=== PATIENT | female | born 1965 | race Caucasian/White ===

== ENCOUNTER → 2016-10-15 | Outpatient (CLI) | payer OTHER ==
[~2016-10-15] MED LIST: /AUGM875TA OR; /WARF25TA PO; /WARF5TA OR; ACET65TA PO; AMOX500C PO; ASPI81TA83 PO; BUPR10TASR PO; CELE10TA OR; CELE20TA PO; CLAR10CA3 PO; CYMB1CAP4 PO; DOXE150C7 PO; DULO30CA PO; ESTRTAB6 PO; FERR325T3 PO; GABA-279 PO; GABA-283 PO; GABA300C3 PO; HYDR50TA8; LEXA1TAB PO; LUNE1TAB9 PO; LUNE2TAB OR; MORP-38 PO; MORPHINE SULFATE IR PO; MS C30TA PO; MULT1TAB10 PO; NORCO PO; OMEP10CASR PO; PERC7.5T8 PO; PRED5TA PO; PRIL20CA PO; PRIL40CA OR; REQU2TAB3 PO; ROPI1TAB PO; TOPA50TA7 PO; TRAM50TA2 PO; TRAZ100T; TRAZ100T4 PO; TRAZ50TA; VICO5TAB OR; WARF5VL PO; XANA1TAB2 OR; XANA1TAB2 PO; XARE10TA PO; ZOLO100T OR; ZOLO50TA; [UNRECOGNIZED DRUG - OTHER] PO; naproxen
--- NOTE | 2016-10-29 01:46 | ECWPNPC ---
PATIENT NAME: PRINCE DUFFY : 1965 GENDER: FEMALE VISIT DATE: 10/15/2016 DISCHARGE DATE: 10/15/16 1540 VISIT LOCKED DATE TIME: PHYSICIAN: HOMERO ELIZONDO RESOURCE: HOMERO ELIZONDO REASON FOR APPOINTMENT 1. ARTHRITIS HISTORY OF PRESENT ILLNESS HISTORY OF PRESENT ILLNESS: HERE FOR F/U AND MEDICINE MANAGEMENT FOR CHRONIC GENERALIZED JOINT PAIN W HX OF LUPUS.CURRENTLY NOT TAKING TRAMADOL DUE TO INSURANCE WONT COVER.DISCUSSED MEDICATION OPTIONS.CHIEF AREA OF PAIN IS RIGHT THUMB AND SHOULDER.WE INCREASED CYMBALTA A FEW MOS AGO AND PATIENT DOESNT REALLY KNOW IF ITS MAKING PAIN ANY BETTER.RATING PAIN VAS 9/10.STARTED ON MS CONTIN 30MG BID AT LAST VISIT THAT PATIENT FEELS IS NOT HELPFUL.WAS TAKEN OFF TRAMADOL DUE TO POTENTIAL INTERACTIONS WITH ANTIDEPRESSANTS.HAS BEEN HAVING INCREASED ANXIETY AND INABILITY TO SLEEP. PAIN THE PATIENT DESCRIBES THE PAIN... THE PATIENT DESCRIBES THE PAIN... THE PATIENT DESCRIBES THE PAIN... FALL RISK SCREENING: SCREENING :NO FALLS IN THE PAST YEAR CURRENT MEDICATIONS TAKING XANAX 0.5 MG TABLET 1 TABLET ORALLY THREE TIMES A DAY TAKING WELLBUTRIN 150 MG TABLET 1 TABLET ORALLY DAILY TAKING PRILOSEC 40 MG CAPSULE DELAYED RELEASE 1 CAPSULE ORALLY BID TAKING FOLIC ACID 1 MG TABLET 1 TABLET ORALLY ONCE A DAY TAKING REQUIP 2 MG TABLET 1 TABLET 1 TO 3 HOURS BEFORE BEDTIME ORALLY ONCE A DAY TAKING NAPROXEN 500 MG TABLET 1 TABLET NEEDED ORALLY EVERY 12 HRS PRN TAKING ZYRTEC ALLERGY 10 MG TABLET 1 TABLET ORALLY ONCE A DAY TAKING PLAQUENIL 200 MG TABLET 1 TABLET WITH FOOD OR MILK ORALLY TWICE A DAY TAKING TRAMADOL HCL 50 MG TABLET 1 TABLET NEEDED ORALLY EVERY 6 HRS PRN MDD4 TAKING MS CONTIN 30 MG TABLET EXTENDED RELEASE 1 TABLET ORALLY EVERY 12 HRS MDD2 TAKING CYMBALTA 60 MG CAPSULE DELAYED RELEASE PARTICLES 1 CAPSULE ORALLY TWICE A DAY TAKING COLACE 100 MG CAPSULE 1 CAPSULE NEEDED ORALLY BID NOT-TAKING PREDNISONE 1 TAB ORAL 5MG X 5 DAYS NOT-TAKING BUTRANS 10 MCG/HR PATCH WEEKLY 1 PATCH TO SKIN TRANSDERMAL 1 PATCH Q 7 DAYS =MDD NOT-TAKING BUTRANS 5 MCG/HR PATCH WEEKLY 1 PATCH TO SKIN TRANSDERMAL 1 PATCH Z5M=TJF MEDICATION LIST REVIEWED AND RECONCILED WITH THE PATIENT PAST MEDICAL HISTORY SYSTEMIC LUPUS ERYTHEMATOSUS WITH ARTHRITIS CHRONIC HEPATITIS C PE ANXIETY SOCIAL HISTORY GENERAL: TOBACCO USE ARE YOU A:NONSMOKER LEARNING BARRIERS / SPECIAL NEEDS ORIENTED TO PLAN OF CARE: PATIENT, PAIN MANAGEMENT PATIENT, ORIENTED TO PLAN OF CARE: PATIENT, PAIN MANAGEMENT PATIENT. NEW PATIENT PAIN DIARY TODAY'S VISITNOTES FROM 0-10, WHAT LEVEL IS YOUR PAIN TODAY?0 PAIN CLINIC PFS, CLERGY, PUBLIC HEALTH REFERRALS PFS REFERRAL NEEDED?NO CLERGY REFERRAL NEEDED?NO PUBLIC HEALTH REFERRAL NEEDED?NO WAS THE PROVIDER NOTIFIED OF ANY PERTINENT INFO?NO PFS REFERRAL NEEDED?NO CLERGY REFERRAL NEEDED?NO PUBLIC HEALTH REFERRAL NEEDED?NO WAS THE PROVIDER NOTIFIED OF ANY PERTINENT INFO?NO REVIEW OF SYSTEMS CONSTITUTIONAL: ANY CHANGE IN YOUR MEDICAL CONDITION? NO . CHILLS NO . FEVER NO . INFECTION: DO YOU HAVE NEW INFECTIONS? NO . DO YOU HAVE HISTORY OF MRSA? NO . MUSCULOSKELETAL: ANY NEW PATTERNS OF PAIN OR NUMBNESS? NO . GASTROENTEROLOGY: ANY NEW CHANGE IN BOWEL CONTROL? NO . GENITOURINARY: ANY NEW CHANGE IN BLADDER CONTROL? NO . IS THERE A CHANCE YOU COULD BE ? NO . HEMATOLOGY/LYMPH: DO YOU TAKE ANY BLOOD THINNERS? (FOR EXAMPLE- COUMADIN, PLAVIX, AGGRENOX, PLATEL, PRADAXA, OR XARELTO) NO . WHEN WAS YOUR LAST DOSE? DATE: TIME: . NEUROLOGY: HAVE YOU FALLEN IN THE PAST 6 MONTHS? NO . ANY NEW EXTREMITY NUMBNESS OR WEAKNESS? NO . CARDIOLOGY: DO YOU HAVE A PACEMAKER OR DEFIBRILLATOR? NO . RESPIRATORY: HAVE YOU BEEN SICK IN THE PAST WEEK? NO . FEVER NO . FLU LIKE SYMPTOMS? NO . COUGH NO . INTEGUMENTARY: DO YOU HAVE ANY RASHES OR OPEN SORES? NO . ALLERGIC/IMMUNO: ARE YOU ALLERGIC TO SHELLFISH OR IV DYE? NO . ANY NEW ALLERGIES? NO . PSYCHIATRIC: DO YOU HAVE THOUGHTS OF HURTING YOURSELF OR SOMEONE ELSE? NO . ARE YOU ABUSED, NEGLECTED, OR IN AN UNSAFE ENVIRONMENT? NO . ENDOCRINOLOGY: ARE YOU DIABETIC? NO . OTHER: DO YOU NEED ANY PRESCRIPTIONS? NO . IF YES, PLEASE LIST: ____ . ANY NEW PROBLEMS WITH YOUR MEDICATIONS? NO . WHEN DID YOU LAST EAT? ____ . WHEN DID YOU LAST DRINK? ____ . WHAT DID YOU LAST DRINK? ____ . NAME OF PERSON DRIVING YOU HOME? ____ . DO YOU HAVE ANY OTHER QUESTIONS OR CONCERNS NO . REVIEWED BY: PROVIDER: HOMERO VICTOR . VITAL SIGNS WT 132 LBS, HT 62 IN, BMI 24.14 INDEX, BP 120/62 MM HG, HR 89 /MIN, RR 16 /MIN, TEMP 99.0 F, OXYGEN SAT % 98%, NA INITIALS SC 15:05. EXAMINATION GENERAL EXAMINATION: LUNGS:LUNG SOUNDS ARE CLEAR. HEART:HEART RATE REGULAR. MUSCULOSKELETAL:*, MUSCLE STRENGTH TESTING 5/5 BILATERAL, PALPATION: POSITIVE FOR PAIN OVER L/S SPINE. POSITIVE FOR PAIN OVER L/S PARSPINALS. MUSCULOSKELETAL:*. ASSESSMENTS SYSTEMIC LUPUS ERYTHEMATOSUS, UNSPECIFIED SLE TYPE, UNSPECIFIED ORGAN INVOLVEMENT STATUS - M32.9 (PRIMARY) CHRONIC PRESCRIPTION OPIATE USE - Z79.891 TREATMENT SYSTEMIC LUPUS ERYTHEMATOSUS, UNSPECIFIED SLE TYPE, UNSPECIFIED ORGAN INVOLVEMENT STATUS REFILL TRAMADOL HCL TABLET, 50 MG, 1 TABLET NEEDED, ORALLY, EVERY 6 HRS PRN MDD4, 30 DAY(S), 120, REFILLS 1 REFILL MS CONTIN TABLET EXTENDED RELEASE, 30 MG, 1 TABLET, ORALLY, EVERY 12 HRS MDD2, 30 DAY(S), 60, REFILLS 0 CONTINUE CYMBALTA CAPSULE DELAYED RELEASE PARTICLES, 60 MG, 1 CAPSULE, ORALLY, TWICE A DAY REFILL COLACE CAPSULE, 100 MG, 1 CAPSULE NEEDED, ORALLY, BID, 30 DAY(S), 60 CAPSULE, REFILLS 1 NOTES: ISTOP REGISTRY REVIEWED AND DEMNOSTRATES COMPLLIANCE. BRINGS IN MEDICATIONS WHICH IS APPROPRIATE FOR WHAT WAS DISPENSED. RECENT URINE TOXICOLOGY REVIEWED. NO UNAUTHORIZED MEDICATIONS. NO ILLICIT SUBSTANCES AND PRESCRIBED MEDICATIONS WERE PRESENT. , RISKS AND BENEFITS OF NARCOTIC/OPIOD MEDICATIONS WERE REVIEWED WITH PATIENT - THIS INCLUDES BUT IS NOT LIMITED TO RISK OF DEPENDANCE/DEVELOPMENT OF ADDICTION, MOOD DISTURBANCE AND DEPRESSION, OSTEOPOROSIS, HORMONAL AND LABIDAL CHANGES, RESPIRATORY DEPRESSION AND . PATIENT IS ADVISED NOT TO DRIVE WHILE ON THESE MEDICATIONS.URINE TOX TODAY. PROCEDURE CODES FA211 ESTABILISHED PATIENT [facility] CHARGE FOLLOW UP 2 MONTHS ELECTRONICALLY SIGNED BY VALENTE BLOCK ON 10/28/2016 AT 06:58 PM EST DISCLAIMER : THIS IS A VISIT SUMMARY EXTRACTED FROM THE [employer] CHART. IT IS NOT A COPY OF THE [employer] PROGRESS NOTE. TEO
== END ==
LOC: M PAIN 15:00
PROVIDERS: ATTEND Nurse Practitioner Family
DX: Z09 Encounter for follow-up examination after completed treatment for conditions other than malignant neoplasm (principal); G89.29 Other chronic pain; M32.9 Systemic lupus erythematosus, unspecified; M19.90 Unspecified osteoarthritis, unspecified site; F41.9 Anxiety disorder, unspecified; Z79.891 Long term (current) use of opiate analgesic; Z79.899 Other long term (current) drug therapy; Z86.19 Personal history of other infectious and parasitic diseases; Z86.711 Personal history of pulmonary embolism

== ENCOUNTER 2016-12-10 11:24 | Emergency (ER) | payer OTHER ==
[~2016-12-10] VITALS: Ht 157.5 cm; Wt 59.4 kg
[2016-12-10] MEDS ORDERED: FOLI5INJ2 SC (12:24)
[2016-12-10] MEDS ORDERED: ZYRT10CA PO (12:24)
[2016-12-10] MEDS ORDERED: HYDR200T3 PO (12:24)
[2016-12-10] MEDS ORDERED: FAMO40TA3 PO (12:24)
[2016-12-10] MEDS ORDERED: NS 500 ML IV ONE (13:00)
[2016-12-10 13:24] LABS: BASO % 0.5 % (0.0-1.0); EOS # 0.1 K/mm3 (0.0-0.50); EOS % 3.4 % (0.0-3.0); LARGE UNSTAINED CELL # 0.1 K/mm3 (0.0-0.4); LARGE UNSTAINED CELL % 2.5 % (0.0-4.0); LYMPH # 1.6 K/mm3 (1.5-4.5); LYMPH % 37.3 % (24.0-44.0); MEAN CORPUSCULAR HEMOGLOBIN 30.5 pg (27.0-33.0); MEAN CORPUSCULAR HGB CONC 32.5 g/dl (32.0-36.5); MEAN CORPUSCULAR VOLUME 93.7 fl (80.0-96.0); MONO # 0.2 K/mm3 (0.0-0.8); MONO % 5.7 % (0.0-5.0); NEUTROPHILS # 2.1 K/mm3 (1.8-7.7); NEUTROPHILS % 50.6 % (36.0-66.0); PLATELET COUNT, AUTOMATED 152 k/mm3 (150-450); RED CELL DISTRIBUTION WIDTH 12.7 % (11.5-14.5); WHITE BLOOD COUNT 4.2 K/mm3 (4.0-10.0)
[2016-12-10 13:30] LABS: ALBUMIN 3.2 GM/DL (3.2-5.2); ALBUMIN/GLOBULIN RATIO 1.03 (1.00-1.93); ALKALINE PHOSPHATASE 72 U/L (45-117); ALT/SGPT 36 U/L (12-78); ANION GAP 7 MEQ/L (8-16); AST/SGOT 40 U/L (15-37); BILIRUBIN,DIRECT < 0.1 MG/DL (0.0-0.2); BILIRUBIN,TOTAL 0.2 MG/DL (0.2-1.0); BLOOD UREA NITROGEN 10 MG/DL (7-18); CALCIUM LEVEL 8.9 MG/DL (8.5-10.1); CARBON DIOXIDE LEVEL 28 MEQ/L (21-32); CHLORIDE LEVEL 106 MEQ/L (98-107); CREATININE FOR GFR 0.76 MG/DL (0.55-1.02); GLOMERULAR FILTRATION RATE > 60.0 (>51); GLUCOSE, FASTING 82 MG/DL (70-105); POTASSIUM SERUM 4.2 MEQ/L (3.5-5.1); SODIUM LEVEL 141 MEQ/L (136-145); TOTAL PROTEIN 6.3 GM/DL (6.4-8.2)
[2016-12-10 13:48] LABS: METHADONE URINE NEGATIVE (NEGATIVE)
--- NOTE | 2016-12-10 13:59 | REP ---
AP PORTABLE CHEST: 12/10/2016. Comparison: 09/13/2015, 06/07/2014. Clinical history: Altered mental status. Lung sahni are well inflated. There is no pleural effusion, acute infiltrate, atelectasis or mass. No lateral pleural thickening. Old post-traumatic change in the right sixth lateral rib is stable. The heart, mediastinal and hilar contours are normal. Aorta and airway intact. Bony thorax unremarkable. A linear metal density overlies the left neck. Impression: 1. No acute cardiopulmonary change. Signed by Conner Morales MD 12/10/2016 05:08 P
[2016-12-10 14:02] LABS: ABG BASE EXCESS -0.7 (-2.0-2.0); ABG HCO3 25.3 MEQ/L (22.0-26.0); ABG PARTIAL PRESSURE CO2 47.1 mmHg (35.0-45.0); ABG STANDARD HCO3 23.9 MEQ/L (22.0-26.0); ABG TOTAL CO2 26.7 MEQ/L (22.0-29.0); ABG pH (ARTERIAL) 7.348 UNITS (7.350-7.450)
[2016-12-10 15:46] VITALS: BP 125/75
--- NOTE | 2016-12-10 18:12 | ECGEPIP ---
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
== END 2016-12-10 16:33 | disposition home or self-care (01) ==
LOC: M ED 14:11
DX: R53.83 Other fatigue (principal); F41.9 Anxiety disorder, unspecified; Z86.711 Personal history of pulmonary embolism; S22.31XS Fracture of one rib, right side, sequela; Z86.19 Personal history of other infectious and parasitic diseases; F17.200 Nicotine dependence, unspecified, uncomplicated; Z79.899 Other long term (current) drug therapy; J30.2 Other seasonal allergic rhinitis; X58.XXXS Exposure to other specified factors, sequela; Y92.9 Unspecified place or not applicable; Y93.9 Activity, unspecified; Y99.9 Unspecified external cause status
CPT/HCPCS: 36600; 71010; 80048; 80076; 80306; 81001; 82140; 82803; 84443; 85025; 87088; 87186; 93005; 93041; 99285; G0480

== ENCOUNTER → 2016-12-13 | Outpatient (CLI) | payer OTHER ==
[~2016-12-13] MED LIST changes: +FAMO40TA3 PO; +FOLI5INJ2 SC; +GABA-282 PO; -GABA300C3 PO; +HYDR200T3 PO; +ZYRT10CA PO
--- NOTE | 2016-12-21 01:33 | ECWPNPC ---
PATIENT NAME: PRINCE DUFFY : 1965 GENDER: FEMALE VISIT DATE: 12/13/2016 DISCHARGE DATE: 12/13/16 1512 VISIT LOCKED DATE TIME: PHYSICIAN: HOMERO ELIZONDO RESOURCE: HOMERO ELIZONDO REASON FOR APPOINTMENT 1. ARTHRITIS HISTORY OF PRESENT ILLNESS HISTORY OF PRESENT ILLNESS: HERE FOR F/U AND MANAGEMENT OF CHRONIC PAIN.SAW 2 DAYS AGO AND I REVIEWED HER NOTE.DR. DEE HAD QUESTIONED WHY SHE WAS ON HIGH DOSE OF MORPHINE DUE TO FACT THAT SHE HAS ELEVATED LIVER ENZYMES.PATIENT BEGAN TO CRY AND STATES SHE HAS BEEN UNDER TREMENDOUS AMOUNT OF STRESS AT HOME.STATES SHE CANT DO ANYTHING PRODUCTIVE WITHOUT PAIN CONTROL.SHE FINDS MS CONTIN 30MG BID SOMEWHAT HELPFUL ALTHOUGH DESPITE HIGH DOSES OF NARCOTIC SHE CONTINUES WITH COMPLAINTS OF SEVERE PAIN.RATING PAIN VAS 8/10.AGAIN DISCUSSED RISKS OF CHRONIC OPIOD THERAPY.SHE IS LIMITED TO CHOICES OF MEDICATION DUE TO INSURANCE CONSTRAINTS.WE HAVE TRIALED MULTIPLE DIFFERENT MEDICATIONS WITHOUT IMPROVEMENT IN PAIN OR WITH SIDE EFFECTS.PMH :SLE,HEP C,ANXIETY. PAIN THE PATIENT DESCRIBES THE PAIN... FALL RISK SCREENING: SCREENING :NO FALLS IN THE PAST YEAR CURRENT MEDICATIONS TAKING XANAX 0.5 MG TABLET 1 TABLET ORALLY THREE TIMES A DAY TAKING WELLBUTRIN 150 MG TABLET 1 TABLET ORALLY DAILY TAKING FOLIC ACID 1 MG TABLET 1 TABLET ORALLY ONCE A DAY TAKING REQUIP 2 MG TABLET 1 TABLET 1 TO 3 HOURS BEFORE BEDTIME ORALLY ONCE A DAY TAKING ZYRTEC ALLERGY 10 MG TABLET 1 TABLET ORALLY ONCE A DAY TAKING CYMBALTA 60 MG CAPSULE DELAYED RELEASE PARTICLES 1 CAPSULE ORALLY TWICE A DAY TAKING MS CONTIN 30 MG TABLET EXTENDED RELEASE 1 TABLET ORALLY EVERY 12 HRS MDD2 TAKING VITAMIN D (ERGOCALCIFEROL) 99154 UNIT CAPSULE 1 CAPSULE ORALLY WEEKLY TAKING GABAPENTIN 600 MG TABLET 1 TABLET ORALLY THREE TIMES A DAY TAKING FAMOTIDINE 40 MG TABLET 1 TABLET ORALLY ONCE A DAY NOT-TAKING PLAQUENIL 200 MG TABLET 1 TABLET WITH FOOD OR MILK ORALLY TWICE A DAY MEDICATION LIST REVIEWED AND RECONCILED WITH THE PATIENT PAST MEDICAL HISTORY SYSTEMIC LUPUS ERYTHEMATOSUS WITH ARTHRITIS CHRONIC HEPATITIS C PE ANXIETY HX DRUG ABUSE ALLERGIES N.K.D.A. SOCIAL HISTORY GENERAL: TOBACCO USE ARE YOU A:CURRENT SMOKER HOW MANY CIGARETTES A DAY DO YOU SMOKE?5 OR LESS HOW SOON AFTER YOU WAKE UP DO YOU SMOKE YOUR FIRST CIGARETTE?6-30 MIN HOW OFTEN DO YOU SMOKE CIGARETTES?SOME DAYS, BUT NOT EVERY DAY PATIENT COUNSELED ON THE DANGERS OF TOBACCO USE AND URGED TO QUIT:12/13/2016 ARE YOU INTERESTED IN QUITTING?THINKING ABOUT QUITTING PREVIOUS QUIT ATTEMPTS?YES, MORE THAN 6 MONTHS AGO. COUNSELED THE PATIENT ON SMOKING CESSATION, EDUCATION [id number]/31/2017 PAIN CLINIC PFS, CLERGY, PUBLIC HEALTH REFERRALS CLERGY REFERRAL NEEDED?NO WAS THE PROVIDER NOTIFIED OF ANY PERTINENT INFO?NO PFS REFERRAL NEEDED?NO PUBLIC HEALTH REFERRAL NEEDED?NO PATIENT: ____. REVIEW OF SYSTEMS CONSTITUTIONAL: ANY CHANGE IN YOUR MEDICAL CONDITION? YES, HAVING PROBLEMS WITH HER EYES(3 "SPOTS" OS AND HAVING TROUBLE SEEING OUT OF OD . SHE HAS BEEN SEEING AN EYE DOC. Q 2 WEEKS SINCE OCT. ALSO HAVING TROUBLE WITH LEFT SHOULDER, RIGHT KNEE, BILATERAL ELBOWS AND RIGHT THUMBLIVER ENZYMES ARE ELEVATED . CHILLS NO . FEVER NO . INFECTION: DO YOU HAVE NEW INFECTIONS? NO . DO YOU HAVE HISTORY OF MRSA? NO . MUSCULOSKELETAL: ANY NEW PATTERNS OF PAIN OR NUMBNESS? YES,SHARP PAIN AND ACHING HIPS, LEFT KNEE AND ELBOWS, BOTH SHOULDERS . GASTROENTEROLOGY: ANY NEW CHANGE IN BOWEL CONTROL? NO . GENITOURINARY: ANY NEW CHANGE IN BLADDER CONTROL? NO . IS THERE A CHANCE YOU COULD BE ? NO . HEMATOLOGY/LYMPH: DO YOU TAKE ANY BLOOD THINNERS? (FOR EXAMPLE- COUMADIN, PLAVIX, AGGRENOX, PLATEL, PRADAXA, OR XARELTO) NO . WHEN WAS YOUR LAST DOSE? DATE: TIME: . NEUROLOGY: HAVE YOU FALLEN IN THE PAST 6 MONTHS? YES, 2 TIMES, NO INJURIES SHE GETS DIZZY WHEN SHE GETS UP QUICKLY FROM LYING DOWN . ANY NEW EXTREMITY NUMBNESS OR WEAKNESS? YES, BILAT SHOULDERS AND LEFT THUMB WEAKNESS . CARDIOLOGY: DO YOU HAVE A PACEMAKER OR DEFIBRILLATOR? NO . RESPIRATORY: HAVE YOU BEEN SICK IN THE PAST WEEK? NO . FEVER NO . FLU LIKE SYMPTOMS? NO . COUGH NO . INTEGUMENTARY: DO YOU HAVE ANY RASHES OR OPEN SORES? NO . ALLERGIC/IMMUNO: ARE YOU ALLERGIC TO SHELLFISH OR IV DYE? NO . ANY NEW ALLERGIES? NO . PSYCHIATRIC: DO YOU HAVE THOUGHTS OF HURTING YOURSELF OR SOMEONE ELSE? NO . ARE YOU ABUSED, NEGLECTED, OR IN AN UNSAFE ENVIRONMENT? NO . ENDOCRINOLOGY: ARE YOU DIABETIC? NO . OTHER: DO YOU NEED ANY PRESCRIPTIONS? YES . IF YES, PLEASE LIST: ____MS CONTIN ____ . ANY NEW PROBLEMS WITH YOUR MEDICATIONS? NO . WHEN DID YOU LAST EAT? ____ . WHEN DID YOU LAST DRINK? ____ . WHAT DID YOU LAST DRINK? ____ . NAME OF PERSON DRIVING YOU HOME? ____ . DO YOU HAVE ANY OTHER QUESTIONS OR CONCERNS YES, MEMORY LOSS, CHANGE IN VISION AND ELEVATED LIVER ENZYMES . REVIEWED BY: PROVIDER: HOMERO VICTOR . VITAL SIGNS WT 126.2 LBS, HT 62 IN, BMI 23.08 INDEX, BP 90/60 MM HG, REPEAT BP 140/70 AD, HR 78 /MIN, RR 16 /MIN, TEMP 98.2 F, OXYGEN SAT % 98, NA INITIALS AW 214, REVIEWED BY: ELKIN. EXAMINATION GENERAL EXAMINATION: LUNGS:LUNG SOUNDS ARE CLEAR. HEART:HEART RATE REGULAR. MUSCULOSKELETAL:*, MUSCLE STRENGTH TESTING 5/5 BLE. PALPATION: POSITIVE FOR PAIN OVER L/S SPINE. POSITIVE FOR PAIN OVER L/S PARASPINALS.. ASSESSMENTS SYSTEMIC LUPUS ERYTHEMATOSUS, UNSPECIFIED SLE TYPE, UNSPECIFIED ORGAN INVOLVEMENT STATUS - M32.9 (PRIMARY) CHRONIC PRESCRIPTION OPIATE USE - Z79.891 TREATMENT SYSTEMIC LUPUS ERYTHEMATOSUS, UNSPECIFIED SLE TYPE, UNSPECIFIED ORGAN INVOLVEMENT STATUS REFILL MS CONTIN TABLET EXTENDED RELEASE, 30 MG, 1 TABLET, ORALLY, EVERY 12 HRS MDD2, 30 DAY(S), 60, REFILLS 0 CONTINUE REQUIP TABLET, 2 MG, 1 TABLET 1 TO 3 HOURS BEFORE BEDTIME, ORALLY, ONCE A DAY CONTINUE CYMBALTA CAPSULE DELAYED RELEASE PARTICLES, 60 MG, 1 CAPSULE, ORALLY, TWICE A DAY NOTES: ISTOP REGISTRY REVIEWED AND DEMNOSTRATES COMPLLIANCE. BRINGS IN MEDICATIONS WHICH IS APPROPRIATE FOR WHAT WAS DISPENSED. RECENT URINE TOXICOLOGY REVIEWED. NO UNAUTHORIZED MEDICATIONS. NO ILLICIT SUBSTANCES AND PRESCRIBED MEDICATIONS WERE PRESENT. , RISKS AND BENEFITS OF NARCOTIC/OPIOD MEDICATIONS WERE REVIEWED WITH PATIENT - THIS INCLUDES BUT IS NOT LIMITED TO RISK OF DEPENDANCE/DEVELOPMENT OF ADDICTION, MOOD DISTURBANCE AND DEPRESSION, OSTEOPOROSIS, HORMONAL AND LABIDAL CHANGES, RESPIRATORY DEPRESSION AND . PATIENT IS ADVISED NOT TO DRIVE WHILE ON THESE MEDICATIONS, REVIEWED WITH PATIENT THE POTENTIAL RISK OF INCREASED SEDATION, RESPIRATORY SUPPRESSION AND WITH THE COMBINATION OF BENZODIAZAPINE AND OPIOD MEDICATIONS. PATIENT STATES HE UNDERSTANDS THIS RISK AND WISHES TO CONTINUE WITH THERAPY. PROCEDURE CODES FA211 ESTABILISHED PATIENT [facility] CHARGE DISPOSITION & COMMUNICATION FOLLOW UP 6 WEEKS ELECTRONICALLY SIGNED BY VALENTE BLOCK ON 12/20/2016 AT 08:53 AM EDT DISCLAIMER : THIS IS A VISIT SUMMARY EXTRACTED FROM THE [employer] CHART. IT IS NOT A COPY OF THE [employer] PROGRESS NOTE. TEO
== END ==
LOC: M PAIN 14:00
PROVIDERS: ATTEND Nurse Practitioner Family
DX: Z09 Encounter for follow-up examination after completed treatment for conditions other than malignant neoplasm (principal); G89.29 Other chronic pain; L93.0 Discoid lupus erythematosus; B18.2 Chronic viral hepatitis C; F41.9 Anxiety disorder, unspecified; F17.200 Nicotine dependence, unspecified, uncomplicated; Z79.891 Long term (current) use of opiate analgesic; Z79.899 Other long term (current) drug therapy; Z86.59 Personal history of other mental and behavioral disorders

== ENCOUNTER → 2017-01-01 | Outpatient (CLI) | payer OTHER ==
--- NOTE | 2017-01-10 23:35 | ECWPNPC ---
PATIENT NAME: PRINCE DUFFY : 1965 GENDER: FEMALE VISIT DATE: 01/01/2017 DISCHARGE DATE: 01/01/17 1125 VISIT LOCKED DATE TIME: PHYSICIAN: HOMERO ELIZONDO RESOURCE: HOMERO ELIZONDO REASON FOR APPOINTMENT 1. CHRONIC PAIN HISTORY OF PRESENT ILLNESS HISTORY OF PRESENT ILLNESS: HERE FOR URGENT F/U.HAD TO STOP PLAQUENIL 30 DAYS AGO DUE TO SIDE EFFECT OF VISUAL DISTURBANCE.CURRENTLY TAKING MS C0NTIN 30MG BID,GABAPENTIN 600MG TID AND CYMBALTA 60MG DAILY.FINDS CURRENT PAIN MEDICATION INEFFECTIVE LATELY.RATING PAIN VAS 20/10.COMPLAINING OF GENERALIZED JOINT PAIN ECSPECIALLY IN HIPS.WE HAVE HAD ISSUES WITH HER INSURANCE NOT COVERING MEDICATIONS FOR CHRONIC PAIN.PATIENT HAS CALLED HER INSURANCE COMPANY AND SAYS SHE SPOKE DIRECTLY WITH PHARMACIST.HE HAS GIVEN HER TWO MEDICATIONS THAT ARE NOT REQUIRING PRIOR AUTHORIZATION THAT WE COULD POSSIBLY TRY. PAIN THE PATIENT DESCRIBES THE PAIN... FALL RISK SCREENING: SCREENING :NO FALLS IN THE PAST YEAR CURRENT MEDICATIONS TAKING REQUIP 2 MG TABLET 2 TABLET 1 TO 3 HOURS BEFORE BEDTIME ORALLY ONCE A DAY TAKING CYMBALTA 60 MG CAPSULE DELAYED RELEASE PARTICLES 1 CAPSULE ORALLY DAILY TAKING XANAX 1 MG TABLET 1 TABLET ORALLY TWICE A DAY NEEDED TAKING WELLBUTRIN 150 MG TABLET 1 TABLET ORALLY DAILY TAKING FOLIC ACID 1 MG TABLET 1 TABLET ORALLY ONCE A DAY TAKING ZYRTEC ALLERGY 10 MG TABLET 1 TABLET ORALLY ONCE A DAY TAKING VITAMIN D (ERGOCALCIFEROL) 34759 UNIT CAPSULE 1 CAPSULE ORALLY WEEKLY TAKING GABAPENTIN 600 MG TABLET 1 TABLET ORALLY THREE TIMES A DAY TAKING FAMOTIDINE 40 MG TABLET 1 TABLET ORALLY ONCE A DAY TAKING MS CONTIN 30 MG TABLET EXTENDED RELEASE 1 TABLET ORALLY EVERY 12 HRS MDD2 NOT-TAKING PLAQUENIL 200 MG TABLET 1 TABLET WITH FOOD OR MILK ORALLY TWICE A DAY MEDICATION LIST REVIEWED AND RECONCILED WITH THE PATIENT PAST MEDICAL HISTORY SYSTEMIC LUPUS ERYTHEMATOSUS WITH ARTHRITIS CHRONIC HEPATITIS C PE ANXIETY HX DRUG ABUSE ALLERGIES N.K.D.A. SOCIAL HISTORY GENERAL: PAIN CLINIC PFS, CLERGY, PUBLIC HEALTH REFERRALS CLERGY REFERRAL NEEDED?NO WAS THE PROVIDER NOTIFIED OF ANY PERTINENT INFO?NO PFS REFERRAL NEEDED?NO PUBLIC HEALTH REFERRAL NEEDED?NO PATIENT: ____. REVIEW OF SYSTEMS CONSTITUTIONAL: ANY CHANGE IN YOUR MEDICAL CONDITION? NO . CHILLS NO . FEVER NO . INFECTION: DO YOU HAVE NEW INFECTIONS? NO . DO YOU HAVE HISTORY OF MRSA? NO . MUSCULOSKELETAL: ANY NEW PATTERNS OF PAIN OR NUMBNESS? NO . GASTROENTEROLOGY: ANY NEW CHANGE IN BOWEL CONTROL? NO . GENITOURINARY: ANY NEW CHANGE IN BLADDER CONTROL? NO . IS THERE A CHANCE YOU COULD BE ? NO . HEMATOLOGY/LYMPH: DO YOU TAKE ANY BLOOD THINNERS? (FOR EXAMPLE- COUMADIN, PLAVIX, AGGRENOX, PLATEL, PRADAXA, OR XARELTO) NO . WHEN WAS YOUR LAST DOSE? DATE: TIME: . NEUROLOGY: HAVE YOU FALLEN IN THE PAST 6 MONTHS? NO . ANY NEW EXTREMITY NUMBNESS OR WEAKNESS? NO . CARDIOLOGY: DO YOU HAVE A PACEMAKER OR DEFIBRILLATOR? NO . RESPIRATORY: HAVE YOU BEEN SICK IN THE PAST WEEK? NO . FEVER NO . FLU LIKE SYMPTOMS? NO . COUGH NO . INTEGUMENTARY: DO YOU HAVE ANY RASHES OR OPEN SORES? NO . ALLERGIC/IMMUNO: ARE YOU ALLERGIC TO SHELLFISH OR IV DYE? NO . ANY NEW ALLERGIES? NO . PSYCHIATRIC: DO YOU HAVE THOUGHTS OF HURTING YOURSELF OR SOMEONE ELSE? NO . ARE YOU ABUSED, NEGLECTED, OR IN AN UNSAFE ENVIRONMENT? NO . ENDOCRINOLOGY: ARE YOU DIABETIC? NO . OTHER: DO YOU NEED ANY PRESCRIPTIONS? NO . IF YES, PLEASE LIST: ____ . ANY NEW PROBLEMS WITH YOUR MEDICATIONS? NO . WHEN DID YOU LAST EAT? ____ . WHEN DID YOU LAST DRINK? ____ . WHAT DID YOU LAST DRINK? ____ . NAME OF PERSON DRIVING YOU HOME? ____ . DO YOU HAVE ANY OTHER QUESTIONS OR CONCERNS YES, I HAVE BEEN IN BED FOR 3 DAYS WITH PAIN AND INFLAMMATION . REVIEWED BY: PROVIDER: HOMERO VICTOR . VITAL SIGNS WT 123.6 LBS, HT 62 IN, BMI 22.60 INDEX, BP 151/71 MM HG, HR 78 /MIN, RR 16 /MIN, TEMP 98.2 F, OXYGEN SAT % 98%, NA INITIALS SC 10:48, REVIEWED BY: CS. EXAMINATION GENERAL EXAMINATION: LUNGS:LUNG SOUNDS ARE CLEAR. HEART:HEART RATE REGULAR. MUSCULOSKELETAL:*, MUSCLE STRENGTH TESTING 5/5 BLE. PALPATION: POSITIVE FOR PAIN OVER L/S SPINE. POSITIVE FOR PAIN OVER L/S PARASPINALS.. ASSESSMENTS SYSTEMIC LUPUS ERYTHEMATOSUS, UNSPECIFIED SLE TYPE, UNSPECIFIED ORGAN INVOLVEMENT STATUS - M32.9 (PRIMARY) CHRONIC PRESCRIPTION OPIATE USE - Z79.891 TREATMENT SYSTEMIC LUPUS ERYTHEMATOSUS, UNSPECIFIED SLE TYPE, UNSPECIFIED ORGAN INVOLVEMENT STATUS START MORPHINE SULFATE ER TABLET EXTENDED RELEASE, 15 MG, 1 TABLET, ORALLY, EVERY 12 HRS MDD2, 30 DAY(S), 60, REFILLS 0 START IBUPROFEN TABLET, 600 MG, 1 TAB, ORALLY, Q6H PRN MDD4, 30 DAY(S), 120, REFILLS 5 NOTES: SLOWLY DECREASE AND DISCONTINUE MORPHINE 30MG AM/PM-TAKE MORPHINE 30MG AM AND 15MG PM X 17 DAYS THEN 15MG AM AND PM X5 DAYS THEN 15MG DAILY X5 DAYS THEN STOP.BUY ASPER CREAM W LIDOCAINE AND USE ON SORE JOINTS 3X DAYUSE IBUPROFEN 600MG EVERY 6H 4X DAY. DISPOSITION & COMMUNICATION FOLLOW UP 2 WEEKS -NOT SOONER ELECTRONICALLY SIGNED BY VALENTE BLOCK ON 01/10/2017 AT 05:05 PM EDT DISCLAIMER : THIS IS A VISIT SUMMARY EXTRACTED FROM THE [employer] CHART. IT IS NOT A COPY OF THE [employer] PROGRESS NOTE. TEO
== END | disposition home or self-care (01) ==
LOC: M PAIN 10:40
PROVIDERS: ATTEND Nurse Practitioner Family
DX: G89.29 Other chronic pain (principal); M32.9 Systemic lupus erythematosus, unspecified; F41.9 Anxiety disorder, unspecified; B18.2 Chronic viral hepatitis C; Z86.711 Personal history of pulmonary embolism; F19.21 Other psychoactive substance dependence, in remission; Z79.899 Other long term (current) drug therapy

== ENCOUNTER → 2017-01-15 | Outpatient (CLI) | payer OTHER ==
--- NOTE | 2017-01-29 00:41 | ECWPNPC ---
PATIENT NAME: PRINCE DUFFY : 1965 GENDER: FEMALE VISIT DATE: 01/15/2017 DISCHARGE DATE: 01/15/17 1440 VISIT LOCKED DATE TIME: PHYSICIAN: HOMERO ELIZONDO RESOURCE: HOMERO ELIZONDO REASON FOR APPOINTMENT 1. CHRONIC PAIN HISTORY OF PRESENT ILLNESS HISTORY OF PRESENT ILLNESS: HERE FOR F/U AND MANAGEMENT OF CHRONIC GENRALIZED JOINT PAIN.HAS LUPUS AND IS FOLLOWING WITH RHEUMATOLOGY.WEANED OFF MS CONTIN 30MG BID PLANNED.SHE IS TELLING ME THAT [facility] IS COVERED BY HER INSURANCE WITHOUT PRIOR AUTHORIZATION.[facility] WILL BE TRIALED TODAY.PAIN IS LOCATED IN ALL OF HER JOINTS.RATING PAIN VAS 12/10 VAS.DESCRIBES PAIN CONSTANT,STABBING AND SHOOTING. PAIN THE PATIENT DESCRIBES THE PAIN... FALL RISK SCREENING: SCREENING :NO FALLS IN THE PAST YEAR CURRENT MEDICATIONS TAKING REQUIP 2 MG TABLET 2 TABLET 1 TO 3 HOURS BEFORE BEDTIME ORALLY ONCE A DAY TAKING CYMBALTA 60 MG CAPSULE DELAYED RELEASE PARTICLES 1 CAPSULE ORALLY DAILY TAKING XANAX 1 MG TABLET 1 TABLET ORALLY TWICE A DAY NEEDED TAKING WELLBUTRIN 150 MG TABLET 1 TABLET ORALLY DAILY TAKING FOLIC ACID 1 MG TABLET 1 TABLET ORALLY ONCE A DAY TAKING ZYRTEC ALLERGY 10 MG TABLET 1 TABLET ORALLY ONCE A DAY TAKING VITAMIN D (ERGOCALCIFEROL) 55427 UNIT CAPSULE 1 CAPSULE ORALLY WEEKLY TAKING GABAPENTIN 600 MG TABLET 1 TABLET ORALLY BID TAKING FAMOTIDINE 40 MG TABLET 1 TABLET ORALLY ONCE A DAY TAKING IBUPROFEN 600 MG TABLET 1 TAB ORALLY Q6H PRN MDD4 NOT-TAKING MS CONTIN 30 MG TABLET EXTENDED RELEASE 1 TABLET ORALLY EVERY 12 HRS MDD2, NOTES: FINISHED SATURDAY 01/13 NOT-TAKING MORPHINE SULFATE ER 15 MG TABLET EXTENDED RELEASE 1 TABLET ORALLY EVERY 12 HRS MDD2, NOTES: FINISHED SATURDAY 01/13 NOT-TAKING PLAQUENIL 200 MG TABLET 1 TABLET WITH FOOD OR MILK ORALLY TWICE A DAY MEDICATION LIST REVIEWED AND RECONCILED WITH THE PATIENT PAST MEDICAL HISTORY SYSTEMIC LUPUS ERYTHEMATOSUS WITH ARTHRITIS CHRONIC HEPATITIS C PE ANXIETY HX DRUG ABUSE ALLERGIES N.K.D.A. FAMILY HISTORY FATHER: 72 YRS, DIAGNOSED WITH HEART DISEASE MOTHER: ALIVE 1 BROTHER(S) , 1 SISTER(S) . 1 SON(S) , 2 DAUGHTER(S) - HEALTHY. SOCIAL HISTORY GENERAL: TOBACCO USE ARE YOU A:CURRENT SMOKER HOW MANY CIGARETTES A DAY DO YOU SMOKE?5 OR LESS HOW SOON AFTER YOU WAKE UP DO YOU SMOKE YOUR FIRST CIGARETTE?6-30 MIN HOW OFTEN DO YOU SMOKE CIGARETTES?SOME DAYS, BUT NOT EVERY DAY PATIENT COUNSELED ON THE DANGERS OF TOBACCO USE AND URGED TO QUIT:01/15/2017 ARE YOU INTERESTED IN QUITTING?THINKING ABOUT QUITTING PREVIOUS QUIT ATTEMPTS?YES, MORE THAN 6 MONTHS AGO. COUNSELED THE PATIENT ON SMOKING CESSATION, EDUCATION [id number]/03/2017 CAFFEINE CAFFEINE USE?YES HOW OFTEN AND HOW MUCH? 2 CUPS DAILY LEARNING BARRIERS / SPECIAL NEEDS CHANGE FROM LAST VISIT?NO BARRIERS TO LEARNING?NO HEARING IMPAIRED?NO VISION IMPAIRED?YES :CORRECTIVE LENSES COGNITIVELY IMPAIRED?NO READINESS TO LEARN?YES LEARNING PREFERENCES?NO LEARNING CAPABILITIES PRESENT?YES EMOTIONAL BARRIERS?NO SPECIAL DEVICES?NO NICK SETTER NEEDED?NO PAIN CLINIC PFS, CLERGY, PUBLIC HEALTH REFERRALS WAS THE PROVIDER NOTIFIED OF ANY PERTINENT INFO?YES REVIEWED BY: DS. PATIENT: ____. REVIEW OF SYSTEMS CONSTITUTIONAL: ANY CHANGE IN YOUR MEDICAL CONDITION? NO . CHILLS NO . FEVER NO . INFECTION: DO YOU HAVE NEW INFECTIONS? NO . DO YOU HAVE HISTORY OF MRSA? NO . MUSCULOSKELETAL: ANY NEW PATTERNS OF PAIN OR NUMBNESS? NO . GASTROENTEROLOGY: ANY NEW CHANGE IN BOWEL CONTROL? NO . GENITOURINARY: ANY NEW CHANGE IN BLADDER CONTROL? NO . IS THERE A CHANCE YOU COULD BE ? NO . HEMATOLOGY/LYMPH: DO YOU TAKE ANY BLOOD THINNERS? (FOR EXAMPLE- COUMADIN, PLAVIX, AGGRENOX, PLATEL, PRADAXA, OR XARELTO) NO . WHEN WAS YOUR LAST DOSE? DATE: TIME: . NEUROLOGY: HAVE YOU FALLEN IN THE PAST 6 MONTHS? NO . ANY NEW EXTREMITY NUMBNESS OR WEAKNESS? NO . CARDIOLOGY: DO YOU HAVE A PACEMAKER OR DEFIBRILLATOR? NO . RESPIRATORY: HAVE YOU BEEN SICK IN THE PAST WEEK? NO . FEVER NO . FLU LIKE SYMPTOMS? NO . COUGH NO . INTEGUMENTARY: DO YOU HAVE ANY RASHES OR OPEN SORES? NO . ALLERGIC/IMMUNO: ARE YOU ALLERGIC TO SHELLFISH OR IV DYE? NO . ANY NEW ALLERGIES? NO . PSYCHIATRIC: DO YOU HAVE THOUGHTS OF HURTING YOURSELF OR SOMEONE ELSE? NO . ARE YOU ABUSED, NEGLECTED, OR IN AN UNSAFE ENVIRONMENT? NO . ENDOCRINOLOGY: ARE YOU DIABETIC? NO . OTHER: DO YOU NEED ANY PRESCRIPTIONS? NO . IF YES, PLEASE LIST: ____ . ANY NEW PROBLEMS WITH YOUR MEDICATIONS? NO . WHEN DID YOU LAST EAT? ____ . WHEN DID YOU LAST DRINK? ____ . WHAT DID YOU LAST DRINK? ____ . NAME OF PERSON DRIVING YOU HOME? ____ . DO YOU HAVE ANY OTHER QUESTIONS OR CONCERNS PT STATES THAT SHE IS A CURRENT SMOKER, GIVEN SMOKING CESSATION COUNSELING GROUP SCHEDULE INFORMATION. PT ORIENTED TO PLAN OF CARE AT [facility] . REVIEWED BY: PROVIDER: HOMERO VICTOR . VITAL SIGNS WT 123.6 LBS, HT 62 IN, BMI 22.60 INDEX, BP 125/75 MM HG, HR 87 /MIN, RR 16 /MIN, TEMP 97.3 F, OXYGEN SAT % 100%, SAFE IN ENV? (Y/N) Y, NA INITIALS SC 14:05, REVIEWED BY: RIMMA. EXAMINATION GENERAL EXAMINATION: LUNGS:LUNG SOUNDS ARE CLEAR. HEART:HEART RATE REGULAR. MUSCULOSKELETAL:*, MUSCLE STRENGTH TESTING 5/5 BLE. PALPATION: POSITIVE FOR PAIN OVER L/S SPINE. POSITIVE FOR PAIN OVER L/S PARASPINALS.. ASSESSMENTS SYSTEMIC LUPUS ERYTHEMATOSUS, UNSPECIFIED SLE TYPE, UNSPECIFIED ORGAN INVOLVEMENT STATUS - M32.9 (PRIMARY) CHRONIC PRESCRIPTION OPIATE USE - Z79.891 TREATMENT OTHERS START [facility] TABLET ER 12 HOUR ABUSE-DETERRENT, 10 MG, 1 TABLET 1 HOUR BEFORE OR 2 HOURS AFTER EATING, ORALLY, EVERY 12 HRSMDD2, 30 DAY(S), 60, REFILLS 0 PROCEDURE CODES FA211 ESTABILISHED PATIENT [facility] CHARGE DISPOSITION & COMMUNICATION FOLLOW UP 4 WEEKS ELECTRONICALLY SIGNED BY VALENTE BLOCK ON 01/28/2017 AT 04:49 PM EDT DISCLAIMER : THIS IS A VISIT SUMMARY EXTRACTED FROM THE [employer] CHART. IT IS NOT A COPY OF THE [employer] PROGRESS NOTE. MTDD
== END ==
LOC: M PAIN 14:20
PROVIDERS: ATTEND Nurse Practitioner Family
DX: G89.29 Other chronic pain (principal); M32.9 Systemic lupus erythematosus, unspecified; M05.79 Rheumatoid arthritis with rheumatoid factor of multiple sites without organ or systems involvement; B18.2 Chronic viral hepatitis C; F41.9 Anxiety disorder, unspecified; F17.200 Nicotine dependence, unspecified, uncomplicated; Z79.891 Long term (current) use of opiate analgesic; Z79.899 Other long term (current) drug therapy

== ENCOUNTER → 2017-02-13 | Outpatient (CLI) | payer OTHER ==
--- NOTE | 2017-03-05 01:53 | ECWPNPC ---
PATIENT NAME: PRINCE DUFFY : 1965 GENDER: FEMALE VISIT DATE: 02/13/2017 DISCHARGE DATE: 02/13/17 1521 VISIT LOCKED DATE TIME: PHYSICIAN: HOMERO ELIZONDO RESOURCE: HOMERO ELIZONDO REASON FOR APPOINTMENT 1. CHRONIC PAIN HISTORY OF PRESENT ILLNESS HISTORY OF PRESENT ILLNESS: HERE FOR F/U AND MANAGEMENT OF CHRONIC GENRALIZED JOINT PAIN.HAS LUPUS AND IS FOLLOWING WITH RHEUMATOLOGY.WEANED OFF MS CONTIN 30MG BID PLANNED.TRIALED [facility] IT CAUSED NAUSEA AND IS NOT COVERED BY HER INSURANCE .PAIN IS LOCATED IN ALL OF HER JOINTS.RATING PAIN VAS 10/10 VAS.DESCRIBES PAIN CONSTANT,STABBING AND SHOOTING.TRIED TO PRESCRIBE MS CONTIN 15MG BID AT HER LAST W=VISIT ONE MONTH AGO AND HER INSURANCE WILL NOT COVER ANY LONG ACTING NARCOTIC PAIN MEDICATION. PAIN THE PATIENT DESCRIBES THE PAIN... THE PATIENT DESCRIBES THE PAIN... FALL RISK SCREENING: SCREENING :NO FALLS IN THE PAST YEAR CURRENT MEDICATIONS TAKING REQUIP 2 MG TABLET 1 TABLET ORALLY EVERY BEDTIME TAKING CYMBALTA 60 MG CAPSULE DELAYED RELEASE PARTICLES 1 CAPSULE ORALLY DAILY TAKING XANAX 1 MG TABLET 1 TABLET ORALLY TWICE A DAY NEEDED TAKING WELLBUTRIN 150 MG TABLET 1 TABLET ORALLY DAILY TAKING FOLIC ACID 1 MG TABLET 1 TABLET ORALLY ONCE A DAY TAKING ZYRTEC ALLERGY 10 MG TABLET 1 TABLET ORALLY ONCE A DAY TAKING VITAMIN D (ERGOCALCIFEROL) 94985 UNIT CAPSULE 1 CAPSULE ORALLY WEEKLY TAKING GABAPENTIN 600 MG TABLET 1 TABLET ORALLY THREE TIMES A DAY TAKING FAMOTIDINE 40 MG TABLET 1 TABLET ORALLY ONCE A DAY TAKING IBUPROFEN 600 MG TABLET 1 TAB ORALLY Q6H PRN MDD4 TAKING [facility] 10 MG TABLET ER 12 HOUR ABUSE-DETERRENT 1 TABLET 1 HOUR BEFORE OR 2 HOURS AFTER EATING ORALLY EVERY 12 HRSMDD2 TAKING ASPERCREME W/LIDOCAINE 4 % CREAM 1 APPLICATION TO AFFECTED AREA NEEDED EXTERNALLY THREE TIMES A DAY NOT-TAKING MS CONTIN 30 MG TABLET EXTENDED RELEASE 1 TABLET ORALLY EVERY 12 HRS MDD2, NOTES: FINISHED SATURDAY 01/13 NOT-TAKING MORPHINE SULFATE ER 15 MG TABLET EXTENDED RELEASE 1 TABLET ORALLY EVERY 12 HRS MDD2, NOTES: FINISHED SATURDAY 01/13 NOT-TAKING PLAQUENIL 200 MG TABLET 1 TABLET WITH FOOD OR MILK ORALLY TWICE A DAY MEDICATION LIST REVIEWED AND RECONCILED WITH THE PATIENT PAST MEDICAL HISTORY SYSTEMIC LUPUS ERYTHEMATOSUS WITH ARTHRITIS CHRONIC HEPATITIS C PE ANXIETY HX DRUG ABUSE RHEUMATOID ARTHRITIS ALLERGIES N.K.D.A. SURGICAL HISTORY CHOLECYSTECTOMY 1999 BILATERAL TUBAL LIGATION 12/1987 FAMILY HISTORY FATHER: 72 YRS, DIAGNOSED WITH HEART DISEASE MOTHER: ALIVE 1 BROTHER(S) , 1 SISTER(S) . 1 SON(S) , 2 DAUGHTER(S) - HEALTHY. SOCIAL HISTORY GENERAL: TOBACCO USE ARE YOU A:FORMER SMOKER HOW LONG HAS IT BEEN SINCE YOU LAST SMOKED?1-3 MONTHS CAFFEINE CAFFEINE USE?YES HOW OFTEN AND HOW MUCH? 2 CUPS DAILY ZOROASTRIANISM [id number] TAOISM LEARNING BARRIERS / SPECIAL NEEDS CHANGE FROM LAST VISIT?NO BARRIERS TO LEARNING?NO HEARING IMPAIRED?NO VISION IMPAIRED?YES :CORRECTIVE LENSES COGNITIVELY IMPAIRED?NO READINESS TO LEARN?YES LEARNING PREFERENCES?NO LEARNING CAPABILITIES PRESENT?YES EMOTIONAL BARRIERS?NO SPECIAL DEVICES?NO DATA ENTRY MACHINE OPERATOR NEEDED?NO PAIN CLINIC PFS, CLERGY, PUBLIC HEALTH REFERRALS WAS THE PROVIDER NOTIFIED OF ANY PERTINENT INFO?YES REVIEWED BY: RIMMA. PATIENT: ____. ADVANCE DIRECTIVES HEALTH CARE PROXY?NO WOULD YOU LIKE MORE INFORMATION?YES INFORMATION GIVEN. DO YOU HAVE A DNR?NO WOULD YOU LIKE MORE INFORMATION?NO LIVING WILL?NO WOULD YOU LIKE MORE INFORMATION?NO POWER OF PAPER PLATE MACHINE TENDER?NO WOULD YOU LIKE MORE INFORMATION?NO HOSPITALIZATION/MAJOR DIAGNOSTIC PROCEDURE DVT CHILDBIRTH IM REVIEW OF SYSTEMS CONSTITUTIONAL: ANY CHANGE IN YOUR MEDICAL CONDITION? NO . CHILLS NO . FEVER NO . INFECTION: DO YOU HAVE NEW INFECTIONS? NO . DO YOU HAVE HISTORY OF MRSA? NO . MUSCULOSKELETAL: ANY NEW PATTERNS OF PAIN OR NUMBNESS? NO . GASTROENTEROLOGY: ANY NEW CHANGE IN BOWEL CONTROL? NO . GENITOURINARY: ANY NEW CHANGE IN BLADDER CONTROL? NO . IS THERE A CHANCE YOU COULD BE ? NO . HEMATOLOGY/LYMPH: DO YOU TAKE ANY BLOOD THINNERS? (FOR EXAMPLE- COUMADIN, PLAVIX, AGGRENOX, PLATEL, PRADAXA, OR XARELTO) NO . WHEN WAS YOUR LAST DOSE? DATE: TIME: . NEUROLOGY: HAVE YOU FALLEN IN THE PAST 6 MONTHS? NO . ANY NEW EXTREMITY NUMBNESS OR WEAKNESS? NO . CARDIOLOGY: DO YOU HAVE A PACEMAKER OR DEFIBRILLATOR? NO . RESPIRATORY: HAVE YOU BEEN SICK IN THE PAST WEEK? NO . FEVER NO . FLU LIKE SYMPTOMS? NO . COUGH NO . INTEGUMENTARY: DO YOU HAVE ANY RASHES OR OPEN SORES? NO . ALLERGIC/IMMUNO: ARE YOU ALLERGIC TO SHELLFISH OR IV DYE? NO . ANY NEW ALLERGIES? NO . PSYCHIATRIC: DO YOU HAVE THOUGHTS OF HURTING YOURSELF OR SOMEONE ELSE? NO . ARE YOU ABUSED, NEGLECTED, OR IN AN UNSAFE ENVIRONMENT? NO . ENDOCRINOLOGY: ARE YOU DIABETIC? NO . OTHER: DO YOU NEED ANY PRESCRIPTIONS? YES . IF YES, PLEASE LIST: CYMBALTA, IBUPROFEN . ANY NEW PROBLEMS WITH YOUR MEDICATIONS? NO . WHEN DID YOU LAST EAT? ____ . WHEN DID YOU LAST DRINK? ____ . WHAT DID YOU LAST DRINK? ____ . NAME OF PERSON DRIVING YOU HOME? ____ . DO YOU HAVE ANY OTHER QUESTIONS OR CONCERNS NO . REVIEWED BY: PROVIDER: HOMERO VICTOR . VITAL SIGNS WT 125.8 LBS, HT 62 IN, BMI 23.01 INDEX, BP 119/56 MM HG, HR 80 /MIN, RR 16 /MIN, TEMP 98.1 F, OXYGEN SAT % 98%, NA INITIALS TL 1444, REVIEWED BY: LS. EXAMINATION GENERAL EXAMINATION: LUNGS:LUNG SOUNDS ARE CLEAR. HEART:HEART RATE REGULAR. MUSCULOSKELETAL:*, MUSCLE STRENGTH TESTING 5/5 BLE. PALPATION: POSITIVE FOR PAIN OVER L/S SPINE. POSITIVE FOR PAIN OVER L/S PARASPINALS.. ASSESSMENTS SYSTEMIC LUPUS ERYTHEMATOSUS, UNSPECIFIED SLE TYPE, UNSPECIFIED ORGAN INVOLVEMENT STATUS - M32.9 (PRIMARY) CHRONIC PRESCRIPTION OPIATE USE - Z79.891 TREATMENT SYSTEMIC LUPUS ERYTHEMATOSUS, UNSPECIFIED SLE TYPE, UNSPECIFIED ORGAN INVOLVEMENT STATUS START MS CONTIN TABLET EXTENDED RELEASE, 15 MG, 1 TABLET, ORALLY, EVERY 12 HRS MDD2, 30 DAY(S), 60, REFILLS 0 REFILL CYMBALTA CAPSULE DELAYED RELEASE PARTICLES, 60 MG, 1 CAPSULE, ORALLY, DAILY, 30 DAY(S), 30 CAPSULE, REFILLS 2 REFILL IBUPROFEN TABLET, 600 MG, 1 TAB, ORALLY, Q6H PRN MDD4, 30 DAY(S), 120, REFILLS 5 START MORPHINE SULFATE TABLET, 15 MG, 1, ORALLY, BID MDD2, 30 DAY(S), 60, REFILLS 0 PROCEDURE CODES FA211 ESTABILISHED PATIENT [facility] FACILITY CHARGE DISPOSITION & COMMUNICATION FOLLOW UP 4 WEEKS ELECTRONICALLY SIGNED BY VALENTE BLOCK ON 03/04/2017 AT 05:03 PM EDT DISCLAIMER : THIS IS A VISIT SUMMARY EXTRACTED FROM THE [employer] CHART. IT IS NOT A COPY OF THE [employer] PROGRESS NOTE. TEO
== END ==
LOC: M PAIN 14:20
PROVIDERS: ATTEND Nurse Practitioner Family
DX: G89.29 Other chronic pain (principal); M25.50 Pain in unspecified joint; M32.9 Systemic lupus erythematosus, unspecified; Z79.891 Long term (current) use of opiate analgesic; B18.2 Chronic viral hepatitis C; F41.9 Anxiety disorder, unspecified; R06.9 Unspecified abnormalities of breathing; Z79.1 Long term (current) use of non-steroidal anti-inflammatories (NSAID); Z79.899 Other long term (current) drug therapy; Z87.891 Personal history of nicotine dependence; Z86.59 Personal history of other mental and behavioral disorders

== ENCOUNTER 2017-03-01 19:26 | Emergency (ER) | payer MEDICAID, OTHER, SELFPAY ==
[~2017-03-01] VITALS: Ht 157.5 cm; Wt 59.1 kg
== END 2017-03-01 20:13 | disposition left against medical advice (07) ==
LOC: EDBD 19:26 → EDSEX 19:26 → M ED 20:07
DX: S09.93XA Unspecified injury of face, initial encounter (principal); Y04.8XXA Assault by other bodily force, initial encounter; Y92.410 Unspecified street and highway as the place of occurrence of the external cause; Y93.89 Activity, other specified; Y99.8 Other external cause status; F17.200 Nicotine dependence, unspecified, uncomplicated; J30.2 Other seasonal allergic rhinitis; Z79.899 Other long term (current) drug therapy

== ENCOUNTER → 2017-03-14 | Outpatient (CLI) | payer OTHER ==
[~2017-03-14] MED LIST changes: -LUNE1TAB9 PO; +LUNE2TAB23 PO; -MS C30TA PO; +MS C30TA6 PO; -TOPA50TA7 PO; +TOPA50TA8 PO; +TRAZ-136 PO; -TRAZ100T4 PO
--- NOTE | 2017-03-29 00:12 | ECWPNPC ---
PATIENT NAME: PRINCE DUFFY : 1965 GENDER: FEMALE VISIT DATE: 03/14/2017 DISCHARGE DATE: 03/14/17 1046 VISIT LOCKED DATE TIME: PHYSICIAN: HOMERO ELIZONDO RESOURCE: HOMERO ELIZONDO REASON FOR APPOINTMENT 1. MEDS HISTORY OF PRESENT ILLNESS HISTORY OF PRESENT ILLNESS: HERE FOR F/U AND MANAGEMENT OF CHRONIC GENERALIZED JOINT PAIN.HAS LUPUS AND IS FOLLOWING WITH RHEUMATOLOGY.WEANED OFF MS CONTIN 30MG BID PLANNED.TRIALED [facility] IT CAUSED NAUSEA AND IS NOT COVERED BY HER INSURANCE .PAIN IS LOCATED IN ALL OF HER JOINTS.RATING PAIN VAS 9/10 VAS.DESCRIBES PAIN CONSTANT,STABBING AND SHOOTING.TRIED TO PRESCRIBE MS CONTIN 15MG BID AT HER LAST VISIT ONE MONTH AGO AND HER INSURANCE WILL NOT COVER ANY LONG ACTING NARCOTIC PAIN MEDICATION.STARTED ON MSIR 15MG BID AT LAST VISIT AND THIS SEEMS TO BE HELPFUL.DENIES SIDE EFFECTS. PAIN THE PATIENT DESCRIBES THE PAIN... THE PATIENT DESCRIBES THE PAIN... THE PATIENT DESCRIBES THE PAIN... FALL RISK SCREENING: SCREENING :NO FALLS IN THE PAST YEAR CURRENT MEDICATIONS TAKING REQUIP 2 MG TABLET 1 TABLET ORALLY EVERY BEDTIME TAKING XANAX 1 MG TABLET 1 TABLET ORALLY TWICE A DAY NEEDED TAKING WELLBUTRIN 150 MG TABLET 1 TABLET ORALLY DAILY TAKING FOLIC ACID 1 MG TABLET 1 TABLET ORALLY ONCE A DAY TAKING ZYRTEC ALLERGY 10 MG TABLET 1 TABLET ORALLY ONCE A DAY TAKING VITAMIN D (ERGOCALCIFEROL) 36808 UNIT CAPSULE 1 CAPSULE ORALLY WEEKLY TAKING GABAPENTIN 600 MG TABLET 1 TABLET ORALLY THREE TIMES A DAY TAKING FAMOTIDINE 40 MG TABLET 1 TABLET ORALLY ONCE A DAY TAKING ASPERCREME W/LIDOCAINE 4 % CREAM 1 APPLICATION TO AFFECTED AREA NEEDED EXTERNALLY THREE TIMES A DAY TAKING CYMBALTA 60 MG CAPSULE DELAYED RELEASE PARTICLES 1 CAPSULE ORALLY DAILY TAKING IBUPROFEN 600 MG TABLET 1 TAB ORALLY Q6H PRN MDD4 TAKING MORPHINE SULFATE 15 MG TABLET 1 ORALLY BID MDD2 NOT-TAKING [facility] 10 MG TABLET ER 12 HOUR ABUSE-DETERRENT 1 TABLET 1 HOUR BEFORE OR 2 HOURS AFTER EATING ORALLY EVERY 12 HRSMDD2 NOT-TAKING MS CONTIN 15 MG TABLET EXTENDED RELEASE 1 TABLET ORALLY EVERY 12 HRS MDD2 NOT-TAKING MS CONTIN 30 MG TABLET EXTENDED RELEASE 1 TABLET ORALLY EVERY 12 HRS MDD2, NOTES: FINISHED SATURDAY 01/13 NOT-TAKING MORPHINE SULFATE ER 15 MG TABLET EXTENDED RELEASE 1 TABLET ORALLY EVERY 12 HRS MDD2, NOTES: FINISHED SATURDAY 01/13 NOT-TAKING PLAQUENIL 200 MG TABLET 1 TABLET WITH FOOD OR MILK ORALLY TWICE A DAY MEDICATION LIST REVIEWED AND RECONCILED WITH THE PATIENT PAST MEDICAL HISTORY SYSTEMIC LUPUS ERYTHEMATOSUS WITH ARTHRITIS CHRONIC HEPATITIS C PE ANXIETY HX DRUG ABUSE RHEUMATOID ARTHRITIS ALLERGIES N.K.D.A. SURGICAL HISTORY CHOLECYSTECTOMY 1999 BILATERAL TUBAL LIGATION 12/1987 HOSPITALIZATION/MAJOR DIAGNOSTIC PROCEDURE DVT CHILDBIRTH [facility] REVIEW OF SYSTEMS REVIEWED BY: PROVIDER: HOMERO VICTOR . CONSTITUTIONAL: ANY CHANGE IN YOUR MEDICAL CONDITION? NO . CHILLS NO . FEVER NO . INFECTION: DO YOU HAVE NEW INFECTIONS? NO . DO YOU HAVE HISTORY OF MRSA? NO . MUSCULOSKELETAL: ANY NEW PATTERNS OF PAIN OR NUMBNESS? NO . GASTROENTEROLOGY: ANY NEW CHANGE IN BOWEL CONTROL? NO . GENITOURINARY: ANY NEW CHANGE IN BLADDER CONTROL? NO . IS THERE A CHANCE YOU COULD BE ? NO . HEMATOLOGY/LYMPH: DO YOU TAKE ANY BLOOD THINNERS? (FOR EXAMPLE- COUMADIN, PLAVIX, AGGRENOX, PLATEL, PRADAXA, OR XARELTO) NO . WHEN WAS YOUR LAST DOSE? DATE: TIME: . NEUROLOGY: HAVE YOU FALLEN IN THE PAST 6 MONTHS? NO . ANY NEW EXTREMITY NUMBNESS OR WEAKNESS? NO . CARDIOLOGY: DO YOU HAVE A PACEMAKER OR DEFIBRILLATOR? NO . RESPIRATORY: HAVE YOU BEEN SICK IN THE PAST WEEK? NO . FEVER NO . FLU LIKE SYMPTOMS? NO . COUGH NO . INTEGUMENTARY: DO YOU HAVE ANY RASHES OR OPEN SORES? NO . ALLERGIC/IMMUNO: ARE YOU ALLERGIC TO SHELLFISH OR IV DYE? NO . ANY NEW ALLERGIES? NO . PSYCHIATRIC: DO YOU HAVE THOUGHTS OF HURTING YOURSELF OR SOMEONE ELSE? NO . ARE YOU ABUSED, NEGLECTED, OR IN AN UNSAFE ENVIRONMENT? NO . ENDOCRINOLOGY: ARE YOU DIABETIC? NO . OTHER: DO YOU NEED ANY PRESCRIPTIONS? YES, MORPHINE IR 15 . IF YES, PLEASE LIST: ____ . ANY NEW PROBLEMS WITH YOUR MEDICATIONS? NO . WHEN DID YOU LAST EAT? ____ . WHEN DID YOU LAST DRINK? ____ . WHAT DID YOU LAST DRINK? ____ . NAME OF PERSON DRIVING YOU HOME? ____ . DO YOU HAVE ANY OTHER QUESTIONS OR CONCERNS NO . VITAL SIGNS WT 127.6 LBS, HT 62 IN, BMI 23.34 INDEX, BP 124/69 MM HG, HR 77 /MIN, RR 16 /MIN, TEMP 97.8 F, OXYGEN SAT % 96%, SAFE IN ENV? (Y/N) Y, NA INITIALS TL 1017, REVIEWED BY: TEO. EXAMINATION GENERAL EXAMINATION: LUNGS:LUNG SOUNDS ARE CLEAR. HEART:HEART RATE REGULAR. MUSCULOSKELETAL:*, MUSCLE STRENGTH TESTING 5/5 BLE. PALPATION: POSITIVE FOR PAIN OVER L/S SPINE. POSITIVE FOR PAIN OVER L/S PARASPINALS.. ASSESSMENTS SYSTEMIC LUPUS ERYTHEMATOSUS, UNSPECIFIED SLE TYPE, UNSPECIFIED ORGAN INVOLVEMENT STATUS - M32.9 (PRIMARY) CHRONIC PRESCRIPTION OPIATE USE - Z79.891 TREATMENT SYSTEMIC LUPUS ERYTHEMATOSUS, UNSPECIFIED SLE TYPE, UNSPECIFIED ORGAN INVOLVEMENT STATUS REFILL MORPHINE SULFATE TABLET, 15 MG, 1, ORALLY, BID MDD2, 30 DAY(S), 60, REFILLS 0 NOTES: ISTOP REGISTRY REVIEWED AND DEMNOSTRATES COMPLLIANCE. BRINGS IN MEDICATIONS WHICH IS APPROPRIATE FOR WHAT WAS DISPENSED. RECENT URINE TOXICOLOGY REVIEWED. NO UNAUTHORIZED MEDICATIONS. NO ILLICIT SUBSTANCES AND PRESCRIBED MEDICATIONS WERE PRESENT. UTOX TODAY, RISKS AND BENEFITS OF NARCOTIC/OPIOD MEDICATIONS WERE REVIEWED WITH PATIENT - THIS INCLUDES BUT IS NOT LIMITED TO RISK OF DEPENDANCE/DEVELOPMENT OF ADDICTION, MOOD DISTURBANCE AND DEPRESSION, OSTEOPOROSIS, HORMONAL AND LABIDAL CHANGES, RESPIRATORY DEPRESSION AND . PATIENT IS ADVISED NOT TO DRIVE WHILE ON THESE MEDICATIONS. PROCEDURE CODES FA211 ESTABILISHED PATIENT [facility] FACILITY CHARGE DISPOSITION & COMMUNICATION FOLLOW UP 2 MONTHS ELECTRONICALLY SIGNED BY VALENTE BLOCK ON 03/28/2017 AT 01:35 PM EDT DISCLAIMER : THIS IS A VISIT SUMMARY EXTRACTED FROM THE [employer] CHART. IT IS NOT A COPY OF THE [employer] PROGRESS NOTE. MTDD
== END ==
LOC: M PAIN 09:40
PROVIDERS: ATTEND Nurse Practitioner Family
DX: G89.29 Other chronic pain (principal); M32.9 Systemic lupus erythematosus, unspecified; M25.50 Pain in unspecified joint; F41.9 Anxiety disorder, unspecified; Z86.59 Personal history of other mental and behavioral disorders; M06.9 Rheumatoid arthritis, unspecified; B18.2 Chronic viral hepatitis C; Z79.1 Long term (current) use of non-steroidal anti-inflammatories (NSAID); Z79.891 Long term (current) use of opiate analgesic; Z79.899 Other long term (current) drug therapy

== ENCOUNTER → 2017-04-16 | Outpatient (CLI) | payer OTHER ==
--- NOTE | 2017-05-02 00:02 | ECWPNPC ---
PATIENT NAME: PRINCE DUFFY : 1965 GENDER: FEMALE VISIT DATE: 04/16/2017 DISCHARGE DATE: 04/16/17 0000 VISIT LOCKED DATE TIME: PHYSICIAN: HOMERO ELIZONDO RESOURCE: HOMERO ELIZONDO REASON FOR APPOINTMENT 1. MEDS HISTORY OF PRESENT ILLNESS HISTORY OF PRESENT ILLNESS: HERE FOR F/U AND MANAGEMENT OF CHRONIC GENERALIZED JOINT PAIN.HAS LUPUS AND IS FOLLOWING WITH RHEUMATOLOGY.WEANED OFF MS CONTIN 30MG BID PLANNED.TRIALED [facility] IT CAUSED NAUSEA AND IS NOT COVERED BY HER INSURANCE .PAIN IS LOCATED IN ALL OF HER JOINTS.RATING PAIN VAS 10/10 VAS.DESCRIBES PAIN CONSTANT,STABBING AND SHOOTING.TRIED TO PRESCRIBE MS CONTIN 15MG BID AT HER LAST VISIT ONE MONTH AGO AND HER INSURANCE WILL NOT COVER ANY LONG ACTING NARCOTIC PAIN MEDICATION.STARTED ON MSIR 15MG BID 02-14-17 AND AT LAST F/U SHE WAS REPORTING IMPROVEMENT IN PAIN.ON 04-09-17 PATIENT CALLED OUR CLINIC AND INFORMED US SHE RAN OUT OF MEDICATION BECAUSE SHE WAS OVERTAKING MEDICATION DUE TO INCREASED PAIN.SHE WAS GIVEN URGENT APPOINTMENT WITH ME TODAY.PATIENT STATES SHE DOESNT UNDERSTAND WHY IT WASNT OK TO INCREASE HER MEDICATION ON HER OWN DUE TO SEVERE PAIN.SHE BECAME ANGRY AT ME AND DEMANDED SHE BE REFERRED TO [facility].SHE FEELS WE DONT UNDERSTAND HER PAIN AND WANTS [facility] LIKE THE REST OF HER DOCTORS.I INFORMED HER I DIDNT FEEL COMFORTABLE PRESCRIBING NARCOTIC PAIN MEDICATION FOR HER AND THAT WE WOULD NOT BE PRESCRIBING NARCOTIC PAIN MEDICATIONS AT ANY FUTURE APPOINTMENTS.ALSO TOLD HER THAT I COULDNT GUARANTEE ANOTHER PAIN MANAGEMENT FACILITY WOULD TAKE HER.SHE DID NOT UNDERSTAND WHY AND I TOLD HER IT WAS BASED ON NON COMPLIANCE WITH NARCOTIC AGREEMENT.ADILENE AGREED TO GIVE HER A 10 DAY WEAN DOWN AND OFF MSIR 15MG.ADILENE AGREED TO PRESCRIBE CLONIDINE 0.1MG TAB 3X PER DAY PRN FOR WITHDRAWAL SYMPTOMS.SHE WAS VERY ACCUSATORY AND AGRESSIVE VERBALLY THROUGHOUT VISIT.SHE EVENTUALLY LEFT WITHOUT BEING DISCHARGED. PAIN THE PATIENT DESCRIBES THE PAIN... THE PATIENT DESCRIBES THE PAIN... THE PATIENT DESCRIBES THE PAIN... THE PATIENT DESCRIBES THE PAIN... FALL RISK SCREENING: SCREENING :NO FALLS IN THE PAST YEAR CURRENT MEDICATIONS TAKING REQUIP 2 MG TABLET 1 TABLET ORALLY EVERY BEDTIME TAKING XANAX 1 MG TABLET 1 TABLET ORALLY TWICE A DAY NEEDED TAKING WELLBUTRIN 150 MG TABLET 1 TABLET ORALLY DAILY TAKING FOLIC ACID 1 MG TABLET 1 TABLET ORALLY ONCE A DAY TAKING ZYRTEC ALLERGY 10 MG TABLET 1 TABLET ORALLY ONCE A DAY TAKING VITAMIN D (ERGOCALCIFEROL) 98667 UNIT CAPSULE 1 CAPSULE ORALLY WEEKLY TAKING GABAPENTIN 600 MG TABLET 1 TABLET ORALLY THREE TIMES A DAY TAKING FAMOTIDINE 40 MG TABLET 1 TABLET ORALLY ONCE A DAY TAKING ASPERCREME W/LIDOCAINE 4 % CREAM 1 APPLICATION TO AFFECTED AREA NEEDED EXTERNALLY THREE TIMES A DAY TAKING CYMBALTA 60 MG CAPSULE DELAYED RELEASE PARTICLES 1 CAPSULE ORALLY DAILY TAKING IBUPROFEN 600 MG TABLET 1 TAB ORALLY Q6H PRN MDD4 TAKING MORPHINE SULFATE 15 MG TABLET 1 ORALLY BID MDD2 TAKING COLACE 100 MG CAPSULE 1 CAPSULE NEEDED ORALLY ONCE A DAY NOT-TAKING [facility] 10 MG TABLET ER 12 HOUR ABUSE-DETERRENT 1 TABLET 1 HOUR BEFORE OR 2 HOURS AFTER EATING ORALLY EVERY 12 HRSMDD2 NOT-TAKING MS CONTIN 15 MG TABLET EXTENDED RELEASE 1 TABLET ORALLY EVERY 12 HRS MDD2 NOT-TAKING MS CONTIN 30 MG TABLET EXTENDED RELEASE 1 TABLET ORALLY EVERY 12 HRS MDD2, NOTES: FINISHED SATURDAY 01/13 NOT-TAKING MORPHINE SULFATE ER 15 MG TABLET EXTENDED RELEASE 1 TABLET ORALLY EVERY 12 HRS MDD2, NOTES: FINISHED SATURDAY 01/13 NOT-TAKING PLAQUENIL 200 MG TABLET 1 TABLET WITH FOOD OR MILK ORALLY TWICE A DAY MEDICATION LIST REVIEWED AND RECONCILED WITH THE PATIENT PAST MEDICAL HISTORY SYSTEMIC LUPUS ERYTHEMATOSUS WITH ARTHRITIS CHRONIC HEPATITIS C PE ANXIETY HX DRUG ABUSE RHEUMATOID ARTHRITIS ALLERGIES N.K.D.A. SURGICAL HISTORY CHOLECYSTECTOMY 1999 BILATERAL TUBAL LIGATION 12/1987 HOSPITALIZATION/MAJOR DIAGNOSTIC PROCEDURE DVT CHILDBIRTH [facility] REVIEW OF SYSTEMS REVIEWED BY: PROVIDER: HOMERO VICTOR . CONSTITUTIONAL: ANY CHANGE IN YOUR MEDICAL CONDITION? NO . CHILLS NO . FEVER NO . INFECTION: DO YOU HAVE NEW INFECTIONS? NO . DO YOU HAVE HISTORY OF MRSA? NO . MUSCULOSKELETAL: ANY NEW PATTERNS OF PAIN OR NUMBNESS? YES, RIGHT KNEE PAIN, INCREASED IN PAIN, THUMBS ARE V PAINFUL . GASTROENTEROLOGY: ANY NEW CHANGE IN BOWEL CONTROL? NO . GENITOURINARY: ANY NEW CHANGE IN BLADDER CONTROL? NO . IS THERE A CHANCE YOU COULD BE ? NO . HEMATOLOGY/LYMPH: DO YOU TAKE ANY BLOOD THINNERS? (FOR EXAMPLE- COUMADIN, PLAVIX, AGGRENOX, PLATEL, PRADAXA, OR XARELTO) NO . WHEN WAS YOUR LAST DOSE? DATE: TIME: . NEUROLOGY: HAVE YOU FALLEN IN THE PAST 6 MONTHS? NO . ANY NEW EXTREMITY NUMBNESS OR WEAKNESS? NO . CARDIOLOGY: DO YOU HAVE A PACEMAKER OR DEFIBRILLATOR? NO . RESPIRATORY: HAVE YOU BEEN SICK IN THE PAST WEEK? NO . FEVER NO . FLU LIKE SYMPTOMS? NO . COUGH NO . INTEGUMENTARY: DO YOU HAVE ANY RASHES OR OPEN SORES? NO . ALLERGIC/IMMUNO: ARE YOU ALLERGIC TO SHELLFISH OR IV DYE? NO . ANY NEW ALLERGIES? NO . PSYCHIATRIC: DO YOU HAVE THOUGHTS OF HURTING YOURSELF OR SOMEONE ELSE? NO . ARE YOU ABUSED, NEGLECTED, OR IN AN UNSAFE ENVIRONMENT? NO . ENDOCRINOLOGY: ARE YOU DIABETIC? NO . OTHER: DO YOU NEED ANY PRESCRIPTIONS? YES, MORPHINE . IF YES, PLEASE LIST: ____ . ANY NEW PROBLEMS WITH YOUR MEDICATIONS? NO . WHEN DID YOU LAST EAT? ____ . WHEN DID YOU LAST DRINK? ____ . WHAT DID YOU LAST DRINK? ____ . NAME OF PERSON DRIVING YOU HOME? ____ . DO YOU HAVE ANY OTHER QUESTIONS OR CONCERNS NO . VITAL SIGNS WT 124.8 LBS, HT 62 IN, BMI 22.82 INDEX, BP 121/75 MM HG, HR 90 /MIN, RR 16 /MIN, TEMP 98.2 F, OXYGEN SAT % 97%, SAFE IN ENV? (Y/N) Y, NA INITIALS AW 1457, REVIEWED BY: TEO. ASSESSMENTS SYSTEMIC LUPUS ERYTHEMATOSUS, UNSPECIFIED SLE TYPE, UNSPECIFIED ORGAN INVOLVEMENT STATUS - M32.9 (PRIMARY) CHRONIC PRESCRIPTION OPIATE USE - Z79.891 TREATMENT SYSTEMIC LUPUS ERYTHEMATOSUS, UNSPECIFIED SLE TYPE, UNSPECIFIED ORGAN INVOLVEMENT STATUS DECREASE MORPHINE SULFATE TABLET, 15 MG, 1, ORALLY, 1 TAB X 5 DAYS THEN ONE EVERY OTHER DAY X 10 THEN D/C MDD1, 10 DAY(S), 10, REFILLS 0 START CLONIDINE HCL TABLET, 0.1 MG, 1 TAB, ORALLY, Q8H PRN MDD3, 5 DAY(S), 15, REFILLS 0 NOTES: SLOWLY WEAN OFF MORPHINE 15MG.TAKE ONE TAB DAILY X 5 DAYS THEN ONE EVERY OTHER DAY X 10 DAYS THEN STOP. REFERRAL TO:PAIN MEDICINE REASON:CHRONIC PAIN/SLE PROCEDURE CODES FA211 ESTABIL[address] PATIENT [facility] CHARGE DISPOSITION & COMMUNICATION ELECTRONICALLY SIGNED BY VALENTE BLOCK ON 05/01/2017 AT 07:18 PM EDT DISCLAIMER : THIS IS A VISIT SUMMARY EXTRACTED FROM THE [employer] CHART. IT IS NOT A COPY OF THE [employer] PROGRESS NOTE. TEO
== END ==
LOC: M PAIN 13:45
PROVIDERS: ATTEND Nurse Practitioner Family
DX: G89.29 Other chronic pain (principal); M32.9 Systemic lupus erythematosus, unspecified; F41.9 Anxiety disorder, unspecified; Z86.59 Personal history of other mental and behavioral disorders; M06.9 Rheumatoid arthritis, unspecified; Z79.1 Long term (current) use of non-steroidal anti-inflammatories (NSAID); Z79.899 Other long term (current) drug therapy; Z79.891 Long term (current) use of opiate analgesic

== ENCOUNTER → 2017-09-22 | Outpatient (REF) | payer OTHER ==
[2017-09-22 22:19] LABS: APPEARANCE, URINE HAZY (CLEAR); BACTERIA, URINE AUTO 1+ (NEGATIVE); BILIRUBIN, URINE AUTO NEGATIVE (NEGATIVE); BLOOD, URINE BLOOD NEGATIVE (NEGATIVE); COLOR, URINE YELLOW (YELLOW); GLUCOSE, URINE (UA) AUTO NEGATIVE (NEGATIVE); KETONE, URINE AUTO NEGATIVE (NEGATIVE); LEUKOCYTE ESTERASE, URINE AUTO 3+ (NEGATIVE); NITRITE, URINE AUTO NEGATIVE (NEGATIVE); PROTEIN, URINE AUTO NEGATIVE (NEGATIVE); RBC, URINE AUTO 0 /HPF (0-3); SPECIFIC GRAVITY URINE AUTO 1.004 (1.002-1.035); SQUAMOUS EPITHELIAL CELL UR AU 0 /HPF (0-6); UROBILINOGEN, URINE AUTO 0.2 mg/dL (0.0-2.0); WBC, URINE AUTO 37 /HPF (0-3)
== END ==
LOC: M LAB REF 09-23 08:32
DX: N39.0 Urinary tract infection, site not specified (principal)
CPT/HCPCS: 81001

== ENCOUNTER 2017-10-29 16:48 | Emergency (ER) | payer OTHER | END 2017-10-29 17:36 | disposition left against medical advice (07) | LOC: M ED 16:48 | DX: Z53.21 Procedure and treatment not carried out due to patient leaving prior to being seen by health care provider (principal) ==

== ENCOUNTER 2018-01-02 23:48 | Inpatient (IN) | payer MEDICAID, OTHER ==
[2018-01-03 00:50] LABS: HEMATOCRIT 40.6 % (36.0-47.0); HEMOGLOBIN 13.3 g/dl (12.0-15.5); MEAN CORPUSCULAR HEMOGLOBIN 29.7 pg (27.0-33.0); MEAN CORPUSCULAR HGB CONC 32.8 g/dl (32.0-36.5); MEAN CORPUSCULAR VOLUME 90.6 fl (80.0-96.0); PLATELET COUNT, AUTOMATED 186 10^3/uL (150-450); RED BLOOD COUNT 4.48 10^6/uL (4.00-5.40); RED CELL DISTRIBUTION WIDTH 12.2 % (11.5-14.5); WHITE BLOOD COUNT 7.9 10^3/uL (4.0-10.0)
[2018-01-03 00:56] LABS: ALBUMIN 3.9 GM/DL (3.2-5.2); ALBUMIN/GLOBULIN RATIO 1.11 (1.00-1.93); ALKALINE PHOSPHATASE 96 U/L (45-117); ALT/SGPT 40 U/L (12-78); ANION GAP 9 MEQ/L (8-16); AST/SGOT 40 U/L (7-37); BILIRUBIN,DIRECT 0.1 MG/DL (0.0-0.2); BILIRUBIN,TOTAL 0.4 MG/DL (0.2-1.0); BLOOD UREA NITROGEN 7 MG/DL (7-18); CALCIUM LEVEL 9.1 MG/DL (8.5-10.1); CARBON DIOXIDE LEVEL 28 MEQ/L (21-32); CHLORIDE LEVEL 107 MEQ/L (98-107); CREATININE FOR GFR 0.76 MG/DL (0.55-1.30); GLOMERULAR FILTRATION RATE > 60.0 (>51); GLUCOSE, FASTING 117 MG/DL (70-100); SALICYLATE LEVEL < 1.7 MG/DL (5.0-30.0); SODIUM LEVEL 144 MEQ/L (136-145); THYROID STIMULATING HORMONE 0.925 uIU/ML (0.358-3.740); TOTAL PROTEIN 7.4 GM/DL (6.4-8.2)
[2018-01-03 00:57] LABS: ACETAMINOPHEN LEVEL < 2.0 UG/ML (10.0-30.0); ETHYL ALCOHOL (ETHANOL) < 0.003 % (0.000-0.010)
[2018-01-03 01:12] LABS: AMPHETAMINES LEVEL URINE NEGATIVE (NEGATIVE); BARBITURATES URINE NEGATIVE (NEGATIVE); BENZODIAZEPINES URINE NEGATIVE (NEGATIVE); CANNABINOIDS URINE NEGATIVE (NEGATIVE); COCAINE METABOLITE URINE NEGATIVE (NEGATIVE); METHADONE URINE NEGATIVE (NEGATIVE); OPIATES URINE POSITIVE (NEGATIVE); PHENCYCLIDINE URINE NEGATIVE (NEGATIVE)
[2018-01-03] MEDS ORDERED: MAALOX 30 ML SUSP *UDC PO (02:15)
[2018-01-03] MEDS: traZODone 50 MG TAB PO ×2 (03:40→20:52)
[2018-01-03] MEDS: LORazepam 2 MG TAB PO ×2 (05:15→07:13)
[2018-01-03] MEDS: LORazepam 2 MG/ML VIAL (J2060) IM (08:07)
[2018-01-03] MEDS: PALIPERIDONE 3 MG ER TAB (INVEGA) PO ×2 (09:00→20:53)
[2018-01-03] MEDS: NICOTINE 21MG/24HR 1 EA TRANSDERMAL TD (09:00)
[2018-01-03] MEDS: LORazepam 1 MG TAB PO ×2 (18:45→20:52)
[2018-01-03] MEDS: ACETAMINOPHEN TAB 650MG DOSE (2X325MG) PO (20:52)
[2018-01-04] MEDS: NICOTINE 21MG/24HR 1 EA TRANSDERMAL TD (09:00)
[2018-01-04] MEDS: CETIRIZINE (ZyrTEC) 10 MG TAB PO (09:01)
[2018-01-04] MEDS: LORazepam 1 MG TAB PO (09:02)
[2018-01-04] MEDS: FOLIC ACID 1 MG TAB PO (09:02)
[2018-01-04] MEDS: OMEPRAZOLE 20 MG CAP PO (09:02)
[2018-01-04] MEDS: PALIPERIDONE 3 MG ER TAB (INVEGA) PO ×2 (09:02→20:23)
[2018-01-04] MEDS: ACETAMINOPHEN TAB 650MG DOSE (2X325MG) PO (09:05)
[2018-01-04] MEDS: MORPHINE 30 MG SA TAB PO ×2 (10:03→20:24)
[2018-01-04] MEDS: DIVALPROEX 500 MG TAB PO ×2 (12:07→20:22)
[2018-01-04] MEDS ORDERED: diphenhydrAMINE CREAM 30GM TOP (19:30)
[2018-01-04] MEDS: traZODone 50 MG TAB PO (21:28)
[2018-01-05] MEDS: OMEPRAZOLE 20 MG CAP PO (08:57)
[2018-01-05] MEDS: FOLIC ACID 1 MG TAB PO (08:57)
[2018-01-05] MEDS: MORPHINE 30 MG SA TAB PO ×2 (08:58→20:31)
[2018-01-05] MEDS: PALIPERIDONE 3 MG ER TAB (INVEGA) PO ×2 (08:58→20:32)
[2018-01-05] MEDS: CETIRIZINE (ZyrTEC) 10 MG TAB PO (08:58)
[2018-01-05] MEDS: DIVALPROEX 500 MG TAB PO ×2 (08:58→20:31)
[2018-01-05] MEDS: NICOTINE 21MG/24HR 1 EA TRANSDERMAL TD (08:59)
[2018-01-05] MEDS: MOM 30ML SUSPENSION UDC PO (16:40)
[2018-01-05] MEDS: traZODone 50 MG TAB PO (20:31)
[2018-01-06] MEDS: DIVALPROEX 500 MG TAB PO ×2 (09:00→09:45)
[2018-01-06] MEDS: NICOTINE 21MG/24HR 1 EA TRANSDERMAL TD (09:00)
[2018-01-06] MEDS: MORPHINE 30 MG SA TAB PO ×2 (09:03→20:16)
[2018-01-06] MEDS: OMEPRAZOLE 20 MG CAP PO (09:04)
[2018-01-06] MEDS: FOLIC ACID 1 MG TAB PO (09:04)
[2018-01-06] MEDS: CETIRIZINE (ZyrTEC) 10 MG TAB PO (09:04)
[2018-01-06] MEDS: PALIPERIDONE 3 MG ER TAB (INVEGA) PO (20:15)
[2018-01-06] MEDS: LORazepam 1 MG TAB PO (20:15)
[2018-01-06] MEDS: traZODone 50 MG TAB PO (20:15)
[2018-01-07] MEDS: NICOTINE 21MG/24HR 1 EA TRANSDERMAL TD (09:00)
[2018-01-07] MEDS: CETIRIZINE (ZyrTEC) 10 MG TAB PO (09:05)
[2018-01-07] MEDS: MORPHINE 30 MG SA TAB PO ×2 (09:05→21:20)
[2018-01-07] MEDS: OMEPRAZOLE 20 MG CAP PO (09:06)
[2018-01-07] MEDS: FOLIC ACID 1 MG TAB PO (09:06)
[2018-01-07] MEDS: hydrOXYzine 10 MG TAB PO (13:02)
[2018-01-07] MEDS: DOCUSATE SODIUM 100 MG CAP PO (13:03)
[2018-01-07] MEDS: PALIPERIDONE 6 MG ER TAB (INVEGA) PO (21:19)
[2018-01-08] MEDS: OMEPRAZOLE 20 MG CAP PO (08:36)
[2018-01-08] MEDS: CETIRIZINE (ZyrTEC) 10 MG TAB PO (08:36)
[2018-01-08] MEDS: DOCUSATE SODIUM 100 MG CAP PO (08:37)
[2018-01-08] MEDS: FOLIC ACID 1 MG TAB PO (08:37)
[2018-01-08] MEDS: MORPHINE 30 MG SA TAB PO (08:38)
[2018-01-08] MEDS: NICOTINE 21MG/24HR 1 EA TRANSDERMAL TD (08:38)
[2018-01-08] MEDS: ACETAMINOPHEN TAB 650MG DOSE (2X325MG) PO (10:10)
== END 2018-01-08 15:10 | disposition home or self-care (01) | DRG 885 ==
LOC: M PSY 01-04 13:45 → M ED 23:48 → M ED INP 01-03 02:03 → M PSY 01-03 02:30
DX: F31.2 Bipolar disorder, current episode manic severe with psychotic features (principal); F11.90 Opioid use, unspecified, uncomplicated; Z79.899 Other long term (current) drug therapy; F17.210 Nicotine dependence, cigarettes, uncomplicated; K21.9 Gastro-esophageal reflux disease without esophagitis; B18.2 Chronic viral hepatitis C; G25.81 Restless legs syndrome

== ENCOUNTER → 2018-03-04 | Outpatient (REF) | payer OTHER, MEDICAID ==
[2018-03-04 13:24] LABS: BASO % 0.3 % (0.0-1.0); EOS # 0.2 10^3/uL (0.0-0.50); EOS % 2.4 % (0.0-3.0); HEMATOCRIT 36.1 % (36.0-47.0); HEMOGLOBIN 11.8 g/dl (12.0-15.5); IMMATURE GRANULOCYTE % 0.2 % (0-3.0); LYMPH # 2.2 10^3/uL (1.5-4.5); MEAN CORPUSCULAR HEMOGLOBIN 29.8 pg (27.0-33.0); MEAN CORPUSCULAR HGB CONC 32.7 g/dl (32.0-36.5); MEAN CORPUSCULAR VOLUME 91.2 fl (80.0-96.0); MONO # 0.5 10^3/uL (0.0-0.8); MONO % 7.5 % (0.0-5.0); NEUTROPHILS # 3.3 10^3/uL (1.8-7.7); NEUTROPHILS % 53.6 % (36.0-66.0); PLATELET COUNT, AUTOMATED 179 10^3/uL (150-450); RED BLOOD COUNT 3.96 10^6/uL (4.00-5.40); RED CELL DISTRIBUTION WIDTH 13.2 % (11.5-14.5); WHITE BLOOD COUNT 6.2 10^3/uL (4.0-10.0)
[2018-03-04 13:42] LABS: TOTAL 25(OH) VITAMIN D 67.6 NG/ML (30.0-100.0)
[2018-03-04 13:46] LABS: ALBUMIN 3.5 GM/DL (3.2-5.2); ALBUMIN/GLOBULIN RATIO 1.09 (1.00-1.93); ALKALINE PHOSPHATASE 98 U/L (45-117); ALT/SGPT 47 U/L (12-78); ANION GAP 8 MEQ/L (8-16); AST/SGOT 52 U/L (7-37); BILIRUBIN,TOTAL 0.4 MG/DL (0.2-1.0); BLOOD UREA NITROGEN 12 MG/DL (7-18); CALCIUM LEVEL 8.4 MG/DL (8.5-10.1); CARBON DIOXIDE LEVEL 27 MEQ/L (21-32); CHLORIDE LEVEL 108 MEQ/L (98-107); CHOLESTEROL LEVEL 122 MG/DL (<200); CHOLESTEROL RISK RATIO 4.066 (<5); CREATININE FOR GFR 0.81 MG/DL (0.55-1.30); GLOMERULAR FILTRATION RATE > 60.0 (>51); GLUCOSE, FASTING 86 MG/DL (70-100); HDL CHOLESTEROL 30 MG/DL (>40); LDL CHOLESTEROL 71.4 MG/DL (<100); NON-HDL-C 92 MG/DL; POTASSIUM SERUM 4.3 MEQ/L (3.5-5.1); SODIUM LEVEL 143 MEQ/L (136-145); TOTAL PROTEIN 6.7 GM/DL (6.4-8.2); TRIGLYCERIDES LEVEL 103 MG/DL (<150)
[2018-03-06 10:43] LABS: HEPATITIS C QUANTITATION 4781870 IU/mL (.)
== END ==
LOC: M LAB REF 12:50
DX: F32.9 Major depressive disorder, single episode, unspecified (principal); I20.9 Angina pectoris, unspecified

== ENCOUNTER 2018-03-14 16:26 | Inpatient (IN) | payer MEDICARE, MEDICAID, OTHER ==
[2018-03-14] MEDS: NICOTINE 21MG/24HR 1 EA TRANSDERMAL TD (09:00)
[2018-03-14 17:52] LABS: HEMATOCRIT 37.7 % (36.0-47.0); HEMOGLOBIN 12.9 g/dl (12.0-15.5); MEAN CORPUSCULAR HEMOGLOBIN 29.9 pg (27.0-33.0); MEAN CORPUSCULAR HGB CONC 34.2 g/dl (32.0-36.5); MEAN CORPUSCULAR VOLUME 87.3 fl (80.0-96.0); PLATELET COUNT, AUTOMATED 235 10^3/uL (150-450); RED BLOOD COUNT 4.32 10^6/uL (4.00-5.40); RED CELL DISTRIBUTION WIDTH 13.1 % (11.5-14.5); WHITE BLOOD COUNT 8.9 10^3/uL (4.0-10.0)
[2018-03-14 18:11] LABS: AMPHETAMINES LEVEL URINE POSITIVE (NEGATIVE); BARBITURATES URINE NEGATIVE (NEGATIVE); BENZODIAZEPINES URINE POSITIVE (NEGATIVE); CANNABINOIDS URINE NEGATIVE (NEGATIVE); COCAINE METABOLITE URINE NEGATIVE (NEGATIVE); METHADONE URINE NEGATIVE (NEGATIVE); OPIATES URINE NEGATIVE (NEGATIVE); PHENCYCLIDINE URINE NEGATIVE (NEGATIVE)
[2018-03-14 18:23] LABS: ACETAMINOPHEN LEVEL < 2.0 UG/ML (10.0-30.0); ALBUMIN/GLOBULIN RATIO 1.21 (1.00-1.93); ALKALINE PHOSPHATASE 106 U/L (45-117); ALT/SGPT 52 U/L (12-78); ANION GAP 10 MEQ/L (8-16); AST/SGOT 44 U/L (7-37); BILIRUBIN,DIRECT 0.1 MG/DL (0.0-0.2); BILIRUBIN,TOTAL 0.7 MG/DL (0.2-1.0); BLOOD UREA NITROGEN 11 MG/DL (7-18); CALCIUM LEVEL 9.4 MG/DL (8.5-10.1); CARBON DIOXIDE LEVEL 21 MEQ/L (21-32); CHLORIDE LEVEL 108 MEQ/L (98-107); CREATININE FOR GFR 1.09 MG/DL (0.55-1.30); GLOMERULAR FILTRATION RATE 56.1 (>51); GLUCOSE, FASTING 99 MG/DL (70-100); POTASSIUM SERUM 3.4 MEQ/L (3.5-5.1); SALICYLATE LEVEL 16.7 MG/DL (5.0-30.0); SODIUM LEVEL 139 MEQ/L (136-145); TOTAL PROTEIN 7.3 GM/DL (6.4-8.2)
[2018-03-14 18:30] LABS: ETHYL ALCOHOL (ETHANOL) < 0.003 % (0.000-0.010)
[2018-03-14] MEDS: POTASSIUM CHLORIDE 10 MEQ SR TABLET PO (18:51)
[2018-03-14] MEDS ORDERED: MAALOX 30 ML SUSP *UDC PO (19:00)
[2018-03-14] MEDS: traZODone 50 MG TAB PO (21:11)
[2018-03-14] MEDS: ACETAMINOPHEN TAB 650MG DOSE (2X325MG) PO (21:12)
[2018-03-15] MEDS: OLANZapine ORAL DISINTEGRATING TAB 5MG PO ×3 (02:17→17:59)
[2018-03-15] MEDS: ACETAMINOPHEN TAB 650MG DOSE (2X325MG) PO (07:49)
[2018-03-15] MEDS: NICOTINE 21MG/24HR 1 EA TRANSDERMAL TD (08:58)
[2018-03-15] MEDS: LORazepam 2 MG TAB PO ×2 (08:58→17:58)
[2018-03-15] MEDS: ASPIRIN 325 MG TAB PO (14:30)
[2018-03-15] MEDS: OMEPRAZOLE 20 MG CAP PO (14:31)
[2018-03-15] MEDS: CETIRIZINE (ZyrTEC) 10 MG TAB PO (14:31)
[2018-03-15] MEDS: FOLIC ACID 1 MG TAB PO (14:31)
[2018-03-15] MEDS: MULTIVITAMINS/MINERALS THERAP 1 TAB PO (14:31)
[2018-03-15] MEDS: DULoxetine 30 MG CAP (CYMBALTA) PO (14:31)
[2018-03-15] MEDS: NAPROXEN 250 MG TAB PO (14:31)
[2018-03-15] MEDS: GABAPENTIN 300 MG CAP PO ×2 (15:11→20:25)
[2018-03-15] MEDS: rOPINIRole 2MG TAB PO (20:25)
[2018-03-16] MEDS: NAPROXEN 250 MG TAB PO ×2 (06:51→20:51)
[2018-03-16] MEDS: MULTIVITAMINS/MINERALS THERAP 1 TAB PO (08:02)
[2018-03-16] MEDS: GABAPENTIN 300 MG CAP PO ×3 (08:02→20:46)
[2018-03-16] MEDS: VITAMIN D 50,000 UNITS CAPSULE (ERGOCALCIFEROL 1.25MG) PO (08:02)
[2018-03-16] MEDS: DULoxetine 30 MG CAP (CYMBALTA) PO (08:03)
[2018-03-16] MEDS: ASPIRIN 325 MG TAB PO (08:03)
[2018-03-16] MEDS: FOLIC ACID 1 MG TAB PO (08:03)
[2018-03-16] MEDS: CETIRIZINE (ZyrTEC) 10 MG TAB PO (08:03)
[2018-03-16] MEDS: OMEPRAZOLE 20 MG CAP PO (08:04)
[2018-03-16 08:11] LABS: ALBUMIN/GLOBULIN RATIO 1.25 (1.00-1.93); ALKALINE PHOSPHATASE 105 U/L (45-117); ALT/SGPT 50 U/L (12-78); ANION GAP 8 MEQ/L (8-16); AST/SGOT 41 U/L (7-37); BILIRUBIN,TOTAL 0.5 MG/DL (0.2-1.0); BLOOD UREA NITROGEN 14 MG/DL (7-18); CALCIUM LEVEL 9.3 MG/DL (8.5-10.1); CARBON DIOXIDE LEVEL 24 MEQ/L (21-32); CHLORIDE LEVEL 112 MEQ/L (98-107); CREATININE FOR GFR 0.77 MG/DL (0.55-1.30); GLOMERULAR FILTRATION RATE > 60.0 (>51); GLUCOSE, FASTING 102 MG/DL (70-100); POTASSIUM SERUM 4.2 MEQ/L (3.5-5.1); SODIUM LEVEL 144 MEQ/L (136-145); TOTAL PROTEIN 7.2 GM/DL (6.4-8.2)
[2018-03-16] MEDS: NICOTINE 21MG/24HR 1 EA TRANSDERMAL TD (09:00)
[2018-03-16 10:40] LABS: CONTROL LINE HCG INT CTR LINE PRESENT; HCG, SERUM QUALITATIVE NEGATIVE (NEGATIVE)
[2018-03-16] MEDS ORDERED: OLANZapine 10 MG TAB PO (11:00)
[2018-03-16] MEDS: OLANZapine 10 MG TAB PO ×2 (12:01→12:08)
[2018-03-16] MEDS: ARIPiprazole 10 MG TAB PO ×3 (12:01→20:46)
[2018-03-16] MEDS: rOPINIRole 2MG TAB PO (20:46)
[2018-03-16] MEDS: LORazepam 2 MG TAB PO (20:46)
[2018-03-16] MEDS: traZODone 100 MG TAB PO (20:51)
[2018-03-17] MEDS: LORazepam 2 MG TAB PO ×2 (06:36→14:25)
[2018-03-17 08:46] LABS: KETONE, URINE AUTO RFX NEGATIVE (NEGATIVE); LEUKOCYTE ESTERASE UR AUTO RFX NEGATIVE (NEGATIVE); MUCUS, URINE RFX SMALL (NEGATIVE); NITRITE, URINE AUTO RFX NEGATIVE (NEGATIVE); RBC, URINE AUTO RFX 0 /HPF (0-3); SPECIFIC GRAVITY UR AUTO RFX 1.001 (1.002-1.035); SQUAM EPITHELIAL CELL UR AURFX 0 /HPF (0-6); WBC, URINE AUTO RFX 0 /HPF (0-3)
[2018-03-17] MEDS: ASPIRIN 325 MG TAB PO (09:59)
[2018-03-17] MEDS: ARIPiprazole 10 MG TAB PO (10:00)
[2018-03-17] MEDS: FOLIC ACID 1 MG TAB PO (10:00)
[2018-03-17] MEDS: GABAPENTIN 300 MG CAP PO ×3 (10:00→20:32)
[2018-03-17] MEDS: OMEPRAZOLE 20 MG CAP PO (10:00)
[2018-03-17] MEDS: CETIRIZINE (ZyrTEC) 10 MG TAB PO (10:00)
[2018-03-17] MEDS: MULTIVITAMINS/MINERALS THERAP 1 TAB PO (10:00)
[2018-03-17] MEDS: NICOTINE 21MG/24HR 1 EA TRANSDERMAL TD (10:06)
[2018-03-17] MEDS: NAPROXEN 250 MG TAB PO ×2 (11:21→20:33)
[2018-03-17] MEDS: DIVALPROEX 500 MG TAB PO ×2 (11:21→20:32)
[2018-03-17] MEDS: OLANZapine 5 MG TAB PO (11:22)
[2018-03-17] MEDS ORDERED: ACETAMINOPHEN 500 MG TAB As Ordered (14:25)
[2018-03-17] MEDS: ACETAMINOPHEN 500 MG TAB PO (14:49)
[2018-03-17] MEDS: rOPINIRole 2MG TAB PO (20:33)
[2018-03-17] MEDS: ARIPiprazole 15 MG TAB (AbiLIFY) PO (20:33)
[2018-03-17] MEDS: traZODone 100 MG TAB PO (20:34)
[2018-03-18] MEDS: NICOTINE 21MG/24HR 1 EA TRANSDERMAL TD (09:00)
[2018-03-18] MEDS: CETIRIZINE (ZyrTEC) 10 MG TAB PO (09:36)
[2018-03-18] MEDS: DIVALPROEX 500 MG TAB PO ×2 (09:38→21:16)
[2018-03-18] MEDS: ARIPiprazole 15 MG TAB (AbiLIFY) PO ×2 (09:38→21:16)
[2018-03-18] MEDS: FOLIC ACID 1 MG TAB PO (09:38)
[2018-03-18] MEDS: ASPIRIN 325 MG TAB PO (09:38)
[2018-03-18] MEDS: OMEPRAZOLE 20 MG CAP PO (09:38)
[2018-03-18] MEDS: MULTIVITAMINS/MINERALS THERAP 1 TAB PO (09:38)
[2018-03-18] MEDS: GABAPENTIN 300 MG CAP PO ×3 (09:38→21:15)
[2018-03-18] MEDS: NAPROXEN 250 MG TAB PO (09:41)
[2018-03-18] MEDS: LORazepam 2 MG TAB PO ×2 (09:42→17:19)
[2018-03-18] MEDS: ACETAMINOPHEN 500 MG TAB PO (15:11)
[2018-03-18] MEDS: MOM 30ML SUSPENSION UDC PO (16:46)
[2018-03-18] MEDS: traZODone 100 MG TAB PO (21:16)
[2018-03-18] MEDS: rOPINIRole 2MG TAB PO (21:16)
[2018-03-19] MEDS: NICOTINE 21MG/24HR 1 EA TRANSDERMAL TD (08:18)
[2018-03-19] MEDS: ARIPiprazole 15 MG TAB (AbiLIFY) PO (08:18)
[2018-03-19] MEDS: DIVALPROEX 500 MG TAB PO (08:18)
[2018-03-19] MEDS: FOLIC ACID 1 MG TAB PO (08:18)
[2018-03-19] MEDS: MULTIVITAMINS/MINERALS THERAP 1 TAB PO (08:18)
[2018-03-19] MEDS: CETIRIZINE (ZyrTEC) 10 MG TAB PO (08:18)
[2018-03-19] MEDS: GABAPENTIN 300 MG CAP PO ×3 (08:18→20:56)
[2018-03-19] MEDS: ASPIRIN 325 MG TAB PO (08:18)
[2018-03-19] MEDS: OMEPRAZOLE 20 MG CAP PO (08:18)
[2018-03-19] MEDS: LORazepam 2 MG TAB PO ×3 (08:20→17:11)
[2018-03-19] MEDS: NAPROXEN 250 MG TAB PO ×2 (11:50→17:14)
[2018-03-19] MEDS: ARIPiprazole MONOHYDRATE 400 MG INJ (ABILIFY)(J0401) IM (14:22)
[2018-03-19] MEDS: MOM 30ML SUSPENSION UDC PO (17:15)
[2018-03-19] MEDS: rOPINIRole 2MG TAB PO (20:56)
[2018-03-19] MEDS: ARIPiprazole 10 MG TAB PO (20:56)
[2018-03-19] MEDS: DIVALPROEX 500MG *ER* TAB PO (20:56)
[2018-03-19] MEDS: traZODone 100 MG TAB PO (20:56)
[2018-03-20] MEDS: ASPIRIN 325 MG TAB PO (08:37)
[2018-03-20] MEDS: GABAPENTIN 300 MG CAP PO ×3 (08:37→20:04)
[2018-03-20] MEDS: CETIRIZINE (ZyrTEC) 10 MG TAB PO (08:37)
[2018-03-20] MEDS: ARIPiprazole 10 MG TAB PO ×2 (08:38→20:04)
[2018-03-20] MEDS: OMEPRAZOLE 20 MG CAP PO (08:38)
[2018-03-20] MEDS: FOLIC ACID 1 MG TAB PO (08:38)
[2018-03-20] MEDS: MULTIVITAMINS/MINERALS THERAP 1 TAB PO (08:38)
[2018-03-20] MEDS: NICOTINE 21MG/24HR 1 EA TRANSDERMAL TD (08:39)
[2018-03-20] MEDS: NAPROXEN 250 MG TAB PO ×2 (08:55→20:05)
[2018-03-20] MEDS: LORazepam 2 MG TAB PO (13:12)
[2018-03-20] MEDS: ACETAMINOPHEN 500 MG TAB PO ×2 (13:13→20:05)
[2018-03-20] MEDS: traZODone 100 MG TAB PO (20:04)
[2018-03-20] MEDS: rOPINIRole 2MG TAB PO (20:05)
[2018-03-20] MEDS: DIVALPROEX 500MG *ER* TAB PO (20:05)
[2018-03-20] MEDS: LORazepam 1 MG TAB PO (20:10)
[2018-03-21] MEDS: CETIRIZINE (ZyrTEC) 10 MG TAB PO (08:00)
[2018-03-21] MEDS: GABAPENTIN 300 MG CAP PO ×3 (08:00→20:10)
[2018-03-21] MEDS: FOLIC ACID 1 MG TAB PO (08:00)
[2018-03-21] MEDS: MULTIVITAMINS/MINERALS THERAP 1 TAB PO (08:00)
[2018-03-21] MEDS: OMEPRAZOLE 20 MG CAP PO (08:00)
[2018-03-21] MEDS: ASPIRIN 325 MG TAB PO (08:00)
[2018-03-21] MEDS: ARIPiprazole 10 MG TAB PO ×2 (08:00→20:11)
[2018-03-21] MEDS: NICOTINE 21MG/24HR 1 EA TRANSDERMAL TD (08:01)
[2018-03-21] MEDS: LORazepam 1 MG TAB PO ×2 (12:13→17:51)
[2018-03-21] MEDS: ACETAMINOPHEN 500 MG TAB PO ×2 (12:13→20:13)
[2018-03-21] MEDS: rOPINIRole 2MG TAB PO (20:10)
[2018-03-21] MEDS: DIVALPROEX 500MG *ER* TAB PO (20:10)
[2018-03-21] MEDS: traZODone 100 MG TAB PO (20:10)
[2018-03-21] MEDS: NAPROXEN 250 MG TAB PO (20:12)
[2018-03-22] MEDS: ARIPiprazole 10 MG TAB PO ×2 (08:52→20:02)
[2018-03-22] MEDS: GABAPENTIN 300 MG CAP PO ×3 (08:52→20:02)
[2018-03-22] MEDS: FOLIC ACID 1 MG TAB PO (08:53)
[2018-03-22] MEDS: ASPIRIN 325 MG TAB PO (08:53)
[2018-03-22] MEDS: CETIRIZINE (ZyrTEC) 10 MG TAB PO (08:53)
[2018-03-22] MEDS: OMEPRAZOLE 20 MG CAP PO (08:53)
[2018-03-22] MEDS: MULTIVITAMINS/MINERALS THERAP 1 TAB PO (08:53)
[2018-03-22] MEDS: NICOTINE 21MG/24HR 1 EA TRANSDERMAL TD (08:55)
[2018-03-22] MEDS: LORazepam 1 MG TAB PO ×2 (13:21→20:02)
[2018-03-22] MEDS: NAPROXEN 250 MG TAB PO ×2 (17:42→22:21)
[2018-03-22] MEDS: rOPINIRole 2MG TAB PO (20:02)
[2018-03-22] MEDS: traZODone 100 MG TAB PO (20:02)
[2018-03-22] MEDS: DIVALPROEX 500MG *ER* TAB PO (20:02)
[2018-03-23] MEDS: LORazepam 1 MG TAB PO ×2 (05:42→17:28)
[2018-03-23] MEDS: NICOTINE 21MG/24HR 1 EA TRANSDERMAL TD (09:00)
[2018-03-23] MEDS: VITAMIN D 50,000 UNITS CAPSULE (ERGOCALCIFEROL 1.25MG) PO (09:21)
[2018-03-23] MEDS: MULTIVITAMINS/MINERALS THERAP 1 TAB PO (09:21)
[2018-03-23] MEDS: CETIRIZINE (ZyrTEC) 10 MG TAB PO (09:21)
[2018-03-23] MEDS: GABAPENTIN 300 MG CAP PO ×3 (09:21→20:14)
[2018-03-23] MEDS: FOLIC ACID 1 MG TAB PO (09:21)
[2018-03-23] MEDS: OMEPRAZOLE 20 MG CAP PO (09:21)
[2018-03-23] MEDS: ASPIRIN 325 MG TAB PO (09:22)
[2018-03-23] MEDS: ARIPiprazole 10 MG TAB PO ×2 (09:22→20:14)
[2018-03-23] MEDS: NAPROXEN 250 MG TAB PO ×2 (09:23→16:13)
[2018-03-23] MEDS: MOM 30ML SUSPENSION UDC PO (11:56)
[2018-03-23] MEDS: rOPINIRole 2MG TAB PO (20:14)
[2018-03-23] MEDS: traZODone 100 MG TAB PO (20:14)
[2018-03-23] MEDS: DIVALPROEX 500MG *ER* TAB PO (20:14)
[2018-03-24] MEDS: NICOTINE 21MG/24HR 1 EA TRANSDERMAL TD (08:03)
[2018-03-24] MEDS: FOLIC ACID 1 MG TAB PO (08:05)
[2018-03-24] MEDS: ARIPiprazole 10 MG TAB PO (08:05)
[2018-03-24] MEDS: OMEPRAZOLE 20 MG CAP PO (08:05)
[2018-03-24] MEDS: MULTIVITAMINS/MINERALS THERAP 1 TAB PO (08:05)
[2018-03-24] MEDS: CETIRIZINE (ZyrTEC) 10 MG TAB PO (08:05)
[2018-03-24] MEDS: ASPIRIN 325 MG TAB PO (08:05)
[2018-03-24] MEDS: GABAPENTIN 300 MG CAP PO ×3 (08:05→20:49)
[2018-03-24] MEDS: LORazepam 1 MG TAB PO ×2 (08:34→19:00)
[2018-03-24] MEDS: NAPROXEN 250 MG TAB PO ×2 (08:36→20:49)
[2018-03-24 11:39] LABS: VALPROIC ACID (DEPAKOTE) 62.7 UG/ML (50.0-100.0)
[2018-03-24] MEDS: rOPINIRole 2MG TAB PO (20:49)
[2018-03-24] MEDS: DIVALPROEX 500MG *ER* TAB PO (20:49)
[2018-03-24] MEDS: traZODone 100 MG TAB PO (20:49)
[2018-03-25] MEDS: LORazepam 1 MG TAB PO ×2 (05:53→19:00)
[2018-03-25] MEDS: ACETAMINOPHEN 500 MG TAB PO (05:54)
[2018-03-25] MEDS: NICOTINE 21MG/24HR 1 EA TRANSDERMAL TD (09:00)
[2018-03-25] MEDS: FOLIC ACID 1 MG TAB PO (09:26)
[2018-03-25] MEDS: GABAPENTIN 300 MG CAP PO ×3 (09:27→20:08)
[2018-03-25] MEDS: MULTIVITAMINS/MINERALS THERAP 1 TAB PO (09:27)
[2018-03-25] MEDS: ARIPiprazole 10 MG TAB PO (09:27)
[2018-03-25] MEDS: ASPIRIN 325 MG TAB PO (09:27)
[2018-03-25] MEDS: CETIRIZINE (ZyrTEC) 10 MG TAB PO (09:27)
[2018-03-25] MEDS: OMEPRAZOLE 20 MG CAP PO (09:27)
[2018-03-25] MEDS: NAPROXEN 250 MG TAB PO (14:40)
[2018-03-25] MEDS: traZODone 100 MG TAB PO (20:08)
[2018-03-25] MEDS: rOPINIRole 2MG TAB PO (20:08)
[2018-03-25] MEDS: DIVALPROEX 500MG *ER* TAB PO (20:08)
[2018-03-26] MEDS: CETIRIZINE (ZyrTEC) 10 MG TAB PO (08:31)
[2018-03-26] MEDS: ASPIRIN 325 MG TAB PO (08:31)
[2018-03-26] MEDS: OMEPRAZOLE 20 MG CAP PO (08:31)
[2018-03-26] MEDS: GABAPENTIN 300 MG CAP PO ×2 (08:31→15:02)
[2018-03-26] MEDS: ARIPiprazole 10 MG TAB PO (08:31)
[2018-03-26] MEDS: MULTIVITAMINS/MINERALS THERAP 1 TAB PO (08:31)
[2018-03-26] MEDS: LORazepam 1 MG TAB PO (08:32)
[2018-03-26] MEDS: FOLIC ACID 1 MG TAB PO (08:32)
[2018-03-26] MEDS: NICOTINE 21MG/24HR 1 EA TRANSDERMAL TD (08:33)
[2018-03-26] MEDS: ACETAMINOPHEN 500 MG TAB PO (13:59)
== END 2018-03-26 13:45 | disposition home or self-care (01) | DRG 885 ==
LOC: M PSY 03-15 13:13 → M ED 16:26 → M ED INP 18:57 → M PSY 20:25
DX: F31.2 Bipolar disorder, current episode manic severe with psychotic features (principal); J30.9 Allergic rhinitis, unspecified; M06.9 Rheumatoid arthritis, unspecified; B19.20 Unspecified viral hepatitis C without hepatic coma; G89.29 Other chronic pain; G47.00 Insomnia, unspecified; G25.81 Restless legs syndrome; K21.9 Gastro-esophageal reflux disease without esophagitis; Z86.14 Personal history of Methicillin resistant Staphylococcus aureus infection; Z90.49 Acquired absence of other specified parts of digestive tract; Z98.51 Tubal ligation status; Z79.82 Long term (current) use of aspirin; Z79.899 Other long term (current) drug therapy; Z86.711 Personal history of pulmonary embolism

== ENCOUNTER 2018-04-06 17:45 | Inpatient (IN) | payer MEDICAID ==
[2018-04-06 18:54] LABS: HEMATOCRIT 35.2 % (36.0-47.0); HEMOGLOBIN 11.6 g/dl (12.0-15.5); MEAN CORPUSCULAR HEMOGLOBIN 30.9 pg (27.0-33.0); MEAN CORPUSCULAR VOLUME 93.6 fl (80.0-96.0); PLATELET COUNT, AUTOMATED 172 10^3/uL (150-450); RED BLOOD COUNT 3.76 10^6/uL (4.00-5.40); RED CELL DISTRIBUTION WIDTH 13.8 % (11.5-14.5); WHITE BLOOD COUNT 7.7 10^3/uL (4.0-10.0)
[2018-04-06 19:12] LABS: CONTROL LINE HCG INT CTR LINE PRESENT; HCG, SERUM QUALITATIVE NEGATIVE (NEGATIVE)
[2018-04-06 19:15] LABS: AMPHETAMINES LEVEL URINE NEGATIVE (NEGATIVE); BARBITURATES URINE NEGATIVE (NEGATIVE); BENZODIAZEPINES URINE POSITIVE (NEGATIVE); CANNABINOIDS URINE NEGATIVE (NEGATIVE); COCAINE METABOLITE URINE NEGATIVE (NEGATIVE); METHADONE URINE NEGATIVE (NEGATIVE); OPIATES URINE NEGATIVE (NEGATIVE); PHENCYCLIDINE URINE NEGATIVE (NEGATIVE)
[2018-04-06 19:26] LABS: ALBUMIN 3.2 GM/DL (3.2-5.2); ALBUMIN/GLOBULIN RATIO 0.86 (1.00-1.93); ALKALINE PHOSPHATASE 75 U/L (45-117); ALT/SGPT 50 U/L (12-78); ANION GAP 6 MEQ/L (8-16); AST/SGOT 50 U/L (7-37); BILIRUBIN,DIRECT < 0.1 MG/DL (0.0-0.2); BILIRUBIN,TOTAL 0.3 MG/DL (0.2-1.0); BLOOD UREA NITROGEN 11 MG/DL (7-18); CALCIUM LEVEL 8.5 MG/DL (8.5-10.1); CARBON DIOXIDE LEVEL 29 MEQ/L (21-32); CHLORIDE LEVEL 107 MEQ/L (98-107); CREATININE FOR GFR 0.84 MG/DL (0.55-1.30); GLOMERULAR FILTRATION RATE > 60.0 (>51); GLUCOSE, FASTING 89 MG/DL (70-100); POTASSIUM SERUM 4.3 MEQ/L (3.5-5.1); SALICYLATE LEVEL 1.8 MG/DL (5.0-30.0); SODIUM LEVEL 142 MEQ/L (136-145); TOTAL PROTEIN 6.9 GM/DL (6.4-8.2)
[2018-04-06 19:27] LABS: ACETAMINOPHEN LEVEL < 2.0 UG/ML (10.0-30.0); ETHYL ALCOHOL (ETHANOL) < 0.003 % (0.000-0.010)
[2018-04-06] MEDS ORDERED: traZODone 100 MG TAB PO (19:45)
[2018-04-06] MEDS ORDERED: MAALOX 30 ML SUSP *UDC PO (19:45)
[2018-04-06] MEDS ORDERED: MOM 30ML SUSPENSION UDC PO (19:45)
[2018-04-06] MEDS: DIVALPROEX 250MG *ER* TAB PO (21:00)
[2018-04-06] MEDS: OLANZapine ORAL DISINTEGRATING TAB 5MG PO (22:00)
[2018-04-06] MEDS: ACETAMINOPHEN TAB 650MG DOSE (2X325MG) PO (22:00)
[2018-04-06] MEDS: GABAPENTIN 300 MG CAP PO (22:00)
[2018-04-06] MEDS: traZODone 50 MG TAB PO (22:00)
[2018-04-06] MEDS: rOPINIRole 2MG TAB PO (22:11)
[2018-04-07] MEDS: OMEPRAZOLE 20 MG CAP PO (08:30)
[2018-04-07] MEDS: CETIRIZINE (ZyrTEC) 10 MG TAB PO (08:30)
[2018-04-07] MEDS: MULTIVITAMINS/MINERALS THERAP 1 TAB PO (08:30)
[2018-04-07] MEDS: GABAPENTIN 300 MG CAP PO ×3 (08:30→20:20)
[2018-04-07] MEDS: ARIPiprazole 10 MG TAB PO (08:30)
[2018-04-07] MEDS: FOLIC ACID 1 MG TAB PO (08:30)
[2018-04-07] MEDS: ACETAMINOPHEN TAB 650MG DOSE (2X325MG) PO ×2 (08:33→20:20)
[2018-04-07 10:58] LABS: VALPROIC ACID (DEPAKOTE) 33.5 UG/ML (50.0-100.0)
[2018-04-07] MEDS: ASPIRIN 325 MG TAB PO (11:46)
[2018-04-07] MEDS: OLANZapine ORAL DISINTEGRATING TAB 5MG PO ×2 (12:47→20:20)
[2018-04-07] MEDS: NAPROXEN 250 MG TAB PO (15:17)
[2018-04-07] MEDS: DIVALPROEX 250MG *ER* TAB PO (20:17)
[2018-04-07] MEDS: rOPINIRole 2MG TAB PO (20:20)
[2018-04-07] MEDS: traZODone 50 MG TAB PO (20:20)
[2018-04-07] MEDS: PALIPERIDONE 3 MG ER TAB (INVEGA) PO (20:20)
[2018-04-08] MEDS: NAPROXEN 250 MG TAB PO
[2018-04-08] MEDS: OLANZapine ORAL DISINTEGRATING TAB 5MG PO ×2 (00:21→22:10)
[2018-04-08] MEDS: diphenhydrAMINE 50 MG CAP PO (01:57)
[2018-04-08] MEDS: HALOPERIDOL 10 MG TAB PO (01:58)
[2018-04-08] MEDS: ACETAMINOPHEN TAB 650MG DOSE (2X325MG) PO ×2 (05:36→16:37)
[2018-04-08 07:50] LABS: FERRITIN 84 NG/ML (8-252); IRON (FE) 52 UG/DL (50-170); PERCENT SATURATION 15.6 % (13.2-45.0); TOTAL IRON BINDING CAPACITY 334 UG/DL (250-450)
[2018-04-08] MEDS: FOLIC ACID 1 MG TAB PO (09:11)
[2018-04-08] MEDS: GABAPENTIN 300 MG CAP PO ×3 (09:11→20:35)
[2018-04-08] MEDS: CETIRIZINE (ZyrTEC) 10 MG TAB PO (09:11)
[2018-04-08] MEDS: PALIPERIDONE 3 MG ER TAB (INVEGA) PO ×2 (09:11→20:36)
[2018-04-08] MEDS: IBUPROFEN 400 MG TAB PO (09:11)
[2018-04-08] MEDS: MULTIVITAMINS/MINERALS THERAP 1 TAB PO (09:11)
[2018-04-08] MEDS: OMEPRAZOLE 20 MG CAP PO (09:11)
[2018-04-08 09:47] LABS: KETONE, URINE AUTO RFX NEGATIVE (NEGATIVE); MUCUS, URINE RFX SMALL (NEGATIVE); NITRITE, URINE AUTO RFX NEGATIVE (NEGATIVE); RBC, URINE AUTO RFX 1 /HPF (0-3); SPECIFIC GRAVITY UR AUTO RFX 1.001 (1.002-1.035); SQUAM EPITHELIAL CELL UR AURFX 0 /HPF (0-6); WBC, URINE AUTO RFX 2 /HPF (0-3)
[2018-04-08] MEDS: BACTRIM 160MG/800MG DS TAB PO ×2 (09:56→20:36)
[2018-04-08 10:01] LABS: LEUKOCYTE ESTERASE UR AUTO RFX TRACE (NEGATIVE)
[2018-04-08 11:51] LABS: VITAMIN B12 LEVEL 1175 PG/ML (247-911)
[2018-04-08] MEDS: LORazepam 1 MG TAB PO (12:07)
[2018-04-08] MEDS: rOPINIRole 2MG TAB PO (20:35)
[2018-04-08] MEDS: DIVALPROEX 250MG *ER* TAB PO (20:35)
[2018-04-08] MEDS: traZODone 50 MG TAB PO (20:36)
[2018-04-09] MEDS: LOPERAMIDE 2 MG CAP PO
[2018-04-09] MEDS: ACETAMINOPHEN TAB 650MG DOSE (2X325MG) PO (01:52)
[2018-04-09] MEDS: IBUPROFEN 400 MG TAB PO ×3 (08:13→20:10)
[2018-04-09] MEDS: MULTIVITAMINS/MINERALS THERAP 1 TAB PO (08:13)
[2018-04-09] MEDS: GABAPENTIN 300 MG CAP PO ×4 (08:14→20:13)
[2018-04-09] MEDS: FOLIC ACID 1 MG TAB PO (08:14)
[2018-04-09] MEDS: BACTRIM 160MG/800MG DS TAB PO ×2 (08:14→20:09)
[2018-04-09] MEDS: OMEPRAZOLE 20 MG CAP PO (08:14)
[2018-04-09] MEDS: PALIPERIDONE 3 MG ER TAB (INVEGA) PO (08:14)
[2018-04-09] MEDS: CETIRIZINE (ZyrTEC) 10 MG TAB PO (08:14)
[2018-04-09] MEDS: PALIPERIDONE 6 MG ER TAB (INVEGA) PO (20:09)
[2018-04-09] MEDS: rOPINIRole 2MG TAB PO (20:10)
[2018-04-09] MEDS: DIVALPROEX 250MG *ER* TAB PO (20:11)
[2018-04-09] MEDS: traZODone 50 MG TAB PO (20:56)
[2018-04-09] MEDS: OLANZapine ORAL DISINTEGRATING TAB 5MG PO (20:56)
[2018-04-09] MEDS: LORazepam 0.5 MG TAB PO (21:59)
[2018-04-10] MEDS: BACTRIM 160MG/800MG DS TAB PO ×2 (08:42→20:01)
[2018-04-10] MEDS: MULTIVITAMINS/MINERALS THERAP 1 TAB PO (08:43)
[2018-04-10] MEDS: OMEPRAZOLE 20 MG CAP PO (08:43)
[2018-04-10] MEDS: CETIRIZINE (ZyrTEC) 10 MG TAB PO (08:43)
[2018-04-10] MEDS: PALIPERIDONE 6 MG ER TAB (INVEGA) PO ×2 (08:43→20:02)
[2018-04-10] MEDS: GABAPENTIN 300 MG CAP PO ×3 (08:43→20:03)
[2018-04-10] MEDS: FOLIC ACID 1 MG TAB PO (08:43)
[2018-04-10] MEDS: IBUPROFEN 400 MG TAB PO ×3 (11:07→20:04)
[2018-04-10] MEDS: PALIPERIDONE PALMITATE 234 MG/1.5 ML INJ (INVEGA SUSTENNA)(J2426) IM (11:07)
[2018-04-10] MEDS: rOPINIRole 2MG TAB PO (20:03)
[2018-04-10] MEDS: traZODone 50 MG TAB PO (20:03)
[2018-04-10] MEDS: OLANZapine ORAL DISINTEGRATING TAB 5MG PO (21:03)
[2018-04-11] MEDS: BACTRIM 160MG/800MG DS TAB PO ×2 (09:02→20:16)
[2018-04-11] MEDS: CETIRIZINE (ZyrTEC) 10 MG TAB PO (09:02)
[2018-04-11] MEDS: GABAPENTIN 300 MG CAP PO ×3 (09:02→20:18)
[2018-04-11] MEDS: FOLIC ACID 1 MG TAB PO (09:02)
[2018-04-11] MEDS: IBUPROFEN 400 MG TAB PO ×3 (09:02→18:07)
[2018-04-11] MEDS: OMEPRAZOLE 20 MG CAP PO (09:02)
[2018-04-11] MEDS: PALIPERIDONE 6 MG ER TAB (INVEGA) PO ×2 (09:02→20:17)
[2018-04-11] MEDS: MULTIVITAMINS/MINERALS THERAP 1 TAB PO (09:02)
[2018-04-11] MEDS: ASPIRIN 325 MG TAB PO (20:17)
[2018-04-11] MEDS: rOPINIRole 2MG TAB PO (20:18)
[2018-04-11] MEDS: traZODone 50 MG TAB PO (21:15)
[2018-04-11] MEDS: OLANZapine ORAL DISINTEGRATING TAB 5MG PO (21:16)
[2018-04-12] MEDS: GABAPENTIN 300 MG CAP PO ×3 (08:40→20:55)
[2018-04-12] MEDS: PALIPERIDONE 6 MG ER TAB (INVEGA) PO ×2 (08:40→20:55)
[2018-04-12] MEDS: CETIRIZINE (ZyrTEC) 10 MG TAB PO (08:40)
[2018-04-12] MEDS: IBUPROFEN 400 MG TAB PO ×3 (08:41→21:50)
[2018-04-12] MEDS: FOLIC ACID 1 MG TAB PO (08:42)
[2018-04-12] MEDS: BACTRIM 160MG/800MG DS TAB PO ×2 (08:42→20:55)
[2018-04-12] MEDS: MULTIVITAMINS/MINERALS THERAP 1 TAB PO (08:42)
[2018-04-12] MEDS: OMEPRAZOLE 20 MG CAP PO (08:46)
[2018-04-12] MEDS: rOPINIRole 2MG TAB PO (20:55)
[2018-04-12] MEDS: traZODone 50 MG TAB PO (20:55)
[2018-04-12] MEDS: OLANZapine ORAL DISINTEGRATING TAB 5MG PO (21:16)
[2018-04-13] MEDS: FOLIC ACID 1 MG TAB PO (08:39)
[2018-04-13] MEDS: CETIRIZINE (ZyrTEC) 10 MG TAB PO (08:39)
[2018-04-13] MEDS: PALIPERIDONE 6 MG ER TAB (INVEGA) PO (08:39)
[2018-04-13] MEDS: MULTIVITAMINS/MINERALS THERAP 1 TAB PO (08:39)
[2018-04-13] MEDS: GABAPENTIN 300 MG CAP PO ×2 (08:39→15:13)
[2018-04-13] MEDS: OMEPRAZOLE 20 MG CAP PO (08:39)
[2018-04-13] MEDS: BACTRIM 160MG/800MG DS TAB PO (08:39)
[2018-04-13] MEDS: IBUPROFEN 400 MG TAB PO (10:02)
== END 2018-04-13 14:15 | disposition home or self-care (01) | DRG 885 ==
LOC: M ED 17:45 → M ED INP 19:39 → M PSY 21:04
DX: F31.9 Bipolar disorder, unspecified (principal); F22 Delusional disorders; F15.90 Other stimulant use, unspecified, uncomplicated; Z79.899 Other long term (current) drug therapy; G47.00 Insomnia, unspecified; M06.9 Rheumatoid arthritis, unspecified; G89.29 Other chronic pain; B18.2 Chronic viral hepatitis C; F41.9 Anxiety disorder, unspecified; G25.81 Restless legs syndrome; Z86.711 Personal history of pulmonary embolism; J30.9 Allergic rhinitis, unspecified; K21.9 Gastro-esophageal reflux disease without esophagitis

== ENCOUNTER → 2019-01-18 | Outpatient (REF) | payer MEDICARE, MEDICAID ==
[~2019-01-18] MED LIST changes: -/WARF25TA PO; -/WARF5TA OR; +ABIL10TA9 PO; +ABIL1INJ2 IM; +ABIL400I IM; +ALEV220T26 PO; +ALPR1TAB3 PO; +ARIP1TAB PO; +ASPI-1 PO; +BUPR150T5 PO; +BUPR1TAB53 PO; +CETI10TA PO; +COUM1TAB17 OR; +COUM1TAB18 PO; +CYMB60CA3 PO; +DEPA500T2 PO; +DIVA500T9 PO; +DOXE150C PO; -DOXE150C7 PO; +DRIS50003 PO; +DULO1CAP3 PO; -DULO30CA PO; +DULO30CA9 PO; +FOLI1TAB11 PO; +GABA-1171 PO; -GABA-279 PO; -GABA-282 PO; -GABA-283 PO; +GABA-843 PO; +GABA-845 PO; +INVE234I IM; +INVE9TAB PO; +MORP30TASA PO; +OMEG10002 PO; +OMEP40CA2 PO; +PALI1TAB3 PO; +ROPI2TAB; -TRAZ-136 PO; +TRAZ-160 PO; +TRAZ-163 PO; +VITMTA PO; +ZALE10CA PO
[2019-01-18 18:48] LABS: BASO % 0.4 % (0.0-1.0); EOS # 0.1 10^3/uL (0.0-0.50); HEMATOCRIT 38.5 % (36.0-47.0); HEMOGLOBIN 12.3 g/dl (12.0-15.5); LYMPH # 2.3 10^3/uL (1.5-4.5); LYMPH % 25.4 % (24.0-44.0); MEAN CORPUSCULAR HEMOGLOBIN 30.4 pg (27.0-33.0); MEAN CORPUSCULAR HGB CONC 31.9 g/dl (32.0-36.5); MEAN CORPUSCULAR VOLUME 95.3 fl (80.0-96.0); MONO # 0.6 10^3/uL (0.0-0.8); MONO % 6.1 % (0.0-5.0); PLATELET COUNT, AUTOMATED 178 10^3/uL (150-450); RED BLOOD COUNT 4.04 10^6/uL (4.00-5.40)
[2019-01-18 19:03] LABS: HEMOGLOBIN A1c 5.1 %
[2019-01-18 19:26] LABS: ALBUMIN 3.7 GM/DL (3.2-5.2); ALT/SGPT 21 U/L (12-78); BILIRUBIN,TOTAL 0.2 MG/DL (0.2-1.0); BLOOD UREA NITROGEN 10 MG/DL (7-18); CALCIUM LEVEL 8.5 MG/DL (8.5-10.1); CARBON DIOXIDE LEVEL 27 MEQ/L (21-32); CHLORIDE LEVEL 107 MEQ/L (98-107); CHOLESTEROL LEVEL 150 MG/DL (<200); CREATININE FOR GFR 0.82 MG/DL (0.55-1.30); GLOMERULAR FILTRATION RATE > 60.0 (>51); GLUCOSE, FASTING 80 MG/DL (70-100); HDL CHOLESTEROL 30 MG/DL (>40); LDL CHOLESTEROL 72 MG/DL (<100); NON-HDL-C 120 MG/DL; POTASSIUM SERUM 4.5 MEQ/L (3.5-5.1); SODIUM LEVEL 139 MEQ/L (136-145); TOTAL 25(OH) VITAMIN D 31.9 NG/ML (30.0-100.0); TOTAL PROTEIN 6.9 GM/DL (6.4-8.2); TRIGLYCERIDES LEVEL 242 MG/DL (<150)
== END ==
LOC: M LAB REF 17:07
PROVIDERS: ATTEND Nurse Practitioner Family
DX: Z13.9 Encounter for screening, unspecified (principal); E07.9 Disorder of thyroid, unspecified; E78.00 Pure hypercholesterolemia, unspecified; R73.01 Impaired fasting glucose

== ENCOUNTER → 2019-01-19 | Outpatient (REF) | payer OTHER | LOC: M SFHCPLAZ 10:01 | PROVIDERS: ATTEND Internal Medicine Rheumatology | DX: M32.9 Systemic lupus erythematosus, unspecified (principal) ==

== ENCOUNTER → 2019-01-21 | Outpatient (CLI) | payer MEDICARE, OTHER, MEDICAID ==
[~2019-01-21] MED LIST changes: -TRAZ-160 PO; +TRAZ-252 PO
[2019-01-21 14:49] LABS: APPEARANCE, URINE CLEAR (CLEAR); BACTERIA, URINE AUTO NEGATIVE (NEGATIVE); BILIRUBIN, URINE AUTO NEGATIVE (NEGATIVE); BLOOD, URINE BLOOD NEGATIVE (NEGATIVE); COLOR, URINE YELLOW (YELLOW); GLUCOSE, URINE (UA) AUTO NEGATIVE (NEGATIVE); KETONE, URINE AUTO NEGATIVE (NEGATIVE); LEUKOCYTE ESTERASE, URINE AUTO NEGATIVE (NEGATIVE); NITRITE, URINE AUTO NEGATIVE (NEGATIVE); PROTEIN, URINE AUTO NEGATIVE (NEGATIVE); RBC, URINE AUTO 3 /HPF (0-3); SQUAMOUS EPITHELIAL CELL UR AU 0 /HPF (0-6); UROBILINOGEN, URINE AUTO 0.2 mg/dL (0.0-2.0); WBC, URINE AUTO 0 /HPF (0-3)
[2019-01-21 15:08] LABS: CREATININE,RANDOM URINE 68.6 MG/DL; TOTAL PROTEIN,RANDOM URINE < 5.0 MG/DL (0.0-12.0)
[2019-01-21 15:11] LABS: C REACTIVE PROTEIN QUANTITATIV 2.46 MG/DL (0.00-0.30); RHEUMATOID FACTOR QUANT 11.8 IU/ML (<15.0); URIC ACID 4.1 MG/DL (2.6-6.0)
--- NOTE | 2019-01-22 01:23 | REP ---
Clinical: Rheumatoid arthritis. Technique: AP, lateral, bilateral oblique views of the right and left hand. Findings: Right hand demonstrates old injury involving the fourth digit terminal tuft. Mild arthritic changes include subtle periarticular sclerosis and joint space narrowing at the interphalangeal joints as well as subtle periarticular sclerosis at the first metacarpophalangeal joint and periarticular sclerosis and cortical irregularity at the first carpometacarpal joint. No periarticular erosive changes or swelling noted. Left hand essentially age-related changes with less pronounced degenerative findings at the interphalangeal joints. There is subtle periarticular sclerosis and subluxation at the first metacarpophalangeal joint with a subtle broad-based osteophytes forming at the head of the first metacarpal bone suggested. Impression: Mild osteoarthritic degenerative changes. Electronically Signed by Matt Rolon MD 01/22/2019 01:15 A
--- NOTE | 2019-01-22 01:45 | REP ---
Clinical: Rheumatoid arthritis. Technique: AP, lateral, bilateral oblique views of the right foot. Findings: Mild/moderate hallux valgus deformity and subtle cortical irregularity with minimal joint space narrowing and spurring at the first metatarsophalangeal joint noted. The remainder of the second through fifth MTP and interphalangeal joints appear normal. Midfoot including tarsal bones and tarsometatarsal joints are age-appropriate. Impression: Mild/moderate degenerate changes at the first MTP joint. Electronically Signed by Matt Rolon MD 01/22/2019 01:36 A
[2019-01-26 11:38] LABS: DRVV SCREEN 44.3 SEC
[2019-01-26 11:39] LABS: PTT LUPUS TYPE ANTICOAG SCREEN 1.1 (0-1.2)
[2019-01-29 10:26] LABS: BETA-2 GLYCOPROTEIN I ABY IGG <9
[2019-01-29 10:27] LABS: BETA-2 GLYCOPROTEIN I ABY IGA <9
[2019-01-29 10:28] LABS: BETA-2 GLYCOPROTEIN I ABY IGM <9
[2019-01-29 10:32] LABS: CYCLIC CITRULLINATED PEPTIDE 21 UNITS
[2019-01-29 10:33] LABS: HEPATITIS C QUANTITATION HCV Not Detected
[2019-01-29 10:34] LABS: ANA (HEP2) Negative
[2019-01-29 10:36] LABS: CARDIOLIPIN IGA ANTIBODY <9; CARDIOLIPIN IGG ANTIBODY <9
[2019-01-29 10:38] LABS: CARDIOLIPIN IGM ANTIBODY 11
[2019-01-29 10:39] LABS: SMITHS ANTIBODY < 0.2 UNITS
[2019-01-29 10:40] LABS: RNP ANTIBODY 0.4 UNITS; SSA SJOGRENS A <0.2
[2019-01-29 10:41] LABS: SSB SJOGRENS B <0.2
== END ==
LOC: M LAB 13:55
PROVIDERS: ATTEND Internal Medicine Rheumatology
DX: M32.9 Systemic lupus erythematosus, unspecified (principal); Z87.39 Personal history of other diseases of the musculoskeletal system and connective tissue; M19.041 Primary osteoarthritis, right hand; M19.042 Primary osteoarthritis, left hand; M19.071 Primary osteoarthritis, right ankle and foot; M19.072 Primary osteoarthritis, left ankle and foot

== ENCOUNTER 2020-01-27 11:02 | Inpatient (IN) | payer MEDICARE, MEDICAID ==
[~2020-01-27] VITALS: Ht 167.6 cm; Wt 66.5 kg
[~2020-01-27 11:02] MED LIST changes: -DULO1CAP3 PO; +DULO1CAP6 PO; -MORP-38 PO; +MORP-69 PO; -OMEP40CA2 PO; +OMEP40CA97 PO; -ROPI1TAB PO; +ROPI1TAB3 PO; -ROPI2TAB; +ROPI2TAB3; -TRAZ-163 PO; +TRAZ-257 PO
[2020-01-27] MEDS ORDERED: MELO7.5T35 PO (11:44)
[2020-01-27] MEDS ORDERED: METH5TA PO (11:44)
[2020-01-27] MEDS ORDERED: CITA10TA5 PO (11:44)
[2020-01-27] MEDS ORDERED: ALPR1TAB3 PO (11:44)
[2020-01-27] MEDS ORDERED: ARIP1TAB6 PO (11:44)
--- NOTE | 2020-01-27 11:59 | REP ---
CHEST, SINGLE VIEW: Single view of the chest is performed and compared to multiple prior exams dating back to 12/10/2016. There is mild interstitial prominence which appears stable. No new infiltrate is seen. The heart is upper limits of normal in size. The mediastinal silhouette is unchanged. IMPRESSION: Stable exam with no evidence of acute infiltrate. Electronically Signed by Blaine Eddy MD 01/27/2020 12:58 P
[2020-01-27] MEDS ORDERED: NS 1,000 ML IV ONE (12:00)
[2020-01-27] MEDS ORDERED: NS 1,880 ML in IV 1 EA IV ONE (12:30)
[2020-01-27 12:38] LABS: HEMATOCRIT 37.3 % (36.0-47.0); HEMOGLOBIN 11.8 g/dl (12.0-15.5); MEAN CORPUSCULAR HEMOGLOBIN 29.9 pg (27.0-33.0); MEAN CORPUSCULAR HGB CONC 31.6 g/dl (32.0-36.5); MEAN CORPUSCULAR VOLUME 94.7 fl (80.0-96.0); PLATELET COUNT, AUTOMATED 139 10^3/uL (150-450); RED BLOOD COUNT 3.94 10^6/uL (4.00-5.40); WHITE BLOOD COUNT 6.4 10^3/uL (4.0-10.0)
[2020-01-27 12:43] LABS: INR 1.35; PROTHROMBIN TIME 16.4 SECONDS (11.8-14.0)
[2020-01-27 13:01] LABS: ALBUMIN 2.7 GM/DL (3.2-5.2); ALT/SGPT 16 U/L (12-78); BILIRUBIN,DIRECT 0.2 MG/DL (0.0-0.2); BILIRUBIN,TOTAL 0.6 MG/DL (0.2-1.0); BLOOD UREA NITROGEN 17 MG/DL (7-18); CALCIUM LEVEL 7.5 MG/DL (8.5-10.1); CARBON DIOXIDE LEVEL 25 MEQ/L (21-32); CHLORIDE LEVEL 111 MEQ/L (98-107); CK-MB VALUE MASS 1.2 NG/ML (<3.6); CPK CREATINE PHOSPHOKINASE 148 U/L (26-192); CREATININE FOR GFR 1.04 MG/DL (0.55-1.30); GLOMERULAR FILTRATION RATE 58.8 (>51); GLUCOSE, FASTING 114 MG/DL (70-100); MB/CK RELATIVE INDEX 0.81 (< OR =4); NT-PRO BNP 1116 PG/ML (<125); SODIUM LEVEL 141 MEQ/L (136-145); THYROID STIMULATING HORMONE 0.548 uIU/ML (0.358-3.740); TOTAL PROTEIN 5.8 GM/DL (6.4-8.2); TROPONIN I < 0.02 NG/ML (< 0.10)
[2020-01-27 13:07] LABS: LYMPHOCYTES 15 % (16-44); MONOCYTES 4 % (0-5); NEUTROPHILS 79 % (28-66); PLATELET ESTIMATE NORMAL (NORMAL)
[2020-01-27] MEDS ORDERED: ISOVUE-370 76% 100ML VIAL As Ordered ONE (13:31)
[2020-01-27] MEDS ORDERED: DOXYCYCLINE HYCLATE 100 MG in D5W MINI-BAG PLUS 100 ML IV ONE (15:00)
[2020-01-27] MEDS ORDERED: cefTRIAXone SOD 2 GM in D5W MINI-BAG PLUS 50 ML IV ONE (15:00)
--- NOTE | 2020-01-27 15:04 | REP ---
CT ANGIOGRAM CHEST: TECHNIQUE: Axial contrast-enhanced images from the thoracic inlet to the upper abdomen using 100 mL Isovue-370 intravenous contrast material with multiplanar reformations. There is no CT evidence of pulmonary embolism. There is no thoracic aortic aneurysm or dissection. The heart is not enlarged. No axillary adenopathy is seen. There is mild diffuse mediastinal adenopathy with multiple mildly enlarged lymph nodes in the peritracheal region and subcarinal region. There is a slightly enlarged left hilar lymph node. There is an enlarged right hilar jeniffer mass measuring 2.8 x 1.7 cm. There is also mild right infrahilar adenopathy. There is no pleural or pericardial effusion. There is no thoracic aortic aneurysm or dissection. There is a small hiatal hernia. There are patchy alveolar infiltrates bilaterally along with scattered interstitial infiltrates. These are predominately located in the right upper and lower lobes with lesser degree of involvement in the left lower lobe. IMPRESSION: No CT evidence of pulmonary embolism or aortic dissection. Patchy alveolar infiltrates/atelectasis bilaterally, right upper and lower lobes are more involved than the left lower lobe. There are also scattered associated interstitial infiltrates bilaterally, again right greater than left. There is mild mediastinal and right hilar adenopathy. Followup is suggested. Electronically Signed by Blaine Eddy MD 01/27/2020 03:09 P
--- NOTE | 2020-01-27 15:05 | REP ---
Head CT without contrast: History: History of pulmonary embolus. Cough. Comparison study: Comparison head CT study March 21, 2015. CT findings: Bone window settings demonstrate an intact bony calvarium. There is no evidence of skull fracture or incidental bony calvarial lesion. There is vascular calcification in the distal internal carotid arteries bilaterally. The visualized paranasal sinuses appear clear. No intraorbital abnormality is seen. On soft tissue window setting images; the lateral, third, and fourth ventricles are normal in size and position. Eddy-white differentiation pattern is normal above and below the tentorium. There are is no evidence of intracranial hemorrhage. No mass, edema, infarction, or midline shift is seen. No extra-axial fluid collection is appreciated. Impression: Vascular calcification, otherwise negative noncontrast head CT. Electronically Signed by Abraham Carmona MD 01/27/2020 02:56 P
[2020-01-27] MEDS ORDERED: ROPI2TAB3 PO (15:40)
[2020-01-27] MEDS ORDERED: PATIENT COMMENT (15:40)
[2020-01-27] MEDS ORDERED: GABA600T4 PO (15:40)
[2020-01-27] MEDS ORDERED: VITA50005 PO (15:40)
[2020-01-27] MEDS ORDERED: CELE20TA PO (15:40)
[2020-01-27] MEDS ORDERED: PILL CUTTER 1 EACH XX PRN (16:30)
[2020-01-27 16:33] LABS: AMPHETAMINES LEVEL URINE NEGATIVE (NEGATIVE); BARBITURATES URINE NEGATIVE (NEGATIVE); BENZODIAZEPINES URINE POSITIVE (NEGATIVE); CANNABINOIDS URINE POSITIVE (NEGATIVE); COCAINE METABOLITE URINE NEGATIVE (NEGATIVE); METHADONE URINE POSITIVE (NEGATIVE); OPIATES URINE NEGATIVE (NEGATIVE); PHENCYCLIDINE URINE NEGATIVE (NEGATIVE)
--- NOTE | 2020-01-27 16:35 | HPEPDOC ---
General Date of Admission 01/27/20 Date of Service: January 27, 2020 Chief Complaint The patient is a 54-year-old female admitted with a reason for visit of Sob/ Fever. Source: Patient, Old records Exam Limitations: Intoxication Timing/Duration: Day(s) Severity: Moderate Associated Symptoms: Cough History of Present Illness Patient's 53 years old female with past medical history of bipolar disorder, polysubstance abuse lupus, pulmonary emboli, anxiety, rheumatoid arthritis presented to the hospital with altered mental status associated with fever, cough and greenish sputum. When I saw the patient she was able to answer my questions. Patient stated that for past few days she has increased cough with greenish sputum production. Also today she had a fever, she measured in the morning and it was 105, however she was afebrile in the emergency. Also patient complains on the multiple joint pain. Patient stated that she took marijuana in the morning "gummy bear" and became altered and confused. Also she stated that when she has a flare up of lupus she has a fever and disorientation. She saw records analysis manager a few years ago, she stopped taking Plaquenil due to retinopathy, she is not on any lupus or rheumatoid arthritis immunosuppressant medications. Also patient stated that she had a history of pulmonary emboli, she does not take any anticoagulation due to severe intravaginal bleed in the past. 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 There are patchy alveolar infiltrates bilaterally along with scattered interstitial infiltrates. Patient does not have fever or leukocytosis. Patient was hypotensive 85/60 Home Medications Scheduled Aripiprazole (Aripiprazole) 5 Mg Tablet, 5 MG PO DAILY, (Reported) Cetirizine HCl (Cetirizine HCl) 10 Mg Tab, 10 MG PO DAILY, (Reported) Citalopram Hydrobromide (Celexa) 20 Mg Tablet, 20 MG PO DAILY, (Reported) Ergocalciferol (Vitamin D2) (Vitamin D2) 50,000 Units Cap, 50,000 UNIT PO QWEEK, (Reported) Folic Acid (Folic Acid) 1 Mg Tab, 1 MG PO DAILY, (Reported) Gabapentin (Gabapentin) 600 Mg Tablet, 600 MG PO TID, (Reported) Meloxicam (Meloxicam) 7.5 Mg Tablet, 7.5 MG PO DAILY, (Reported) Methadone HCl (Methadone HCl) 5 Mg Tablet, 7.5 MG PO TID, (Reported) Omeprazole (Omeprazole) 40 Mg Cap, 40 MG PO DAILY, (Reported) Ropinirole HCl (Ropinirole HCl) 2 Mg Tablet, 2 MG PO QHS, (Reported) Scheduled PRN Alprazolam (Alprazolam) 1 Mg Tablet, 1 MG PO QID PRN for ANXIETY, (Reported) Miscellaneous Medications [Patient Comment] , (Reported) UNABLE TO VERIFY MEDICATIONS WITH PATIENT - MED LIST OBTAINED FROM PHARMACY Allergies Coded Allergies: ENVIROMENTAL (Verified Allergy, Unknown, 08/27/06) Past Medical History Medical History SYSTEMIC LUPUS ERYTHEMATOSUS WITH ARTHRITIS CHRONIC HEPATITIS C-cured, TREATED WITH MAVYRET PE ANXIETY HX DRUG ABUSE- PATIENT DENIES RHEUMATOID ARTHRITIS DEPRESSION NEUROPATHY Bipolar disorder Surgical History CHOLECYSTECTOMY 1999 BILATERAL TUBAL LIGATION 12/1987 Family History FATHER: 72 YRS, DIAGNOSED WITH HEART DISEASE MOTHER: ALIVE 1 BROTHER(S) , 1 SISTER(S) . 1 SON(S) , 2 DAUGHTER(S) - HEALTHY. Social History * Smoker: current smoker Alcohol: Denies Drugs: marijuana, prescription drugs (amphetamines, methadone), other (methamphetamines) A-FIB/CHADSVASC A-FIB History Current/History of A-Fib/PAF?: No Current PO Anticoag Therapy: No Review of Systems Constitutional: Reports: Chills, Fever Eyes: Reports: Vision change (significant decrease vision of the left eye after therapy with Plaquenil) ENT: Reports: Head Aches, Other Symptoms (multiple small ulcers on the palate) Skin: Denies: Lesions Pulmonary: Reports: Dyspnea, Cough Cardiovascular: Denies: Chest Pain, Palpitations Gastrointestinal: Denies: Nausea, Vomiting Genitourinary: Denies: Dysuria, Frequency Hematologic: Denies: Bruising Endocrine: Denies: Polydipsia, Polyphagia Musculoskeletal: Denies: Neck Pain Neurological: Denies: Weakness, Numbness Psych: Reports: Anxiety Physical Examination General Exam: Positive: Alert, Cooperative, Mild Distress Eye Exam: Positive: PERRLA ENT Exam: Positive: Atraumatic, Mucous membr. moist/pink (multiple small ulcers on the palate) Neck Exam: Positive: Supple; Negative: JVD Chest Exam: Positive: Diminished Heart Exam: Positive: Rate Normal Telemetry: Positive: No significant arrhythmia Abdomen Exam: Positive: Normal bowel sounds Extremity Exam: Negative: Clubbing, Cyanosis Skin Exam: Positive: Nl turgor and temperature; Negative: Breakdown Neuro Exam: Positive: Strength at 5/5 X4 ext, Cranial Nerves 3-12 NL Psych Exam: Positive: Other (mildly confused) Vital Signs Vital Signs Date Time Temp Pulse Resp B/P (MAP) Pulse Ox O2 Delivery O2 Flow Rate FiO2 01/27/20 13:24 78 16 78/49 (59) 96 Room Air 01/27/20 11:10 98.9 Laboratory Data Labs 24H Laboratory Tests 2 01/27/20 12:13: Neutrophils (%) (Auto) , Nucleated Red Blood Cells % (auto) 0.0, Neutrophils 79H, Band Neutrophils 2, Lymphocytes (Manual) 15L, Monocytes (Manual) 4, Red Blood Cell Morphology NORMAL, Platelet Estimate NORMAL, Prothrombin Time 16.4H, Prothromb Time International Ratio 1.35, Anion Gap 5L, Glomerular Filtration Rate 58.8, Lactic Acid Level 1.5, Calcium Level 7.5L, Total Bilirubin 0.6, Direct Bilirubin 0.2, Aspartate Amino Transf (AST/SGOT) 16, Alanine Aminotransferase (ALT/SGPT) 16, Alkaline Phosphatase 58, Total Creatine Kinase 148, Creatine Kinase MB 1.2, Creatine Kinase MB Relative Index 0.81, Troponin I < 0.02, TN-Yll-W-Type Natriuretic Peptide 1116H, Total Protein 5.8L, Albumin 2.7L, Albumin/Globulin Ratio 0.9L, Thyroid Stimulating Hormone (TSH) 0.548, Coronavirus (COVID-19)(PCR) NEGATIVE 01/27/20 15:54: CBC/BMP Laboratory Tests 01/27/20 12:13 Microbiology Microbiology 01/27/20 Respiratory Virus Panel (PCR) (TRUDY) - Final, Complete 01/27/20 Blood Culture, Received Pending 01/27/20 Blood Culture, Received Pending Assessment/Plan Patient's 53 years old female with past medical history of bipolar disorder, polysubstance abuse lupus, pulmonary emboli, anxiety, rheumatoid arthritis presented to the hospital with altered mental status associated with fever, cough and greenish sputum. When I saw the patient she was able to answer my questions. Patient stated that for past few days she has increased cough with greenish sputum production. Also today she had a fever, she measured in the morning and it was 105, however she was afebrile in the emergency. Patient stated that she took marijuana in the morning "gummy bear" and became altered and confused. Also she stated that when she has a flare up of lupus she has a fever and disorientation. She saw records analysis manager a few years ago, she stopped taking Plaquenil due to retinopathy, she is not on any lupus or rheumatoid arthritis immunosuppressant medications. Also patient stated that she had a history of pulmonary emboli, she does not take any anticoagulation due to severe intravaginal bleed in the past. 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 There are patchy alveolar infiltrates bilaterally along with scattered interstitial infiltrates. Patient does not have fever or leukocytosis. Patient was hypotensive 85/60 Problems (1) Sepsis Status: Acute Problem Text: Patient developed fever of 105 in the morning, hypotension and confusion CTA showed patchy bilateral lung infiltrate consistent with pneumonia Blood culture, sputum culture Continue antibiotic therapy IV fluid (2) Pneumonia Status: Acute Problem Text: Most likely community-acquired pneumonia Blood culture, sputum culture Ceftriaxone IV, azithromycin IV IV fluid Incentive spirometry I will use steroids which will help with possible lupus flareup (3) Altered mental status Status: Acute Problem Text: Patient stated that she used marijuana in the morning. Patient has significant history of polysubstance abuse However, patient stated when she has lupus flareup she usually confused and has high fever with joint pain Await urine toxic screen Our differential diagnosis includes lupus cerebritis. If patient continues to be confused and urine toxic screen negative I will proceed with head MRI. Patient will need follow-up with records analysis manager in the outpatient settings (4) Lymphadenopathy Status: Acute Problem Text: CTA showed no PE but mediastinal lymphadenopathy with enlarged r ight hilar jeniffer mass measuring 2.8 x 1.7 cm Our differential diagnosis includes reactive lymphadenopathy secondary to infection or malignancy. Patient has a high risk of malignancy she is current smoker. Appreciate/agree with industrial furnace fabricator consult Most likely patient will need biopsy of the mass Plan / VTE VTE Prophylaxis Ordered?: Yes AREN DAUGHERTY DO January 27, 2020 16:35
[2020-01-27 17:32] VITALS: BP 106/64
[2020-01-27] MEDS: NS 1,000 ML IV SCH (18:26)
[2020-01-27] MEDS: methylPREDNISolone INJ 125 MG/2 ML VIAL (J2930) IV SCH (18:26)
[2020-01-27] MEDS: AZITHROMYCIN INJ 500 MG, VIAL MATE ADAPTER 1 EACH in D5W 250 ML IV SCH (18:27)
[2020-01-27] MEDS: METHADONE 5 MG TAB (S0109) PO SCH ×2 (18:31→21:00)
[2020-01-27 22:00] VITALS: BP 102/67
[2020-01-27] MEDS ORDERED: GABAPENTIN 300 MG CAP PO ONE (22:15)
[2020-01-27] MEDS ORDERED: ALPRAZolam 0.5 MG TAB PO ONE (22:15)
--- NOTE | 2020-01-27 22:16 | ECGEPIP ---
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
[2020-01-28] MEDS: NS 1,000 ML IV SCH ×3 (00:20→12:46)
[2020-01-28] MEDS: methylPREDNISolone INJ 125 MG/2 ML VIAL (J2930) IV SCH ×3 (01:30→17:09)
[2020-01-28 06:00] VITALS: BP 107/64
[2020-01-28 07:17] LABS: HEMATOCRIT 38.2 % (36.0-47.0); HEMOGLOBIN 11.9 g/dl (12.0-15.5); MEAN CORPUSCULAR HEMOGLOBIN 29.4 pg (27.0-33.0); MEAN CORPUSCULAR HGB CONC 31.2 g/dl (32.0-36.5); MEAN CORPUSCULAR VOLUME 94.3 fl (80.0-96.0); PLATELET COUNT, AUTOMATED 128 10^3/uL (150-450); RED BLOOD COUNT 4.05 10^6/uL (4.00-5.40); WHITE BLOOD COUNT 7.5 10^3/uL (4.0-10.0)
[2020-01-28 07:57] LABS: ALBUMIN 2.9 GM/DL (3.2-5.2); ALT/SGPT 17 U/L (12-78); BILIRUBIN,TOTAL 0.5 MG/DL (0.2-1.0); BLOOD UREA NITROGEN 11 MG/DL (7-18); CALCIUM LEVEL 8.6 MG/DL (8.5-10.1); CARBON DIOXIDE LEVEL 28 MEQ/L (21-32); CHLORIDE LEVEL 111 MEQ/L (98-107); CREATININE FOR GFR 0.69 MG/DL (0.55-1.30); GLOMERULAR FILTRATION RATE > 60.0 (>51); GLUCOSE, FASTING 118 MG/DL (70-100); MAGNESIUM LEVEL 2.1 MG/DL (1.8-2.4); POTASSIUM SERUM 5.1 MEQ/L (3.5-5.1); SODIUM LEVEL 142 MEQ/L (136-145); TOTAL PROTEIN 6.1 GM/DL (6.4-8.2)
[2020-01-28] MEDS: OMEPRAZOLE 20 MG CAP PO SCH (09:04)
[2020-01-28] MEDS: FOLIC ACID 1 MG TAB PO SCH (09:04)
[2020-01-28] MEDS: ENOXAPARIN 40MG/0.4ML SYRINGE (J1650 PER 10MG) SC SCH (09:04)
[2020-01-28] MEDS: METHADONE 5 MG TAB (S0109) PO SCH ×3 (09:04→20:48)
--- NOTE | 2020-01-28 13:50 | CR ---
DATE OF CONSULTATION: 01/28/2020 We were asked by the hospitalist for a pulmonary consultation for Ms. Elena Calle for an abnormal chest CT. Ms. Calle was seen on . Ms. Calle states that she was admitted yesterday for altered mental status and increased cough and dyspnea and is being treated for pneumonia. She states that for about a week prior to her admission she had been having increased productive cough with green sputum as well as some shortness of breath and some chest discomfort. She denies any recent treatments for respiratory infections prior to that and denies any recent pneumonia or bronchitis. The patient does have a history of lupus and rheumatoid arthritis and states that she initially was brought to the hospital because of altered mental status. She apparently had a fever at home as well. Her friend was concerned and contacted EMS and the patient was transported to the hospital where she continued to have altered mental status. The patient states that she will often have altered mental status when she has lupus flares. She states that generally in the last day or so and she states by the yesterday afternoon/evening, she was feeling that she was returning to baseline. She feels today that she is back to baseline. While she was being evaluated, she had a chest CT that was read by the radiologist as abnormal with patchy alveolar infiltrates and atelectasis bilaterally as well as mediastinal and right hilar lymphadenopathy. The patient's radiologist noted there was no evidence of pulmonary embolism. The patient was admitted for treatment of pneumonia. We were consulted by the hospitalist in concern of the chest CT abnormalities including mediastinal and hilar lymphadenopathy. The patient does have a history of pulmonary emboli and states she has been hospitalized for this more than once in the past. She states she is not currently on anticoagulation because of a history of vaginal bleeding. She states she does follow with hematology for a history of pulmonary emboli. The patient states that she had been following with rheumatology for her history of lupus and rheumatoid arthritis, but states it has been sometime since she has been seen. She denies any history of respiratory problems or respiratory diagnoses. She is a smoker and states she smokes a pack a day and has been smoking for 25 years. The patient denies any current fevers since yesterday. She denies any shaking chills. She states her breathing is about baseline. She was initiated on IV ceftriaxone and azithromycin for the pneumonia. A sputum culture and blood culture are pending. She was started on Solu-Medrol. CURRENT MEDICATIONS: - Lovenox 40 mg subcu daily - ceftriaxone 2 mg IV daily - azithromycin 500 mg IV daily - folic acid 1 mg by mouth daily - methadone 7.5 mg by mouth three times a day - omeprazole 40 mg by mouth daily - Solu-Medrol 60 mg IV every 8 hours HOME MEDICATIONS: - Abilify 5 mg by mouth daily - cetirizine 10 mg by mouth daily - Celexa 20 mg daily - vitamin D weekly - folic acid 1 mg daily - gabapentin 600 mg by mouth three times a day - meloxicam 7.5 mg by mouth daily - methadone 7.5 mg three times a day - omeprazole 40 mg by mouth daily - ropinirole to 2 mg by mouth at bedtime PAST MEDICAL HISTORY: 1. Lupus. 2. Rheumatoid arthritis. 3. History of pulmonary emboli, not currently on anticoagulation secondary to bleed. 4. History of retinopathy which was believed to be secondary to Plaquenil which the patient stopped two years ago. 5. Bipolar disorder. 6. Polysubstance abuse. 7. Anxiety/depression. 8. History of hepatitis C, reportedly cured. PAST SURGICAL HISTORY: 1. Cholecystectomy. 2. Bilateral tubal ligation. FAMILY HISTORY: Father from myocardial infarction ([place]). Mother living, unknown medical history. Siblings living, unknown medical history. SOCIAL HISTORY: Smoker, the patient smokes a pack a day and has been smoking for 25 years. Alcohol; The patient denies alcohol. Illicit Drugs: The patient reportedly has used marijuana and used marijuana a day or so prior to coming into the hospital. REVIEW OF SYSTEMS: Constitutional: The patient apparently had a fever yesterday, but currently is afebrile. She denies chills. She denies any unexplained weight loss. HEENT: The patient notes vision impairment on the left which she states is stable. She denies any sore throat or difficulty swallowing. Pulmonary: The patient has had increased cough, but denies any significant dyspnea. Cardiac: The patient denies any current chest pain or palpitations. Gastrointestinal (GI): The patient denies nausea, vomiting, diarrhea, or constipation. She reports history of cholecystectomy. Genitourinary (): The patient denies any dysuria. Hematology: The patient denies any bleeding issues. Denies any history of blood transfusions, but states that she has had iron infusions in the past. Endocrine: The patient denies history of diabetes or thyroid disease. Musculoskeletal: The patient denies any current joint pain or swelling. Does have a history of rheumatoid arthritis. Neurological: The patient denies headaches, dizziness or weakness. Denies history of strokes or seizures. Psychiatric: The patient does have a history of anxiety, depression and bipolar disorder. PHYSICAL EXAMINATION: Vitals: Temperature 98.3, pulse 60, respiratory rate 17, blood pressure 107/64, pulse oximetry 93% on room air. General: The patient is alert and oriented times three. She speaks in complete sentences. HEENT: Head is normocephalic, atraumatic. Pupils are reactive. Moist mucous membranes. Mallampati III. Neck: Neck is supple. No cervical lymphadenopathy. Trachea is midline. No jugular venous distention (JVD). Heart: Regular rate and rhythm. S1, S2. No murmurs. Pulmonary: Clear to auscultation bilaterally. No wheezes, rales, rhonchi or crackles. No accessory muscle. Abdomen: Positive bowel sounds, soft, nontender. No rebound or guarding. No obvious hepatosplenomegaly. Extremities: No clubbing, cyanosis or edema. No tenderness. No calf tenderness to palpation. Skin: Skin is warm and dry. Neuro: Nonfocal grossly. LABORATORY DATA: WBC 7.5, hemoglobin 11.9, hematocrit 38.2, platelets 128. Sodium 142, potassium 5.1, chloride 111, carbon dioxide 28, BUN 11, creatinine 0.69, glucose 118, calcium 8.6, magnesium 2.1, total bilirubin 0.5, AST 17, ALT 17, alkaline phosphatase 64, total protein 6.1, albumin 2.9. Chest CT angio done on 01/27/[address] Melendez and myself. There is no evidence of pulmonary embolism. The patient does have patchy scattered alveolar infiltrates bilaterally. There is a large right hilar node and enlarged subcarinal node. There is some right infrahilar adenopathy. There is a very subtle pleural parenchymal abnormality or thickening of the right upper lobe. ASSESSMENT/PLAN: 1. Abnormal chest CT. The patient does have an abnormal chest CT with mediastinal and hilar lymphadenopathy as well as scattered bilateral infiltrates. Likely, the mediastinal and hilar lymphadenopathy is related to the pneumonia, but we recommend repeat chest CT in a month after resolution of the pneumonia to make sure that the lymphadenopathy has resolved as well. The patient therefore should have repeat chest CT scheduled in a month and should followup with pulmonary as an outpatient. We did note a subtle pleural parenchymal abnormality at the right upper lobe. This could be related to the patient's rheumatoid arthritis and should be followed as well with the repeat chest CT in a month. The patient should have this scheduled that at discharge along with a scheduled followup with pulmonary as an outpatient. Would consider also performing pulmonary function testing as part of her outpatient workup. She is a smoker and was counseled on smoking cessation. 2. Pneumonia. The patient is being treated for pneumonia with IV ceftriaxone and IV azithromycin. As noted above, this should be followed with repeat chest CT in a month with pulmonary followup. The patient was also seen and examined by Dr. Mehran Melendez. TEO
[2020-01-28 13:57] VITALS: BP 156/89
[2020-01-28] MEDS ORDERED: cefTRIAXone SOD 2 GM in D5W MINI-BAG PLUS 50 ML IV SCH (16:00)
--- NOTE | 2020-01-28 16:08 | IPNPDOC ---
Text Note Date of Service The patient was seen on 01/28/20. NOTE Subjective: Patient stated that she continues to have mild shortness of breath and joint pain. She is not confused and alert, oriented and awake Objective: VITAL SIGNS: Please see below. GENERAL: awake, alert, NAD HEENT: NCAT, anicteric sclera, MARLENA NECK: supple, no JVD CARDIOVASCULAR EXAMINATION: NS1S2, regular rate/rhythm RESPIRATORY EXAMINATION: Diminished lung sounds bilaterally ABDOMINAL EXAMINATION: positive bowel sounds x 4, NT EXTREMITIES: no cyanosis, clubbing, edema SKIN: warm, no rashes. NEUROLOGICAL EXAMINATION: AAO x 3, no motor/sensory deficits Assessment/Plan Patient's 53 years old female with past medical history of bipolar disorder, polysubstance abuse lupus, pulmonary emboli, anxiety, rheumatoid arthritis presented to the hospital with altered mental status associated with fever, cough and greenish sputum. When I saw the patient she was able to answer my questions. Patient stated that for past few days she has increased cough with greenish sputum production. Also today she had a fever, she measured in the morning and it was 105, however she was afebrile in the emergency. Patient stated that she took marijuana in the morning "gummy bear" and became altered and confused. Also she stated that when she has a flare up of lupus she has a fever and disorientation. She saw sales representative wire rope a few years ago, she stopped taking Plaquenil due to retinopathy, she is not on any lupus or rheumatoid arthritis immunosuppressant medications. Also patient stated that she had a history of pulmonary emboli, she does not take any anticoagulation due to severe intravaginal bleed in the past. 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 There are patchy alveolar infiltrates bilaterally along with scattered interstitial infiltrates. Patient does not have fever or leukocytosis. Patient was hypotensive 85/60 Problems (1) Sepsis Resolved Patient developed fever of 105 in the morning on 01/27/20, hypotension and confusion CTA showed patchy bilateral lung infiltrate consistent with pneumonia Blood culture, sputum culture negative on 01/28/20 Continue antibiotic therapy IV fluid (2) Pneumonia Most likely community-acquired pneumonia Blood culture, sputum culture Ceftriaxone IV, azithromycin IV Incentive spirometry I will use steroids which will help with possible lupus flareup (3) Altered mental status Resolved Patient stated that she used marijuana in the morning. Patient has significant history of polysubstance abuse However, patient stated when she has lupus flareup she usually confused and has high fever with joint pain urine toxic screen positive for marijuana and opioids (4) Lymphadenopathy CTA showed no PE but mediastinal lymphadenopathy with enlarged right hilar jeniffer mass measuring 2.8 x 1.7 cm Our differential diagnosis includes reactive lymphadenopathy secondary to infection or malignancy. Patient has a high risk of malignancy she is current smoker. Pulmonology team recommended repeat CT scan in 1 month and follow-up with Dr. Se terrazas in 1 month Lupus/rheumatoid arthritis Patient does not have sales representative wire rope and she currently does not take any medications for lupus or rheumatoid arthritis We will give her referral on discharge VS,Mamie, I+O VS, Mamie, I+O Laboratory Tests 01/28/20 06:52 Vital Signs Date Time Temp Pulse Resp B/P (MAP) Pulse Ox O2 Delivery O2 Flow Rate FiO2 01/28/20 13:57 98.9 77 16 156/89 (111) 94 Room Air I&O- Last 24 Hours up to 6 AM 01/28/20 06:00 Intake Total 5480 ml Output Total 202 ml Balance 5278 ml AREN DAUGHERTY DO January 28, 2020 16:08
[2020-01-28] MEDS: GABAPENTIN 300 MG CAP PO SCH ×2 (16:21→20:49)
[2020-01-28] MEDS: CitaloPRAM (CeleXA) 20 MG TAB PO SCH (16:21)
[2020-01-28] MEDS: AZITHROMYCIN INJ 500 MG, VIAL MATE ADAPTER 1 EACH in D5W 250 ML IV SCH (18:22)
--- NOTE | 2020-01-28 20:12 | ECGEPIP ---
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
[2020-01-28] MEDS: ALPRAZolam 0.5 MG TAB PO PRN (20:51)
[2020-01-28] MEDS ORDERED: rOPINIRole 1MG TAB PO SCH (21:00)
[2020-01-28 21:15] VITALS: BP 143/93
[2020-01-29] MEDS: methylPREDNISolone INJ 125 MG/2 ML VIAL (J2930) IV SCH (01:38)
[2020-01-29] MEDS: ALPRAZolam 0.5 MG TAB PO PRN (03:31)
[2020-01-29 06:01] VITALS: BP 145/92
[2020-01-29] MEDS ORDERED: predniSONE 20 MG TAB PO SCH (09:00)
[2020-01-29] MEDS ORDERED: CETIRIZINE (ZyrTEC) 10 MG TAB PO SCH (09:00)
[2020-01-29] MEDS ORDERED: AZIT500T5 PO (10:01)
[2020-01-29] MEDS ORDERED: PRED5PAK2 PO (10:01)
[2020-01-29] MEDS ORDERED: AUGM875T28 PO (10:01)
[2020-01-29] MEDS: METHADONE 5 MG TAB (S0109) PO SCH (10:06)
[2020-01-29] MEDS: OMEPRAZOLE 20 MG CAP PO SCH (10:06)
[2020-01-29] MEDS: FOLIC ACID 1 MG TAB PO SCH (10:06)
[2020-01-29] MEDS: CitaloPRAM (CeleXA) 20 MG TAB PO SCH (10:06)
[2020-01-29] MEDS: GABAPENTIN 300 MG CAP PO SCH (10:07)
[2020-01-29] MEDS: ENOXAPARIN 40MG/0.4ML SYRINGE (J1650 PER 10MG) SC SCH (10:07)
[2020-01-29] MEDS ORDERED: VENTAER INH (10:17)
[2020-01-29] MEDS ORDERED: NICO1PAT36 TOP (10:17)
--- NOTE | 2020-01-29 12:41 | DS.PDOC ---
Discharge Summary General Date of Admission January 27, 2020 at 15:52 Date of Discharge 01/29/20 Discharge Summary PROCEDURES PERFORMED DURING STAY: [None]. ADMITTING DIAGNOSES: Sepsis Pneumonia Altered mental status Lymphadenopathy Lupus/rheumatoid arthritis DISCHARGE DIAGNOSES: Sepsis Pneumonia Altered mental status Lymphadenopathy Lupus/rheumatoid arthritis COMPLICATIONS/CHIEF COMPLAINT: Pneumonia. HISTORY OF PRESENT ILLNESS:.Patient's 53 years old female with past medical history of bipolar disorder, polysubstance abuse lupus, pulmonary emboli, anxiety, rheumatoid arthritis presented to the hospital with altered mental status associated with fever, cough and greenish sputum. When I saw the patient she was able to answer my questions. Patient stated that for past few days she has increased cough with greenish sputum production. Also today she had a fever, she measured in the morning and it was 105, however she was afebrile in the emergency. Patient stated that she took marijuana in the morning "gummy bear" and became altered and confused. Also she stated that when she has a flare up of lupus she has a fever and disorientation. She saw data storage specialist a few years ago, she stopped taking Plaquenil due to retinopathy, she is not on any lupus or rheumatoid arthritis immunosuppressant medications. Also patient stated that she had a history of pulmonary emboli, she does not take any anticoagulation due to severe intravaginal bleed in the past. 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 There are patchy alveolar infiltrates bilaterally along with scattered interstitial infiltrates. Patient does not have fever or leukocytosis. Patient was hypotensive 85/60 HOSPITAL COURSE: During hospital stay following issue addressed Sepsis Resolved Patient developed fever of 105 in the morning on 01/27/20, hypotension and confusion CTA showed patchy bilateral lung infiltrate consistent with pneumonia Blood culture, sputum culture negative on 01/28/20 Patient received antibiotic therapy IV fluid (2) Pneumonia Most likely community-acquired pneumonia Blood culture, sputum culture Ceftriaxone IV, azithromycin IV Incentive spirometry I used steroids which helped with possible lupus flareup (3) Altered mental status Resolved Patient stated that she used marijuana in the morning. Patient has significant history of polysubstance abuse However, patient stated when she has lupus flareup she usually confused and has high fever with joint pain urine toxic screen positive for marijuana and opioids (4) Lymphadenopathy CTA showed no PE but mediastinal lymphadenopathy with enlarged right hilar jeniffer mass measuring 2.8 x 1.7 cm Our differential diagnosis includes reactive lymphadenopathy secondary to infection or malignancy. Patient has a high risk of malignancy she is current smoker. Pulmonology team recommended repeat CT scan in 1 month and follow-up with Dr. Enio brown in 1 month Lupus/rheumatoid arthritis Patient does not have data storage specialist and she currently does not take any medications for lupus or rheumatoid arthritis We will give her referral on discharge DISCHARGE MEDICATIONS: Please see below. ALLERGIES: Please see below. PHYSICAL EXAMINATION ON DISCHARGE: . VITAL SIGNS: Please see below. GENERAL: awake, alert, NAD HEENT: NCAT, anicteric sclera, MARLENA NECK: supple, no JVD CARDIOVASCULAR EXAMINATION: NS1S2, regular rate/rhythm RESPIRATORY EXAMINATION: Diminished lung sounds bilaterally ABDOMINAL EXAMINATION: positive bowel sounds x 4, NT EXTREMITIES: no cyanosis, clubbing, edema SKIN: warm, no rashes. NEUROLOGICAL EXAMINATION: AAO x 3, no motor/sensory deficits LABORATORY DATA: Please see below. IMAGING: TECHNIQUE: Axial contrast-enhanced images from the thoracic inlet to the upper abdomen using 100 mL Isovue-370 intravenous contrast material with multiplanar reformations. There is no CT evidence of pulmonary embolism. There is no thoracic aortic aneurysm or dissection. The heart is not enlarged. No axillary adenopathy is seen. There is mild diffuse mediastinal adenopathy with multiple mildly enlarged lymph nodes in the peritracheal region and subcarinal region. There is a slightly enlarged left hilar lymph node. There is an enlarged right hilar jeniffer mass measuring 2.8 x 1.7 cm. There is also mild right infrahilar adenopathy. There is no pleural or pericardial effusion. There is no thoracic aortic aneurysm or dissection. There is a small hiatal hernia. There are patchy alveolar infiltrates bilaterally along with scattered interstitial infiltrates. These are predominately located in the right upper and lower lobes with lesser degree of involvement in the left lower lobe. IMPRESSION: No CT evidence of pulmonary embolism or aortic dissection. Patchy alveolar infiltrates/atelectasis bilaterally, right upper and lower lobes are more involved than the left lower lobe. There are also scattered associated interstitial infiltrates bilaterally, again right greater than left. There is mild mediastinal and right hilar adenopathy. Followup is suggested. Electronically Signed by Blaine Eddy MD 01/27/2020 03:09 P PROGNOSIS: Fair ACTIVITY: [As tolerated]. DIET: Regular DISPOSITION: Home DISCHARGE INSTRUCTIONS: Follow-up with time broker and data storage specialist. DISCHARGE CONDITION: [Stable]. TIME SPENT ON DISCHARGE: Greater than 20 minutes. Vital Signs/I&Os Vital Signs Date Time Temp Pulse Resp B/P (MAP) Pulse Ox O2 Delivery O2 Flow Rate FiO2 01/29/20 06:01 97.1 57 20 145/92 (109) 92 Room Air I&O- Last 24 Hours up to 6 AM 01/29/20 06:00 Intake Total 2945 ml Output Total 200 ml Balance 2745 ml Microbiology Microbiology 01/27/20 Respiratory Virus Panel (PCR) (TRUDY) - Final, Complete 01/27/20 Blood Culture - Preliminary, Resulted No Growth after 48 hours. All Specime... 01/27/20 Blood Culture - Preliminary, Resulted No Growth after 48 hours. All Specime... 01/27/20 Gram Stain - Final, Resulted 01/27/20 Sputum Culture, Resulted Pending Discharge Medications Scheduled Amoxicillin/Potassium Clav (Augmentin 875-125 Tablet) 1 Each Tablet, 875 MG PO BID Aripiprazole (Aripiprazole) 5 Mg Tablet, 5 MG PO DAILY, (Reported) Azithromycin (Azithromycin) 500 Mg Tablet, 1 TAB PO DAILY Cetirizine HCl (Cetirizine HCl) 10 Mg Tab, 10 MG PO DAILY, (Reported) Citalopram Hydrobromide (Celexa) 20 Mg Tablet, 20 MG PO DAILY, (Reported) Ergocalciferol (Vitamin D2) (Vitamin D2) 50,000 Units Cap, 50,000 UNIT PO QWEEK, (Reported) Folic Acid (Folic Acid) 1 Mg Tab, 1 MG PO DAILY, (Reported) Gabapentin (Gabapentin) 600 Mg Tablet, 600 MG PO TID, (Reported) Meloxicam (Meloxicam) 7.5 Mg Tablet, 7.5 MG PO DAILY, (Reported) Methadone HCl (Methadone HCl) 5 Mg Tablet, 7.5 MG PO TID, (Reported) Nicotine (Nicotine Patch) 14 Mg/24 Hr Patch.td24, 1 PATCH TOP DAILY for smoking cessation Omeprazole (Omeprazole) 40 Mg Cap, 40 MG PO DAILY, (Reported) Prednisone (Prednisone) 5 Mg Tab.ds.pk, 0 PO ASDIRECTED 6 day dose pack taper Ropinirole HCl (Ropinirole HCl) 2 Mg Tablet, 2 MG PO QHS, (Reported) Scheduled PRN Albuterol Sulfate (Ventolin Hfa) 18 Gm Hfa.aer.ad, 4 PUFFS INH QID PRN for DYSPNEA Alprazolam (Alprazolam) 1 Mg Tablet, 1 MG PO QID PRN for ANXIETY, (Reported) Miscellaneous Medications [Patient Comment] , (Reported) UNABLE TO VERIFY MEDICATIONS WITH PATIENT - MED LIST OBTAINED FROM PHARMACY Allergies Coded Allergies: ENVIROMENTAL (Verified Allergy, Unknown, 08/27/06) AREN DAUGHERTY DO January 29, 2020 12:41
== END 2020-01-29 15:12 | disposition home or self-care (01) | DRG 871 ==
LOC: EDBD 11:02 → M ED 11:02 → M ED INP 15:52 → ENRESERV 16:07 → M MSPAV 17:27
PROVIDERS: ADMIT Internal Medicine; ATTEND Internal Medicine
DX: A41.9 Sepsis, unspecified organism (principal); J18.9 Pneumonia, unspecified organism; M32.10 Systemic lupus erythematosus, organ or system involvement unspecified; R41.82 Altered mental status, unspecified; M06.9 Rheumatoid arthritis, unspecified; F31.9 Bipolar disorder, unspecified; R91.1 Solitary pulmonary nodule; F41.9 Anxiety disorder, unspecified; F12.90 Cannabis use, unspecified, uncomplicated; Z79.899 Other long term (current) drug therapy; R59.0 Localized enlarged lymph nodes

== ENCOUNTER → 2020-03-02 | Outpatient (CLI) | payer MEDICARE, MEDICAID ==
[~2020-03-02] MED LIST changes: +ARIP1TAB6 PO; +AUGM875T28 PO; +AZIT500T5 PO; +CITA10TA5 PO; +GABA600T4 PO; +ISOVUE-370 76% 100ML VIAL As Ordered ONE; +MELO7.5T35 PO; +METH5TA PO; +NICO1PAT36 TOP; +PATIENT COMMENT; +PRED5PAK2 PO; +ROPI2TAB3 PO; +VENTAER INH; +VITA50005 PO
--- NOTE | 2020-03-02 16:53 | REP ---
REASON FOR EXAM: Followup. Comparison examinations are 01/27/2020 and 06/02/2014, the only priors. CONTRAST: 100 mL Isovue-370. Mediastinal and hilar adenopathy seen previously has significantly improved, however, enlarged lymph nodes persist. No pleural or pericardial effusions have developed. There is no change in the imaged upper abdomen or imaged osseous structures. Evaluation of the lung sahni show marked improvement/near complete resolution of the opacity seen previously. There are chronic lung field changes with tiny pleural blebs peripherally and particularly in the upper lobe regions with evidence of early honeycomb lung. These chronic changes appear stable. No new abnormal nodules, masses, or opacities have developed. IMPRESSION: Significant improvement. Followup to complete resolution is suggested. Chronic lung field changes, as described above. Electronically Signed by Henok Wetzel DO 03/02/2020 05:06 P
== END ==
LOC: M RAD 15:23
PROVIDERS: ATTEND Internal Medicine Pulmonary Disease
DX: R91.8 Other nonspecific abnormal finding of lung field (principal)
CPT/HCPCS: 71260; Q9967

== ENCOUNTER → 2020-03-02 | Outpatient (CLI) | payer MEDICARE, MEDICAID ==
[~2020-03-02] MED LIST changes: +GABA-282 PO; -GABA-843 PO; -ISOVUE-370 76% 100ML VIAL As Ordered ONE
[2020-03-02 17:03] LABS: APPEARANCE, URINE CLEAR (CLEAR); BACTERIA, URINE AUTO NEGATIVE (NEGATIVE); BILIRUBIN, URINE AUTO NEGATIVE (NEGATIVE); BLOOD, URINE BLOOD NEGATIVE (NEGATIVE); COLOR, URINE YELLOW (YELLOW); GLUCOSE, URINE (UA) AUTO NEGATIVE (NEGATIVE); KETONE, URINE AUTO NEGATIVE (NEGATIVE); LEUKOCYTE ESTERASE, URINE AUTO 1+ (NEGATIVE); MUCUS, URINE SMALL (NEGATIVE); NITRITE, URINE AUTO NEGATIVE (NEGATIVE); PROTEIN, URINE AUTO NEGATIVE (NEGATIVE); RBC, URINE AUTO 3 /HPF (0-3); SPECIFIC GRAVITY URINE AUTO 1.057 (1.002-1.035); SQUAMOUS EPITHELIAL CELL UR AU 1 /HPF (0-6); UROBILINOGEN, URINE AUTO 0.2 mg/dL (0.0-2.0); WBC, URINE AUTO 37 /HPF (0-3)
[2020-03-02 17:20] LABS: HEMOGLOBIN A1c 5.5 %
[2020-03-02 17:38] LABS: ALBUMIN 3.6 GM/DL (3.2-5.2); ALT/SGPT 22 U/L (12-78); BILIRUBIN,TOTAL 0.3 MG/DL (0.2-1.0); BLOOD UREA NITROGEN 11 MG/DL (7-18); CALCIUM LEVEL 8.9 MG/DL (8.5-10.1); CARBON DIOXIDE LEVEL 26 MEQ/L (21-32); CHLORIDE LEVEL 108 MEQ/L (98-107); CHOLESTEROL LEVEL 163 MG/DL (<200); CHOLESTEROL RISK RATIO 5.258 (<5); CREATININE FOR GFR 0.85 MG/DL (0.55-1.30); FREE T4 0.93 NG/DL (0.76-1.46); GLOMERULAR FILTRATION RATE > 60.0 (>51); GLUCOSE, FASTING 88 MG/DL (70-100); HDL CHOLESTEROL 31 MG/DL (>40); LDL CHOLESTEROL 85 MG/DL (<100); NON-HDL-C 132 MG/DL; POTASSIUM SERUM 4.3 MEQ/L (3.5-5.1); SODIUM LEVEL 139 MEQ/L (136-145); TOTAL PROTEIN 6.7 GM/DL (6.4-8.2); TRIGLYCERIDES LEVEL 235 MG/DL (<150)
[2020-03-03 16:05] LABS: TOTAL 25(OH) VITAMIN D 68.3 NG/ML (30.0-100.0)
== END ==
LOC: M LAB 16:16
PROVIDERS: ATTEND Nurse Practitioner Family
DX: M79.2 Neuralgia and neuritis, unspecified (principal); M19.90 Unspecified osteoarthritis, unspecified site; K21.9 Gastro-esophageal reflux disease without esophagitis; F32.9 Major depressive disorder, single episode, unspecified; Z13.9 Encounter for screening, unspecified; Z72.0 Tobacco use; M54.89 Other dorsalgia; E78.00 Pure hypercholesterolemia, unspecified

== ENCOUNTER → 2020-03-08 | Outpatient (CLI) | payer MEDICARE, MEDICAID ==
[~2020-03-08] MED LIST changes: -GABA-282 PO; +GABA-843 PO
--- NOTE | 2020-03-08 17:28 | ECHO ---
DATE OF STUDY: 03/08/2020 REFERRING PHYSICIAN: Dr. Dimple Seay INDICATION: Pulmonary embolism. HEIGHT: 157 cm WEIGHT: 62.6 kg 2-D MEASUREMENTS: Left ventricle diastole: 4.4 cm Ventricular septum: 1.11 cm Posterior wall: 1.07 cm LVOT: 2.0 cm Aortic root: 3.1 cm Left atrium: 3.0 cm Proximal ascending aorta: 2.7 cm Inferior vena cava: 1.4 cm (with normal respiratory variation) DOPPLER MEASUREMENTS: Very mild aortic regurgitation. No aortic stenosis. Aortic valve velocity: 144 cm/sec LVOT velocity: 97.9 cm/sec LVOT VTI: 22.7 cm No mitral regurgitation. Mitral E velocity: 96.1 cm/sec Mitral A velocity: 84.5 cm/sec Mitral deceleration time: 204 ms Trace tricuspid regurgitation. Estimated right ventricle systolic pressure 29-34 mmHg assuming a right atrial pressure of 5-10 mmHg. Very mild pulmonic regurgitation. MITRAL ANNULAR TISSUE DOPPLER E prime septal: 6.64 cm/sec E prime lateral: 7.5 cm/sec DESCRIPTION: The rhythm was sinus. Image quality was fair. This was a 2-D, M-mode, color flow Doppler and pulsed wave Doppler examination and included mitral annular tissue Doppler. No pericardial effusion. CONCLUSIONS: 1. Normal left ventricle internal dimensions and wall thickness. Normal regional LV wall motion and wall thickening. Normal LV systolic function. Left ventricular ejection fraction (LVEF) 65% by visual estimate. Normal LV diastolic function. Normal left atrial size. 2. Normal right ventricle size and systolic function. Normal right atrial size. Estimated right ventricular systolic pressure to be near the upper limits of normal to slightly elevated (29-34 mmHg) assuming a right atrial pressure of 5-10 mmHg. Suggestive of normal central venous pressure. Central venous pressure (CVP) estimated to be 5-10 mmHg. 3. Mild focal thickening and calcific deposits of a 3-cusp aortic valve (mild aortic valve sclerosis). No aortic stenosis. Very mild aortic regurgitation. 4. Otherwise, normal appearing echocardiogram-Doppler findings.
== END ==
LOC: M CARPUL 14:31
PROVIDERS: ATTEND Internal Medicine Pulmonary Disease
DX: Z86.711 Personal history of pulmonary embolism (principal); I35.1 Nonrheumatic aortic (valve) insufficiency; I35.8 Other nonrheumatic aortic valve disorders

== ENCOUNTER → 2020-03-27 | Outpatient (REF) | payer MEDICARE, MEDICAID | LOC: M LAB REF 17:00 | PROVIDERS: ATTEND Internal Medicine Pulmonary Disease | DX: R05 Cough (principal) ==

== ENCOUNTER → 2020-06-13 | Outpatient (CLI) | payer MEDICARE, MEDICAID ==
[2020-06-18 13:07] LABS: ANA (HEP2) Negative (.); ANTI DS-DNA AB Negative (Negative); ANTI JO-1 ANTIBODIES <20 Units (<20); ANTI SCLERODERMA ANTIBODIES <0.2 AI (0.0-0.9); ANTI-SMOOTH MUSCLE ANTIBODY 12 Units (0-19); RNP ANTIBODY < 0.2 AI (0.0-0.9); SMITHS ANTIBODY 0.2 AI (0.0-0.9); SSA SJOGRENS A <0.2 AI (0.0-0.9); SSB SJOGRENS B <0.2 AI (0.0-0.9)
== END ==
LOC: M LAB 11:20
PROVIDERS: ATTEND Internal Medicine Rheumatology
DX: R76.8 Other specified abnormal immunological findings in serum (principal)

== ENCOUNTER → 2020-07-07 | Outpatient (REF) | payer MEDICARE, MEDICAID | LOC: M SFHCRHEU 11:45 | PROVIDERS: ATTEND Internal Medicine | DX: M25.50 Pain in unspecified joint (principal); I26.99 Other pulmonary embolism without acute cor pulmonale; M32.9 Systemic lupus erythematosus, unspecified ==

== ENCOUNTER → 2020-08-21 | Outpatient (CLI) | payer MEDICARE, MEDICAID ==
[2020-08-21 11:07] LABS: C REACTIVE PROTEIN QUANTITATIV 0.39 MG/DL (0.00-0.30); COMPLEMENT C3 116 MG/DL (90-180); COMPLEMENT C4 20 MG/DL (10-40); CPK CREATINE PHOSPHOKINASE 164 U/L (26-192); RHEUMATOID FACTOR QUANT < 10.0 IU/ML (<15.0)
--- NOTE | 2020-08-21 15:03 | REP ---
INDICATION: PAIN IN JOINT. COMPARISON: Comparison right knee radiographs are from September 16, 2012.. TECHNIQUE: Ten views, 5 on each side. FINDINGS: 5 views of the left knee demonstrate normal bones, joints, and soft tissues. No fracture or subluxation is seen. No erosive changes seen.. Five views of the right knee demonstrate old soft tissue calcification at the proximal attachment of the medial collateral ligament consistent with an old medial collateral ligament injury. This was not apparent in 2013. Bones, joints and soft tissues are otherwise unremarkable on the right. IMPRESSION: Evidence of an old medial collateral ligament injury on the right knee. Otherwise negative bilateral knee radiographs.. <Electronically signed by Vaibhav Carmona > 08/21/20 [id number]
--- NOTE | 2020-08-21 15:06 | REP ---
INDICATION: PAIN IN JOINT. COMPARISON: None. TECHNIQUE: Five views: AP and frogleg views of each hip and AP view of the pelvis. FINDINGS: Bony pelvic ring is intact. No sacral or pelvic lesion is visible. SI joints are intact with evidence of some sclerosis bilaterally consistent with degenerative osteoarthritis. Hip joint spaces are preserved. Femoral heads are smooth and rounded bilaterally. Periarticular soft tissues are unremarkable. No erosive changes seen. IMPRESSION: Mild osteoarthritic change in the SI joints bilaterally. Otherwise negative bilateral hip radiographs. <Electronically signed by Vaibhav Carmona > 08/21/20 [id number]
[2020-08-23 11:31] LABS: DRVV SCREEN 44.5 SEC
[2020-08-23 11:33] LABS: PTT LUPUS TYPE ANTICOAG SCREEN 1.1 (0-1.2)
[2020-08-23 15:08] LABS: BETA-2 GLYCOPROTEIN I ABY IGA <9 (0-25); BETA-2 GLYCOPROTEIN I ABY IGG <9 (0-20); BETA-2 GLYCOPROTEIN I ABY IGM <9 (0-32); CARDIOLIPIN IGA ANTIBODY <9 APL U/mL (0-11); CARDIOLIPIN IGG ANTIBODY <9 GPL U/mL (0-14); CARDIOLIPIN IGM ANTIBODY 14 MPL U/mL (0-12); CYCLIC CITRULLINATED PEPTIDE 9 units (0-19)
== END ==
LOC: M LAB 09:51
PROVIDERS: ATTEND Internal Medicine
DX: M16.0 Bilateral primary osteoarthritis of hip (principal); M32.9 Systemic lupus erythematosus, unspecified; I26.99 Other pulmonary embolism without acute cor pulmonale

== ENCOUNTER 2021-01-12 10:20 | Inpatient (IN) | payer OTHER, MEDICAID ==
[~2021-01-12] VITALS: Ht 157.5 cm; Wt 62.0 kg
[~2021-01-12 10:20] MED LIST changes: +GABA-282 PO; -GABA-843 PO
[2021-01-12] MEDS ORDERED: CELE20TA PO (10:29)
[2021-01-12] MEDS ORDERED: dexameTHASONE 20MG/5ML VIAL (J1100 PER 1MG) IV ONE (10:45)
[2021-01-12 11:07] LABS: VENOUS BASE EXCESS -0.3 (-2.0-2.0); VENOUS HCO3 23.3 MEQ/L (23.0-27.0); VENOUS O2 SATURATION 97.3 % (60.0-80.0); VENOUS PARTIAL PRESSURE CO2 34.3 mmHg (38.0-50.0); VENOUS PARTIAL PRESSURE O2 88.6 mmHg (30.0-50.0); VENOUS PH 7.449 UNITS (7.330-7.430); VENOUS STANDARD HCO3 24.3 MEQ/L; VENOUS TOTAL CO2 24.3 MEQ/L (24.0-28.0)
[2021-01-12 11:08] LABS: HEMATOCRIT 36.8 % (36.0-47.0); HEMOGLOBIN 11.8 g/dl (12.0-15.5); MEAN CORPUSCULAR HEMOGLOBIN 29.8 pg (27.0-33.0); MEAN CORPUSCULAR HGB CONC 32.1 g/dl (32.0-36.5); MEAN CORPUSCULAR VOLUME 92.9 fl (80.0-96.0); PLATELET COUNT, AUTOMATED 194 10^3/uL (150-450); RED BLOOD COUNT 3.96 10^6/uL (4.00-5.40); WHITE BLOOD COUNT 8.2 10^3/uL (4.0-10.0)
--- NOTE | 2021-01-12 11:12 | REP ---
INDICATION: DYSPNEA/COUGH. COMPARISON: Comparison radiographs 27 Jan 2020. TECHNIQUE: Portable upright AP chest radiograph. FINDINGS: There is extensive pulmonary parenchymal consolidation throughout the right lung field consistent with pneumonia. Left lung is clear. There are healed rib fractures bilaterally. No acute bony abnormality is seen. Heart size is normal. Monitoring electrodes are noted.. IMPRESSION: Extensive consolidation right lung consistent with acute pneumonia.. <Electronically signed by Vaibhav Carmona > 01/12/21 1101
[2021-01-12 11:18] LABS: INR 1.08; PROTHROMBIN TIME 14.3 SECONDS (12.5-14.3)
[2021-01-12 11:19] LABS: PARTIAL THROMBOPLASTIN TIME 30.1 SECONDS (24.2-38.5)
[2021-01-12 11:32] LABS: ATYPICAL LYMPH 4 % (0-5); LYMPHOCYTES 16 % (16-44); METAMYELOCYTES 1 % (0-0); MONOCYTES 10 % (0-5); NEUTROPHILS 69 % (28-66)
[2021-01-12 11:33] LABS: PLATELET ESTIMATE NORMAL (NORMAL)
[2021-01-12] MEDS: COMBIVENT RESPIMAT 100-20MCG INHALER 4GM INH SCH ×2 (11:38→11:57)
[2021-01-12 11:41] LABS: ALBUMIN 2.8 GM/DL (3.2-5.2); ALT/SGPT 24 U/L (12-78); BILIRUBIN,DIRECT < 0.1 MG/DL (0.0-0.2); BILIRUBIN,TOTAL 1.1 MG/DL (0.2-1.0); BLOOD UREA NITROGEN 10 MG/DL (7-18); CARBON DIOXIDE LEVEL 26 MEQ/L (21-32); CHLORIDE LEVEL 103 MEQ/L (98-107); CK-MB VALUE MASS < 1.0 NG/ML (<3.6); CPK CREATINE PHOSPHOKINASE 206 U/L (26-192); GLOMERULAR FILTRATION RATE > 60.0 (>51); GLUCOSE, FASTING 111 MG/DL (70-100); MB/CK RELATIVE INDEX 0.49 (< OR =4); NT-PRO BNP 363 PG/ML (<125); POTASSIUM SERUM 5.4 MEQ/L (3.5-5.1); SODIUM LEVEL 136 MEQ/L (136-145); THYROXINE (T4) 10.6 UG/DL (4.5-12.0); TOTAL PROTEIN 7.2 GM/DL (6.4-8.2); TROPONIN I < 0.02 NG/ML (< 0.10)
[2021-01-12] MEDS ORDERED: cefTRIAXone SOD 2 GM in D5W MINI-BAG PLUS 50 ML IV ONE (12:20)
[2021-01-12] MEDS ORDERED: ALBU8.5H INH (12:34)
[2021-01-12] MEDS ORDERED: [UNRECOGNIZED DRUG - CODE] SL (12:34)
[2021-01-12] MEDS ORDERED: BENZ-52 PO (12:34)
[2021-01-12] MEDS ORDERED: DOXE50CA PO (12:34)
[2021-01-12] MEDS ORDERED: BREO1INH INH (12:34)
[2021-01-12] MEDS ORDERED: NARC1SPR (12:34)
[2021-01-12] MEDS ORDERED: CLON-412 PO (12:34)
[2021-01-12] MEDS ORDERED: D31000TA2 PO (12:34)
[2021-01-12] MEDS ORDERED: CELE40TA PO (12:34)
[2021-01-12] MEDS ORDERED: ALBUTEROL 90 MCG/ACT 8GM HFA INHALER INH PRN (13:10)
[2021-01-12] MEDS ORDERED: ISOVUE-370 76% 100ML VIAL As Ordered ONE (13:11)
[2021-01-12] MEDS ORDERED: MOM 30ML SUSPENSION UDC PO PRN (13:20)
[2021-01-12] MEDS ORDERED: ACETAMINOPHEN TAB 650MG DOSE (2X325MG) PO PRN (13:20)
--- NOTE | 2021-01-12 13:55 | REP ---
INDICATION: R PNA, hypoxemia, hx of PE. COMPARISON: Comparison CT pulmonary angiogram 27 Jan 2020.. TECHNIQUE: Contrast dose: 75 ML of Isovue [address] technique: Helical scanning is acquired and overlapping 1.5 mm and contiguous 3 mm axial images are reformatted. In addition, maximum intensity projection and multiplanar re-formation images are generated in sagittal and coronal imaging projections. FINDINGS: There is good opacification of the pulmonary arterial tree. There are small bilateral peripheral filling defects in the pulmonary arterial tree in the left lower lobe and right lower lobe consistent with pulmonary embolism. These linear filling defects are quite small. With the exception of left lower lobe. No large or central pulmonary embolus is seen. Thoracic aorta is enhance homogeneously and normal in course and caliber. No aneurysm or dissection is seen. There is moderate right hilar and subcarinal and Mary Ellen tracheal lymphadenopathy in the mediastinum similar to the January 27, 2020 study and radiographically more pronounced than on June 02, 2014. Normal adrenals are seen. There is mild cortical scarring in the upper pole right kidney. There are clips in the gallbladder fossa. The visualized upper abdominal structures are otherwise unremarkable. Lung window settings demonstrate extensive peribronchovascular distribution nodular consolidation in the right lung. There are confluent opacities in the right middle lobe with air bronchograms consistent with pneumonia. There is another area of confluent opacity in the right lower lobe. There are a few peribronchovascular nodular densities in the left perihilar region upper lobe and lower lobe. These changes have progressed since the 2013 and 2019 study. Comparison with prior study suggestive of possibility of granulomatous disease such as sarcoidosis, possibly with superimposed pneumonia. No bony abnormality is seen. IMPRESSION: 1. The study is positive for small bilateral lower lobe pulmonary emboli. 2. Chronic, gradually progressive right hilar and mediastinal lymphadenopathy and bilateral peribronchovascular nodular infiltrates bilaterally. Question granulomatous disease such as sarcoidosis. There are confluent areas of pulmonary parenchymal opacification today which may reflect superimposed pneumonia. 3. There is cortical atrophy in the upper pole the right kidney. Patient is post cholecystectomy. . <Electronically signed by Vaibhav Carmona > 01/12/21 [id number]
--- NOTE | 2021-01-12 15:26 | HPEPDOC ---
[facility] Medical History & Physical Date of Admission Jan 12, 2021 Date of Service: Jan 12, 2021 Attending Physician: NISHA TELLO MD History and Physical CHIEF COMPLAINT: Waxing and waning mental status at home, SOB HISTORY OF PRESENT ILLNESS: 55 yo W with past medical history of bipolar disorder, polysubstance abuse, lupus, remote pulmonary emboli not on anticoagulation, anxiety, rheumatoid arthritis, COPD, active chronic smoker, who recently completed a course of outpatient antibiotics and steroids for clinic diagnosed bronchitis that she completed about 1 week ago who was now brought in by her daughter after she noted that her mother was intermittently confused and not acting herself and having a persistent productive cough. In the ED she was hemodynamically stable and afebrile but with soft BPs. She was noted to desaturate to 80% on room air while at rest during examination and was placed on supplemental oxygen, currently at 3L NC. Work up was notable for a chest XR that showed extensive consolidation of the right lung as well as healed bilateral rib fractures with clear left lung sahni. WBC was 8.2, Hgb 11.8, platelets 194, proBNP 363, na 136, K 5.4, Cr 0.8, AST 53, ALT 24, lactate 1.3, troponin <0.02, covid-19 negative. She was given empiric ceftriaxone after some blood cultures were drawn and is now getting admitted for CAP. She otherwise reports no fever, chills, rigors, hemoptysis, nausea, emesis, chest pain or dizziness. Given the SOB, hypoxemia and history of PEs not on anticoagulation I will also order a CTA chest at this time. PAST MEDICAL HISTORY: SYSTEMIC LUPUS ERYTHEMATOSUS WITH ARTHRITIS CHRONIC HEPATITIS C-cured, TREATED WITH MAVYRET REMOTE HISTORY OF PE ANXIETY HX OF DRUG ABUSE RHEUMATOID ARTHRITIS DEPRESSION NEUROPATHY BIPOLAR DISORDER SURGICAL HISTORY: CHOLECYSTECTOMY 1999 BILATERAL TUBAL LIGATION 12/1987 Family History FATHER: 72 YRS, DIAGNOSED WITH HEART DISEASE MOTHER: ALIVE 1 BROTHER(S) , 1 SISTER(S) . 1 SON(S) , 2 DAUGHTER(S) - HEALTHY. SOCIAL HISTORY: Smoking: current smoker Alcohol: Denies Drugs: marijuana, prescription drugs (amphetamines), is currently on methadone REVIEW OF SYSTEMS: Pertinent positives are as noted in the HPI and 10 point ROS was otherwise negative PHYSICAL EXAMINATION: General: Alert,oriented, cooperative, no distress Eyes: EOMI, PERRLA, anicteric, no injection ENT: Atraumatic, Mucous membr. moist/pink Head: NCAT Neck: Supple, no JVD Chest: Diminished right side throughout, adequate air movement on left. No noted wheezing. Heart: RRR, no m/r/g Abdomen: Normal bowel sounds, soft, NTND Extremities: WWP, no edema Skin: Nl turgor and temperature, no noted breakdown Neuro: Strength at 5/5 X4 ext, Cranial Nerves 3-12 NL Psych: Awake, alert, appropriately answering questions as this time. AOx3 LABS and IMAGING: reviewed above. See below for full details CTA chest: There is good opacification of the pulmonary arterial tree. There are small bilateral peripheral filling defects in the pulmonary arterial tree in the left lower lobe and right lower lobe consistent with pulmonary embolism. These linear filling defects are quite small. With the exception of left lower lobe. No large or central pulmonary embolus is seen. Thoracic aorta is enhance homogeneously and normal in course and caliber. No aneurysm or dissection is seen. There is moderate right hilar and subcarinal and Mary Ellen tracheal lymphadenopathy in the mediastinum similar to the January 27, 2020 study and radiographically more pronounced than on June 02, 2014. Normal adrenals are seen. There is mild cortical scarring in the upper pole right kidney. There are clips in the gallbladder fossa. The visualized upper abdominal structures are otherwise unremarkable. Lung window settings demonstrate extensive peribronchovascular distribution nodular consolidation in the right lung. There are confluent opacities in the right middle lobe with air bronchograms consistent with pneumonia. There is another area of confluent opacity in the right lower lobe. There are a few peribronchovascular nodular densities in the left perihilar region upper lobe and lower lobe. These changes have progressed since the 2013 and 2019 study. Comparison with prior study suggestive of possibility of granulomatous disease such as sarcoidosis, possibly with superimposed pneumonia. No bony abnormality is seen. IMPRESSION: 1. The study is positive for small bilateral lower lobe pulmonary emboli. 2. Chronic, gradually progressive right hilar and mediastinal lymphadenopathy and bilateral peribronchovascular nodular infiltrates bilaterally. Question granulomatous disease such as sarcoidosis. There are confluent areas of pulmonary parenchymal opacification today which may reflect superimposed pneumonia. 3. There is cortical atrophy in the upper pole the right kidney. Patient is po st cholecystectomy. ASSESSMENT: 55 yo W with past medical history of bipolar disorder, polysubstance abuse, lupus, remote pulmonary emboli not on anticoagulation, anxiety, rheumatoid arthritis, COPD, active chronic smoker, who recently completed a course of outpatient antibiotics and steroids for clinic diagnosed bronchitis that she completed about 1 week ago who was now brought in by her daughter after she noted that her mother was intermittently confused and not acting herself and having a persistent productive cough and found to have jhony R sided pneumonia. CAP: -SOB, hypoxemic, diminished breath sounds, productive cough, CXR with R sided extensive consolidation -ceftriaxone/doxy IV -f/u BCx -SCx -urine strep and legionella antigens -covid-19 negative -incentive spirometry -will hold on further steroids given jhony pneumonia -supplemental oxygen to goal >89% Acute PE: -CTA showed small bilateral peripheral filling defects in the pulmonary arterial tree in the left lower lobe and right lower lobe consistent with pulmonary embolism. -Was remotely on xarelto that was held after a few months of treatment many years ago. Will start her on xarelto again and given the recurrence of unprovoked PEs, she will need to be on anticoagulation for life. Hilar adenopathy: previously noted but not clear if a definitive diagnosis was made c/f sarcoid vs. 2/2 infection vs. malignancy -will discuss with patient, family and curide pulm about her findings. COPD: -Symbicort -PRN albuterol mdi -hold further steroids, appears to be jhony CAP at this time -incentive spirometry and supplemental O2 as noted above -encourage smoking cessation Hilar adenopathy Metabolic encephalopathy: likely 2/2 ongoing infection, though there is a history of illicit substance use and lupus -tx CAP as planned above -will monitor closely. At this time appears to have improved from presenting history History of polysubstance abuse: -continue methadone taper, currently on 5mg BID for 1 week. Then 5mg daily for 7d, then off. Chronic pain: -continue gabapentin Psychiatric diagnoses: -continue xanax daily PRN -congentin and asenapine -citalopram -holding clonidine with soft BPs while infected RLS: -continue ropinirole GERD: -continue omeprazole DVT ppx: xarelto Vital Signs Vital Signs Date Time Temp Pulse Resp B/P (MAP) Pulse Ox O2 Delivery O2 Flow Rate FiO2 01/12/21 10:59 01/12/21 10:59 Room Air 01/12/21 10:21 97.1 97 18 95 Laboratory Data Labs 24H Laboratory Tests 2 01/12/21 10:51: Neutrophils (%) (Auto) , Nucleated Red Blood Cells % (auto) 0.0, Neutrophils 69H, Lymphocytes (Manual) 16, Monocytes (Manual) 10H, Metamyelocytes 1H, Atypical Lymphocytes 4, Red Blood Cell Morphology NORMAL, Platelet Estimate NORMAL, Prothrombin Time 14.3H, Prothromb Time International Ratio 1.08, Activated Partial Thromboplast Time 30.1, Blood Gas Bicarbonate Standard 24.3, Venous Blood pH 7.449H, Venous Blood Partial Pressure CO2 34.3L, Venous Blood Partial Pressure O2 88.6H, Venous Blood Total Carbon Dioxide 24.3, Venous Blood HCO3 23.3, Venous Blood Oxygen Saturation 97.3H, Venous Blood Base Excess -0.3, Anion Gap 7L, Glomerular Filtration Rate > 60.0, Lactic Acid Level 1.3, Calcium Level 9.0, Total Bilirubin 1.1H, Direct Bilirubin < 0.1, Aspartate Amino Transf (AST/SGOT) 53H, Alanine Aminotransferase (ALT/SGPT) 24, Alkaline Phosphatase 78, Total Creatine Kinase 206H, Creatine Kinase MB < 1.0, Creatine Kinase MB Relative Index 0.49, Troponin I < 0.02, GO-Qha-P-Type Natriuretic Peptide 363H, Total Protein 7.2, Albumin 2.8L, Albumin/Globulin Ratio 0.6L, Thyroid Stimulating Hormone (TSH) 0.890, Thyroxine (T4) 10.6 CBC/BMP Laboratory Tests 01/12/21 10:51 Microbiology Microbiology 01/12/21 Respiratory Virus Panel (PCR) (TRUDY) - Final, Complete 01/12/21 Blood Culture, Received Pending 01/12/21 Blood Culture, Received Pending Home Medications Scheduled Asenapine Maleate (Asenapine Maleate) 2.5 Mg Tab.subl, 2.5 MG SL BID Benztropine Mesylate (Benztropine Mesylate) 1 Mg Tablet, 1 MG PO DAILY Cetirizine HCl (Cetirizine HCl) 10 Mg Tab, 10 MG PO DAILY Cholecalciferol (Vitamin D3) (Vitamin D3) 1,000 Unit Tablet, 1,000 UNITS PO DAILY Citalopram Hydrobromide (Celexa) 40 Mg Tablet, 40 MG PO DAILY Clonidine HCl (Clonidine HCl) 0.1 Mg Tablet, 0.1 MG PO QHS Doxepin HCl (Doxepin HCl) 50 Mg Capsule, 50 MG PO QHS Fluticasone/Vilanterol (Breo Ellipta 100-25 Mcg INH) 1 Each Blst.w.dev, 1 PUFF INH DAILY Folic Acid (Folic Acid) 1 Mg Tab, 1 MG PO DAILY Gabapentin (Gabapentin) 600 Mg Tablet, 600 MG PO TID Methadone HCl (Methadone HCl) 5 Mg Tablet, 5 MG PO TID Omeprazole (Omeprazole) 40 Mg Cap, 40 MG PO DAILY Ropinirole HCl (Ropinirole HCl) 2 Mg Tablet, 2 MG PO QHS Scheduled PRN Albuterol Sulfate (Albuterol Sulfate Hfa) 8.5 Gm Hfa.aer.ad, 2 PUFFS INH QID PRN for SHORTNESS OF BREATH Alprazolam (Alprazolam) 1 Mg Tablet, 1 MG PO QID PRN for ANXIETY Naloxone HCl (Narcan) 4 Mg [place], 1 SPRAY NA PRN PRN for OVERDOSE Allergies Coded Allergies: ENVIROMENTAL (Verified Allergy, Unknown, 08/27/06) A-FIB/CHADSVASC A-FIB History Current/History of A-Fib/PAF?: No Current PO Anticoag Therapy: Yes Treatment Treatment ordered: Rivaroxaban NISHA TELLO MD Jan 12, 2021 14:54
--- NOTE | 2021-01-12 15:36 | ECGEPIP ---
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
[2021-01-12] MEDS ORDERED: METHADONE 5 MG TAB (S0109) PO SCH (16:00)
[2021-01-12 16:24] VITALS: BP 105/68
[2021-01-12] MEDS: CETIRIZINE (ZyrTEC) 10 MG TAB PO SCH (18:14)
[2021-01-12] MEDS: CitaloPRAM (CeleXA) 20 MG TAB PO SCH (18:14)
[2021-01-12] MEDS: DOXYCYCLINE HYCLATE 100 MG in D5W MINI-BAG PLUS 100 ML IV SCH (18:14)
[2021-01-12] MEDS: GABAPENTIN 300 MG CAP PO SCH ×2 (18:14→21:03)
[2021-01-12] MEDS: OMEPRAZOLE 20 MG CAP PO SCH (18:14)
[2021-01-12] MEDS: RIVAROXABAN 15 MG TAB (XARELTO) PO SCH (18:14)
[2021-01-12] MEDS: FOLIC ACID 1 MG TAB PO SCH (18:14)
[2021-01-12] MEDS: SYMBICORT 160/4.5MCG INHALER 6GM INH SCH (19:58)
[2021-01-12] MEDS ORDERED: cloNIDine 0.1MG TABLET PO SCH (21:00)
[2021-01-12] MEDS ORDERED: ASENAPINE SL SCH (21:00)
[2021-01-12] MEDS: DOXEPIN 25 MG CAP PO SCH (21:02)
[2021-01-12] MEDS: rOPINIRole 1MG TAB PO SCH (21:03)
[2021-01-12] MEDS: METHADONE 5 MG TAB (S0109) PO SCH (21:04)
[2021-01-12] MEDS: ALPRAZolam 0.5 MG TAB PO PRN (21:07)
[2021-01-12 22:00] VITALS: BP 106/68
[2021-01-12] MEDS ORDERED: HEPARIN SOD (PORCINE) 5000UNITS/ML 1ML VIAL/SYRINGE SC SCH (22:00)
[2021-01-13] MEDS: DOXYCYCLINE HYCLATE 100 MG in D5W MINI-BAG PLUS 100 ML IV SCH ×2 (04:15→15:36)
[2021-01-13 06:00] VITALS: BP 131/67
[2021-01-13 06:36] LABS: HEMATOCRIT 35.2 % (36.0-47.0); HEMOGLOBIN 11.1 g/dl (12.0-15.5); MEAN CORPUSCULAR HEMOGLOBIN 29.3 pg (27.0-33.0); MEAN CORPUSCULAR HGB CONC 31.5 g/dl (32.0-36.5); MEAN CORPUSCULAR VOLUME 92.9 fl (80.0-96.0); PLATELET COUNT, AUTOMATED 196 10^3/uL (150-450); RED BLOOD COUNT 3.79 10^6/uL (4.00-5.40); WHITE BLOOD COUNT 6.2 10^3/uL (4.0-10.0)
[2021-01-13 06:44] LABS: BLOOD UREA NITROGEN 17 MG/DL (7-18); CARBON DIOXIDE LEVEL 24 MEQ/L (21-32); CHLORIDE LEVEL 104 MEQ/L (98-107); CREATININE FOR GFR 0.71 MG/DL (0.55-1.30); GLOMERULAR FILTRATION RATE > 60.0 (>51); GLUCOSE, FASTING 167 MG/DL (70-100); MAGNESIUM LEVEL 2.7 MG/DL (1.8-2.4); SODIUM LEVEL 138 MEQ/L (136-145)
[2021-01-13] MEDS: SYMBICORT 160/4.5MCG INHALER 6GM INH SCH ×2 (07:30→20:58)
[2021-01-13] MEDS: CitaloPRAM (CeleXA) 20 MG TAB PO SCH (08:33)
[2021-01-13] MEDS: RIVAROXABAN 15 MG TAB (XARELTO) PO SCH ×2 (08:33→18:49)
[2021-01-13] MEDS: CETIRIZINE (ZyrTEC) 10 MG TAB PO SCH (08:34)
[2021-01-13] MEDS: BENZTROPINE 1 MG TAB PO SCH (08:34)
[2021-01-13] MEDS: GABAPENTIN 300 MG CAP PO SCH ×3 (08:35→21:34)
[2021-01-13] MEDS: OMEPRAZOLE 20 MG CAP PO SCH (08:35)
[2021-01-13] MEDS: METHADONE 5 MG TAB (S0109) PO SCH ×2 (08:35→21:33)
[2021-01-13] MEDS: VITAMIN D 1,000 INTERNATIONAL UNITS TABLET PO SCH (08:35)
[2021-01-13] MEDS: FOLIC ACID 1 MG TAB PO SCH (08:35)
--- NOTE | 2021-01-13 11:57 | IPNPDOC ---
Text Note Date of Service The patient was seen on 01/13/21. NOTE SUBJECTIVE: -No acute complaints, on 2L NC General: Alert,oriented, cooperative, no distress Eyes: EOMI, PERRLA, anicteric, no injection ENT: Atraumatic, Mucous membr. moist/pink Head: NCAT Neck: Supple, no JVD Chest: Diminished right sounds, adequate air movement on left. No noted wheezing. Heart: RRR, no m/r/g Abdomen: Normal bowel sounds, soft, NTND Extremities: WWP, no edema Skin: Nl turgor and temperature, no noted breakdown Neuro: Strength at 5/5 X4 ext, Cranial Nerves 3-12 NL Psych: Awake, alert, appropriately answering questions as this time. AOx3 LABS: reviewed. See below for full details WBC 6.2 Hgb 11.1 Platelets 196 na 138 K 4 Cr 0.71 Procalcitonin 0.24 Imaging: CXR: There is extensive pulmonary parenchymal consolidation throughout the right lung field consistent with pneumonia. Left lung is clear. There are healed rib fractures bilaterally. No acute bony abnormality is seen. Heart size is normal. Monitoring electrodes are noted.. IMPRESSION: Extensive consolidation right lung consistent with acute pneumonia CTA chest: There is good opacification of the pulmonary arterial tree. There are small bilateral peripheral filling defects in the pulmonary arterial tree in the left lower lobe and right lower lobe consistent with pulmonary embolism. These linear filling defects are quite small. With the exception of left lower lobe. No large or central pulmonary embolus is seen. Thoracic aorta is enhance homogeneously and normal in course and caliber. No aneurysm or dissection is seen. There is moderate right hilar and subcarinal and Mary Ellen tracheal lymphadenopathy in the mediastinum similar to the January 27, 2020 study and radiographically more pronounced than on June 02, 2014. Normal adrenals are seen. There is mild cortical scarring in the upper pole right kidney. There are clips in the gallbladder fossa. The visualized upper abdominal structures are otherwise unremarkable. Lung window settings demonstrate extensive peribronchovascular distribution nodular consolidation in the right lung. There are confluent opacities in the right middle lobe with air bronchograms consistent with pneumonia. There is another area of confluent opacity in the right lower lobe. There are a few peribronchovascular nodular densities in the left perihilar region upper lobe and lower lobe. These changes have progressed since the 2013 study. Comparison with prior study suggestive of possibility of granulomatous disease such as sarcoidosis, possibly with superimposed pneumonia. No bony abnormality is seen. IMPRESSION: 1. The study is positive for small bilateral lower lobe pulmonary emboli. 2. Chronic, gradually progressive right hilar and mediastinal lymphadenopathy and bilateral peribronchovascular nodular infiltrates bilaterally. Question granulomatous disease such as sarcoidosis. There are confluent areas of pulmonary parenchymal opacification today which may reflect superimposed pneumonia. 3. There is cortical atrophy in the upper pole the right kidney. Patient is post cholecystectomy. ASSESSMENT: 55 yo W with past medical history of bipolar disorder, polysubstance abuse, lupus, remote pulmonary emboli not on anticoagulation, anxiety, rheumatoid arthritis, COPD, active chronic smoker, who recently completed a course of outpatient antibiotics and steroids for clinic diagnosed bronchitis that she completed about 1 week ago who was now brought in by her daughter after she noted that her mother was intermittently confused and not acting herself and having a persistent productive cough and found to have jhony R sided pneumonia. CAP: SOB, hypoxemic, diminished breath sounds, productive cough, CXR with R sided extensive consolidation, +procalcitonin -ceftriaxone/doxy IV -f/u BCx -nursing to please collect SCx -f/u urine strep and legionella antigens -covid-19 negative -incentive spirometry -supplemental oxygen to goal >89% Acute PE: -CTA showed small bilateral peripheral filling defects in the pulmonary arterial tree in the left lower lobe and right lower lobe consistent with pulmonary embolism. -Was remotely on xarelto that was held after a few months of treatment many years ago. Will start her on xarelto again and given the recurrence of unprovoked PEs, she will need to be on anticoagulation for life. Hilar adenopathy: previously noted but not clear if a definitive diagnosis was made c/f sarcoid vs. 2/2 infection vs. malignancy -will discuss with patient, family and curbside pulm about her findings. COPD: -Symbicort -PRN albuterol mdi -hold further steroids, appears to be jhony CAP at this time -incentive spirometry and supplemental O2 as noted above -encourage smoking cessation Hilar adenopathy Metabolic encephalopathy: likely 2/2 ongoing infection, though there is a history of illicit substance use and lupus -tx CAP as planned above -will monitor closely. At this time appears to have improved from presenting history History of polysubstance abuse: -continue methadone taper, currently on 5mg BID for 1 week. Then 5mg daily for 7d, then off. Chronic pain: -continue gabapentin Psychiatric diagnoses: -continue xanax daily PRN -congentin and asenapine -citalopram -holding clonidine with soft BPs while infected RLS: -continue ropinirole GERD: -continue omeprazole DVT ppx: xarelto VS,Fishbone, I+O VS, Fishbone, I+O Laboratory Tests 01/12/21 10:51 01/13/21 05:48 Vital Signs Date Time Temp Pulse Resp B/P (MAP) Pulse Ox O2 Delivery O2 Flow Rate FiO2 01/13/21 06:00 98.3 78 17 131/67 (88) 92 Nasal Cannula 2.0 I&O- Last 24 Hours up to 6 AM 01/13/21 06:00 Intake Total 1130 ml Output Total 120 ml Balance 1010 ml NISHA TELLO MD January 13, 2021 09:26
[2021-01-13] MEDS: ALPRAZolam 0.5 MG TAB PO PRN ×2 (12:58→19:38)
[2021-01-13] MEDS ORDERED: cefTRIAXone SOD 2 GM in D5W MINI-BAG PLUS 50 ML IV SCH (13:00)
[2021-01-13 14:00] VITALS: BP 111/73
[2021-01-13] MEDS: DOXEPIN 25 MG CAP PO SCH (21:33)
[2021-01-13] MEDS: rOPINIRole 1MG TAB PO SCH (21:34)
[2021-01-13 22:00] VITALS: BP 107/60
[2021-01-13] MEDS ORDERED: RAMELTEON 8 MG TAB (ROZEREM) PO PRN (23:55)
[2021-01-14] MEDS: DOXYCYCLINE HYCLATE 100 MG in D5W MINI-BAG PLUS 100 ML IV SCH (04:49)
[2021-01-14 06:00] VITALS: BP 106/69
[2021-01-14 06:58] LABS: HEMATOCRIT 33.1 % (36.0-47.0); HEMOGLOBIN 10.4 g/dl (12.0-15.5); MEAN CORPUSCULAR HEMOGLOBIN 29.6 pg (27.0-33.0); MEAN CORPUSCULAR HGB CONC 31.4 g/dl (32.0-36.5); MEAN CORPUSCULAR VOLUME 94.3 fl (80.0-96.0); PLATELET COUNT, AUTOMATED 218 10^3/uL (150-450); RED BLOOD COUNT 3.51 10^6/uL (4.00-5.40); WHITE BLOOD COUNT 9.6 10^3/uL (4.0-10.0)
[2021-01-14 07:02] LABS: BLOOD UREA NITROGEN 19 MG/DL (7-18); CALCIUM LEVEL 8.8 MG/DL (8.5-10.1); CARBON DIOXIDE LEVEL 28 MEQ/L (21-32); CHLORIDE LEVEL 104 MEQ/L (98-107); CREATININE FOR GFR 0.67 MG/DL (0.55-1.30); GLOMERULAR FILTRATION RATE > 60.0 (>51); GLUCOSE, FASTING 109 MG/DL (70-100); POTASSIUM SERUM 4.2 MEQ/L (3.5-5.1); SODIUM LEVEL 138 MEQ/L (136-145)
[2021-01-14] MEDS: SYMBICORT 160/4.5MCG INHALER 6GM INH SCH ×2 (07:12→19:36)
[2021-01-14] MEDS: BENZTROPINE 1 MG TAB PO SCH (08:27)
[2021-01-14] MEDS: RIVAROXABAN 15 MG TAB (XARELTO) PO SCH ×2 (08:27→18:35)
[2021-01-14] MEDS: METHADONE 5 MG TAB (S0109) PO SCH ×2 (08:27→21:17)
[2021-01-14] MEDS: OMEPRAZOLE 20 MG CAP PO SCH (08:27)
[2021-01-14] MEDS: VITAMIN D 1,000 INTERNATIONAL UNITS TABLET PO SCH (08:27)
[2021-01-14] MEDS: CitaloPRAM (CeleXA) 20 MG TAB PO SCH (08:27)
[2021-01-14] MEDS: CETIRIZINE (ZyrTEC) 10 MG TAB PO SCH (08:27)
[2021-01-14] MEDS: FOLIC ACID 1 MG TAB PO SCH (08:27)
[2021-01-14] MEDS: GABAPENTIN 300 MG CAP PO SCH ×3 (08:27→21:18)
[2021-01-14] MEDS: ALPRAZolam 0.5 MG TAB PO PRN ×2 (08:29→18:39)
[2021-01-14] MEDS ORDERED: traMADol 50 MG TAB PO PRN (13:25)
--- NOTE | 2021-01-14 13:37 | IPNPDOC ---
Text Note Date of Service The patient was seen on 01/14/21. NOTE SUBJECTIVE: -No acute complaints, on 1L NC this morning. At 1 PM reported to nurse that she is having L leg especially thigh are and it is bigger than right. General: Alert,oriented, cooperative, no distress Eyes: EOMI, PERRLA, anicteric, no injection ENT: Atraumatic, Mucous membr. moist/pink Head: NCAT Neck: Supple, no JVD Chest: Diminished right sounds, adequate air movement on left. No noted wheezing. Heart: RRR, no m/r/g Abdomen: Normal bowel sounds, soft, NTND Skin: Nl turgor and temperature, no noted breakdown Neuro: Strength at 5/5 X4 ext, Cranial Nerves 3-12 NL Psych: Awake, alert, appropriately answering questions as this time. AOx3 LABS: reviewed. See below for full details Imaging: CXR: There is extensive pulmonary parenchymal consolidation throughout the right lung field consistent with pneumonia. Left lung is clear. There are healed rib fractures bilaterally. No acute bony abnormality is seen. Heart size is normal. Monitoring electrodes are noted.. IMPRESSION: Extensive consolidation right lung consistent with acute pneumonia CTA chest: There is good opacification of the pulmonary arterial tree. There are small bilateral peripheral filling defects in the pulmonary arterial tree in the left lower lobe and right lower lobe consistent with pulmonary embolism. These linear filling defects are quite small. With the exception of left lower lobe. No large or central pulmonary embolus is seen. Thoracic aorta is enhance homogeneously and normal in course and caliber. No aneurysm or dissection is seen. There is moderate right hilar and subcarinal and [place] tracheal lymphadenopathy in the mediastinum similar to the January 27, 2020 study and radiographically more pronounced than on June 02, 2014. Normal adrenals are seen. There is mild cortical scarring in the upper pole right kidney. There are clips in the gallbladder fossa. The visualized upper abdominal structures are otherwise unremarkable. Lung window settings demonstrate extensive peribronchovascular distribution nodular consolidation in the right lung. There are confluent opacities in the right middle lobe with air bronchograms consistent with pneumonia. There is another area of confluent opacity in the right lower lobe. There are a few peribronchovascular nodular densities in the left perihilar region upper lobe and lower lobe. These changes have progressed since the 2013 study. Comparison with prior study suggestive of possibility of granulomatous disease such as sarcoidosis, possibly with superimposed pneumonia. No bony abnormality is seen. IMPRESSION: 1. The study is positive for small bilateral lower lobe pulmonary emboli. 2. Chronic, gradually progressive right hilar and mediastinal lymphadenopathy and bilateral peribronchovascular nodular infiltrates bilaterally. Question granulomatous disease such as sarcoidosis. There are confluent areas of pulmonary parenchymal opacification today which may reflect superimposed pneumonia. 3. There is cortical atrophy in the upper pole the right kidney. Patient is post cholecystectomy. ASSESSMENT: 55 yo W with past medical history of bipolar disorder, polysubstance abuse, lupus, remote pulmonary emboli not on anticoagulation, anxiety, rheumatoid arthritis, COPD, active chronic smoker, who recently completed a course of outpatient antibiotics and steroids for clinic diagnosed bronchitis that she completed about 1 week ago who was now brought in by her daughter after she not ed that her mother was intermittently confused and not acting herself and having a persistent productive cough and found to have jhony R sided pneumonia. CAP: SOB, hypoxemic, diminished breath sounds, productive cough, CXR with R sided extensive consolidation, +procalcitonin -DC ceftriaxone/doxy IV and switch to ceftin/doxy -BCx NGTD -SCx collection pending -f/u urine strep and legionella antigens -covid-19 negative -incentive spirometry -supplemental oxygen to goal >89% Acute PE: -CTA showed small bilateral peripheral filling defects in the pulmonary arterial tree in the left lower lobe and right lower lobe consistent with pulmonary embolism. -Was remotely on xarelto that was held after a few months of treatment many years ago. Will start her on xarelto again and given the recurrence of unprovoked PEs, she will need to be on anticoagulation for life. -now with LLE pain c/f DVT, will get doppler US of LE for confirmation Hilar adenopathy: previously noted but no definitive diagnosis was made yet c/f sarcoid vs. vs. malignancy -Discussed CT findings and prior pulm evaluation with Dr. Chapman and discovered that she had been seen by Dr. Seay in the outpatient setting with plan for followup but had not had a bronch etc. So we will set her up to follow up promptly post discharge as opacities have had interval worsening. -Discussed at length that she absolutely have to quit smoking. Thinking about it. COPD: -Symbicort -PRN albuterol mdi -hold further steroids, appears to be jhony CAP at this time -incentive spirometry and supplemental O2 as noted above -encourage smoking cessation History of polysubstance abuse: -continue methadone taper, currently on 5mg BID for 1 week. Then 5mg daily for 7d, then off. Chronic pain: -continue gabapentin Psychiatric diagnoses: -continue xanax daily PRN -congentin and asenapine -citalopram -holding clonidine with soft BPs while infected RLS: -continue ropinirole GERD: -continue omeprazole DVT ppx: xarelto VS,Fishbone, I+O VS, Fishbone, I+O Laboratory Tests 01/14/21 05:50 Vital Signs Date Time Temp Pulse Resp B/P (MAP) Pulse Ox O2 Delivery O2 Flow Rate FiO2 01/14/21 09:00 1.0 01/14/21 06:00 97.3 75 17 106/69 (81) 95 Room Air I&O- Last 24 Hours up to 6 AM 01/14/21 06:00 Intake Total 1780 ml Output Total 925 ml Balance 855 ml NISHA TELLO MD January 14, 2021 13:37
[2021-01-14 14:00] VITALS: BP 106/69
--- NOTE | 2021-01-14 15:05 | REP ---
INDICATION: r/o DVT COMPARISON: 03/08/2012 TECHNIQUE: Eddy scale and color Doppler evaluation bilateral lower extremities using linear high frequency transducer. FINDINGS: Ultrasound examination of the right and left lower extremity deep venous structures from the common femoral vein to the popliteal vein demonstrates normal compressibility flow and wave patterns in response to respiration and augmentation. There is no evidence for deep venous thrombosis. Simple left Dai's cyst measures 5.8 x 2.9 x 3.9 cm. IMPRESSION: No evidence for deep venous thrombosis. Left Dai's cyst. <Electronically signed by Matt Rolon > 01/14/21 [id number]
[2021-01-14] MEDS: CEFUROXIME 500 MG TAB PO SCH ×2 (15:33→21:17)
[2021-01-14] MEDS: DOXYCYCLINE HYCLATE 100MG TABLET PO SCH (21:17)
[2021-01-14] MEDS: DOXEPIN 25 MG CAP PO SCH (21:17)
[2021-01-14] MEDS: rOPINIRole 1MG TAB PO SCH (21:17)
[2021-01-14 22:00] VITALS: BP 107/67
[2021-01-15 06:00] VITALS: BP 106/63
[2021-01-15 06:36] LABS: HEMATOCRIT 33.5 % (36.0-47.0); HEMOGLOBIN 10.4 g/dl (12.0-15.5); MEAN CORPUSCULAR HEMOGLOBIN 29.8 pg (27.0-33.0); PLATELET COUNT, AUTOMATED 228 10^3/uL (150-450); RED BLOOD COUNT 3.49 10^6/uL (4.00-5.40); WHITE BLOOD COUNT 8.2 10^3/uL (4.0-10.0)
[2021-01-15 06:56] LABS: BLOOD UREA NITROGEN 18 MG/DL (7-18); CARBON DIOXIDE LEVEL 28 MEQ/L (21-32); CHLORIDE LEVEL 103 MEQ/L (98-107); CREATININE FOR GFR 0.61 MG/DL (0.55-1.30); GLOMERULAR FILTRATION RATE > 60.0 (>51); GLUCOSE, FASTING 81 MG/DL (70-100); POTASSIUM SERUM 5.5 MEQ/L (3.5-5.1); SODIUM LEVEL 137 MEQ/L (136-145)
[2021-01-15] MEDS: SYMBICORT 160/4.5MCG INHALER 6GM INH SCH (07:25)
[2021-01-15] MEDS: OMEPRAZOLE 20 MG CAP PO SCH (08:20)
[2021-01-15] MEDS: GABAPENTIN 300 MG CAP PO SCH (08:20)
[2021-01-15] MEDS: CitaloPRAM (CeleXA) 20 MG TAB PO SCH (08:21)
[2021-01-15] MEDS: CEFUROXIME 500 MG TAB PO SCH (08:21)
[2021-01-15] MEDS: CETIRIZINE (ZyrTEC) 10 MG TAB PO SCH (08:21)
[2021-01-15] MEDS: METHADONE 5 MG TAB (S0109) PO SCH (08:21)
[2021-01-15] MEDS: FOLIC ACID 1 MG TAB PO SCH (08:21)
[2021-01-15] MEDS: BENZTROPINE 1 MG TAB PO SCH (08:21)
[2021-01-15] MEDS: VITAMIN D 1,000 INTERNATIONAL UNITS TABLET PO SCH (08:21)
[2021-01-15] MEDS: RIVAROXABAN 15 MG TAB (XARELTO) PO SCH (08:21)
[2021-01-15] MEDS: DOXYCYCLINE HYCLATE 100MG TABLET PO SCH (08:21)
--- NOTE | 2021-01-15 09:45 | DS.PDOC ---
Discharge Summary General Date of Admission Jan 12, 2021 at 13:17 Date of Discharge 01/15/2021 Attending Physician: NISHA TELLO MD Discharge Summary PROCEDURES PERFORMED DURING STAY: None ADMITTING DIAGNOSES: CAP Hypoxemic respiratory failure DISCHARGE DIAGNOSES: CAP Acute pulmonary embolism CT findings c/f potential sarcoid with interval worsening if hilar lymphadeno capri SYSTEMIC LUPUS ERYTHEMATOSUS WITH ARTHRITIS CHRONIC HEPATITIS C-cured, TREATED WITH MAVYRET ANXIETY HX OF DRUG ABUSE RHEUMATOID ARTHRITIS DEPRESSION NEUROPATHY BIPOLAR DISORDER COMPLICATIONS/CHIEF COMPLAINT: Hypoxia, Pheumonia. HISTORY OF PRESENT ILLNESS: 55 yo W with past medical history of bipolar disorder, polysubstance abuse, lupus, remote pulmonary emboli not on anticoagulation, anxiety, rheumatoid arthritis, COPD, active chronic smoker, who recently completed a course of outpatient antibiotics and steroids for clinic diagnosed bronchitis that she completed about 1 week prior to presentation who was brought in by her daughter after she noted that her mother was intermittently confused and not acting herself and having a persistent productive cough. HOSPITAL COURSE: In the ED she was hemodynamically stable and afebrile but with soft BPs. She was noted to desaturate to 80% on room air while at rest during examination and was placed on supplemental oxygen. Work up was notable for a chest XR that showed extensive consolidation of the right lung as well as healed bilateral rib fractures with clear left lung sahni. WBC was 8.2, Hgb 11.8, platelets 194, proBNP 363, na 136, K 5.4, Cr 0.8, AST 53, ALT 24, lactate 1.3, troponin <0.02, covid-19 negative. She was given empiric ceftriaxone after some blood cultures were drawn and admitted for CAP. She otherwise reported no fever, chills, rigors, hemoptysis, nausea, emesis, chest pain or dizziness. Given the SOB, hypoxemia and history of PEs not on anticoagulation I ordered a CTA chest and it revealed small bilateral PEs and LE doppler US were negative for DVTs. She was continued on ceftriaxone/doxy that was later transitioned to ceftin/doxy PO for CAP. BCx were ultimately negative. She was started on xarelto with intention for treatment for life given now recurrent unprovoked PEs. Her hypoxemia resolved. The CTA chest also revealed gradually progressive chronic right hilar and mediastinal lymphadenopathy and bilateral peribronchovascular nodular infiltrates bilaterally c/f granulomatous disease such as sarcoidosis. She is therefore being discharged home with close pulmonology follow up with Dr. Seay for continued investigation of these findings. I also heavily counselled her to quit smoking as this is proving very detrimental to her health particularly pulmonary health. She reported that she will think about quitting aids and will discuss the options with her PCP. DISCHARGE MEDICATIONS: Please see below. ALLERGIES: Please see below. PHYSICAL EXAMINATION ON DISCHARGE: VITAL SIGNS: Please see below. General: Alert,oriented, cooperative, no distress Eyes: EOMI, PERRLA, anicteric, no injection ENT: Atraumatic, Mucous membr. moist/pink Head: NCAT Neck: Supple, no JVD Chest: Diminished right sounds, adequate air movement on left. No wheezing. Heart: RRR, no m/r/g Abdomen: Normal bowel sounds, soft, NTND Skin: Nl turgor and temperature, no noted breakdown Neuro: Strength at 5/5 X4 ext, Cranial Nerves 3-12 NL Psych: Awake, alert, appropriately answering questions as this time. AOx3 LABORATORY DATA: IMAGING: CXR: There is extensive pulmonary parenchymal consolidation throughout the right lung field consistent with pneumonia. Left lung is clear. There are healed rib fractures bilaterally. No acute bony abnormality is seen. Heart size is normal. Monitoring electrodes are noted.. IMPRESSION: Extensive consolidation right lung consistent with acute pneumonia CTA chest: There is good opacification of the pulmonary arterial tree. There are small bilateral peripheral filling defects in the pulmonary arterial tree in the left lower lobe and right lower lobe consistent with pulmonary embolism. These linear filling defects are quite small. With the exception of left lower lobe. No large or central pulmonary embolus is seen. Thoracic aorta is enhance homogeneously and normal in course and caliber. No aneurysm or dissection is seen. There is moderate right hilar and subcarinal and Mary Ellen tracheal lymphadenopathy in the mediastinum similar to the January 27, 2020 study and radiographically more pronounced than on June 02, 2014. Normal adrenals are seen. There is mild cortical scarring in the upper pole right kidney. There are clips in the gallbladder fossa. The visualized upper abdominal structures are otherwise unremarkable. Lung window settings demonstrate extensive peribronchovascular distribution nodular consolidation in the right lung. There are confluent opacities in the right middle lobe with air bronchograms consistent with pneumonia. There is another area of confluent opacity in the right lower lobe. There are a few peribronchovascular nodular densities in the left perihilar region upper lobe and lower lobe. These changes have progressed since the 2013 and 2019 study. Comparison with prior study suggestive of possibility of granulomatous disease such as sarcoidosis, possibly with superimposed pneumonia. No bony abnormality is seen. IMPRESSION: 1. The study is positive for small bilateral lower lobe pulmonary emboli. 2. Chronic, gradually progressive right hilar and mediastinal lymphadenopathy and bilateral peribronchovascular nodular infiltrates bilaterally. Question granulomatous disease such as sarcoidosis. There are confluent areas of pulmonary parenchymal opacification today which may reflect superimposed pneumonia. 3. There is cortical atrophy in the upper pole the right kidney. Patient is post cholecystectomy. LE doppler venous US: Ultrasound examination of the right and left lower extremity deep venous struc tures from the common femoral vein to the popliteal vein demonstrates normal compressibility flow and wave patterns in response to respiration and augmentation. There is no evidence for deep venous thrombosis. Simple left Dai's cyst measures 5.8 x 2.9 x 3.9 cm. IMPRESSION: No evidence for deep venous thrombosis. Left Dai's cyst. PROGNOSIS: Good ACTIVITY: As tolerated DIET: Regular DISCHARGE PLAN: Home with ceftin/doxy, xarelto and close pulm follow up. DISPOSITION: Home DISCHARGE INSTRUCTIONS: Home with ceftin/doxy, xarelto and close pulm follow up. ITEMS TO FOLLOWUP ON ON OUTPATIENT: Pulm follow up - Lung nodules and lymphadenopathy PCP follow up - CAP and PE DISCHARGE CONDITION: Stable TIME SPENT ON DISCHARGE: 46 minutes. Vital Signs/I&Os Vital Signs Date Time Temp Pulse Resp B/P (MAP) Pulse Ox O2 Delivery O2 Flow Rate FiO2 01/15/21 06:00 98.0 74 18 106/63 (77) 93 01/14/21 23:55 Nasal Cannula 1.0 I&O- Last 24 Hours up to 6 AM 01/15/21 06:00 Intake Total 1920 ml Output Total 600 ml Balance 1320 ml Laboratory Data Labs 24H Laboratory Tests 2 01/15/21 06:13: Nucleated Red Blood Cells % (auto) 0.0, Anion Gap 6L, Glomerular Filtration Rate > 60.0, Calcium Level 9.0 CBC/BMP Laboratory Tests 01/15/21 06:13 Microbiology Microbiology 01/12/21 Respiratory Virus Panel (PCR) (TRUDY) - Final, Complete 01/12/21 Blood Culture - Preliminary, Resulted No Growth after 48 hours. All Specime... 01/12/21 Blood Culture - Preliminary, Resulted No Growth after 48 hours. All Specime... Discharge Medications Scheduled Asenapine Maleate (Asenapine Maleate) 2.5 Mg Tab.subl, 2.5 MG SL BID, (Reported) Benztropine Mesylate (Benztropine Mesylate) 1 Mg Tablet, 1 MG PO DAILY, (Reported) Cetirizine HCl (Cetirizine HCl) 10 Mg Tab, 10 MG PO DAILY, (Reported) Cholecalciferol (Vitamin D3) (Vitamin D3) 1,000 Unit Tablet, 1,000 UNITS PO DAILY, (Reported) Citalopram Hydrobromide (Celexa) 40 Mg Tablet, 40 MG PO DAILY, (Reported) Clonidine HCl (Clonidine HCl) 0.1 Mg Tablet, 0.1 MG PO QHS, (Reported) Doxepin HCl (Doxepin HCl) 50 Mg Capsule, 50 MG PO QHS, (Reported) Fluticasone/Vilanterol (Breo Ellipta 100-25 Mcg INH) 1 Each Blst.w.dev, 1 PUFF INH DAILY, (Reported) Folic Acid (Folic Acid) 1 Mg Tab, 1 MG PO DAILY, (Reported) Gabapentin (Gabapentin) 600 Mg Tablet, 600 MG PO TID, (Reported) Methadone HCl (Methadone HCl) 5 Mg Tablet, 5 MG PO TID, (Reported) Omeprazole (Omeprazole) 40 Mg Cap, 40 MG PO DAILY, (Reported) Ropinirole HCl (Ropinirole HCl) 2 Mg Tablet, 2 MG PO QHS, (Reported) Scheduled PRN Albuterol Sulfate (Albuterol Sulfate Hfa) 8.5 Gm Hfa.aer.ad, 2 PUFFS INH QID PRN for SHORTNESS OF BREATH, (Reported) Alprazolam (Alprazolam) 1 Mg Tablet, 1 MG PO QID PRN for ANXIETY, (Reported) Naloxone HCl (Narcan) 4 Mg [place], 1 SPRAY NA PRN PRN for OVERDOSE, (Reported) Allergies Coded Allergies: ENVIROMENTAL (Verified Allergy, Unknown, 08/27/06) NISHA TELLO MD January 15, 2021 09:45
[2021-01-15] MEDS ORDERED: DOXY100T PO (09:48)
[2021-01-15] MEDS ORDERED: CEFU50TA PO (09:48)
[2021-01-15] MEDS ORDERED: XARE15TA PO (09:48)
[2021-01-15] MEDS ORDERED: SOD POLYSTYRENE SULFONATE SUSP 15 GM/60 ML UD PO ONE (12:00)
[2021-01-16 13:12] LABS: BODY FLUID CULTURE Not indicated. (.); LEGIONELLA ANTIGEN URINE Negative (Negative); ORGANISM ID Not indicated. (.); SPECIMEN SOURCE Urine (.); URINE STREP PNEUMONIAE ANTIGEN Negative (Negative)
[2021-01-16] MEDS ORDERED: CEFU50TA PO (18:46)
[2021-01-16] MEDS ORDERED: DOXY100T PO (18:46)
[2021-01-16] MEDS ORDERED: XARE15TA PO (18:46)
== END 2021-01-15 13:25 | disposition home or self-care (01) | DRG 175 ==
LOC: M ED 10:20 → EEVIPCON 13:17 → M ED INP 13:17 → ENRESERV 14:55 → M MSPAV 16:20
PROVIDERS: ADMIT Internal Medicine; ATTEND Internal Medicine
DX: I26.99 Other pulmonary embolism without acute cor pulmonale (principal); J18.9 Pneumonia, unspecified organism; G93.41 Metabolic encephalopathy; J44.9 Chronic obstructive pulmonary disease, unspecified; M32.9 Systemic lupus erythematosus, unspecified; F31.9 Bipolar disorder, unspecified; F41.9 Anxiety disorder, unspecified; B18.2 Chronic viral hepatitis C; M06.9 Rheumatoid arthritis, unspecified; G62.9 Polyneuropathy, unspecified; F17.200 Nicotine dependence, unspecified, uncomplicated; Z79.899 Other long term (current) drug therapy; K21.9 Gastro-esophageal reflux disease without esophagitis; G25.81 Restless legs syndrome; G89.29 Other chronic pain

== ENCOUNTER 2021-01-16 15:43 | Inpatient (IN) | payer OTHER, MEDICAID ==
[~2021-01-16] VITALS: Ht 157.5 cm; Wt 66.2 kg
[~2021-01-16 15:43] MED LIST changes: +ALBU8.5H INH; +BENZ-52 PO; +BREO1INH INH; +CEFU50TA PO; +CELE40TA PO; +CLON-412 PO; +D31000TA2 PO; +DOXE50CA PO; +DOXY100T PO; +NARC1SPR; +XARE15TA PO; +[UNRECOGNIZED DRUG - CODE] SL
--- NOTE | 2021-01-16 17:18 | REP ---
INDICATION: Left thigh 9cm > right r/o DVT. COMPARISON: Comparison study is from January 14, 2021.. TECHNIQUE: Left lower extremity duplex venous sonography. FINDINGS: The study is positive for extensive occlusive deep vein thrombosis filling the common femoral vein, the superficial femoral vein segment, and the popliteal vein in the left lower extremity. Thrombus extends into the proximal 2-3 cm of the greater saphenous vein. This is a change from the comparison study.. There is a 5.7 x 3.2 x 3.7 cm Dai's cyst in the left lower extremity. IMPRESSION: Extensive occlusive deep vein thrombosis left lower extremity as above common femoral vein through popliteal vein segment.. <Electronically signed by Vaibhav Carmona > 01/16/21 [id number]
[2021-01-16] MEDS ORDERED: MOM 30ML SUSPENSION UDC PO PRN (18:20)
[2021-01-16] MEDS ORDERED: ACETAMINOPHEN TAB 650MG DOSE (2X325MG) PO PRN (18:20)
[2021-01-16] MEDS ORDERED: ALBUTEROL 90 MCG/ACT 8GM HFA INHALER INH PRN (18:40)
[2021-01-16] MEDS ORDERED: DOXY100T PO (18:46)
[2021-01-16] MEDS ORDERED: XARE15TA PO (18:46)
[2021-01-16] MEDS ORDERED: CEFU50TA PO (18:46)
--- NOTE | 2021-01-16 19:02 | HPEPDOC ---
[facility] Medical History & Physical Date of Admission January 16, 2021 Date of Service: January 16, 2021 History and Physical Chief complaint: Who presented to the emergency room with left leg swelling History of present illness: Patient is a 55-year-old female who presented to the [facility] [place] emergency room because of left leg swelling. Patient was recently admitted to [facility] 01/12 to 01/15 for shortness of breath. During that admission, patient was found to have pulmonary embolisms and suspected pneumonia and the negative ultrasound study of her lower extremities. Patient had an improvement of her symptoms and was ultimately tr ansitioned to Xarelto at the appropriate dose. Yesterday, patient has had an uneventful evening. However, when she woke up this morning, she noted significant left leg swelling. Patient denies any nausea, vomiting, chest pain, shortness of breath, palpit ations. Has reported that her cough may have become slightly more productive, but has definitely improved. Denies any abdominal pain, constipation, diarrhea, or urinary discomfort. Past Medical History: SLE / Rheumatoid arthritis (Dx 2012) Chronic Hepatitis C s/p Treatment Multiple pulmonary embolisms (2006, 2014, 2015, again on 12/2020) Anxiety / Depression / Bipolar disorder RLS Neuropathy Hx of Drug abuse Past Surgical History: Cholecystectomy 1999 Bilateral tubal ligation 1987 Allergies: See below Medications: See below Family History: - Mother is alive and father with a history of heart disease Social History: - Patient reports she had a history of marijuana use, prescription drugs, amphetamines, and methadone; patient also reports she is an active smoker - Denies recent travel or sick contacts - Lives with grandson Review of Systems: 10 point review of systems complete, all negative otherwise stated in HPI Physical exam: - Vitals: BP [127/78], HR [97], RR [18], Sat [93%RA], Temp [97.7F] - General: Lying in bed, No acute distress, Speaking in full sentences, AAOx3 - HEENT: NC, AT, PERRLA, EOMI - CVS: RRR, +S1S2 - Lungs: Fair air entry bilaterally, No appreciable wheezing / rales / rhonchi - Abdomen: Soft, Non-distended, Non-tender - Extremities: Left leg with extensive leg swelling (~2 inches larger in circumference than right), No calf tenderness - Neuro: No focal motor or sensory deficit - Skin: No visible rashes Labs: See below Imaging: Duplex US 01/16: Extensive occlusive deep vein thrombosis left lower extremity as above common femoral vein through popliteal vein segment. EKG: See below Assessment and Plan: Left leg swelling - likely 2/2 occlusive thrombus - Patient presented to the emergency room one day after discharge because of left leg swelling - A she was recently found to have pulmonary embolism and was started on Xarelto - Imaging of her left lower extremity at that time was negative - Imaging repeated currently does reveal significant left lower extremity occlusive thrombus - Will discontinue Xarelto - Will start weight-based Lovenox therapeutic dosing - Patient will be kept on bedrest for now - Will consult vascular surgery for evaluation of possible thrombolysis SLE / Rheumatoid arthritis - Dx 2012 in [place] by an oncologist - She noted that she had this evaluation because of multiple PEs in the past - Patient is reported that she has not required any therapy Chronic Hepatitis C - s/p Treatment and resolution Multiple pulmonary embolisms (2006, 2014, 2015, again on 12/2020) - Patient reported that she has been on Coumadin for 3-4 years - As transition to Xarelto in 2017; she was subsequently discontinued because of a vaginal bleed in the same year - Since that point, patient has not resumed any anticoagulation until her most recent blood clot 01/12/2021 Chronic COPD - Active smoker - No evidence of exacerbation - c/w inhaled therapy as ordered - Follows with [facility] [place] pulmonology; Dr. Melendez Anxiety / Depression / Bipolar disorder - c/w Doxepine, Benztropine, Alprazolam RLS - c/w Ropinirole Recent CAP - Will complete Cefuroxime / Doxycycline Neuropathy - c/w Gabapentin Hx of Drug abuse - c/w Methadone GERD - c/w Omeprazole DVT prophylaxis - Will start full anticoagulation with Lovenox (1mg / kg BID) Vital Signs Vital Signs Date Time Temp Pulse Resp B/P (MAP) Pulse Ox O2 Delivery O2 Flow Rate FiO2 01/16/21 17:48 01/16/21 15:52 97.7 97 18 93 Room Air Home Medications Scheduled Asenapine Maleate (Asenapine Maleate) 2.5 Mg Tab.subl, 2.5 MG SL BID Benztropine Mesylate (Benztropine Mesylate) 1 Mg Tablet, 1 MG PO DAILY Cefuroxime Axetil (Cefuroxime) 500 Mg Tablet, 500 MG PO BID FILLED 01/15/21 FOR 4 DAYS Cetirizine HCl (Cetirizine HCl) 10 Mg Tab, 10 MG PO DAILY Cholecalciferol (Vitamin D3) (Vitamin D3) 1,000 Unit Tablet, 1,000 UNITS PO DAILY Citalopram Hydrobromide (Celexa) 40 Mg Tablet, 40 MG PO DAILY Clonidine HCl (Clonidine HCl) 0.1 Mg Tablet, 0.1 MG PO QHS Doxepin HCl (Doxepin HCl) 50 Mg Capsule, 50 MG PO QHS Doxycycline Hyclate (Doxycycline Hyclate) 100 Mg Tablet, 100 MG PO BID FILLED 01/15/21 FOR 4 DAYS Fluticasone/Vilanterol (Breo Ellipta 100-25 Mcg INH) 1 Each Blst.w.dev, 1 PUFF INH DAILY Folic Acid (Folic Acid) 1 Mg Tab, 1 MG PO DAILY Gabapentin (Gabapentin) 600 Mg Tablet, 600 MG PO TID Methadone HCl (Methadone HCl) 5 Mg Tablet, 5 MG PO TID Omeprazole (Omeprazole) 40 Mg Cap, 40 MG PO DAILY Rivaroxaban (Xarelto) 15 Mg Tablet, 15 MG PO BID Ropinirole HCl (Ropinirole HCl) 2 Mg Tablet, 2 MG PO QHS Scheduled PRN Albuterol Sulfate (Albuterol Sulfate Hfa) 8.5 Gm Hfa.aer.ad, 2 PUFFS INH QID PRN for SHORTNESS OF BREATH Alprazolam (Alprazolam) 1 Mg Tablet, 1 MG PO QID PRN for ANXIETY Naloxone HCl (Narcan) 4 Mg [place], 1 SPRAY NA PRN PRN for OVERDOSE Allergies Coded Allergies: ENVIROMENTAL (Verified Allergy, Unknown, 08/27/06) PAOLA CORNEJO MD January 16, 2021 19:02
[2021-01-16] MEDS: ADVAIR HFA 230/21MCG INHALER INH SCH (20:41)
[2021-01-16] MEDS: cloNIDine 0.1MG TABLET PO SCH (21:04)
[2021-01-16] MEDS: DOCUSATE SODIUM 100MG CAPSULE PO SCH (21:05)
[2021-01-16] MEDS: GABAPENTIN 300 MG CAP PO SCH (21:05)
[2021-01-16] MEDS: METHADONE 5 MG TAB (S0109) PO SCH (21:05)
[2021-01-16] MEDS: rOPINIRole 1MG TAB PO SCH (21:06)
[2021-01-16] MEDS: DOXEPIN 25 MG CAP PO SCH (21:07)
[2021-01-16] MEDS: DOXYCYCLINE HYCLATE 100MG TABLET PO SCH (21:07)
[2021-01-16] MEDS: ENOXAPARIN 80MG/0.8ML SYRINGE (J1650 PER 10MG) SC SCH (21:10)
[2021-01-16] MEDS: ALPRAZolam 0.5 MG TAB PO PRN (21:17)
[2021-01-16 22:11] LABS: RSV AMPLIFICATION NEGATIVE (NEGATIVE)
[2021-01-16 23:00] VITALS: BP 96/51
[2021-01-16] MEDS: CEFUROXIME 500 MG TAB PO SCH (23:34)
[2021-01-17] VITALS (7 sets, daily range): BP systolic 88–118; BP diastolic 54–65
[2021-01-17 05:10] LABS: BASO % 0.5 % (0.0-1.0); EOS # 0.2 10^3/uL (0.0-0.5); HEMATOCRIT 32.4 % (36.0-47.0); HEMOGLOBIN 10.1 g/dl (12.0-15.5); LYMPH # 2.5 10^3/uL (1.5-5.0); LYMPH % 30.9 % (24.0-44.0); MEAN CORPUSCULAR HEMOGLOBIN 29.1 pg (27.0-33.0); MEAN CORPUSCULAR HGB CONC 31.2 g/dl (32.0-36.5); MEAN CORPUSCULAR VOLUME 93.4 fl (80.0-96.0); MONO # 0.4 10^3/uL (0.0-0.8); MONO % 5.5 % (2.0-8.0); NEUTROPHILS # 4.8 10^3/uL (1.5-8.5); NEUTROPHILS % 60.3 % (36.0-66.0); PLATELET COUNT, AUTOMATED 234 10^3/uL (150-450); RED BLOOD COUNT 3.47 10^6/uL (4.00-5.40)
[2021-01-17 05:37] LABS: BLOOD UREA NITROGEN 10 MG/DL (7-18); CHLORIDE LEVEL 102 MEQ/L (98-107); CREATININE FOR GFR 0.72 MG/DL (0.55-1.30); GLOMERULAR FILTRATION RATE > 60.0 (>51); GLUCOSE, FASTING 110 MG/DL (70-100); POTASSIUM SERUM 3.2 MEQ/L (3.5-5.1); SODIUM LEVEL 138 MEQ/L (136-145)
[2021-01-17 05:38] LABS: CALCIUM LEVEL 8.8 MG/DL (8.5-10.1); CARBON DIOXIDE LEVEL 30 MEQ/L (21-32); MAGNESIUM LEVEL 2.4 MG/DL (1.8-2.4)
[2021-01-17] MEDS ORDERED: POTASSIUM CHLORIDE 10 MEQ SR TABLET PO ONE (06:15)
[2021-01-17] MEDS: ADVAIR HFA 230/21MCG INHALER INH SCH ×2 (07:25→19:27)
[2021-01-17] MEDS: DOCUSATE SODIUM 100MG CAPSULE PO SCH ×2 (08:36→20:33)
[2021-01-17] MEDS: CETIRIZINE (ZyrTEC) 10 MG TAB PO SCH (08:36)
[2021-01-17] MEDS: VITAMIN D 1,000 INTERNATIONAL UNITS TABLET PO SCH (08:36)
[2021-01-17] MEDS: BENZTROPINE 1 MG TAB PO SCH (08:36)
[2021-01-17] MEDS: OMEPRAZOLE 20 MG CAP PO SCH (08:36)
[2021-01-17] MEDS: DOXYCYCLINE HYCLATE 100MG TABLET PO SCH ×2 (08:36→20:33)
[2021-01-17] MEDS: CitaloPRAM (CeleXA) 20 MG TAB PO SCH (08:36)
[2021-01-17] MEDS: METHADONE 5 MG TAB (S0109) PO SCH ×3 (08:36→20:33)
[2021-01-17] MEDS: GABAPENTIN 300 MG CAP PO SCH ×3 (08:36→20:34)
[2021-01-17] MEDS: FOLIC ACID 1 MG TAB PO SCH (08:36)
[2021-01-17] MEDS: CEFUROXIME 500 MG TAB PO SCH ×2 (08:36→20:34)
[2021-01-17] MEDS: ENOXAPARIN 80MG/0.8ML SYRINGE (J1650 PER 10MG) SC SCH ×2 (08:37→20:33)
[2021-01-17] MEDS: ALPRAZolam 0.5 MG TAB PO PRN (08:51)
[2021-01-17] MEDS ORDERED: FLUBLOK(EGG FREE)(QUAD)INFLUENZA VACC 0.5ML SYRINGE 18YRS & OLDER IM ONE (09:00)
[2021-01-17 10:31] LABS: INR 1.2; PROTHROMBIN TIME 15.5 SECONDS (12.5-14.3)
--- NOTE | 2021-01-17 10:35 | IPNPDOC ---
Text Note Date of Service The patient was seen on 01/17/21. NOTE Subjective: Patient is a 55-year-old female who presented to the [facility] emergency room because of left leg swelling. Patient was recently admitted to [facility] 01/12 to 01/15 for shortness of breath. During that admission, patient was found to have pulmonary embolisms and suspected pneumonia and the negative ultrasound study of her lower extremities. Patient had an improvement of her symptoms and was ultimately transitioned to Xarelto at the appropriate dose. On 01/16 , patient had woke up and found her left leg was significantly swollen continue to the ER for further evaluation. Upon arrival to emergency room, patient was found to have occlusive DVT of her left lower extremity was admitted to the hospital service for further evaluation and treatment. Vascular surgery was called on consultation. Patient was seen and examined at the bedside. Currently patient denies any chest pain, shortness breath, palpitations, has not spent any nausea, vomiting, abdominal pain or diarrhea. Reports that her left leg swelling has had improv ement. Objective: Vitals (See below) General: Lying in bed, appears comfortable, AAOx3 HEENT: NC, AT CVS: +S1S2 Lungs: Fair air entry b/l, no visual wheezing, rhonchi or rales Abdomen: Soft, ND, NT Extremities: Left leg swollen; however has had improvement. Today it is largere in circumference by approximately 1 inch in compared to the right Imaging: Duplex US 01/16: Extensive occlusive deep vein thrombosis left lower extremity as above common femoral vein through popliteal vein segment. Assessment and plan: Left leg swelling - likely 2/2 occlusive thrombus - Patient presented to the ER on 01/16 with left leg swelling; was recently found to have PE and was started on Xarelto - Clinic. The patient has improvement of her left leg swelling - Imaging consistent with left lower extremity occlusive thrombus - s/p Xarelto - c/w weight-based Lovenox therapeutic dosing; Will start Coumadin tonight - Will advance to activity with nurse assistance currently; - Records from [facility] were reviewed; she was advised to continue with Xarelto indefinitely, but had discontinued its use because of heavy menses; workup there had revealed an elevated rheumatoid factor and a positive CHANTE speckled pattern; ESR/CRP/Cardiolipin IgA + IgG Ab + IgM Ab were WNL / C3+C4 WNL - Review of prior hypercoaguable workup completed at [facility] / [facility] has revealed slight elevations of Protein S and Anti-Cardiolipin IgM antibodies in the past - Vascular surgery on consultation; appreciate their input - Patient will require follow up with Hematology for continued management of anticoagulation with Coumadin/Lovenox bridging SLE / Rheumatoid arthritis - Dx 2013 in [place] by an oncologist - She noted that she had this evaluation because of multiple PEs in the past - Patient is reported that she has not required any therapy Chronic Hepatitis C - s/p Treatment and resolution Multiple pulmonary embolisms (2006, 2014, 2016, again on 12/2020) - Most recent Acute PE 12/2020; still on treatment - Patient reported that she has been on Coumadin for 3-4 years - As transition to Xarelto in 2017; she was subsequently discontinued because of a vaginal bleed in the same year - Review the records from [facility] has indicated patient has stopped these events regulation with Xarelto because of heavy menses; against advice of Hematology - Since that point, patient has not resumed any anticoagulation until her most recent blood clot 01/12/2021 Chronic COPD - Active smoker - No evidence of exacerbation - c/w inhaled therapy as ordered - Follows with [facility]; Dr. Melendez Anxiety / Depression / Bipolar disorder - c/w Doxepin, Benztropine, Alprazolam RLS - c/w Ropinirole Recent CAP - c/w Cefuroxime / Doxycycline Neuropathy - c/w Gabapentin Hx of Drug abuse - c/w Methadone GERD - c/w Omeprazole DVT prophylaxis - c/w full anticoagulation with Lovenox (1mg / kg BID) Disposition: - Anticipate discharge within 24-48 hours VS,[place], I+O VS, [place], I+O Laboratory Tests 01/17/21 04:51 Vital Signs Date Time Temp Pulse Resp B/P (MAP) Pulse Ox O2 Delivery O2 Flow Rate FiO2 01/17/21 08:00 98.6 81 18 118/65 (82) 96 Nasal Cannula 2.0 I&O- Last 24 Hours up to 6 AM 01/17/21 06:00 Intake Total 540 ml Output Total 525 ml Balance 15 ml PAOLA CORNEJO MD January 17, 2021 10:35
--- NOTE | 2021-01-17 10:37 | CR.PDOC ---
General Date of Consultation: January 17, [address] Howe HISTORY OF PRESENT ILLNESS: The patient is a 55-year-old female who presented to the emergency room 01/16/21 related to left lower extremity swelling. The patient was recently admitted to [facility] 01/12/21-01/15/21 related to shortness of breath and was found to have bilateral pulmonary embolism with negative venous ultrasound of the lower extremities. The patient was transitioned to his Xarelto at discharge. The patient is known to have history of SLE/rheumatoid arthritis diagnosed 2012 with prior history of multiple PE, the patient states hypercoagulable workup was completed in the past in [place] in 2012. ALLERGIES: Please see below. HOME MEDICATIONS: Please see below. PAST MEDICAL HISTORY: SLE / Rheumatoid arthritis (Dx 2012) Chronic Hepatitis C s/p Treatment Multiple pulmonary embolisms (2006, 2014, 2015, again on 12/2020) Anxiety / Depression / Bipolar disorder RLS Neuropathy Hx of Drug use PAST SURGICAL HISTORY: Cholecystectomy 1999 Bilateral tubal ligation 1987 FAMILY HISTORY: CAD. Patient denies family history of blood clots/coagulation disorders. SOCIAL HISTORY: History of marijuana use, prescription drug, amphetamine, and methadone; patient also reports she is an active smoker REVIEW OF SYSTEMS: As noted in HPI otherwise 10 point review of systems unremarkable. PHYSICAL EXAMINATION: VITAL SIGNS: Please see below. GENERAL APPEARANCE: Sitting up in bed, no acute distress. HEENT: Moist mucous membranes RESPIRATORY: TCTA CARDIOVASCULAR: S1-S2 regular rate rhythm ABDOMEN: Soft, nontender EXTREMITIES: Left lower extremity with diffuse swelling however the patient states this is improved compared with admission yesterday. Denies any calf tenderness, mild tenderness on the inner aspect of the left thigh. The left foot is well perfused. Pedal pulses are palpable bilaterally. LABORATORY DATA: Please see below. INDICATION: Left thigh 9cm > right r/o DVT. COMPARISON: Comparison study is from January 14, 2021.. TECHNIQUE: Left lower extremity duplex venous sonography. FINDINGS: The study is positive for extensive occlusive deep vein thrombosis filling the common femoral vein, the superficial femoral vein segment, and the popliteal vein in the left lower extremity. Thrombus extends into the proximal 2-3 cm of the greater saphenous vein. This is a change from the comparison study.. There is a 5.7 x 3.2 x 3.7 cm Dai's cyst in the left lower extremity. IMPRESSION: Extensive occlusive deep vein thrombosis left lower extremity as above common femoral vein through popliteal vein segment.. <Electronically signed by Vaibhav Carmona > 01/16/21 0376 ASSESSMENT/PLAN: Left lower extremity DVT History of PE/recurrent PE Patient is reviewed and examined as per Dr. Howe. The patient reports her symptoms are significantly improved compared with yesterday. Since her symptoms are significantly improved and recommend to continue with conservative management. Currently on Lovenox twice a day, possibly consider transition to Coumadin anticoagulation versus Eliquis. The patient believes hypercoagulable workup was completed in 2012 but results are unknown, would recommend to obtain results of hypercoagulable workup or have this repeated. Recommend outpatient follow-up with hematology. Continue with elevation. OOB and ambulate with assistance. Vital Signs/I&O Vital Signs Date Time Temp Pulse Resp B/P (MAP) Pulse Ox O2 Delivery O2 Flow Rate FiO2 01/17/21 08:00 98.6 81 18 118/65 (82) 96 Nasal Cannula 2.0 I&O- Last 24 Hours up to 6 AM 01/17/21 05:59 Intake Total 300 ml Output Total 525 ml Balance -225 ml Laboratory Data Labs 24H Laboratory Tests 2 01/16/21 21:18: Coronavirus (COVID-19)(PCR) NEGATIVE, Influenza Type A (RT-PCR) NEGATIVE, In fluenza Type B (RT-PCR) NEGATIVE, Respiratory Syncytial Virus (PCR) NEGATIVE 01/17/21 04:51: Immature Granulocyte % (Auto) 0.8, Neutrophils (%) (Auto) 60.3, Lymphocytes (%) (Auto) 30.9, Monocytes (%) (Auto) 5.5, Eosinophils (%) (Auto) 2.0, Basophils (%) (Auto) 0.5, Neutrophils # (Auto) 4.8, Lymphocytes # (Auto) 2.5, Monocytes # (Auto) 0.4, Eosinophils # (Auto) 0.2, Basophils # (Auto) 0.0, Nucleated Red Blood Cells % (auto) 0.0, Anion Gap 6L, Glomerular Filtration Rate > 60.0, Calcium Level 8.8, Magnesium Level 2.4 01/17/21 10:08: CBC/BMP Laboratory Tests 01/17/21 04:51 Allergies Coded Allergies: ENVIROMENTAL (Verified Allergy, Unknown, 08/27/06) Home Medications Scheduled Asenapine Maleate (Asenapine Maleate) 2.5 Mg Tab.subl, 2.5 MG SL BID, (Reported) Benztropine Mesylate (Benztropine Mesylate) 1 Mg Tablet, 1 MG PO DAILY, (Reporte d) Cefuroxime Axetil (Cefuroxime) 500 Mg Tablet, 500 MG PO BID, (Reported) FILLED 01/15/21 FOR 4 DAYS Cetirizine HCl (Cetirizine HCl) 10 Mg Tab, 10 MG PO DAILY, (Reported) Cholecalciferol (Vitamin D3) (Vitamin D3) 1,000 Unit Tablet, 1,000 UNITS PO DAILY, (Reported) Citalopram Hydrobromide (Celexa) 40 Mg Tablet, 40 MG PO DAILY, (Reported) Clonidine HCl (Clonidine HCl) 0.1 Mg Tablet, 0.1 MG PO QHS, (Reported) Doxepin HCl (Doxepin HCl) 50 Mg Capsule, 50 MG PO QHS, (Reported) Doxycycline Hyclate (Doxycycline Hyclate) 100 Mg Tablet, 100 MG PO BID, (Reported) FILLED 01/15/21 FOR 4 DAYS Fluticasone/Vilanterol (Breo Ellipta 100-25 Mcg INH) 1 Each Blst.w.dev, 1 PUFF INH DAILY, (Reported) Folic Acid (Folic Acid) 1 Mg Tab, 1 MG PO DAILY, (Reported) Gabapentin (Gabapentin) 600 Mg Tablet, 600 MG PO TID, (Reported) Methadone HCl (Methadone HCl) 5 Mg Tablet, 5 MG PO TID, (Reported) Omeprazole (Omeprazole) 40 Mg Cap, 40 MG PO DAILY, (Reported) Rivaroxaban (Xarelto) 15 Mg Tablet, 15 MG PO BID, (Reported) Ropinirole HCl (Ropinirole HCl) 2 Mg Tablet, 2 MG PO QHS, (Reported) Scheduled PRN Albuterol Sulfate (Albuterol Sulfate Hfa) 8.5 Gm Hfa.aer.ad, 2 PUFFS INH QID PRN for SHORTNESS OF BREATH, (Reported) Alprazolam (Alprazolam) 1 Mg Tablet, 1 MG PO QID PRN for ANXIETY, (Reported) Naloxone HCl (Narcan) 4 Mg [place], 1 SPRAY NA PRN PRN for OVERDOSE, (Reported) Kayy Montiel January 17, 2021 10:37
[2021-01-17] MEDS ORDERED: WARFARIN SOD 5MG TAB PO SCH (17:00)
[2021-01-17] MEDS: cloNIDine 0.1MG TABLET PO SCH (20:34)
[2021-01-17] MEDS: DOXEPIN 25 MG CAP PO SCH (20:37)
[2021-01-17] MEDS: rOPINIRole 1MG TAB PO SCH (20:37)
[2021-01-18] VITALS: BP 95/58
[2021-01-18 04:00] VITALS: BP 92/66
[2021-01-18 04:53] LABS: BASO % 0.5 % (0.0-1.0); EOS # 0.1 10^3/uL (0.0-0.5); EOS % 2.1 % (0.0-3.0); HEMATOCRIT 31.4 % (36.0-47.0); HEMOGLOBIN 9.7 g/dl (12.0-15.5); LYMPH # 2.2 10^3/uL (1.5-5.0); MEAN CORPUSCULAR HEMOGLOBIN 29.7 pg (27.0-33.0); MEAN CORPUSCULAR HGB CONC 30.9 g/dl (32.0-36.5); MONO # 0.3 10^3/uL (0.0-0.8); MONO % 5.2 % (2.0-8.0); NEUTROPHILS # 3.5 10^3/uL (1.5-8.5); NEUTROPHILS % 56.4 % (36.0-66.0); PLATELET COUNT, AUTOMATED 259 10^3/uL (150-450); RED BLOOD COUNT 3.27 10^6/uL (4.00-5.40); WHITE BLOOD COUNT 6.2 10^3/uL (4.0-10.0)
[2021-01-18 05:05] LABS: INR 1.06
[2021-01-18 05:16] LABS: BLOOD UREA NITROGEN 11 MG/DL (7-18); CALCIUM LEVEL 8.5 MG/DL (8.5-10.1); CARBON DIOXIDE LEVEL 31 MEQ/L (21-32); CHLORIDE LEVEL 106 MEQ/L (98-107); GLOMERULAR FILTRATION RATE > 60.0 (>51); GLUCOSE, FASTING 101 MG/DL (70-100); MAGNESIUM LEVEL 2.3 MG/DL (1.8-2.4); POTASSIUM SERUM 4.5 MEQ/L (3.5-5.1); SODIUM LEVEL 141 MEQ/L (136-145)
[2021-01-18] MEDS: ADVAIR HFA 230/21MCG INHALER INH SCH (07:23)
[2021-01-18 07:58] VITALS: BP 115/62
[2021-01-18] MEDS: CEFUROXIME 500 MG TAB PO SCH (08:18)
[2021-01-18] MEDS: VITAMIN D 1,000 INTERNATIONAL UNITS TABLET PO SCH (08:18)
[2021-01-18] MEDS: FOLIC ACID 1 MG TAB PO SCH (08:18)
[2021-01-18] MEDS: DOXYCYCLINE HYCLATE 100MG TABLET PO SCH (08:19)
[2021-01-18] MEDS: BENZTROPINE 1 MG TAB PO SCH (08:19)
[2021-01-18] MEDS: ALPRAZolam 0.5 MG TAB PO PRN (08:19)
[2021-01-18] MEDS: OMEPRAZOLE 20 MG CAP PO SCH (08:19)
[2021-01-18] MEDS: GABAPENTIN 300 MG CAP PO SCH (08:19)
[2021-01-18] MEDS: CETIRIZINE (ZyrTEC) 10 MG TAB PO SCH (08:19)
[2021-01-18] MEDS: METHADONE 5 MG TAB (S0109) PO SCH (08:19)
[2021-01-18] MEDS: CitaloPRAM (CeleXA) 20 MG TAB PO SCH (08:19)
[2021-01-18] MEDS: DOCUSATE SODIUM 100MG CAPSULE PO SCH (08:19)
[2021-01-18] MEDS ORDERED: FLUBLOK(EGG FREE)(QUAD)INFLUENZA VACC 0.5ML SYRINGE 18YRS & OLDER IM ONE (09:00)
[2021-01-18] MEDS: ENOXAPARIN 80MG/0.8ML SYRINGE (J1650 PER 10MG) SC SCH (09:11)
[2021-01-18] MEDS ORDERED: LOVE0.6I2 SC (09:26)
[2021-01-18] MEDS ORDERED: JANT5TAB PO (09:26)
[2021-01-18 12:28] VITALS: BP 131/66
--- NOTE | 2021-01-18 13:02 | DS.PDOC ---
Discharge Summary General Date of Admission January 16, 2021 at 18:16 Date of Discharge 01/18/2021 Discharge Summary PROCEDURES PERFORMED DURING STAY: [None]. ADMITTING DIAGNOSES / DISCHARGE DIAGNOSES: Left leg swelling - likely 2/2 acute occlusive thrombus SLE / Rheumatoid arthritis Chronic Hepatitis C Multiple pulmonary embolisms (2006, 2014, 2016, again on 12/2020 is Acute pulmonary Emboli) Chronic COPD Anxiety / Depression / Bipolar disorder RLS Recent CAP Neuropathy Hx of Drug abuse GERD DVT prophylaxis COMPLICATIONS/CHIEF COMPLAINT: Left leg swelling HISTORY OF PRESENT ILLNESS: Patient is a 55-year-old female who presented to the [facility] emergency room because of left leg swelling. Patient was recently admitted to [facility] 01/12 to 01/15 for shortness of breath. During that admission, patient was found to have pulmonary embolisms and suspected pneumonia and the negative ultrasound study of her lower extremities. Patient had an improvement of her symptoms and was ultimately transitioned to Xarelto at the appropriate dose. On 01/16 , patient had woke up and found her left leg was significantly swollen continue to the ER for further evaluation. Upon arrival to emergency room, patient was found to have occlusive DVT of her left lower extremity was admitted to the hospital service for further evaluation and treatment. Vascular surgery was called on consultation. HOSPITAL COURSE: Left leg swelling - likely 2/2 acute occlusive thrombus - Patient presented to the ER on 01/16 with left leg swelling; was recently found to have PE and was started on Xarelto - This morning patient has continued to have improvement of her left leg swelling - has continued to reduce today - Imaging consistent with left lower extremity occlusive thrombus - Records from [facility] hematology were reviewed; she was advised to continue with Xarelto indefinitely, but had discontinued its use because of heavy menses; workup there had revealed an elevated rheumatoid factor and a positive CHANTE speckled pattern; ESR/CRP/Cardiolipin IgA + IgG Ab + IgM Ab were WNL / C3+C4 WNL - Review of prior hypercoagulable workup completed at [facility] has revealed slight elevations of Protein S and Anti-Cardiolipin IgM antibodies in the past - Has cleared PT HSE today - Vascular surgery on consultation; appreciate their input - s/p Xarelto - c/w weight-based Lovenox therapeutic dosing and Coumadin - until INR is therapeutic - Will have outpatient follow up with Hematology for continued management of anticoagulation and additional workup for hypercoagulable state - Discussed with PCP office to have outpatient follow up INR to ensure it becomes therapeutics; will c/w Lovenox / Coumadin bridge as an outpatient SLE / Rheumatoid arthritis - Dx 2013 in [place] by an oncologist - She noted that she had this evaluation because of multiple PEs in the past - Patient has reported that she has not required any therapy in the past Chronic Hepatitis C - s/p Treatment and resolution Multiple pulmonary embolisms (2006, 2014, 2015, again on 12/2020) - Most recent Acute PE 12/2020; still remains on treatment - Patient reported that she has been on Coumadin for 3-4 years - As transition to Xarelto in 2018; she was subsequently discontinued because of a vaginal bleed in the same year - Review the records from [facility] has indicated patient has stopped these events regulation with Xarelto because of heavy menses; against advice of Hematology - Since that point, patient has not resumed any anticoagulation until her most recent blood clot 01/12/2021 - Patient has been advised to follow up with her [employer] Manager in [place] within 7 days Chronic COPD - Active smoker - No evidence of exacerbation - c/w inhaled therapy as ordered - Follows with [facility]; Dr. Melendez Anxiety / Depression / Bipolar disorder - c/w Doxepin, Benztropine, Alprazolam RLS - c/w Ropinirole Recent CAP - Will discontinue Cefuroxime / Doxycycline today - has completed course of antibiotics today Neuropathy - c/w Gabapentin Hx of Drug abuse - c/w Methadone GERD - c/w Omeprazole DVT prophylaxis - c/w full anticoagulation with Lovenox (1mg / kg BID) / Coumadin bridge DISCHARGE MEDICATIONS: Please see below. ALLERGIES: Please see below. PHYSICAL EXAMINATION ON DISCHARGE: Vitals (See below) General: Lying in bed, does not appear to be any acute distress, AAO to person, place and time HEENT: NC, AT CVS: +S1S2 Lungs: Air entry is fair bilaterally without any evidence of wheezing, crackles or rhonchi Abdomen: Soft, non-distended, non-tender Extremities: Left leg swelling persists, but continues to have improvement in size LABORATORY DATA: Please see below. IMAGING: Duplex US 01/16: Extensive occlusive deep vein thrombosis left lower extremity as above common femoral vein through popliteal vein segment. ACTIVITY: [As tolerated]. DISCHARGE PLAN: Follow up with PCP and Hematology within the next 7 days Remain compliant with treatment plan and medications Return to the ER if you experience any problems DISPOSITION: Home with services DISCHARGE CONDITION: [Stable]. TIME SPENT ON DISCHARGE: 35 minutes. Vital Signs/I&Os Vital Signs Date Time Temp Pulse Resp B/P (MAP) Pulse Ox O2 Delivery O2 Flow Rate FiO2 01/18/21 07:58 98.5 70 18 115/62 (79) 95 Room Air 01/17/21 12:00 2.0 I&O- Last 24 Hours up to 6 AM 01/18/21 06:00 Intake Total 2640 ml Output Total 350 ml Balance 2290 ml Laboratory Data Labs 24H Laboratory Tests 2 01/18/21 04:25: Immature Granulocyte % (Auto) 0.8, Neutrophils (%) (Auto) 56.4, Lymphocytes (%) (Auto) 35.0, Monocytes (%) (Auto) 5.2, Eosinophils (%) (Auto) 2.1, Basophils (%) (Auto) 0.5, Neutrophils # (Auto) 3.5, Lymphocytes # (Auto) 2.2, Monocytes # (Auto) 0.3, Eosinophils # (Auto) 0.1, Basophils # (Auto) 0.0, Nucleated Red Blood Cells % (auto) 0.0, Prothrombin Time 14.0, Prothromb Time International Ratio 1.06, Anion Gap 4L, Glomerular Filtration Rate > 60.0, Calcium Level 8.5, Magnesium Level 2.3 CBC/BMP Laboratory Tests 01/18/21 04:25 Discharge Medications Scheduled Asenapine Maleate (Asenapine Maleate) 2.5 Mg Tab.subl, 2.5 MG SL BID, (Reported) Benztropine Mesylate (Benztropine Mesylate) 1 Mg Tablet, 1 MG PO DAILY, (Reporte d) Cefuroxime Axetil (Cefuroxime) 500 Mg Tablet, 500 MG PO BID, (Reported) FILLED 01/15/21 FOR 4 DAYS Cetirizine HCl (Cetirizine HCl) 10 Mg Tab, 10 MG PO DAILY, (Reported) Cholecalciferol (Vitamin D3) (Vitamin D3) 1,000 Unit Tablet, 1,000 UNITS PO DAILY, (Reported) Citalopram Hydrobromide (Celexa) 40 Mg Tablet, 40 MG PO DAILY, (Reported) Clonidine HCl (Clonidine HCl) 0.1 Mg Tablet, 0.1 MG PO QHS, (Reported) Doxepin HCl (Doxepin HCl) 50 Mg Capsule, 50 MG PO QHS, (Reported) Doxycycline Hyclate (Doxycycline Hyclate) 100 Mg Tablet, 100 MG PO BID, (Reported) FILLED 01/15/21 FOR 4 DAYS Enoxaparin Sodium (Lovenox) 80 Mg/0.8 Ml Syringe, 70 MG SC BID To be continued until INR is therapeutic (2-3) Fluticasone/Vilanterol (Breo Ellipta 100-25 Mcg INH) 1 Each Blst.w.dev, 1 PUFF INH DAILY, (Reported) Folic Acid (Folic Acid) 1 Mg Tab, 1 MG PO DAILY, (Reported) Gabapentin (Gabapentin) 600 Mg Tablet, 600 MG PO TID, (Reported) Methadone HCl (Methadone HCl) 5 Mg Tablet, 5 MG PO TID, (Reported) Omeprazole (Omeprazole) 40 Mg Cap, 40 MG PO DAILY, (Reported) Rivaroxaban (Xarelto) 15 Mg Tablet, 15 MG PO BID, (Reported) Ropinirole HCl (Ropinirole HCl) 2 Mg Tablet, 2 MG PO QHS, (Reported) Warfarin Sodium (Jantoven) 5 Mg Tablet, 5 MG PO DAILY@17 Scheduled PRN Albuterol Sulfate (Albuterol Sulfate Hfa) 8.5 Gm Hfa.aer.ad, 2 PUFFS INH QID PRN for SHORTNESS OF BREATH, (Reported) Alprazolam (Alprazolam) 1 Mg Tablet, 1 MG PO QID PRN for ANXIETY, (Reported) Naloxone HCl (Narcan) 4 Mg [place], 1 SPRAY NA PRN PRN for OVERDOSE, (Reported) Allergies Coded Allergies: ENVIROMENTAL (Verified Allergy, Unknown, 08/27/06) PAOLA CORNEJO MD January 18, 2021 13:02
== END 2021-01-18 14:53 | disposition home health service (06) | DRG 299 ==
LOC: M ED 15:43 → M ED INP 18:16 → ENRESERV 20:55 → M ICU 22:56
PROVIDERS: ADMIT Internal Medicine; ATTEND Internal Medicine
DX: I82.412 Acute embolism and thrombosis of left femoral vein (principal); I26.99 Other pulmonary embolism without acute cor pulmonale; M32.9 Systemic lupus erythematosus, unspecified; M06.9 Rheumatoid arthritis, unspecified; J44.9 Chronic obstructive pulmonary disease, unspecified; F41.9 Anxiety disorder, unspecified; K21.9 Gastro-esophageal reflux disease without esophagitis; F31.9 Bipolar disorder, unspecified; B18.2 Chronic viral hepatitis C; G25.81 Restless legs syndrome; G62.9 Polyneuropathy, unspecified; Z79.899 Other long term (current) drug therapy

== ENCOUNTER 2021-01-23 16:43 | Emergency (ER) | payer OTHER, MEDICAID ==
[~2021-01-23] VITALS: Ht 157.5 cm; Wt 63.6 kg
[~2021-01-23 16:43] MED LIST changes: +GABA-283 PO; -GABA-845 PO; +JANT5TAB PO; +LOVE0.6I2 SC
[2021-01-23 19:16] LABS: HEMATOCRIT 36.4 % (36.0-47.0); HEMOGLOBIN 11.5 g/dl (12.0-15.5); MEAN CORPUSCULAR HEMOGLOBIN 29.8 pg (27.0-33.0); MEAN CORPUSCULAR HGB CONC 31.6 g/dl (32.0-36.5); MEAN CORPUSCULAR VOLUME 94.3 fl (80.0-96.0); PLATELET COUNT, AUTOMATED 346 10^3/uL (150-450); RED BLOOD COUNT 3.86 10^6/uL (4.00-5.40); WHITE BLOOD COUNT 6.8 10^3/uL (4.0-10.0)
[2021-01-23 19:29] LABS: INR 1.23; PROTHROMBIN TIME 15.7 SECONDS (12.5-14.3)
[2021-01-23 19:38] LABS: BLOOD UREA NITROGEN 7 MG/DL (7-18); CALCIUM LEVEL 8.7 MG/DL (8.5-10.1); CARBON DIOXIDE LEVEL 26 MEQ/L (21-32); CHLORIDE LEVEL 111 MEQ/L (98-107); CREATININE FOR GFR 0.62 MG/DL (0.55-1.30); GLOMERULAR FILTRATION RATE > 60.0 (>51); GLUCOSE, FASTING 84 MG/DL (70-100); POTASSIUM SERUM 3.9 MEQ/L (3.5-5.1); SODIUM LEVEL 142 MEQ/L (136-145)
[2021-01-23 19:39] LABS: BASOPHILS 2 % (0-1); LYMPHOCYTES 35 % (16-44); MONOCYTES 1 % (0-5); NEUTROPHILS 62 % (28-66)
[2021-01-23 19:40] LABS: PLATELET ESTIMATE NORMAL (NORMAL)
[2021-01-23] MEDS ORDERED: LOVE1INJ SC (20:18)
[2021-01-23] MEDS ORDERED: XARE15TA PO (20:18)
[2021-01-23 20:45] VITALS: BP 123/72
== END 2021-01-23 20:43 | disposition home or self-care (01) ==
LOC: M ED 16:43
DX: I82.412 Acute embolism and thrombosis of left femoral vein (principal); I26.99 Other pulmonary embolism without acute cor pulmonale; M32.9 Systemic lupus erythematosus, unspecified; M06.9 Rheumatoid arthritis, unspecified; J44.9 Chronic obstructive pulmonary disease, unspecified; K21.9 Gastro-esophageal reflux disease without esophagitis; F31.9 Bipolar disorder, unspecified; N18.2 Chronic kidney disease, stage 2 (mild); Z79.01 Long term (current) use of anticoagulants; Z79.899 Other long term (current) drug therapy

== ENCOUNTER → 2021-01-26 | Outpatient (REF) | payer OTHER, MEDICAID ==
[~2021-01-26] MED LIST changes: +LOVE1INJ SC
[2021-01-26 12:00] LABS: BASO % 0.5 % (0.0-1.0); EOS # 0.1 10^3/uL (0.0-0.5); EOS % 1.1 % (0.0-3.0); HEMATOCRIT 37.9 % (36.0-47.0); HEMOGLOBIN 11.6 g/dl (12.0-15.5); LYMPH # 1.9 10^3/uL (1.5-5.0); LYMPH % 29.8 % (24.0-44.0); MEAN CORPUSCULAR HEMOGLOBIN 29.5 pg (27.0-33.0); MEAN CORPUSCULAR HGB CONC 30.6 g/dl (32.0-36.5); MEAN CORPUSCULAR VOLUME 96.4 fl (80.0-96.0); MONO # 0.5 10^3/uL (0.0-0.8); MONO % 7.8 % (2.0-8.0); NEUTROPHILS # 3.8 10^3/uL (1.5-8.5); NEUTROPHILS % 60.3 % (36.0-66.0); PLATELET COUNT, AUTOMATED 316 10^3/uL (150-450); RED BLOOD COUNT 3.93 10^6/uL (4.00-5.40); WHITE BLOOD COUNT 6.3 10^3/uL (4.0-10.0)
[2021-01-26 12:41] LABS: HEMOGLOBIN A1c 5.2 %
[2021-01-26 12:47] LABS: ALBUMIN 3.6 GM/DL (3.2-5.2); ALT/SGPT 18 U/L (12-78); BILIRUBIN,TOTAL 0.5 MG/DL (0.2-1.0); BLOOD UREA NITROGEN 7 MG/DL (7-18); CALCIUM LEVEL 9.4 MG/DL (8.5-10.1); CARBON DIOXIDE LEVEL 28 MEQ/L (21-32); CHLORIDE LEVEL 109 MEQ/L (98-107); CHOLESTEROL LEVEL 170 MG/DL (<200); CREATININE FOR GFR 0.69 MG/DL (0.55-1.30); FREE T4 0.94 NG/DL (0.76-1.46); GLOMERULAR FILTRATION RATE > 60.0 (>51); GLUCOSE, FASTING 76 MG/DL (70-100); HDL CHOLESTEROL 40 MG/DL (>40); LDL CHOLESTEROL 103 MG/DL (<100); NON-HDL-C 130 MG/DL; POTASSIUM SERUM 4.6 MEQ/L (3.5-5.1); SODIUM LEVEL 142 MEQ/L (136-145); TOTAL 25(OH) VITAMIN D 33.2 NG/ML (30.0-100.0); TOTAL PROTEIN 7.2 GM/DL (6.4-8.2); TRIGLYCERIDES LEVEL 133 MG/DL (<150)
== END ==
LOC: M LAB REF 11:34
PROVIDERS: ATTEND Nurse Practitioner Family
DX: K21.9 Gastro-esophageal reflux disease without esophagitis (principal); G89.29 Other chronic pain; F17.200 Nicotine dependence, unspecified, uncomplicated; Z86.711 Personal history of pulmonary embolism; D64.9 Anemia, unspecified; J44.9 Chronic obstructive pulmonary disease, unspecified; Z79.899 Other long term (current) drug therapy

== ENCOUNTER → 2021-02-02 | Outpatient (CLI) | payer OTHER, MEDICAID | LOC: M LAB 11:39 | PROVIDERS: ATTEND Internal Medicine Pulmonary Disease | DX: R59.0 Localized enlarged lymph nodes (principal) ==

== ENCOUNTER 2021-02-10 12:52 | Emergency (ER) | payer OTHER, MEDICAID ==
[~2021-02-10] VITALS: Ht 157.5 cm; Wt 62.3 kg
[2021-02-10] MEDS ORDERED: WARF-21 (13:02)
[2021-02-10 13:52] LABS: INR 1.44; PROTHROMBIN TIME 17.9 SECONDS (12.5-14.3)
[2021-02-10 13:53] LABS: PARTIAL THROMBOPLASTIN TIME 37.1 SECONDS (24.2-38.5)
[2021-02-10] MEDS ORDERED: WARF-20 PO (14:38)
[2021-02-10 14:58] VITALS: BP 116/78
[2021-02-10] MEDS ORDERED: PRED10TA2 (21:15)
== END 2021-02-10 15:07 | disposition home or self-care (01) ==
LOC: M ED 12:52
DX: Z76.0 Encounter for issue of repeat prescription (principal); D68.8 Other specified coagulation defects; Z79.01 Long term (current) use of anticoagulants; F41.9 Anxiety disorder, unspecified; F33.9 Major depressive disorder, recurrent, unspecified; F17.200 Nicotine dependence, unspecified, uncomplicated

== ENCOUNTER 2021-02-10 20:58 | Emergency (ER) | payer OTHER, MEDICAID ==
[~2021-02-10] VITALS: Ht 157.5 cm; Wt 62.3 kg
[~2021-02-10 20:58] MED LIST changes: +WARF-20 PO; +WARF-21
[2021-02-10] MEDS ORDERED: PRED10TA2 (21:15)
[2021-02-10 22:01] LABS: BASO % 0.2 % (0.0-1.0); EOS % 0.2 % (0.0-3.0); HEMATOCRIT 38.8 % (36.0-47.0); HEMOGLOBIN 12.4 g/dl (12.0-15.5); LYMPH # 1.5 10^3/uL (1.5-5.0); LYMPH % 23.4 % (24.0-44.0); MEAN CORPUSCULAR HEMOGLOBIN 29.5 pg (27.0-33.0); MEAN CORPUSCULAR VOLUME 92.4 fl (80.0-96.0); MONO # 0.3 10^3/uL (0.0-0.8); MONO % 5.3 % (2.0-8.0); NEUTROPHILS # 4.6 10^3/uL (1.5-8.5); NEUTROPHILS % 70.6 % (36.0-66.0); PLATELET COUNT, AUTOMATED 205 10^3/uL (150-450); WHITE BLOOD COUNT 6.4 10^3/uL (4.0-10.0)
[2021-02-10] MEDS ORDERED: LORazepam 1 MG TAB PO ONE (22:10)
[2021-02-10 22:11] LABS: INR 1.48; PROTHROMBIN TIME 18.2 SECONDS (12.5-14.3)
--- NOTE | 2021-02-10 22:12 | REPVR ---
PROCEDURE INFORMATION: Exam: XR Chest Exam date and time: 02/10/2021 9:49 PM Age: 55 years old Clinical indication: Other: Chest pain TECHNIQUE: Imaging protocol: XR of the chest. Views: 1 view. COMPARISON: SD PORTABLE CHEST X-RAY 01/12/2021 11:00 AM FINDINGS: Lungs: Decreased right pulmonary infiltrate since the prior study with minimal residual in the right base, particularly laterally. Pleural spaces: Unremarkable. No pleural effusion. No pneumothorax. Heart/Mediastinum: The heart and mediastinum are unchanged. Bones/joints: Minimal lateral left base plate atelectasis. IMPRESSION: 1. Decreased right pulmonary infiltrates since 01/12/2021 with minimal residual remaining in the right base, particularly laterally. 2. Minimal left base plate atelectasis since the prior study. 3. Otherwise stable chest. Electronically signed by: Alejandro Zuñiga On 02/10/2021 22:11:36 PM
[2021-02-10 22:25] LABS: ALBUMIN 3.6 GM/DL (3.2-5.2); ALT/SGPT 21 U/L (12-78); BILIRUBIN,DIRECT < 0.1 MG/DL (0.0-0.2); BILIRUBIN,TOTAL 0.1 MG/DL (0.2-1.0); BLOOD UREA NITROGEN 11 MG/DL (7-18); CALCIUM LEVEL 8.8 MG/DL (8.5-10.1); CARBON DIOXIDE LEVEL 23 MEQ/L (21-32); CHLORIDE LEVEL 114 MEQ/L (98-107); CK-MB VALUE MASS 1.8 NG/ML (<3.6); CPK CREATINE PHOSPHOKINASE 78 U/L (26-192); GLOMERULAR FILTRATION RATE > 60.0 (>51); GLUCOSE, FASTING 134 MG/DL (70-100); LIPASE 85 U/L (73-393); MB/CK RELATIVE INDEX 2.31 (< OR =4); NT-PRO BNP 51 PG/ML (<125); POTASSIUM SERUM 3.7 MEQ/L (3.5-5.1); SODIUM LEVEL 144 MEQ/L (136-145); THYROID STIMULATING HORMONE 0.613 uIU/ML (0.358-3.740); TOTAL PROTEIN 7.2 GM/DL (6.4-8.2); TROPONIN I < 0.02 NG/ML (< 0.10)
[2021-02-10] MEDS ORDERED: ISOVUE-370 76% 100ML VIAL As Ordered ONE (22:45)
--- NOTE | 2021-02-10 23:32 | REPVR ---
PROCEDURE INFORMATION: Exam: CTA Chest With Contrast Exam date and time: 02/10/2021 10:46 PM Age: 55 years old Clinical indication: Pain; Chest pressure; Additional info: Chest pain TECHNIQUE: Imaging protocol: Computed tomographic angiography of the chest with contrast. 3D rendering (Not supervised by radiologist): MIP and/or 3D reconstructed images were created by the technologist. Radiation optimization: All CT scans at this facility use at least one of these dose optimization techniques: automated exposure control; mA and/or kV adjustment per patient size (includes targeted exams where dose is matched to clinical indication); or iterative reconstruction. Contrast material: ISOVUE 370; Contrast volume: 75 ml; Contrast route: INTRAVENOUS (IV); COMPARISON: CT ANGIO CHEST 01/12/2021 1:32 PM FINDINGS: Pulmonary arteries: The main pulmonary artery measures 28 mm. Thin band is noted in the proximal right main pulmonary artery which is similar to the prior study and may reflect chronic fibrinous residua of previous pulmonary embolism. No interval acute pulmonary embolism is identified. Aorta: The ascending thoracic aorta measures 27 mm. Lungs: Slight interstitial coarsening with scattered bilateral ground-glass pulmonary infiltrates. Irregular mass or focal consolidation in the posterior aspect of the right middle lobe abutting the major fissure measuring 1.6 x 3.2 x 2.3 cm. An air bronchogram courses through the area which demonstrates slight stranding into surrounding lung and is better defined since the prior study with decreased surrounding infiltrates and slight overall decrease in size. Minimal fibro-atelectatic change extends into the right middle lobe from the hilum toward the focal consolidation or mass. Irregular focal consolidation or mass in the basal right lower lobe which is decreased since the prior study and presently measures 1.5 x 1.1 x 1.3 cm. There is a nodule in the superior segment of the right lower lobe measuring 6 mm which is decreased in prominence since the prior study. Pleural spaces: Unremarkable. No pneumothorax. No pleural effusion. Heart: Unremarkable. No cardiomegaly. No pericardial effusion. Lymph nodes: Borderline right hilar nodes. Gallbladder and bile ducts: Status post cholecystectomy. Stomach and bowel: Mild distention of the stomach with food material. Bones/joints: Unremarkable. No acute fracture. Soft tissues: Unremarkable. IMPRESSION: 1. Decreased right pulmonary infiltrates and consolidation since 01/12/2021. Some residual scattered infiltrates are noted with some residual areas of focal consolidation which are generally decreased since the prior study. Residual infiltrates are noted. 2. Minimal scattered ground-glass infiltrates and coarse interstitium in the left lung which appears similar to slightly increased since the prior study. 3. Borderline right hilar nodes which are decreased since the prior study. 4. Status post cholecystectomy. 5. There is mild gastric distention with food material which may reflect recent ingestion. Gastric atony or relative outlet obstruction are not excluded. 6. Thin band extending around the origin of the right lower lobe pulmonary artery which is similar to the prior study and may reflect residual fibrinous material from previous pulmonary embolism. There is decreased pulmonary embolism in the left lower lobe since the prior study. No acute interval pulmonary embolism is identified. Electronically signed by: Alejandro Zuñiga On 02/10/2021 23:32:29 PM
[2021-02-11 00:39] VITALS: BP 113/70
--- NOTE | 2021-02-11 07:56 | ECGEPIP ---
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
== END 2021-02-11 00:38 | disposition home or self-care (01) ==
LOC: M ED 20:58
DX: R07.9 Chest pain, unspecified (principal); F41.9 Anxiety disorder, unspecified; F17.200 Nicotine dependence, unspecified, uncomplicated; J44.9 Chronic obstructive pulmonary disease, unspecified; I10 Essential (primary) hypertension; B18.2 Chronic viral hepatitis C; Z78.0 Asymptomatic menopausal state
CPT/HCPCS: 36415; 71045; 71275; 80048; 80076; 82550; 82553; 83690; 83880; 84443; 84484; 85025; 85610; 85730; 93005; 93041; 94760; 99285; Q9967

== ENCOUNTER → 2021-03-30 | Outpatient (REF) | payer OTHER, MEDICAID ==
[~2021-03-30] MED LIST changes: +ERGO500029 PO; +OMEP40CA4 PO; -OMEP40CA97 PO; +PRED10TA2; -VITA50005 PO
[2021-03-30 13:26] LABS: INR 1.24; PROTHROMBIN TIME 15.9 SECONDS (12.5-14.3)
== END ==
LOC: M LAB REF 12:44
PROVIDERS: ATTEND Family Medicine Addiction Medicine
DX: I82.409 Acute embolism and thrombosis of unspecified deep veins of unspecified lower extremity (principal)

== ENCOUNTER → 2021-04-27 | Outpatient (CLI) | payer OTHER, MEDICAID ==
[~2021-04-27] MED LIST changes: +AMOX250C3 PO; +LORA1TAB4 PO; +WARF-22 PO
--- NOTE | 2021-04-27 10:16 | REP ---
INDICATION: ABNORMAL FINDING OF LUNG FILED COMPARISON: Multiple the latest 02/10/2021 TECHNIQUE: Standard helical technique without intravenous contrast administration. FINDINGS: There is no significant change in appearance of the mediastinum or pulmonary bigg when the technical differences between the examinations are taken into consideration. The latest prior examination was obtained as a CT angio chest after intravenous contrast administration. There are no pleural or pericardial effusions. The imaged upper abdomen and imaged osseous structures are stable. Evaluation of the lung sahni shows a significant reduction in size in the previously present right lower lobe masslike consolidation which previously measured 2.6 x 3.2 cm on the latest prior and today measures 2.4 x 1.1 cm. There are persistent scattered areas of asymmetric density seen throughout the lung sahni particularly, right upper lower lobes. There is cylindrical bronchiectasis. No definite new abnormal opacities have developed. IMPRESSION: There has been improvement as described above, however, there are persistent abnormal lung field findings as well. There is no revised Fleischner society criteria on the recommendation for follow-up of such findings. Follow-up should be based on clinical assessment. <Electronically signed by Henok Wetzel > 04/27/21 [id number]
--- NOTE | 2021-04-27 20:00 | ECHO ---
ECHOCARDIOGRAM DATE OF PROCEDURE: 04/27/2021 Age: Gender: Female Height: 157 cm Weight: 64 kg. REFERRING PHYSICIAN: Dimple Seay M.D. INDICATION: Abnormal finding of lung. MEASUREMENTS: IVS 0.8 LV 4.1 LVPW 0.9 LA 3.2 Aorta 3.3 Left atrial volume index 24 Mitral E wave velocity 83 A wave 74 E prime septal 5.5 E prime lateral 5.2 FINDINGS: This study is of acceptable technical quality. Patient is in sinus rhythm. Left ventricle has normal size and systolic function. Estimated left ventricular ejection fraction (LVEF) 60-65%. Right ventricle also has normal size and systolic function. Both atria appear normal. Aortic valve is tricuspid. It is mildly sclerotic, but mobility of leaflets is preserved. Mitral, tricuspid and pulmonic valves appear normal. No pericardial effusion is noted. Inferior vena cava is of normal size and appropriately collapses with inspiration, indicative of normal central venous pressure. Aortic root, aortic arch and visualization of abdominal aorta all appear to be normal. Doppler interrogation of aortic valve reveals no stenosis and mild insufficiency. There is also mild mitral insufficiency. No significant tricuspid valve abnormalities noted. Trace pulmonic insufficiency was seen. Mitral inflow pattern and tissue Doppler imaging of mitral annulus revealed grade2 diastolic dysfunction. CONCLUSIONS: 1. Study is of acceptable technical quality. Underlying sinus rhythm. 2. Normal left ventricular (LV) size with preserved LV systolic function with grade 2 diastolic dysfunction. 3. Aortic sclerosis with no aortic stenosis and mild insufficiency. 4. Normal central venous pressure. 5. Unable to estimate pulmonary artery pressure.
== END ==
LOC: M RAD 09:28
PROVIDERS: ATTEND Internal Medicine Pulmonary Disease
DX: I26.99 Other pulmonary embolism without acute cor pulmonale (principal); R91.8 Other nonspecific abnormal finding of lung field

== ENCOUNTER → 2021-05-29 | Outpatient (CLI) | payer OTHER, MEDICAID ==
[~2021-05-29] MED LIST changes: +ALPR0.5T3; +ATOR1TAB21; -CYMB60CA3 PO; +CYMB60CA4 PO; +ELIQ5TAB
--- NOTE | 2021-05-29 14:28 | REP ---
INDICATION: OTHER PULMONARY EMBOLISM WITHOUT ACUTE COR PULMONA. COMPARISON: None. TECHNIQUE: Multiple ultrasonographic images of the deep venous structures of the bilateral lower extremity were obtained from the inguinal ligament to the ankle. Venous compression techniques, color doppler imaging, and augmentation techniques were also obtained where appropriate. As per the ACR guidelines the anterior tibial vein can not be effectively evaluated. Only compression techniques in the calf on the peroneal and posterior tibial veins was attempted/performed. FINDINGS: There is no abnormal echogenic material seen within any of the visualized deep venous structures that would suggest acute thrombosis. Coaptation is unremarkable throughout. Doppler interrogation shows an expected response to respiratory variability and augmentation in the thigh. Compression techniques in the calf were unobtainable. The color flow images show what appears to be a normal vascular pattern throughout the thigh. IMPRESSION: There is no ultrasonographic evidence of deep venous thrombosis involving any of the visualized deep venous structures of the bilateral lower extremity as described above. Due to technical parameters calf vein DVT can not be ruled out. <Electronically signed by Henok Wetzel > 05/29/21 [id number]
== END ==
LOC: M RAD 13:01
PROVIDERS: ATTEND Internal Medicine Pulmonary Disease
DX: I26.99 Other pulmonary embolism without acute cor pulmonale (principal); R09.89 Other specified symptoms and signs involving the circulatory and respiratory systems

== ENCOUNTER 2021-07-12 09:06 | Emergency (ER) | payer OTHER, MEDICAID ==
[~2021-07-12] VITALS: Ht 157.5 cm; Wt 68.2 kg
[~2021-07-12 09:06] MED LIST changes: -ALPR0.5T3; -ATOR1TAB21; -ELIQ5TAB
[2021-07-12] MEDS ORDERED: ALPR0.5T3 (09:55)
[2021-07-12] MEDS ORDERED: ATOR1TAB21 (09:55)
[2021-07-12] MEDS ORDERED: ELIQ5TAB (09:55)
[2021-07-12 10:09] LABS: BASO % 0.2 % (0.0-1.0); EOS # 0.1 10^3/uL (0.0-0.5); HEMATOCRIT 35.4 % (36.0-47.0); HEMOGLOBIN 11.5 g/dl (12.0-15.5); LYMPH # 1.7 10^3/uL (1.5-5.0); LYMPH % 17.6 % (24.0-44.0); MEAN CORPUSCULAR HEMOGLOBIN 31.2 pg (27.0-33.0); MEAN CORPUSCULAR HGB CONC 32.5 g/dl (32.0-36.5); MEAN CORPUSCULAR VOLUME 95.9 fl (80.0-96.0); MONO # 0.5 10^3/uL (0.0-0.8); MONO % 5.3 % (2.0-8.0); NEUTROPHILS # 7.3 10^3/uL (1.5-8.5); NEUTROPHILS % 75.5 % (36.0-66.0); PLATELET COUNT, AUTOMATED 170 10^3/uL (150-450); RED BLOOD COUNT 3.69 10^6/uL (4.00-5.40); WHITE BLOOD COUNT 9.7 10^3/uL (4.0-10.0)
--- NOTE | 2021-07-12 10:25 | REP ---
INDICATION: Hemoptysis. COMPARISON: 02/10/2021. TECHNIQUE: Single portable AP view of the chest was performed. FINDINGS: Right lung infiltrates are again noted. These have mildly worsened since the prior exam, particularly inferiorly.There is mild fibrotic change in the left lung base. Heart is upper limits of normal in size. The mediastinal silhouette is unchanged. The visualized osseous structures appear intact. IMPRESSION: Mildly increased infiltrates in the right lung, particularly in the right lung base, compared to the prior study of 02/10/2021. <Electronically signed by Blaine Eddy > 07/12/21 1021
--- NOTE | 2021-07-12 12:14 | REP ---
INDICATION: increased RLL infiltrates on CXR COMPARISON: Multiple the latest 04/27/2021 also without contrast TECHNIQUE: Standard helical technique without contrast FINDINGS: Mediastinal and right hilar adenopathy has developed since the last exam. There are no pleural or pericardial effusions. There is no significant change in the appearance of the imaged upper abdomen or imaged osseous structures. Evaluation of the lung sahni shows a significant increase in asymmetric patchy interstitial and airspace opacities throughout the right lung. The somewhat spiculated asymmetric density seen in the right middle lobe which abuts the major fissure is essentially unchanged possibly slightly improved when compared to the latest prior exam. No significant left lung field changes have developed since the last exam. IMPRESSION: Increased right lung interstitial and airspace opacities along with asymmetric densities and persistent right middle lobe asymmetric density with air bronchograms as described above. The etiology of all of this is uncertain. Unilateral infectious versus inflammatory etiology are considerations. Certainly, neoplastic change cannot be ruled out. There is newly developed adenopathy as described above. <Electronically signed by Henok Wetzel > 07/12/21 [id number]
[2021-07-12 13:15] VITALS: BP 100/63
--- NOTE | 2021-07-13 06:48 | ED PDOC ---
Post-Departure Follow-Up ct chest faxed to dr mello for fu Alessandra Vivar MD Jul 13, 2021 06:48
== END 2021-07-12 13:28 | disposition home or self-care (01) ==
LOC: M ED 09:06 → EDBD 09:06 → M ED 13:28
DX: J18.9 Pneumonia, unspecified organism (principal); R04.2 Hemoptysis; J30.2 Other seasonal allergic rhinitis; Z86.19 Personal history of other infectious and parasitic diseases; Z86.711 Personal history of pulmonary embolism; Z86.718 Personal history of other venous thrombosis and embolism; F17.200 Nicotine dependence, unspecified, uncomplicated; Z79.01 Long term (current) use of anticoagulants; Z79.899 Other long term (current) drug therapy

== ENCOUNTER 2021-08-11 22:53 | Inpatient (IN) | payer OTHER, MEDICAID, MEDICARE ==
[~2021-08-11] VITALS: Ht 157.5 cm; Wt 70.9 kg
[~2021-08-11 22:53] MED LIST changes: +ALPR0.5T3 PO; +ATOR1TAB21 PO; -CITA10TA5 PO; +CITA10TA7 PO; +ELIQ5TAB PO
[2021-08-12] MEDS ORDERED: methylPREDNISolone 125MG 2ML VIAL IV ONE (00:35)
[2021-08-12] MEDS ORDERED: ACETAMINOPHEN 325 MG TAB PO ONE (00:35)
[2021-08-12] MEDS ORDERED: ALBUTEROL 90 MCG/ACT 8GM HFA INHALER INH ONE (00:35)
[2021-08-12] MEDS ORDERED: NS 1,000 ML IV ONE (00:35)
[2021-08-12 00:52] LABS: BASO % 0.4 % (0.0-1.0); EOS # 0.1 10^3/uL (0.0-0.5); EOS % 0.9 % (0.0-3.0); HEMATOCRIT 38.9 % (36.0-47.0); LYMPH # 1.2 10^3/uL (1.5-5.0); LYMPH % 16.4 % (24.0-44.0); MEAN CORPUSCULAR HEMOGLOBIN 30.5 pg (27.0-33.0); MEAN CORPUSCULAR HGB CONC 30.8 g/dl (32.0-36.5); MONO # 0.2 10^3/uL (0.0-0.8); NEUTROPHILS # 5.8 10^3/uL (1.5-8.5); NEUTROPHILS % 79.2 % (36.0-66.0); PLATELET COUNT, AUTOMATED 161 10^3/uL (150-450); RED BLOOD COUNT 3.93 10^6/uL (4.00-5.40); WHITE BLOOD COUNT 7.4 10^3/uL (4.0-10.0)
[2021-08-12 01:10] LABS: ALBUMIN 3.6 GM/DL (3.2-5.2); BILIRUBIN,DIRECT 0.1 MG/DL (0.0-0.2); BILIRUBIN,TOTAL 0.4 MG/DL (0.2-1.0); THYROID STIMULATING HORMONE 1.02 uIU/ML (0.358-3.740); THYROXINE (T4) 9.9 UG/DL (4.5-12.0); TOTAL PROTEIN 7.2 GM/DL (6.4-8.2)
[2021-08-12 01:26] LABS: RSV AMPLIFICATION NEGATIVE (NEGATIVE)
[2021-08-12 01:46] LABS: ABG BASE EXCESS -1.5 (-2.0-2.0); ABG HCO3 24.1 MEQ/L (22.0-26.0); ABG O2 SATURATION 79.7 % (95.0-99.0); ABG PARTIAL PRESSURE CO2 44.1 mmHg (35.0-45.0); ABG STANDARD HCO3 22.9 MEQ/L (22.0-26.0); ABG TOTAL CO2 25.5 MEQ/L (22.0-29.0); ABG pH (ARTERIAL) 7.356 UNITS (7.350-7.450)
[2021-08-12 01:49] LABS: ABG PARTIAL PRESSURE O2 37.6 mmHg (75.0-100.0)
[2021-08-12] MEDS ORDERED: cefTRIAXone SOD 2 GM in D5W MINI-BAG PLUS 50 ML IV ONE (02:40)
[2021-08-12] MEDS ORDERED: MAALOX 30 ML SUSP *UDC PO PRN (02:50)
[2021-08-12] MEDS ORDERED: HOME MED LIST COMPLETE! XX SCH (02:50)
[2021-08-12] MEDS ORDERED: POTASSIUM CHLORIDE 10MEQ SR TABLET PO ONE (02:50)
[2021-08-12] MEDS ORDERED: MOM 30ML SUSPENSION UDC PO PRN (02:50)
[2021-08-12 02:57] LABS: INR 1.06; PROTHROMBIN TIME 14.2 SECONDS (12.7-14.5)
[2021-08-12 03:00] LABS: D-DIMER QUANT 816.09 ng/ml (<500)
[2021-08-12] MEDS ORDERED: LevoFLOXacin IV 750 MG in IV 1 EA IV ONE (03:00)
[2021-08-12 06:56] LABS: HEMOGLOBIN 10.9 g/dl (12.0-15.5); MEAN CORPUSCULAR HEMOGLOBIN 30.6 pg (27.0-33.0); MEAN CORPUSCULAR HGB CONC 31.1 g/dl (32.0-36.5); MEAN CORPUSCULAR VOLUME 98.3 fl (80.0-96.0); PLATELET COUNT, AUTOMATED 130 10^3/uL (150-450); RED BLOOD COUNT 3.56 10^6/uL (4.00-5.40); WHITE BLOOD COUNT 7.7 10^3/uL (4.0-10.0)
[2021-08-12 07:29] LABS: ALBUMIN 2.8 GM/DL (3.2-5.2); ALT/SGPT 32 U/L (12-78); BILIRUBIN,TOTAL 0.3 MG/DL (0.2-1.0); BLOOD UREA NITROGEN 11 MG/DL (7-18); CALCIUM LEVEL 8.4 MG/DL (8.5-10.1); CARBON DIOXIDE LEVEL 25 MEQ/L (21-32); CHLORIDE LEVEL 109 MEQ/L (98-107); CREATININE FOR GFR 0.85 MG/DL (0.55-1.30); GLOMERULAR FILTRATION RATE > 60.0 (>51); GLUCOSE, FASTING 165 MG/DL (70-100); SODIUM LEVEL 140 MEQ/L (136-145); TOTAL PROTEIN 6.3 GM/DL (6.4-8.2)
[2021-08-12 08:00] VITALS: BP 121/67
[2021-08-12] MEDS ORDERED: NALOXONE INJ 0.4MG/1ML VIAL (J2310 PER 1MG) IV PRN (08:00)
[2021-08-12] MEDS: CETIRIZINE (ZyrTEC) 10 MG TAB PO SCH (09:39)
[2021-08-12] MEDS: DOXYCYCLINE HYCLATE 100 MG in D5W MINI-BAG PLUS 100 ML IV SCH ×2 (09:39→16:48)
[2021-08-12] MEDS: FOLIC ACID 1 MG TAB PO SCH (09:41)
[2021-08-12] MEDS: ALPRAZolam 0.5 MG TAB PO SCH ×3 (09:41→20:08)
[2021-08-12] MEDS: ATORVASTATIN 20 MG TAB PO SCH (09:41)
[2021-08-12] MEDS: GABAPENTIN 300 MG CAP PO SCH ×3 (09:41→20:09)
[2021-08-12] MEDS: CitaloPRAM (CeleXA) 20 MG TAB PO SCH (09:42)
[2021-08-12] MEDS: VITAMIN D 1,000 INTERNATIONAL UNITS TABLET PO SCH (09:42)
[2021-08-12] MEDS: cloNIDine 0.1MG TABLET PO SCH ×3 (09:42→20:08)
[2021-08-12] MEDS: APIXABAN 5 MG TAB (ELIQUIS) PO SCH ×2 (09:42→20:08)
[2021-08-12] MEDS: ACETAMINOPHEN TAB 650MG DOSE (2X325MG) PO PRN (10:03)
[2021-08-12 14:00] VITALS: BP 104/65
[2021-08-12] MEDS: guaiFENesin ER 600 MG TAB PO SCH (20:09)
[2021-08-12 21:00] VITALS: O2SAT 92
[2021-08-12] MEDS ORDERED: DOXEPIN 25 MG CAP PO SCH (21:00)
[2021-08-12] MEDS ORDERED: rOPINIRole 1MG TAB PO SCH (21:00)
[2021-08-12 21:52] VITALS: BP 105/64
[2021-08-13] MEDS ORDERED: cefTRIAXone SOD 1 GM in D5W MINI-BAG PLUS 50 ML IV SCH (02:00)
[2021-08-13] MEDS: ACETAMINOPHEN TAB 650MG DOSE (2X325MG) PO PRN (04:20)
[2021-08-13] MEDS: DOXYCYCLINE HYCLATE 100 MG in D5W MINI-BAG PLUS 100 ML IV SCH (05:26)
[2021-08-13 06:00] VITALS: BP 140/73
[2021-08-13] MEDS ORDERED: ALBUTEROL 90 MCG/ACT 8GM HFA INHALER INH PRN ×2 (07:55→08:17)
[2021-08-13] MEDS ORDERED: TIOTROPIUM INHALER/CAPSULE (SPIRIVA) INH SCH (08:00)
[2021-08-13] MEDS ORDERED: SYMBICORT 160/4.5MCG INHALER 6GM INH SCH ×2 (08:00→08:17)
[2021-08-13 08:17] LABS: HEMATOCRIT 32.1 % (36.0-47.0); MEAN CORPUSCULAR HEMOGLOBIN 30.5 pg (27.0-33.0); MEAN CORPUSCULAR HGB CONC 31.2 g/dl (32.0-36.5); MEAN CORPUSCULAR VOLUME 97.9 fl (80.0-96.0); PLATELET COUNT, AUTOMATED 143 10^3/uL (150-450); RED BLOOD COUNT 3.28 10^6/uL (4.00-5.40); WHITE BLOOD COUNT 10.1 10^3/uL (4.0-10.0)
[2021-08-13 08:47] LABS: BLOOD UREA NITROGEN 16 MG/DL (7-18); CALCIUM LEVEL 8.8 MG/DL (8.5-10.1); CARBON DIOXIDE LEVEL 26 MEQ/L (21-32); CHLORIDE LEVEL 111 MEQ/L (98-107); CREATININE FOR GFR 0.69 MG/DL (0.55-1.30); GLOMERULAR FILTRATION RATE > 60.0 (>51); GLUCOSE, FASTING 117 MG/DL (70-100); SODIUM LEVEL 142 MEQ/L (136-145)
[2021-08-13] MEDS: guaiFENesin ER 600 MG TAB PO SCH (08:58)
[2021-08-13] MEDS: ALPRAZolam 0.5 MG TAB PO SCH ×2 (08:58→16:30)
[2021-08-13] MEDS: cloNIDine 0.1MG TABLET PO SCH ×2 (08:58→16:30)
[2021-08-13] MEDS: VITAMIN D 1,000 INTERNATIONAL UNITS TABLET PO SCH (08:59)
[2021-08-13] MEDS: CETIRIZINE (ZyrTEC) 10 MG TAB PO SCH (08:59)
[2021-08-13] MEDS: CitaloPRAM (CeleXA) 20 MG TAB PO SCH (08:59)
[2021-08-13] MEDS: GABAPENTIN 300 MG CAP PO SCH ×2 (08:59→16:30)
[2021-08-13] MEDS: APIXABAN 5 MG TAB (ELIQUIS) PO SCH (08:59)
[2021-08-13] MEDS ORDERED: NICOTINE 21MG/24HR 1 EA TRANSDERMAL TD SCH (09:00)
[2021-08-13] MEDS: FOLIC ACID 1 MG TAB PO SCH (09:00)
[2021-08-13] MEDS: ATORVASTATIN 20 MG TAB PO SCH (09:00)
[2021-08-13] MEDS ORDERED: ISOVUE-370 76% 100ML VIAL As Ordered ONE (12:54)
[2021-08-13 13:22] VITALS: O2SAT 95
[2021-08-13 14:00] VITALS: BP 114/65
[2021-08-13] MEDS ORDERED: AUGM875T28 PO (16:04)
[2021-08-13] MEDS ORDERED: PRED10TA2 PO (16:04)
[2021-08-13] MEDS ORDERED: BREO1INH INH (16:04)
[2021-08-13] MEDS ORDERED: MUCI600T31 PO (16:04)
[2021-08-13] MEDS ORDERED: DOXY100C3 PO (16:04)
[2021-08-13] MEDS ORDERED: ALBU8.5H INH (16:04)
[2021-08-13] MEDS ORDERED: methylPREDNISolone 125MG 2ML VIAL IV ONE (16:05)
[2021-08-13 16:30] VITALS: BP 114/65
== END 2021-08-13 18:30 | disposition home or self-care (01) | DRG 190 ==
LOC: EDBD 22:53 → M ED 22:53 → M ED INP 08-12 02:49 → ENRESERV 08-12 06:55 → M MS5PR 08-12 07:55
PROVIDERS: ADMIT Internal Medicine; ATTEND Family Medicine
DX: J44.1 Chronic obstructive pulmonary disease with (acute) exacerbation (principal); J18.9 Pneumonia, unspecified organism; J44.0 Chronic obstructive pulmonary disease with (acute) lower respiratory infection; E87.6 Hypokalemia; G47.33 Obstructive sleep apnea (adult) (pediatric); M06.9 Rheumatoid arthritis, unspecified; B18.2 Chronic viral hepatitis C; F41.9 Anxiety disorder, unspecified; F32.9 Major depressive disorder, single episode, unspecified; G25.81 Restless legs syndrome; Z86.711 Personal history of pulmonary embolism; G62.9 Polyneuropathy, unspecified; F17.200 Nicotine dependence, unspecified, uncomplicated; E83.42 Hypomagnesemia; Z79.899 Other long term (current) drug therapy

== ENCOUNTER → 2021-09-10 | Outpatient (CLI) | payer OTHER, MEDICAID ==
[~2021-09-10] MED LIST changes: +DOXY100C3 PO; +MUCI600T31 PO; +PRED10TA2 PO
== END ==
LOC: M PLAIMG 12:39
PROVIDERS: ATTEND Orthopaedic Surgery
DX: M47.896 Other spondylosis, lumbar region (principal)

== ENCOUNTER → 2021-10-16 | Outpatient (REF) | payer OTHER ==
[2021-10-16 17:26] LABS: BASO # 0.1 10^3/uL (0.0-0.2); BASO % 0.4 % (0.0-1.0); EOS # 0.1 10^3/uL (0.0-0.5); EOS % 0.8 % (0.0-3.0); HEMATOCRIT 42.5 % (36.0-47.0); HEMOGLOBIN 13.1 g/dl (12.0-15.5); LYMPH # 2.9 10^3/uL (1.5-5.0); LYMPH % 26.4 % (24.0-44.0); MEAN CORPUSCULAR HEMOGLOBIN 29.2 pg (27.0-33.0); MEAN CORPUSCULAR HGB CONC 30.8 g/dl (32.0-36.5); MEAN CORPUSCULAR VOLUME 94.7 fl (80.0-96.0); MONO # 0.7 10^3/uL (0.0-0.8); MONO % 5.9 % (2.0-8.0); NEUTROPHILS # 7.3 10^3/uL (1.5-8.5); NEUTROPHILS % 66.1 % (36.0-66.0); PLATELET COUNT, AUTOMATED 199 10^3/uL (150-450); RED BLOOD COUNT 4.49 10^6/uL (4.00-5.40); WHITE BLOOD COUNT 11.1 10^3/uL (4.0-10.0)
[2021-10-16 17:53] LABS: ALBUMIN 4.1 GM/DL (3.2-5.2); ALT/SGPT 28 U/L (12-78); BILIRUBIN,TOTAL 0.3 MG/DL (0.2-1.0); BLOOD UREA NITROGEN 9 MG/DL (7-18); CALCIUM LEVEL 9.6 MG/DL (8.5-10.1); CARBON DIOXIDE LEVEL 27 MEQ/L (21-32); CHLORIDE LEVEL 108 MEQ/L (98-107); COMPLEMENT C3 128 MG/DL (90-180); COMPLEMENT C4 22 MG/DL (10-40); CREATININE FOR GFR 0.87 MG/DL (0.55-1.30); GLOMERULAR FILTRATION RATE > 60.0 (>51); GLUCOSE, FASTING 84 MG/DL (70-100); POTASSIUM SERUM 4.6 MEQ/L (3.5-5.1); SODIUM LEVEL 140 MEQ/L (136-145); TOTAL PROTEIN 7.5 GM/DL (6.4-8.2)
[2021-10-16 21:46] LABS: ERYTHROCYTE SEDIMENTATION RATE 6 mm/hr (0-30)
== END ==
LOC: M SFHCRHEU 10:39
PROVIDERS: ATTEND Internal Medicine Rheumatology
DX: M32.9 Systemic lupus erythematosus, unspecified (principal); M79.7 Fibromyalgia; Z86.19 Personal history of other infectious and parasitic diseases; Z87.39 Personal history of other diseases of the musculoskeletal system and connective tissue; Z72.0 Tobacco use

== ENCOUNTER → 2021-12-06 | Outpatient (CLI) | payer MEDICARE ==
[~2021-12-06] MED LIST changes: -D31000TA2 PO; +VITA100093 PO
== END ==
LOC: M RAD 10:20
PROVIDERS: ATTEND Internal Medicine Pulmonary Disease
DX: R91.8 Other nonspecific abnormal finding of lung field (principal)

== ENCOUNTER → 2021-12-06 | Outpatient (CLI) | payer MEDICARE | LOC: M RAD 10:27 | PROVIDERS: ATTEND Internal Medicine Rheumatology | DX: Z87.39 Personal history of other diseases of the musculoskeletal system and connective tissue (principal) ==

== ENCOUNTER → 2022-06-27 | Outpatient (REF) | payer MEDICARE ==
[~2022-06-27] MED LIST changes: +BUPR-71 PO; -BUPR150T5 PO
[2022-06-27 17:56] LABS: CHOLESTEROL RISK RATIO 2.853 (<5)
== END ==
LOC: M LAB REF 16:47
PROVIDERS: ATTEND Nurse Practitioner Family
DX: E78.5 Hyperlipidemia, unspecified (principal)

== ENCOUNTER → 2023-09-12 | Outpatient (REF) | payer MEDICARE, MEDICAID ==
[~2023-09-12] MED LIST changes: -BENZ-52 PO; +BENZ1TAB5 PO; -GABA-283 PO; +GABA-284 PO; -HYDR200T3 PO; +HYDR200T46 PO; +LORA1TAB23 PO; -LORA1TAB4 PO; -LUNE2TAB23 PO; +LUNE2TAB28 PO; -ROPI1TAB3 PO; +ROPI1TAB73 PO; -ROPI2TAB3; -ROPI2TAB3 PO; +ROPI2TAB46; +ROPI2TAB46 PO
[2023-09-12 12:59] LABS: BASO % 0.3 % (0.0-1.0); EOS # 0.1 10^3/uL (0.0-0.5); EOS % 2.1 % (0.0-3.0); HEMATOCRIT 40.7 % (36.0-47.0); HEMOGLOBIN 12.7 g/dl (12.0-15.5); LYMPH # 1.9 10^3/uL (1.5-5.0); LYMPH % 33.4 % (24.0-44.0); MEAN CORPUSCULAR HEMOGLOBIN 29.1 pg (27.0-33.0); MEAN CORPUSCULAR HGB CONC 31.2 g/dl (32.0-36.5); MEAN CORPUSCULAR VOLUME 93.3 fl (80.0-96.0); MONO # 0.4 10^3/uL (0.0-0.8); NEUTROPHILS # 3.3 10^3/uL (1.5-8.5); PLATELET COUNT, AUTOMATED 243 10^3/uL (150-450); RED BLOOD COUNT 4.36 10^6/uL (4.00-5.40); WHITE BLOOD COUNT 5.8 10^3/uL (4.0-10.0)
[2023-09-12 13:07] LABS: ALBUMIN 3.6 G/DL (3.2-5.2); ALKALINE PHOSPHATASE 94 U/L (46-116); ALT/SGPT 23 U/L (7.0-40); AST/SGOT 22 U/L (<34); BILIRUBIN,TOTAL 0.3 MG/DL (0.3-1.2); BLOOD UREA NITROGEN 16 MG/DL (9-23); CALCIUM LEVEL 8.9 MG/DL (8.5-10.1); CARBON DIOXIDE LEVEL 28 MMOL/L (20-31); CHLORIDE LEVEL 108 MMOL/L (98-107); CHOLESTEROL LEVEL 101 MG/DL (<200); CHOLESTEROL RISK RATIO 2.55 (<5); CREATININE FOR GFR 0.84 MG/DL (0.55-1.30); GLOMERULAR FILTRATION RATE > 60.0 (>51); GLUCOSE, FASTING 95 MG/DL (60-100); HDL CHOLESTEROL 39.6 MG/DL (>40); NON-HDL-C 61.4 MG/DL; POTASSIUM SERUM 4.4 MMOL/L (3.5-5.1); SODIUM LEVEL 141 MMOL/L (136-145); THYROID STIMULATING HORMONE 1.284 uIU/ML (0.55-4.78); TOTAL 25(OH) VITAMIN D 30.6 NG/ML (20.0-100.0); TOTAL PROTEIN 6.7 G/DL (5.7-8.2); TRIGLYCERIDES LEVEL 127 MG/DL (<150)
[2023-09-12 13:29] LABS: HEMOGLOBIN A1c 5.4 % (4.0-6.0)
== END ==
LOC: M LAB REF 12:20
PROVIDERS: ATTEND Nurse Practitioner Family
DX: Z13.228 Encounter for screening for other metabolic disorders (principal); Z79.899 Other long term (current) drug therapy

== ENCOUNTER 2023-10-02 05:36 | Observation (INO) | payer OTHER, MEDICAID ==
[~2023-10-02] VITALS: Ht 157.5 cm; Wt 80.2 kg
[2023-10-02 06:29] LABS: ABG BASE EXCESS 0.7 (-2.0-2.0); ABG O2 SATURATION 93.5 % (95.0-99.0); ABG PARTIAL PRESSURE CO2 38.9 mmHg (35.0-45.0); ABG PARTIAL PRESSURE O2 63.1 mmHg (75.0-100.0); ABG TOTAL CO2 26.1 MMOL/L (22.0-29.0); ABG pH (ARTERIAL) 7.425 UNITS (7.350-7.450)
[2023-10-02 06:41] LABS: BASO % 0.3 % (0.0-1.0); EOS % 0.3 % (0.0-3.0); HEMATOCRIT 37.6 % (36.0-47.0); HEMOGLOBIN 11.9 g/dl (12.0-15.5); LYMPH # 0.5 10^3/uL (1.5-5.0); LYMPH % 14.2 % (24.0-44.0); MEAN CORPUSCULAR HGB CONC 31.6 g/dl (32.0-36.5); MEAN CORPUSCULAR VOLUME 91.7 fl (80.0-96.0); MONO # 0.2 10^3/uL (0.0-0.8); MONO % 4.6 % (2.0-8.0); NEUTROPHILS % 80.3 % (36.0-66.0); PLATELET COUNT, AUTOMATED 223 10^3/uL (150-450); WHITE BLOOD COUNT 3.7 10^3/uL (4.0-10.0)
[2023-10-02 07:05] LABS: ETHYL ALCOHOL (ETHANOL) < 0.003 % (0.000-0.010)
[2023-10-02 07:13] LABS: ALBUMIN 3.4 G/DL (3.2-5.2); ALKALINE PHOSPHATASE 62 U/L (46-116); ALT/SGPT 33 U/L (7.0-40); AST/SGOT 83 U/L (<34); BILIRUBIN,DIRECT 0.2 MG/DL (<0.4); BILIRUBIN,TOTAL 0.6 MG/DL (0.3-1.2); BLOOD UREA NITROGEN 11 MG/DL (9-23); CALCIUM LEVEL 8.7 MG/DL (8.5-10.1); CARBON DIOXIDE LEVEL 28 MMOL/L (20-31); CHLORIDE LEVEL 105 MMOL/L (98-107); CPK CREATINE PHOSPHOKINASE 406 U/L (34-145); CREATININE FOR GFR 0.77 MG/DL (0.55-1.30); GLOMERULAR FILTRATION RATE > 60.0 (>51); GLUCOSE, FASTING 128 MG/DL (60-100); MB/CK RELATIVE INDEX 0.49 (< OR =4); SODIUM LEVEL 139 MMOL/L (136-145); TOTAL PROTEIN 6.5 G/DL (5.7-8.2)
[2023-10-02 07:14] LABS: BARBITURATES URINE NEGATIVE (NEGATIVE); CANNABINOIDS URINE NEGATIVE (NEGATIVE); COCAINE METABOLITE URINE NEGATIVE (NEGATIVE); METHADONE URINE NEGATIVE (NEGATIVE); OPIATES URINE NEGATIVE (NEGATIVE); PHENCYCLIDINE URINE NEGATIVE (NEGATIVE)
[2023-10-02 07:18] LABS: AMPHETAMINES LEVEL URINE POSITIVE (NEGATIVE); BENZODIAZEPINES URINE POSITIVE (NEGATIVE)
[2023-10-02] MEDS ORDERED: NS 1,000 ML IV ONE (07:20)
[2023-10-02 07:48] LABS: APPEARANCE, URINE CLEAR (CLEAR); BACTERIA, URINE AUTO NEGATIVE (NEGATIVE); BILIRUBIN, URINE AUTO NEGATIVE (NEGATIVE); BLOOD, URINE BLOOD NEGATIVE (NEGATIVE); COLOR, URINE YELLOW (YELLOW); GLUCOSE, URINE (UA) AUTO NEGATIVE (NEGATIVE); KETONE, URINE AUTO TRACE mg/dL (NEGATIVE); LEUKOCYTE ESTERASE, URINE AUTO NEGATIVE (NEGATIVE); NITRITE, URINE AUTO NEGATIVE (NEGATIVE); PROTEIN, URINE AUTO NEGATIVE (NEGATIVE); RBC, URINE AUTO 0 /HPF (0-3); SPECIFIC GRAVITY URINE AUTO 1.023 (1.002-1.035); SQUAMOUS EPITHELIAL CELL UR AU 1 /HPF (0-6); WBC, URINE AUTO 1 /HPF (0-3)
[2023-10-02 08:14] LABS: CK-MB VALUE MASS 1.8 NG/ML (<3.6)
[2023-10-02 08:16] LABS: MB/CK RELATIVE INDEX 0.51 (< OR =4)
[2023-10-02 08:17] LABS: POTASSIUM SERUM 3.8 MMOL/L (3.5-5.1)
[2023-10-02] MEDS ORDERED: ATOR40TA75 PO (08:25)
[2023-10-02] MEDS ORDERED: BUPR150T12 PO (08:25)
[2023-10-02] MEDS ORDERED: FLUT1BLS16 INH (08:25)
[2023-10-02] MEDS ORDERED: VRAY3CAP PO (08:25)
[2023-10-02] MEDS ORDERED: ALBU8.5H INH (08:25)
[2023-10-02] MEDS ORDERED: ALPR1TAB3 PO (08:25)
[2023-10-02] MEDS ORDERED: NICO7DIS30 TOP (08:25)
[2023-10-02] MEDS ORDERED: ROPI3TAB18 PO (08:25)
[2023-10-02 08:38] LABS: SALICYLATE LEVEL < 3.0 MG/DL (<30)
[2023-10-02 09:09] LABS: MAGNESIUM LEVEL 1.5 MG/DL (1.8-2.4)
[2023-10-02 12:48] LABS: ALBUMIN 3.1 G/DL (3.2-5.2); ALKALINE PHOSPHATASE 61 U/L (46-116); ALT/SGPT 26 U/L (7.0-40); AST/SGOT 28 U/L (<34); BILIRUBIN,TOTAL 0.5 MG/DL (0.3-1.2); BLOOD UREA NITROGEN 12 MG/DL (9-23); CALCIUM LEVEL 8.5 MG/DL (8.5-10.1); CARBON DIOXIDE LEVEL 27 MMOL/L (20-31); CHLORIDE LEVEL 108 MMOL/L (98-107); CK-MB VALUE MASS 1.1 NG/ML (<3.6); CPK CREATINE PHOSPHOKINASE 287 U/L (34-145); CREATININE FOR GFR 0.72 MG/DL (0.55-1.30); GLOMERULAR FILTRATION RATE > 60.0 (>51); GLUCOSE, FASTING 96 MG/DL (60-100); MB/CK RELATIVE INDEX 0.38 (< OR =4); POTASSIUM SERUM 4.4 MMOL/L (3.5-5.1); SODIUM LEVEL 140 MMOL/L (136-145)
[2023-10-02] MEDS ORDERED: MED REC CURRENTLY UNOBTAINABLE XX SCH (15:25)
[2023-10-02] MEDS ORDERED: MAG SULF 1GM/100ML (MAG RUN) 1 GM in IV 1 EA IV SCH (16:00)
[2023-10-02] MEDS: ACETAMINOPHEN 500 MG TAB PO PRN (16:23)
[2023-10-02] MEDS ORDERED: ISOVUE-370 76% 100ML VIAL As Ordered ONE (16:28)
[2023-10-02 17:00] LABS: PROCALCITONIN 10.82 ng/ml
[2023-10-02] MEDS: ASPIRIN 81MG CHEW TABLET PO SCH (17:42)
[2023-10-02] MEDS: ATORVASTATIN 20 MG TAB PO SCH (17:43)
[2023-10-02 18:30] LABS: BILIRUBIN,DIRECT 0.3 MG/DL (<0.4); BILIRUBIN,TOTAL 0.6 MG/DL (0.3-1.2)
[2023-10-02] MEDS ORDERED: HOME MED LIST COMPLETE! XX SCH (20:50)
[2023-10-02] MEDS ORDERED: rOPINIRole 1MG TAB PO SCH (21:00)
[2023-10-02] MEDS ORDERED: DOXEPIN 25 MG CAP PO SCH (21:00)
[2023-10-02] MEDS ORDERED: ALBUTEROL 90 MCG/ACT 8GM HFA INHALER INH PRN (21:50)
[2023-10-02] MEDS ORDERED: ALPRAZolam 0.5 MG TAB PO PRN (21:50)
[2023-10-02] MEDS ORDERED: cloNIDine 0.1MG TABLET PO PRN (21:50)
[2023-10-02] MEDS: APIXABAN 5 MG TAB (ELIQUIS) PO SCH (22:29)
[2023-10-03 01:04] LABS: ALBUMIN 3.2 G/DL (3.2-5.2); BILIRUBIN,DIRECT 0.3 MG/DL (<0.4); BILIRUBIN,TOTAL 0.7 MG/DL (0.3-1.2); TOTAL PROTEIN 6.3 G/DL (5.7-8.2)
[2023-10-03] MEDS: ACETAMINOPHEN 500 MG TAB PO PRN (04:24)
[2023-10-03 06:00] VITALS: TEMP 97.2
[2023-10-03 06:33] LABS: HEMATOCRIT 34.7 % (36.0-47.0); HEMOGLOBIN 10.8 g/dl (12.0-15.5); MEAN CORPUSCULAR HGB CONC 31.1 g/dl (32.0-36.5); PLATELET COUNT, AUTOMATED 213 10^3/uL (150-450); RED BLOOD COUNT 3.73 10^6/uL (4.00-5.40); WHITE BLOOD COUNT 9.3 10^3/uL (4.0-10.0)
[2023-10-03 06:55] LABS: CPK CREATINE PHOSPHOKINASE 119 U/L (34-145)
[2023-10-03 06:56] LABS: ALBUMIN 2.9 G/DL (3.2-5.2); ALKALINE PHOSPHATASE 72 U/L (46-116); ALT/SGPT 22 U/L (7.0-40); AST/SGOT 23 U/L (<34); BILIRUBIN,DIRECT 0.3 MG/DL (<0.4); BILIRUBIN,TOTAL 0.6 MG/DL (0.3-1.2); BLOOD UREA NITROGEN 9 MG/DL (9-23); CALCIUM LEVEL 8.9 MG/DL (8.5-10.1); CARBON DIOXIDE LEVEL 25 MMOL/L (20-31); CHLORIDE LEVEL 107 MMOL/L (98-107); CREATININE FOR GFR 0.69 MG/DL (0.55-1.30); GLOMERULAR FILTRATION RATE > 60.0 (>51); GLUCOSE, FASTING 84 MG/DL (60-100); POTASSIUM SERUM 3.8 MMOL/L (3.5-5.1); SODIUM LEVEL 140 MMOL/L (136-145); TOTAL PROTEIN 5.9 G/DL (5.7-8.2)
[2023-10-03 07:56] LABS: PROCALCITONIN 5.65 ng/ml
[2023-10-03] MEDS ORDERED: NICOTINE 7 MG/24 HR TRANSDERMAL TOP SCH (09:00)
[2023-10-03] MEDS ORDERED: CitaloPRAM (CeleXA) 20 MG TAB PO SCH (09:00)
[2023-10-03] MEDS ORDERED: VITAMIN D 1,000 INTERNATIONAL UNITS TABLET PO SCH (09:00)
[2023-10-03] MEDS ORDERED: CARIPRAZINE 3MG CAPSULE (VRAYLAR) PO SCH (09:00)
[2023-10-03] MEDS ORDERED: FOLIC ACID 1MG TAB PO SCH (09:00)
[2023-10-03] MEDS ORDERED: CETIRIZINE (ZyrTEC) 10 MG TAB PO SCH (09:00)
[2023-10-03] MEDS ORDERED: GABAPENTIN 300 MG CAP PO SCH (09:00)
[2023-10-03] MEDS ORDERED: ENOXAPARIN 40MG/0.4ML SYRINGE (J1650 PER 10MG) SC SCH (09:00)
[2023-10-03] MEDS ORDERED: BREO ELLIPTA INH SCH (09:00)
[2023-10-03] MEDS ORDERED: buPROPion **XL** TABLET 150MG (WELLBUTRIN XL) PO SCH (09:00)
[2023-10-03] MEDS ORDERED: OMEPRAZOLE 20MG CAP PO SCH (09:00)
[2023-10-03] MEDS: SYMBICORT 160/4.5MCG INHALER 6GM INH SCH ×2 (09:18→21:49)
[2023-10-03] MEDS: APIXABAN 5 MG TAB (ELIQUIS) PO SCH (09:57)
[2023-10-03] MEDS: ASPIRIN 81MG CHEW TABLET PO SCH (09:57)
[2023-10-03] MEDS: ATORVASTATIN 20 MG TAB PO SCH (09:57)
[2023-10-03] MEDS ORDERED: AMOX875T2 PO (12:19)
[2023-10-03 12:33] LABS: BILIRUBIN,DIRECT 0.3 MG/DL (<0.4); BILIRUBIN,TOTAL 0.6 MG/DL (0.3-1.2); TOTAL PROTEIN 6.3 G/DL (5.7-8.2)
[2023-10-03 15:01] VITALS: BP 135/76; O2SAT 94
== END 2023-10-03 15:07 | disposition home or self-care (01) ==
LOC: EDBD 05:36 → M ED 05:36 → M ED INP 05:37
PROVIDERS: ADMIT Internal Medicine; ATTEND Internal Medicine
DX: G92.9 Unspecified toxic encephalopathy (principal); J44.9 Chronic obstructive pulmonary disease, unspecified; Z86.711 Personal history of pulmonary embolism; Z79.01 Long term (current) use of anticoagulants; F39 Unspecified mood [affective] disorder; G25.81 Restless legs syndrome; J69.0 Pneumonitis due to inhalation of food and vomit; Z79.899 Other long term (current) drug therapy; J30.2 Other seasonal allergic rhinitis
CPT/HCPCS: 36415; 36600; 70450; 70496; 70498; 70551; 71045; 71046; 80048; 80053; 80076; 80143; 80307; 81001; 82077; 82550; 82553; 82803; 83735; 83880; 84132; 84145; 84484; 85025; 85027; 86140; 87040; 87486; 87581; 87633; 87798; 93005; 93041; 94640; 94760; 96361; 96374; 99285; G0378; J3475; Q9967

== ENCOUNTER → 2023-12-25 | Outpatient (CLI) | payer MEDICAID, OTHER ==
[~2023-12-25] MED LIST changes: +AMOX875T2 PO; +ATOR40TA75 PO; +BUPR150T12 PO; +FLUT1BLS16 INH; +NICO7DIS30 TOP; +ROPI3TAB18 PO; +VRAY3CAP PO
== END ==
LOC: M RAD 10:46
PROVIDERS: ATTEND Internal Medicine Pulmonary Disease
DX: Z12.2 Encounter for screening for malignant neoplasm of respiratory organs (principal); F17.218 Nicotine dependence, cigarettes, with other nicotine-induced disorders

== ENCOUNTER 2023-12-31 11:24 | Emergency (ER) | payer OTHER ==
[~2023-12-31] VITALS: Ht 157.5 cm; Wt 72.0 kg
[~2023-12-31 11:24] MED LIST changes: -NARC1SPR; +NARC1SPR NARES; +NICO7DIS30 TD; -NICO7DIS30 TOP
[2023-12-31 13:55] LABS: VENOUS BASE EXCESS -1.8 (-2.0-2.0); VENOUS HCO3 25.6 MMOL/L (23.0-27.0); VENOUS O2 SATURATION 47.5 % (60.0-80.0); VENOUS PARTIAL PRESSURE CO2 54.5 mmHg (38.0-50.0); VENOUS PARTIAL PRESSURE O2 26.7 mmHg (30.0-50.0); VENOUS PH 7.289 UNITS (7.330-7.430); VENOUS STANDARD HCO3 21.8 MMOL/L; VENOUS TOTAL CO2 27.2 MMOL/L (24.0-28.0)
[2023-12-31 14:02] LABS: BASO % 0.2 % (0.0-1.0); EOS # 0.1 10^3/uL (0.0-0.5); EOS % 0.7 % (0.0-3.0); HEMATOCRIT 40.4 % (36.0-47.0); HEMOGLOBIN 12.6 g/dl (12.0-15.5); LYMPH # 1.7 10^3/uL (1.5-5.0); LYMPH % 19.8 % (24.0-44.0); MEAN CORPUSCULAR HEMOGLOBIN 28.5 pg (27.0-33.0); MEAN CORPUSCULAR HGB CONC 31.2 g/dl (32.0-36.5); MEAN CORPUSCULAR VOLUME 91.4 fl (80.0-96.0); MONO # 0.4 10^3/uL (0.0-0.8); MONO % 4.8 % (2.0-8.0); NEUTROPHILS # 6.3 10^3/uL (1.5-8.5); NEUTROPHILS % 74.1 % (36.0-66.0); PLATELET COUNT, AUTOMATED 202 10^3/uL (150-450); RED BLOOD COUNT 4.42 10^6/uL (4.00-5.40); WHITE BLOOD COUNT 8.5 10^3/uL (4.0-10.0)
[2023-12-31] MEDS: NS 1,000 ML IV ONE (14:03)
[2023-12-31 14:16] LABS: ERYTHROCYTE SEDIMENTATION RATE 30 mm/hr (0-30)
[2023-12-31 14:30] LABS: BARBITURATES URINE NEGATIVE (NEGATIVE); CANNABINOIDS URINE NEGATIVE (NEGATIVE); COCAINE METABOLITE URINE NEGATIVE (NEGATIVE); METHADONE URINE NEGATIVE (NEGATIVE); OPIATES URINE NEGATIVE (NEGATIVE); PHENCYCLIDINE URINE NEGATIVE (NEGATIVE)
[2023-12-31] MEDS ORDERED: MED REC IN PROGRESS XX SCH (14:30)
[2023-12-31 14:31] LABS: ETHYL ALCOHOL (ETHANOL) 0.005 % (0.000-0.010)
[2023-12-31 14:32] LABS: AMPHETAMINES LEVEL URINE POSITIVE (NEGATIVE); BENZODIAZEPINES URINE POSITIVE (NEGATIVE)
[2023-12-31 14:33] LABS: ALBUMIN 3.5 G/DL (3.2-5.2); ALKALINE PHOSPHATASE 99 U/L (46-116); ALT/SGPT 47 U/L (7.0-40); AST/SGOT 36 U/L (<34); BILIRUBIN,TOTAL 0.7 MG/DL (0.3-1.2); BLOOD UREA NITROGEN 8 MG/DL (9-23); CALCIUM LEVEL 8.9 MG/DL (8.5-10.1); CARBON DIOXIDE LEVEL 28 MMOL/L (20-31); CHLORIDE LEVEL 106 MMOL/L (98-107); CREATININE FOR GFR 0.88 MG/DL (0.55-1.30); GLOMERULAR FILTRATION RATE > 60.0 (>51); GLUCOSE, FASTING 72 MG/DL (60-100); POTASSIUM SERUM 3.5 MMOL/L (3.5-5.1); SODIUM LEVEL 137 MMOL/L (136-145)
[2023-12-31 14:36] LABS: THYROID STIMULATING HORMONE 1.035 uIU/ML (0.55-4.78)
[2023-12-31] MEDS ORDERED: MED REC CURRENTLY UNOBTAINABLE XX SCH (15:15)
[2023-12-31] MEDS ORDERED: BREO1INH3 INH (16:54)
[2023-12-31] MEDS ORDERED: VRAY1.5C PO (16:54)
[2023-12-31] MEDS ORDERED: B-12100010 PO (16:54)
[2023-12-31] MEDS ORDERED: HOME MED LIST COMPLETE! XX SCH (17:00)
[2023-12-31 19:15] VITALS: BP 110/65; TEMP 98; O2SAT 98
== END 2023-12-31 19:34 | disposition home or self-care (01) ==
LOC: M ED 11:24
DX: R41.82 Altered mental status, unspecified (principal); F19.10 Other psychoactive substance abuse, uncomplicated; R94.02 Abnormal brain scan; F31.9 Bipolar disorder, unspecified; F43.10 Post-traumatic stress disorder, unspecified; F17.290 Nicotine dependence, other tobacco product, uncomplicated; F10.10 Alcohol abuse, uncomplicated; Z91.09 Other allergy status, other than to drugs and biological substances; Z79.51 Long term (current) use of inhaled steroids; Z79.899 Other long term (current) drug therapy

== ENCOUNTER → 2024-01-15 | Outpatient (REF) | payer OTHER, MEDICAID ==
[~2024-01-15] MED LIST changes: +B-12100010 PO; +BREO1INH3 INH; +VRAY1.5C PO
== END ==
LOC: M LAB REF 13:17
PROVIDERS: ATTEND Nurse Practitioner Family
DX: R93.0 Abnormal findings on diagnostic imaging of skull and head, not elsewhere classified (principal)

== ENCOUNTER → 2024-07-05 | Outpatient (CLI) | payer MEDICARE ==
[~2024-07-05] MED LIST changes: +BREO1INH PO; +CEFD1CAP9 PO; +CETI-24 PO; +GABA-1172 PO; +GABA-1490 PO; -GABA-282 PO; -GABA600T4 PO; +SYMB80INH INH
== END ==
LOC: M PLAIMG 13:53
PROVIDERS: ATTEND Internal Medicine Pulmonary Disease
DX: R91.8 Other nonspecific abnormal finding of lung field (principal)

== ENCOUNTER 2024-07-28 19:27 | Observation (INO) | payer MEDICARE ==
[~2024-07-28] VITALS: Ht 157.5 cm; Wt 70.0 kg
[2024-07-28] MEDS: NS 1,000 ML IV ONE (19:55)
[2024-07-28 20:45] LABS: ALBUMIN 3.4 G/DL (3.2-5.2); ALKALINE PHOSPHATASE 89 U/L (35-104); ALT/SGPT 49 U/L (7.0-40); AST/SGOT 72 U/L (<34); BILIRUBIN,DIRECT 0.2 MG/DL (<0.4); BILIRUBIN,TOTAL 0.7 MG/DL (0.3-1.2); BLOOD UREA NITROGEN 13 MG/DL (9-23); CALCIUM LEVEL 8.7 MG/DL (8.5-10.1); CARBON DIOXIDE LEVEL 20 MMOL/L (20-31); CHLORIDE LEVEL 106 MMOL/L (98-107); CK-MB VALUE MASS < 1.0 NG/ML (<3.6); CPK CREATINE PHOSPHOKINASE 102 U/L (34-145); CREATININE FOR GFR 1.09 MG/DL (0.55-1.30); GLOMERULAR FILTRATION RATE 54.7 (>51); GLUCOSE, FASTING 122 MG/DL (60-100); MB/CK RELATIVE INDEX 0.98 (< OR =4); POTASSIUM SERUM 4.7 MMOL/L (3.5-5.1); SODIUM LEVEL 137 MMOL/L (136-145); TOTAL PROTEIN 7.3 G/DL (5.7-8.2)
[2024-07-28 21:11] LABS: BASO % 0.3 % (0.0-1.0); EOS # 0.1 10^3/uL (0.0-0.5); EOS % 0.5 % (0.0-3.0); HEMATOCRIT 42.7 % (36.0-47.0); HEMOGLOBIN 13.4 g/dl (12.0-15.5); LYMPH # 1.9 10^3/uL (1.5-5.0); LYMPH % 17.6 % (24.0-44.0); MEAN CORPUSCULAR HEMOGLOBIN 29.1 pg (27.0-33.0); MEAN CORPUSCULAR HGB CONC 31.4 g/dl (32.0-36.5); MEAN CORPUSCULAR VOLUME 92.6 fl (80.0-96.0); MONO # 0.3 10^3/uL (0.0-0.8); NEUTROPHILS # 8.6 10^3/uL (1.5-8.5); NEUTROPHILS % 78.3 % (36.0-66.0); PLATELET COUNT, AUTOMATED 259 10^3/uL (150-450); RED BLOOD COUNT 4.61 10^6/uL (4.00-5.40)
[2024-07-28 21:22] LABS: INR 1.06; PARTIAL THROMBOPLASTIN TIME 30.7 SECONDS (24.8-34.2); PROTHROMBIN TIME 14.1 SECONDS (12.5-14.5)
[2024-07-28] MEDS ORDERED: ISOVUE-370 76% 100ML VIAL As Ordered ONE (21:26)
[2024-07-28 21:42] LABS: AMPHETAMINES LEVEL URINE NEGATIVE (NEGATIVE); BARBITURATES URINE NEGATIVE (NEGATIVE); COCAINE METABOLITE URINE NEGATIVE (NEGATIVE); METHADONE URINE NEGATIVE (NEGATIVE)
[2024-07-28 21:43] LABS: CANNABINOIDS URINE NEGATIVE (NEGATIVE); OPIATES URINE NEGATIVE (NEGATIVE); PHENCYCLIDINE URINE NEGATIVE (NEGATIVE)
[2024-07-28 21:58] LABS: BENZODIAZEPINES URINE POSITIVE (NEGATIVE)
[2024-07-28 22:28] LABS: CK-MB VALUE MASS < 1.0 NG/ML (<3.6)
[2024-07-28 22:31] LABS: CPK CREATINE PHOSPHOKINASE 77 U/L (34-145); MB/CK RELATIVE INDEX 1.29 (< OR =4)
[2024-07-28] MEDS ORDERED: MOM 30ML SUSPENSION UDC PO PRN (22:40)
[2024-07-28] MEDS: AZITHROMYCIN 250MG TABLET PO ONE (23:06)
[2024-07-28] MEDS ORDERED: BUPR-597 PO (23:06)
[2024-07-28] MEDS: cefTRIAXone SOD 1 GM in DEXTROSE 5% (D5W) ADV/MINI-BAG 50 ML IV ONE (23:06)
[2024-07-28] MEDS ORDERED: AMPH1TAB2 PO (23:06)
[2024-07-28] MEDS ORDERED: CLON0.2T PO (23:06)
[2024-07-28] MEDS ORDERED: SYMB80INH INH (23:06)
[2024-07-28] MEDS ORDERED: HOME MED LIST COMPLETE! XX SCH (23:10)
[2024-07-28] MEDS: APIXABAN 5 MG TAB (ELIQUIS) PO SCH (23:47)
[2024-07-28] MEDS: LevoFLOXacin 750 MG TABLET PO SCH (23:47)
[2024-07-29 00:36] VITALS: BP 106/56; TEMP 101.9; O2SAT 91
[2024-07-29] MEDS: LR 1,000 ML IV SCH (00:52)
[2024-07-29] MEDS: ACETAMINOPHEN 325 MG TAB PO PRN (00:53)
[2024-07-29 03:19] LABS: MEAN CORPUSCULAR HEMOGLOBIN 28.7 pg (27.0-33.0); MEAN CORPUSCULAR HGB CONC 32.2 g/dl (32.0-36.5); MEAN CORPUSCULAR VOLUME 89.2 fl (80.0-96.0); PLATELET COUNT, AUTOMATED 184 10^3/uL (150-450); RED BLOOD COUNT 3.62 10^6/uL (4.00-5.40); WHITE BLOOD COUNT 8.7 10^3/uL (4.0-10.0)
[2024-07-29 03:23] LABS: HEMATOCRIT 32.3 % (36.0-47.0); HEMOGLOBIN 10.4 g/dl (12.0-15.5)
[2024-07-29 04:26] LABS: ALBUMIN 2.6 G/DL (3.2-5.2); ALKALINE PHOSPHATASE 76 U/L (35-104); ALT/SGPT 35 U/L (7.0-40); AST/SGOT 27 U/L (<34); BILIRUBIN,TOTAL 0.5 MG/DL (0.3-1.2); BLOOD UREA NITROGEN 10 MG/DL (9-23); CALCIUM LEVEL 8.3 MG/DL (8.5-10.1); CARBON DIOXIDE LEVEL 24 MMOL/L (20-31); CHLORIDE LEVEL 107 MMOL/L (98-107); CREATININE FOR GFR 0.81 MG/DL (0.55-1.30); GLOMERULAR FILTRATION RATE > 60.0 (>51); GLUCOSE, FASTING 91 MG/DL (60-100); POTASSIUM SERUM 4.1 MMOL/L (3.5-5.1); SODIUM LEVEL 137 MMOL/L (136-145); TOTAL PROTEIN 6.1 G/DL (5.7-8.2)
[2024-07-29 04:42] VITALS: BP 78/48; TEMP 99.2; O2SAT 93
[2024-07-29 04:42] LABS: ERYTHROCYTE SEDIMENTATION RATE 16 mm/hr (0-30)
[2024-07-29 04:54] VITALS: BP 70/54
[2024-07-29 05:07] VITALS: BP 80/50
[2024-07-29] MEDS: NS 1,000 ML IV ONE (05:30)
[2024-07-29 06:11] VITALS: BP 98/52
[2024-07-29 07:31] VITALS: BP 98/64; TEMP 97; O2SAT 95
[2024-07-29 12:08] LABS: CHOLESTEROL LEVEL 81 MG/DL (<200); CHOLESTEROL RISK RATIO 2.11 (<5); HDL CHOLESTEROL 38.3 MG/DL (>40); LDL CHOLESTEROL 33.5 MG/DL (<100); NON-HDL-C 42.7 MG/DL; TRIGLYCERIDES LEVEL 46 MG/DL (<150)
[2024-07-29] MEDS: CEFDINIR 300 MG CAP (OMNICEF) PO SCH (12:27)
[2024-07-29] MEDS: ADDERALL 5 MG TAB PO SCH (12:29)
[2024-07-29] MEDS: CETIRIZINE (ZyrTEC) 10 MG TAB PO SCH (12:30)
[2024-07-29] MEDS: ALPRAZolam 0.5 MG TAB PO PRN (12:30)
[2024-07-29] MEDS: OMEPRAZOLE 20MG CAP PO SCH (12:30)
[2024-07-29] MEDS: SYMBICORT 80/4.5MCG INHALER 6GM INH SCH (12:51)
[2024-07-29] MEDS ORDERED: CEFD300CAP PO (13:59)
[2024-07-29] MEDS ORDERED: AZIT500T5 PO (13:59)
[2024-07-29] MEDS: GABAPENTIN 300 MG CAP PO SCH (15:45)
[2024-07-29] MEDS: CARIPRAZINE 1.5MG CAPSULE (VRAYLAR) PO SCH (15:45)
[2024-07-29] MEDS: ALBUTEROL 90 MCG/ACT 8GM HFA INHALER INH PRN (15:51)
[2024-07-29] MEDS ORDERED: CYANOCOBALAMIN 500 MCG TAB PO SCH (21:00)
[2024-07-29] MEDS ORDERED: rOPINIRole 1MG TAB PO SCH (21:00)
[2024-07-29] MEDS ORDERED: DOXEPIN 25 MG CAP PO SCH (21:00)
[2024-07-29] MEDS ORDERED: ATORVASTATIN 20 MG TAB PO SCH (21:00)
[2024-07-29] MEDS ORDERED: buPROPion **XL** TABLET 150MG (WELLBUTRIN XL) PO SCH (21:00)
[2024-07-29] MEDS ORDERED: AZITHROMYCIN 250MG TABLET PO SCH (21:00)
[2024-07-29] MEDS ORDERED: cefTRIAXone SOD 1 GM in DEXTROSE 5% (D5W) ADV/MINI-BAG 50 ML IV SCH (23:00)
[2024-08-02 15:17] LABS: URINE STREP PNEUMONIAE ANTIGEN NOT DETECTED (NOT DETECT)
== END 2024-07-29 15:58 | disposition home or self-care (01) ==
LOC: M ED 19:27 → M ED INP 19:28 → M PCU 07-29 00:35
PROVIDERS: ADMIT Internal Medicine; ATTEND Internal Medicine
DX: G93.41 Metabolic encephalopathy (principal); J18.9 Pneumonia, unspecified organism; D72.829 Elevated white blood cell count, unspecified; R74.01 Elevation of levels of liver transaminase levels; D64.9 Anemia, unspecified; J44.9 Chronic obstructive pulmonary disease, unspecified; Z86.718 Personal history of other venous thrombosis and embolism; F41.9 Anxiety disorder, unspecified; F32.A Depression, unspecified; F31.9 Bipolar disorder, unspecified; G25.81 Restless legs syndrome; J30.2 Other seasonal allergic rhinitis; Z79.01 Long term (current) use of anticoagulants; Z79.899 Other long term (current) drug therapy
CPT/HCPCS: 36415; 70450; 70496; 70498; 71045; 71250; 80047; 80048; 80053; 80061; 80076; 80307; 81001; 82140; 82550; 82553; 83605; 84145; 84484; 85025; 85027; 85610; 85652; 85730; 86140; 86738; 87040; 87088; 87186; 87449; 87899; 93005; 93041; 94640; 94760; 96365; 96375; 96376; 97161; 99285; G0378; J0696; Q9967

== ENCOUNTER 2024-10-20 16:39 | Emergency (ER) | payer OTHER, MEDICAID ==
[~2024-10-20] VITALS: Ht 157.5 cm; Wt 77.3 kg
[~2024-10-20 16:39] MED LIST changes: +AMPH1TAB2 PO; +BUPR-597 PO; +CEFD300CAP PO; +CLON0.2T PO
[2024-10-20 16:47] VITALS: BP 130/70; TEMP 97.6; O2SAT 97
== END 2024-10-20 18:58 | disposition left against medical advice (07) ==
LOC: M ED 16:39
DX: Z53.21 Procedure and treatment not carried out due to patient leaving prior to being seen by health care provider (principal)

== ENCOUNTER → 2024-12-06 | Outpatient (CLI) | payer MEDICARE, OTHER | LOC: M PLAIMG 10:04 | PROVIDERS: ATTEND Internal Medicine Pulmonary Disease | DX: R91.1 Solitary pulmonary nodule (principal); R91.8 Other nonspecific abnormal finding of lung field ==

== ENCOUNTER 2025-01-31 10:05 | Inpatient (IN) | payer MEDICARE, OTHER ==
[~2025-01-31] VITALS: Ht 157.5 cm; Wt 66.4 kg
[~2025-01-31 10:05] MED LIST changes: -BUPR-597 PO; +BUPR-766 PO; +BUPR150T15 PO; -BUPR1TAB53 PO
[2025-01-31] MEDS ORDERED: ISOVUE-370 76% 100ML VIAL As Ordered ONE (10:55)
[2025-01-31 11:18] LABS: HEMATOCRIT 40.6 % (36.0-47.0); HEMOGLOBIN 12.3 g/dl (12.0-15.5); MEAN CORPUSCULAR HEMOGLOBIN 27.8 pg (27.0-33.0); MEAN CORPUSCULAR HGB CONC 30.3 g/dl (32.0-36.5); MEAN CORPUSCULAR VOLUME 91.9 fl (80.0-96.0); PLATELET COUNT, AUTOMATED 197 10^3/uL (150-450); RED BLOOD COUNT 4.42 10^6/uL (4.00-5.40); WHITE BLOOD COUNT 8.8 10^3/uL (4.0-10.0)
[2025-01-31 11:38] LABS: BLOOD UREA NITROGEN 10 MG/DL (9-23); CALCIUM LEVEL 9.6 MG/DL (8.5-10.1); CARBON DIOXIDE LEVEL 25 MMOL/L (20-31); CHLORIDE LEVEL 106 MMOL/L (98-107); GLOMERULAR FILTRATION RATE 84.8 (>51); GLUCOSE, FASTING 105 MG/DL (60-100); SODIUM LEVEL 141 MMOL/L (136-145)
[2025-01-31 11:56] LABS: INR 1.21; PARTIAL THROMBOPLASTIN TIME 29.8 SECONDS (24.8-34.2); PROTHROMBIN TIME 15.6 SECONDS (12.5-14.5)
[2025-01-31 11:58] LABS: ATYPICAL LYMPH 3 % (0-5); LYMPHOCYTES 14 % (16-44); MONOCYTES 8 % (0-5); NEUTROPHILS 66 % (28-66); PLATELET ESTIMATE NORMAL (NORMAL)
[2025-01-31 11:59] LABS: ANISOCYTOSIS 1+
[2025-01-31 12:52] LABS: KETONE, URINE AUTO RFX NEGATIVE (NEGATIVE); LEUKOCYTE ESTERASE UR AUTO RFX NEGATIVE (NEGATIVE); NITRITE, URINE AUTO RFX NEGATIVE (NEGATIVE); RBC, URINE AUTO RFX 0 /HPF (0-3); SQUAM EPITHELIAL CELL UR AURFX 1 /HPF (0-6); WBC, URINE AUTO RFX 0 /HPF (0-3)
[2025-01-31] MEDS: ACETAMINOPHEN 325 MG TAB PO ONE (13:04)
[2025-01-31 13:07] LABS: ETHYL ALCOHOL (ETHANOL) < 0.003 % (0.000-0.010)
[2025-01-31 13:22] LABS: AMPHETAMINES LEVEL URINE NEGATIVE (NEGATIVE); BARBITURATES URINE NEGATIVE (NEGATIVE); BENZODIAZEPINES URINE POSITIVE (NEGATIVE); CANNABINOIDS URINE NEGATIVE (NEGATIVE); COCAINE METABOLITE URINE NEGATIVE (NEGATIVE); METHADONE URINE NEGATIVE (NEGATIVE); OPIATES URINE NEGATIVE (NEGATIVE); PHENCYCLIDINE URINE NEGATIVE (NEGATIVE)
[2025-01-31] MEDS: CALCIUM CHLORIDE 10% 1 GM/10 ML SYR IV ONE (13:28)
[2025-01-31] MEDS: PATIROMER SORBITEX CALCIUM 8.4 GM POWDER PACKET (VELTASSA) PO ONE (13:31)
[2025-01-31] MEDS: AZITHROMYCIN 250MG TABLET PO ONE (13:32)
[2025-01-31] MEDS: HumuLIN R (REGULAR) INSULIN (NovoLIN R) **100U/ML** PER UNIT IV ONE (13:33)
[2025-01-31] MEDS: DEXTROSE 50% 50ML SYRINGE IV ONE (13:34)
[2025-01-31] MEDS: cefTRIAXone SOD 1 GM in DEXTROSE 5% (D5W) ADV/MINI-BAG 50 ML IV ONE (13:37)
[2025-01-31 14:27] VITALS: TEMP 99.5
[2025-01-31] MEDS ORDERED: MAALOX 30 ML SUSP *UDC PO PRN (14:30)
[2025-01-31] MEDS ORDERED: MOM 30ML SUSPENSION UDC PO PRN (14:30)
[2025-01-31] MEDS ORDERED: ACETAMINOPHEN 325 MG TAB PO PRN (14:30)
[2025-01-31 15:29] LABS: PROCALCITONIN 1.61 ng/ml
[2025-01-31] MEDS: NS (Normal Saline) 0.9% 1,000 ML IV SCH (16:24)
[2025-01-31 17:01] VITALS: BP 107/55; O2SAT 95
[2025-01-31] MEDS ORDERED: LURA40TA2 PO (17:48)
[2025-01-31] MEDS ORDERED: INCR1INH INH (17:48)
[2025-01-31] MEDS ORDERED: METH-444 PO (17:48)
[2025-01-31] MEDS ORDERED: CLON-412 PO (17:49)
[2025-01-31] MEDS ORDERED: HOME MED LIST COMPLETE! XX SCH (17:50)
[2025-01-31] MEDS ORDERED: ALBUTEROL 90 MCG/ACT 8GM HFA INHALER INH PRN (19:10)
[2025-01-31] MEDS ORDERED: ALPRAZolam 0.5 MG TAB PO PRN (19:10)
[2025-01-31] MEDS ORDERED: cloNIDine 0.1MG TABLET PO PRN (19:10)
[2025-01-31] MEDS ORDERED: DOXY-440 PO (19:21)
[2025-01-31] MEDS ORDERED: AMOX875T2 PO (19:21)
[2025-01-31] MEDS ORDERED: cefTRIAXone SOD 1 GM in DEXTROSE 5% (D5W) ADV/MINI-BAG 50 ML IV ONE (20:00)
[2025-01-31] MEDS ORDERED: ATORVASTATIN 20 MG TAB PO SCH (21:00)
[2025-01-31] MEDS ORDERED: DOXEPIN 25 MG CAP PO SCH (21:00)
[2025-01-31] MEDS ORDERED: APIXABAN 5 MG TAB PO SCH (21:00)
[2025-02-01] MEDS ORDERED: TIOTROPIUM BROM 2.5MCG/ACTUATION 4GM INH INH SCH (08:00)
[2025-02-01] MEDS ORDERED: CETIRIZINE 10 MG TAB PO SCH (09:00)
[2025-02-01] MEDS ORDERED: AZITHROMYCIN 250MG TABLET PO SCH (09:00)
[2025-02-01] MEDS ORDERED: OMEPRAZOLE 20MG CAP PO SCH (09:00)
[2025-02-01] MEDS ORDERED: LURASIDONE HCL 40MG TAB PO SCH (09:00)
[2025-02-01] MEDS ORDERED: cefTRIAXone SOD 1 GM in DEXTROSE 5% (D5W) ADV/MINI-BAG 50 ML IV SCH (14:00)
[2025-02-01] MEDS ORDERED: cefTRIAXone SOD 2 GM in DEXTROSE 5% (D5W) ADV/MINI-BAG 50 ML IV SCH (16:00)
== END 2025-01-31 19:19 | disposition left against medical advice (07) | DRG 871 ==
LOC: M ED 10:05 → M ED INP 16:14
PROVIDERS: ADMIT Student in an Organized Health Care Education/Training Program; ATTEND Student in an Organized Health Care Education/Training Program
DX: A41.9 Sepsis, unspecified organism (principal); J18.9 Pneumonia, unspecified organism; F32.9 Major depressive disorder, single episode, unspecified; F41.9 Anxiety disorder, unspecified; J44.9 Chronic obstructive pulmonary disease, unspecified; Z79.01 Long term (current) use of anticoagulants; Z86.711 Personal history of pulmonary embolism; G25.81 Restless legs syndrome; E87.5 Hyperkalemia; I65.22 Occlusion and stenosis of left carotid artery; E78.5 Hyperlipidemia, unspecified; Z79.899 Other long term (current) drug therapy

== ENCOUNTER 2025-04-03 19:40 | Emergency (ER) | payer MEDICARE ==
[~2025-04-03] VITALS: Ht 157.5 cm; Wt 64.0 kg
[~2025-04-03 19:40] MED LIST changes: -ABIL400I IM; +ARIP400S IM; +BRIN10TA4 PO; +DOXY-440 PO; +DOXY-441 PO; +INCR1INH INH; +LURA20TA PO; +LURA40TA2 PO; +METH-444 PO
[2025-04-03 19:52] VITALS: BP 147/80; TEMP 98; O2SAT 99
== END 2025-04-03 20:50 | disposition home or self-care (01) ==
LOC: M ED 19:40 → EDBD 19:40 → M ED 20:50
DX: F43.20 Adjustment disorder, unspecified (principal); F31.30 Bipolar disorder, current episode depressed, mild or moderate severity, unspecified; F17.290 Nicotine dependence, other tobacco product, uncomplicated; J30.89 Other allergic rhinitis; Z79.01 Long term (current) use of anticoagulants; Z79.899 Other long term (current) drug therapy; Z88.8 Allergy status to other drugs, medicaments and biological substances

== ENCOUNTER 2025-04-04 01:14 | Inpatient (IN) | payer MEDICARE ==
[~2025-04-04] VITALS: Ht 157.5 cm; Wt 79.1 kg
[2025-04-04 02:18] LABS: PLATELET COUNT, AUTOMATED 222 10^3/uL (150-450)
[2025-04-04 02:38] LABS: ETHYL ALCOHOL (ETHANOL) < 0.003 % (0.000-0.010)
[2025-04-04 02:39] LABS: ALT/SGPT 115 U/L (7.0-40); AST/SGOT 81 U/L (<34); CALCIUM LEVEL 9.5 MG/DL (8.5-10.1); CARBON DIOXIDE LEVEL 24 MMOL/L (20-31); CHLORIDE LEVEL 107 MMOL/L (98-107); CREATININE FOR GFR 0.73 MG/DL (0.55-1.30); GLOMERULAR FILTRATION RATE > 90.0 (>51); POTASSIUM SERUM 3.7 MMOL/L (3.5-5.1); SALICYLATE LEVEL < 3.0 MG/DL (<30); SODIUM LEVEL 143 MMOL/L (136-145)
[2025-04-04 05:03] LABS: AMPHETAMINES LEVEL URINE NEGATIVE (NEGATIVE); BARBITURATES URINE NEGATIVE (NEGATIVE); BENZODIAZEPINES URINE NEGATIVE (NEGATIVE); CANNABINOIDS URINE NEGATIVE (NEGATIVE); COCAINE METABOLITE URINE NEGATIVE (NEGATIVE); METHADONE URINE NEGATIVE (NEGATIVE); OPIATES URINE NEGATIVE (NEGATIVE); PHENCYCLIDINE URINE NEGATIVE (NEGATIVE)
[2025-04-04] MEDS: ALPRAZolam 0.5 MG TAB PO ONE ×2 (06:17→12:04)
[2025-04-04] MEDS ORDERED: HOME MED LIST COMPLETE! XX SCH (10:30)
[2025-04-04] MEDS: OMEPRAZOLE 20MG CAP PO SCH (11:17)
[2025-04-04] MEDS: APIXABAN 5 MG TAB PO SCH ×2 (11:18→21:07)
[2025-04-04] MEDS ORDERED: HALOPERIDOL 5 MG TAB PO PRN (16:00)
[2025-04-04] MEDS ORDERED: LORazepam 1 MG TAB PO PRN (16:00)
[2025-04-04] MEDS ORDERED: GABAPENTIN 300 MG CAP PO SCH (16:00)
[2025-04-04] MEDS ORDERED: OLANZapine 5 MG TAB PO PRN (16:00)
[2025-04-04] MEDS ORDERED: ALBUTEROL 90 MCG/ACT 8 GM HFA INHALER INH PRN (16:00)
[2025-04-04 16:05] VITALS: BP 104/56; TEMP 97.9; O2SAT 98
[2025-04-04] MEDS: GABAPENTIN 300 MG CAP PO SCH (17:53)
[2025-04-04] MEDS: LURASIDONE HCL 20 MG TAB PO SCH (17:53)
[2025-04-04] MEDS: ACETAMINOPHEN 325 MG TAB PO PRN (18:00)
[2025-04-04] MEDS: ATORVASTATIN 20 MG TAB PO SCH (21:08)
[2025-04-05 07:04] VITALS: BP 118/60; TEMP 98.3; O2SAT 98
[2025-04-05] MEDS: NICOTINE 14 MG/24 HR TRANSDERMAL TD SCH (09:00)
[2025-04-05] MEDS: OMEPRAZOLE 20MG CAP PO SCH (09:32)
[2025-04-05] MEDS: ALPRAZolam 0.5 MG TAB PO PRN (15:36)
[2025-04-05] MEDS: LURASIDONE HCL 40 MG TAB PO SCH (17:58)
[2025-04-05] MEDS ORDERED: ISOVUE-370 76% 100 ML VIAL As Ordered ONE (19:42)
[2025-04-05 20:25] VITALS: BP 105/77
[2025-04-05 20:30] VITALS: BP 124/66
[2025-04-05 20:35] VITALS: BP 113/61
[2025-04-05] MEDS: MAALOX 30 ML SUSP *UDC PO PRN (20:45)
[2025-04-05] MEDS: DOXEPIN 25 MG CAP PO SCH (23:21)
[2025-04-06 06:46] VITALS: BP 112/53; TEMP 97.8; O2SAT 100
[2025-04-06 07:53] LABS: IRON (FE) 22 UG/DL (50-170); PERCENT SATURATION 6.3 % (13.2-45.0)
[2025-04-06] MEDS: CETIRIZINE 10 MG TAB PO SCH (08:46)
[2025-04-06 08:47] LABS: ALT/SGPT 65 U/L (7.0-40); AST/SGOT 48 U/L (<34); CHOLESTEROL LEVEL 69 MG/DL (<200); CHOLESTEROL RISK RATIO 3.05 (<5); LDL CHOLESTEROL 23.0 MG/DL (<100); NON-HDL-C 46.4 MG/DL; TRIGLYCERIDES LEVEL 117 MG/DL (<150)
[2025-04-06 08:49] LABS: HEPATITIS C VIRUS ABY INDEX > 11.00 INDEX (<0.8)
[2025-04-06] MEDS: ALPRAZolam 0.5 MG TAB PO PRN (08:49)
[2025-04-06] MEDS: TIOTROPIUM BROM 2.5MCG/ACTUATION 4GM INH INH SCH (10:33)
[2025-04-06] MEDS: IBUPROFEN 400 MG TAB PO PRN (11:29)
[2025-04-06 15:23] VITALS: BP 133/60; TEMP 97.5; O2SAT 96
[2025-04-06] MEDS: traZODone 50 MG TAB PO PRN (20:35)
[2025-04-07 06:35] VITALS: BP 121/58; TEMP 97.8; O2SAT 98
[2025-04-07 15:42] VITALS: BP 148/61; TEMP 97.2; O2SAT 98
[2025-04-07] MEDS: MOM 30 ML SUSPENSION UDC PO PRN (16:04)
[2025-04-07 16:47] LABS: HCV RNA QUANTITATION 22400.0 IU/mL (NOT DETECTED); HCV RNA log10 4.35 Log IU/mL (NOT DETECTED)
[2025-04-08] MEDS ORDERED: DOXE25CA PO (00:25)
[2025-04-08] MEDS ORDERED: LATU40TA2 PO (00:25)
[2025-04-08] MEDS ORDERED: ROPI2TAB20 PO (00:25)
[2025-04-08 06:47] VITALS: BP 115/61; TEMP 97.7; O2SAT 95
[2025-04-10 00:43] LABS: ANTI-SMOOTH MUSCLE ANTIBODY < 20 U (<20); LIVER-KIDNEY MICROSOMAL ABY <= 20.0 U (<=20.0)
== END 2025-04-08 11:15 | disposition home or self-care (01) | DRG 885 ==
LOC: M ED 01:14 → M ED INP 15:56 → M PSY 17:03
PROVIDERS: ADMIT Internal Medicine; ATTEND Internal Medicine
DX: F31.5 Bipolar disorder, current episode depressed, severe, with psychotic features (principal); F41.1 Generalized anxiety disorder; F41.0 Panic disorder [episodic paroxysmal anxiety]; Z91.51 Personal history of suicidal behavior; Z56.0 Unemployment, unspecified; F15.90 Other stimulant use, unspecified, uncomplicated; G47.00 Insomnia, unspecified; J44.9 Chronic obstructive pulmonary disease, unspecified; G25.81 Restless legs syndrome; M06.9 Rheumatoid arthritis, unspecified; K21.9 Gastro-esophageal reflux disease without esophagitis; M54.9 Dorsalgia, unspecified; G89.29 Other chronic pain; Z79.01 Long term (current) use of anticoagulants; Z79.899 Other long term (current) drug therapy; Z88.8 Allergy status to other drugs, medicaments and biological substances

== ENCOUNTER 2025-04-24 00:34 | Inpatient (IN) | payer MEDICARE ==
[~2025-04-24] VITALS: Ht 157.5 cm; Wt 75.0 kg
[~2025-04-24 00:34] MED LIST changes: +DOXE25CA PO; +LATU40TA2 PO; +ROPI2TAB20 PO
[2025-04-24 01:22] LABS: PLATELET COUNT, AUTOMATED 169 10^3/uL (150-450)
[2025-04-24 01:43] LABS: ETHYL ALCOHOL (ETHANOL) 0.005 % (0.000-0.010)
[2025-04-24 01:45] LABS: SALICYLATE LEVEL < 3.0 MG/DL (<30)
[2025-04-24 01:50] LABS: ALT/SGPT 34 U/L (7.0-40); AST/SGOT 58 U/L (<34); CALCIUM LEVEL 8.6 MG/DL (8.3-10.6); CARBON DIOXIDE LEVEL 27 MMOL/L (20-31); CHLORIDE LEVEL 112 MMOL/L (98-107); CREATININE FOR GFR 0.80 MG/DL (0.55-1.30); GLOMERULAR FILTRATION RATE 84.3 (>45); POTASSIUM SERUM 3.7 MMOL/L (3.5-5.1); SODIUM LEVEL 147 MMOL/L (136-145)
[2025-04-24] MEDS ORDERED: HOME MED LIST COMPLETE! XX SCH (07:15)
[2025-04-24] MEDS ORDERED: LURA40TA2 PO (07:15)
[2025-04-24] MEDS ORDERED: ALPRAZolam 0.5 MG TAB PO PRN (07:40)
[2025-04-24] MEDS: OMEPRAZOLE 20MG CAP PO SCH (08:35)
[2025-04-24] MEDS: APIXABAN 5 MG TAB PO SCH ×2 (08:36→21:23)
[2025-04-24] MEDS: GABAPENTIN 300 MG CAP PO SCH ×2 (08:36→15:30)
[2025-04-24] MEDS: NICOTINE 14 MG/24 HR TRANSDERMAL TD SCH (09:00)
[2025-04-24 12:31] LABS: BARBITURATES URINE NEGATIVE (NEGATIVE); CANNABINOIDS URINE NEGATIVE (NEGATIVE); COCAINE METABOLITE URINE NEGATIVE (NEGATIVE); METHADONE URINE NEGATIVE (NEGATIVE); OPIATES URINE NEGATIVE (NEGATIVE); PHENCYCLIDINE URINE NEGATIVE (NEGATIVE)
[2025-04-24 12:34] LABS: AMPHETAMINES LEVEL URINE POSITIVE (NEGATIVE); BENZODIAZEPINES URINE POSITIVE (NEGATIVE)
[2025-04-24] MEDS ORDERED: traZODone 50 MG TAB PO PRN (13:30)
[2025-04-24] MEDS ORDERED: OLANZapine 5 MG TAB PO PRN (13:30)
[2025-04-24] MEDS ORDERED: LORazepam 1 MG TAB PO PRN (13:30)
[2025-04-24] MEDS ORDERED: MOM 30 ML SUSPENSION UDC PO PRN (13:30)
[2025-04-24] MEDS ORDERED: HALOPERIDOL 5 MG TAB PO PRN (13:30)
[2025-04-24] MEDS ORDERED: MAALOX 30 ML SUSP *UDC PO PRN (13:30)
[2025-04-24] MEDS ORDERED: ALBUTEROL 90 MCG/ACT 8 GM HFA INHALER INH PRN (13:35)
[2025-04-24 14:50] VITALS: BP 113/70; TEMP 97; O2SAT 96
[2025-04-24] MEDS ORDERED: LURASIDONE HCL 40 MG TAB PO SCH (18:00)
[2025-04-24] MEDS: LURASIDONE HCL 40 MG TAB PO SCH (18:00)
[2025-04-24] MEDS: ALPRAZolam 0.5 MG TAB PO PRN (18:34)
[2025-04-24] MEDS ORDERED: ATORVASTATIN 20 MG TAB PO SCH (21:00)
[2025-04-24] MEDS ORDERED: DOXEPIN 25 MG CAP PO SCH (21:00)
[2025-04-24] MEDS: ATORVASTATIN 20 MG TAB PO SCH (21:23)
[2025-04-24] MEDS: DOXEPIN 25 MG CAP PO SCH (21:23)
[2025-04-25 06:22] VITALS: BP 136/60; TEMP 97.4; O2SAT 96
[2025-04-25] MEDS: TIOTROPIUM BROM 2.5MCG/ACTUATION 4GM INH INH SCH (08:00)
[2025-04-25] MEDS: CETIRIZINE 10 MG TAB PO SCH (08:40)
[2025-04-25] MEDS: OMEPRAZOLE 20MG CAP PO SCH (08:40)
[2025-04-25] MEDS: ACETAMINOPHEN 325 MG TAB PO PRN (08:44)
[2025-04-25 12:02] LABS: IRON (FE) 17 UG/DL (50-170); PERCENT SATURATION 5.2 % (13.2-45.0)
[2025-04-25 12:05] LABS: VITAMIN B12 LEVEL 579 PG/ML (211-911)
[2025-04-25 15:28] VITALS: BP 111/72; TEMP 97; O2SAT 98
[2025-04-25] MEDS: CHLORHEXIDINE GLUCONATE 0.12% 15 ML UDC MT SCH (20:50)
[2025-04-26 06:00] VITALS: BP 134/62; TEMP 98.6; O2SAT 93
[2025-04-26] MEDS: FOLIC ACID 1 MG TAB PO SCH (08:46)
[2025-04-26] MEDS: FERROUS SULFATE 325 MG TAB PO SCH (08:46)
[2025-04-26] MEDS: IBUPROFEN 400 MG TAB PO PRN (08:48)
[2025-04-26] MEDS ORDERED: ABIL1TAB11 PO (11:09)
== END 2025-04-26 13:56 | disposition home or self-care (01) | DRG 885 ==
LOC: M ED 00:34 → M ED INP 13:29 → M PSY 14:13
PROVIDERS: ADMIT Internal Medicine; ATTEND Internal Medicine
DX: F31.5 Bipolar disorder, current episode depressed, severe, with psychotic features (principal); R45.851 Suicidal ideations; E87.0 Hyperosmolality and hypernatremia; F41.9 Anxiety disorder, unspecified; F43.10 Post-traumatic stress disorder, unspecified; R45.850 Homicidal ideations; Z91.148 Patient's other noncompliance with medication regimen for other reason; Z79.899 Other long term (current) drug therapy; Z88.8 Allergy status to other drugs, medicaments and biological substances; F17.210 Nicotine dependence, cigarettes, uncomplicated; J44.9 Chronic obstructive pulmonary disease, unspecified; G25.81 Restless legs syndrome; Z86.711 Personal history of pulmonary embolism; Z86.718 Personal history of other venous thrombosis and embolism; Z79.01 Long term (current) use of anticoagulants; E78.5 Hyperlipidemia, unspecified; G62.9 Polyneuropathy, unspecified; D53.9 Nutritional anemia, unspecified; K21.9 Gastro-esophageal reflux disease without esophagitis; S92.531A Displaced fracture of distal phalanx of right lesser toe(s), initial encounter for closed fracture; W18.30XA Fall on same level, unspecified, initial encounter; Y92.009 Unspecified place in unspecified non-institutional (private) residence as the place of occurrence of the external cause

== ENCOUNTER 2025-04-29 21:27 | Emergency (ER) | payer MEDICARE ==
[~2025-04-29] VITALS: Ht 157.5 cm; Wt 64.2 kg
[~2025-04-29 21:27] MED LIST changes: +ABIL1TAB11 PO
[2025-04-29 22:15] LABS: PLATELET COUNT, AUTOMATED 262 10^3/uL (150-450)
[2025-04-29 22:22] LABS: BARBITURATES URINE NEGATIVE (NEGATIVE); COCAINE METABOLITE URINE NEGATIVE (NEGATIVE); METHADONE URINE NEGATIVE (NEGATIVE); OPIATES URINE NEGATIVE (NEGATIVE); PHENCYCLIDINE URINE NEGATIVE (NEGATIVE)
[2025-04-29 22:23] LABS: CANNABINOIDS URINE NEGATIVE (NEGATIVE)
[2025-04-29 22:40] LABS: ETHYL ALCOHOL (ETHANOL) < 0.003 % (0.000-0.010)
[2025-04-29 22:42] LABS: SALICYLATE LEVEL < 3.0 MG/DL (<30)
[2025-04-29 22:46] LABS: ALT/SGPT 27 U/L (7.0-40); AMPHETAMINES LEVEL URINE POSITIVE (NEGATIVE); AST/SGOT 37 U/L (<34); BENZODIAZEPINES URINE POSITIVE (NEGATIVE); CALCIUM LEVEL 9.8 MG/DL (8.3-10.6); CARBON DIOXIDE LEVEL 23 MMOL/L (20-31); CHLORIDE LEVEL 109 MMOL/L (98-107); CREATININE FOR GFR 0.71 MG/DL (0.55-1.30); GLOMERULAR FILTRATION RATE > 90.0 (>45); POTASSIUM SERUM 4.3 MMOL/L (3.5-5.1); SODIUM LEVEL 145 MMOL/L (136-145)
[2025-04-30] MEDS ORDERED: HOME MED LIST COMPLETE! XX SCH (00:35)
[2025-04-30] MEDS: LORazepam 0.5 MG TAB PO ONE (00:35)
[2025-04-30] MEDS: CETIRIZINE 10 MG TAB PO SCH (10:45)
[2025-04-30] MEDS: APIXABAN 5 MG TAB PO SCH (10:45)
[2025-04-30] MEDS: ALPRAZolam 0.5 MG TAB PO PRN (12:08)
[2025-04-30 14:45] VITALS: BP 120/71; TEMP 98.1; O2SAT 98
[2025-04-30] MEDS ORDERED: GABAPENTIN 300 MG CAP PO SCH (16:00)
[2025-04-30] MEDS ORDERED: OMEPRAZOLE 20MG CAP PO SCH (21:00)
[2025-04-30] MEDS ORDERED: ATORVASTATIN 20 MG TAB PO SCH (21:00)
[2025-04-30] MEDS ORDERED: DOXEPIN 25 MG CAP PO SCH (21:00)
== END 2025-04-30 14:49 | disposition home or self-care (01) ==
LOC: M ED 21:27
DX: F19.951 Other psychoactive substance use, unspecified with psychoactive substance-induced psychotic disorder with hallucinations (principal); F31.9 Bipolar disorder, unspecified; F41.9 Anxiety disorder, unspecified; F43.10 Post-traumatic stress disorder, unspecified; F17.200 Nicotine dependence, unspecified, uncomplicated; F10.10 Alcohol abuse, uncomplicated; Z79.52 Long term (current) use of systemic steroids; Z79.01 Long term (current) use of anticoagulants; Z79.899 Other long term (current) drug therapy; Z79.02 Long term (current) use of antithrombotics/antiplatelets; Z88.8 Allergy status to other drugs, medicaments and biological substances; Z91.048 Other nonmedicinal substance allergy status

== ENCOUNTER 2025-05-04 08:28 | Inpatient (IN) | payer MEDICARE, MEDICAID ==
[~2025-05-04] VITALS: Ht 157.5 cm; Wt 145.0 kg
[2025-05-04 09:15] LABS: PLATELET COUNT, AUTOMATED 238 10^3/uL (150-450)
[2025-05-04 09:35] LABS: ETHYL ALCOHOL (ETHANOL) < 0.003 % (0.000-0.010)
[2025-05-04 09:37] LABS: ALT/SGPT 26 U/L (7.0-40); AST/SGOT 42 U/L (<34); CALCIUM LEVEL 9.5 MG/DL (8.3-10.6); CARBON DIOXIDE LEVEL 23 MMOL/L (20-31); CHLORIDE LEVEL 109 MMOL/L (98-107); CREATININE FOR GFR 0.68 MG/DL (0.55-1.30); GLOMERULAR FILTRATION RATE > 90.0 (>45); POTASSIUM SERUM 4.9 MMOL/L (3.5-5.1); SALICYLATE LEVEL < 3.0 MG/DL (<30); SODIUM LEVEL 143 MMOL/L (136-145)
[2025-05-04 09:41] LABS: AMPHETAMINES LEVEL URINE NEGATIVE (NEGATIVE); BARBITURATES URINE NEGATIVE (NEGATIVE); CANNABINOIDS URINE NEGATIVE (NEGATIVE); COCAINE METABOLITE URINE NEGATIVE (NEGATIVE); METHADONE URINE NEGATIVE (NEGATIVE); OPIATES URINE NEGATIVE (NEGATIVE); PHENCYCLIDINE URINE NEGATIVE (NEGATIVE)
[2025-05-04 09:58] LABS: BENZODIAZEPINES URINE POSITIVE (NEGATIVE)
[2025-05-04] MEDS ORDERED: MULTTAB61 PO (12:18)
[2025-05-04] MEDS ORDERED: HOME MED LIST COMPLETE! XX SCH (12:20)
[2025-05-04] MEDS ORDERED: MAALOX 30 ML SUSP *UDC PO PRN (12:50)
[2025-05-04] MEDS ORDERED: HALOPERIDOL 5 MG TAB PO PRN (12:50)
[2025-05-04] MEDS ORDERED: OLANZapine 5 MG TAB PO PRN (12:50)
[2025-05-04] MEDS ORDERED: traZODone 50 MG TAB PO PRN (12:50)
[2025-05-04] MEDS ORDERED: IBUPROFEN 400 MG TAB PO PRN (12:50)
[2025-05-04] MEDS ORDERED: ALBUTEROL 90 MCG/ACT 8 GM HFA INHALER INH PRN (12:50)
[2025-05-04 15:16] VITALS: BP 168/72; TEMP 98.7; O2SAT 99
[2025-05-04] MEDS: NICOTINE 14 MG/24 HR TRANSDERMAL TD SCH (16:19)
[2025-05-04] MEDS: APIXABAN 5 MG TAB PO SCH (16:19)
[2025-05-04] MEDS: GABAPENTIN 300 MG CAP PO SCH (16:22)
[2025-05-04] MEDS: CETIRIZINE 10 MG TAB PO SCH (16:22)
[2025-05-04] MEDS: DOXEPIN 25 MG CAP PO SCH (20:09)
[2025-05-04] MEDS: OMEPRAZOLE 20MG CAP PO SCH (20:10)
[2025-05-04] MEDS: ACETAMINOPHEN 325 MG TAB PO PRN (20:10)
[2025-05-04] MEDS: ATORVASTATIN 20 MG TAB PO SCH (20:10)
[2025-05-05 06:25] VITALS: BP 113/58; TEMP 97.9; O2SAT 97
[2025-05-05] MEDS: LORazepam 1 MG TAB PO PRN (08:29)
[2025-05-05 15:02] VITALS: BP 123/62; TEMP 97.8; O2SAT 95
[2025-05-05] MEDS: LORazepam 0.5 MG TAB PO PRN (20:13)
[2025-05-06 06:46] VITALS: BP 112/63; TEMP 97.7; O2SAT 99
[2025-05-06] MEDS: buPROPion **XL** 150 MG TABLET PO SCH (08:32)
[2025-05-06 15:32] VITALS: BP 121/79; TEMP 98.1; O2SAT 100
[2025-05-06] MEDS: traZODone 100 MG TAB PO SCH (20:15)
[2025-05-07 06:55] VITALS: BP 122/57; TEMP 97.3; O2SAT 98
[2025-05-07] MEDS: DOXEPIN 25 MG CAP PO SCH (20:16)
[2025-05-08 06:29] VITALS: BP 108/61; TEMP 97.8; O2SAT 94
[2025-05-08 14:43] VITALS: BP 96/64; TEMP 99.3; O2SAT 99
[2025-05-08] MEDS: MOM 30 ML SUSPENSION UDC PO PRN (18:25)
[2025-05-09] MEDS ORDERED: HYDR-3363 PO (00:22)
[2025-05-09] MEDS ORDERED: ABIL10TA9 PO (00:22)
[2025-05-09] MEDS ORDERED: BUPR150T12 PO (00:22)
[2025-05-09] MEDS ORDERED: DOXE100CA PO (00:22)
[2025-05-09 06:31] VITALS: BP 110/56; TEMP 97.1; O2SAT 98
== END 2025-05-09 11:50 | disposition home or self-care (01) | DRG 885 ==
LOC: M ED 08:28 → M ED INP 12:49 → M PSY 15:43
PROVIDERS: ADMIT Internal Medicine; ATTEND Internal Medicine
DX: F31.5 Bipolar disorder, current episode depressed, severe, with psychotic features (principal); R45.851 Suicidal ideations; F41.1 Generalized anxiety disorder; F43.10 Post-traumatic stress disorder, unspecified; R45.850 Homicidal ideations; F17.210 Nicotine dependence, cigarettes, uncomplicated; F41.0 Panic disorder [episodic paroxysmal anxiety]; Z79.899 Other long term (current) drug therapy; Z88.8 Allergy status to other drugs, medicaments and biological substances; B18.2 Chronic viral hepatitis C; J44.9 Chronic obstructive pulmonary disease, unspecified; G25.81 Restless legs syndrome; Z86.711 Personal history of pulmonary embolism; Z86.718 Personal history of other venous thrombosis and embolism; Z79.01 Long term (current) use of anticoagulants; E78.5 Hyperlipidemia, unspecified; K21.9 Gastro-esophageal reflux disease without esophagitis; G62.9 Polyneuropathy, unspecified; Z91.199 Patient's noncompliance with other medical treatment and regimen due to unspecified reason; F14.90 Cocaine use, unspecified, uncomplicated

== ENCOUNTER → 2025-05-10 | Outpatient (CLI) | payer MEDICARE, MEDICAID ==
[~2025-05-10] MED LIST changes: +DOXE100CA PO; +HYDR-3363 PO; +MULTTAB61 PO
== END ==
LOC: M SOG 06:59
PROVIDERS: ATTEND Physician Assistant
DX: M79.674 Pain in right toe(s) (principal)

== ENCOUNTER 2025-07-18 01:42 | Inpatient (IN) | payer MEDICARE, MEDICAID ==
[~2025-07-18] VITALS: Ht 157.5 cm; Wt 64.1 kg
[2025-07-18 02:21] LABS: PLATELET COUNT, AUTOMATED 247 10^3/uL (150-450)
[2025-07-18 02:43] LABS: ETHYL ALCOHOL (ETHANOL) < 0.003 % (0.000-0.010)
[2025-07-18 02:45] LABS: ALT/SGPT 82 U/L (7.0-40); AST/SGOT 84 U/L (<34); CALCIUM LEVEL 9.1 MG/DL (8.3-10.6); CARBON DIOXIDE LEVEL 21 MMOL/L (20-31); CHLORIDE LEVEL 107 MMOL/L (98-107); CREATININE FOR GFR 0.70 MG/DL (0.55-1.30); GLOMERULAR FILTRATION RATE > 90.0 (>45); POTASSIUM SERUM 4.3 MMOL/L (3.5-5.1); SALICYLATE LEVEL < 3.0 MG/DL (<30); SODIUM LEVEL 139 MMOL/L (136-145)
[2025-07-18 04:23] LABS: BARBITURATES URINE NEGATIVE (NEGATIVE); CANNABINOIDS URINE NEGATIVE (NEGATIVE); COCAINE METABOLITE URINE NEGATIVE (NEGATIVE); METHADONE URINE NEGATIVE (NEGATIVE); OPIATES URINE NEGATIVE (NEGATIVE); PHENCYCLIDINE URINE NEGATIVE (NEGATIVE)
[2025-07-18 04:25] LABS: AMPHETAMINES LEVEL URINE POSITIVE (NEGATIVE); BENZODIAZEPINES URINE POSITIVE (NEGATIVE)
[2025-07-18] MEDS ORDERED: ARIP1TAB PO (07:45)
[2025-07-18] MEDS ORDERED: HOME MED LIST COMPLETE! XX SCH (07:50)
[2025-07-18] MEDS ORDERED: MAALOX 30 ML SUSP *UDC PO PRN (12:15)
[2025-07-18] MEDS ORDERED: MOM 30 ML SUSPENSION UDC PO PRN (12:15)
[2025-07-18 15:14] VITALS: BP 127/72; TEMP 98; O2SAT 98
[2025-07-18] MEDS: GABAPENTIN 300 MG CAP PO SCH (15:53)
[2025-07-18] MEDS: ALPRAZolam 0.5 MG TAB PO PRN (15:54)
[2025-07-18] MEDS: OMEPRAZOLE 20MG CAP PO SCH (21:55)
[2025-07-18] MEDS: DOXEPIN 25 MG CAP PO SCH (21:55)
[2025-07-18] MEDS: traZODone 50 MG TAB PO PRN (21:56)
[2025-07-18] MEDS: ATORVASTATIN 20 MG TAB PO SCH (21:56)
[2025-07-19 06:13] VITALS: BP 100/64; TEMP 97.3; O2SAT 96
[2025-07-19] MEDS: CETIRIZINE 10 MG TAB PO SCH (08:07)
[2025-07-19] MEDS: ACETAMINOPHEN 325 MG TAB PO PRN (08:08)
[2025-07-19] MEDS: APIXABAN 5 MG TAB PO SCH (11:18)
[2025-07-19] MEDS: ALBUTEROL 90 MCG/ACT 8 GM HFA INHALER INH PRN (16:24)
[2025-07-19 18:05] VITALS: BP 111/65; TEMP 97.6; O2SAT 98
[2025-07-20 06:21] VITALS: BP 98/54; TEMP 97.1; O2SAT 94
[2025-07-20 18:13] VITALS: BP 140/73; TEMP 97.4; O2SAT 99
[2025-07-21 06:31] VITALS: BP 112/66; TEMP 97; O2SAT 97
[2025-07-21] MEDS ORDERED: VRAY1.5C PO (08:11)
== END 2025-07-21 12:15 | disposition home or self-care (01) | DRG 885 ==
LOC: M ED 01:42 → M ED INP 12:15 → M PSY 13:08
PROVIDERS: ADMIT General Practice; ATTEND General Practice
DX: F31.9 Bipolar disorder, unspecified (principal); F41.9 Anxiety disorder, unspecified; F43.10 Post-traumatic stress disorder, unspecified; F15.90 Other stimulant use, unspecified, uncomplicated; Z86.711 Personal history of pulmonary embolism; Z86.718 Personal history of other venous thrombosis and embolism; Z79.01 Long term (current) use of anticoagulants; K21.9 Gastro-esophageal reflux disease without esophagitis; G62.9 Polyneuropathy, unspecified; G25.81 Restless legs syndrome; F17.200 Nicotine dependence, unspecified, uncomplicated; J44.9 Chronic obstructive pulmonary disease, unspecified; E78.5 Hyperlipidemia, unspecified; Z79.899 Other long term (current) drug therapy; Z88.8 Allergy status to other drugs, medicaments and biological substances; Z91.199 Patient's noncompliance with other medical treatment and regimen due to unspecified reason

== ENCOUNTER 2025-07-26 14:01 | Inpatient (IN) | payer MEDICARE, MEDICAID ==
[~2025-07-26] VITALS: Ht 157.5 cm; Wt 76.5 kg
[2025-07-26] MEDS: NALOXONE INJ 0.4 MG/1 ML VIAL IV STA (14:51)
[2025-07-26 15:04] LABS: ABG BASE EXCESS 0.0 (-2.0-2.0); ABG HCO3 24.3 MMOL/L (22.0-26.0); ABG O2 SATURATION 92.2 % (95.0-99.0); ABG PARTIAL PRESSURE CO2 38.4 mmHg (35.0-45.0); ABG PARTIAL PRESSURE O2 62.5 mmHg (75.0-100.0); ABG STANDARD HCO3 24.4 MMOL/L. (22.0-26.0); ABG TOTAL CO2 25.5 MMOL/L (23.0-31.0); ABG pH (ARTERIAL) 7.420 UNITS (7.350-7.450)
[2025-07-26 15:06] LABS: PLATELET COUNT, AUTOMATED 185 10^3/uL (150-450)
[2025-07-26] MEDS: NS (Normal Saline) 0.9% 1,000 ML IV ONE ×2 (15:10→20:50)
[2025-07-26 15:43] LABS: ALT/SGPT 68.0 U/L (7.0-40); AST/SGOT 85.0 U/L (<34); CK-MB VALUE MASS 1.6 NG/ML (<3.6); CPK CREATINE PHOSPHOKINASE 194.0 U/L (34-145); MB/CK RELATIVE INDEX 0.82 (< OR =4); THYROXINE (T4) 9.4 UG/DL (4.5-10.9)
[2025-07-26 15:45] LABS: ATYPICAL LYMPH 8 % (0-5); LYMPHOCYTES 21 % (16-44); MONOCYTES 1 % (0-5); NEUTROPHILS 56 % (28-66)
[2025-07-26 15:46] LABS: PLATELET ESTIMATE NORMAL (NORMAL)
[2025-07-26] MEDS ORDERED: ISOVUE-370 76% 100 ML VIAL As Ordered ONE (17:05)
[2025-07-26 17:33] LABS: KETONE, URINE AUTO RFX NEGATIVE (NEGATIVE); RBC, URINE AUTO RFX 13 /HPF (0-3); SQUAM EPITHELIAL CELL UR AURFX 0 /HPF (0-6); WBC, URINE AUTO RFX 10 /HPF (0-3)
[2025-07-26 17:46] LABS: BARBITURATES URINE NEGATIVE (NEGATIVE); CANNABINOIDS URINE NEGATIVE (NEGATIVE); COCAINE METABOLITE URINE NEGATIVE (NEGATIVE); METHADONE URINE NEGATIVE (NEGATIVE); OPIATES URINE NEGATIVE (NEGATIVE); PHENCYCLIDINE URINE NEGATIVE (NEGATIVE)
[2025-07-26 17:48] LABS: AMPHETAMINES LEVEL URINE POSITIVE (NEGATIVE); BENZODIAZEPINES URINE POSITIVE (NEGATIVE)
[2025-07-26 17:49] LABS: CK-MB VALUE MASS 1.0 NG/ML (<3.6)
[2025-07-26 17:49] LABS: LEUKOCYTE ESTERASE UR AUTO RFX 2+ (NEGATIVE); NITRITE, URINE AUTO RFX POSITIVE (NEGATIVE)
[2025-07-26 17:54] LABS: CPK CREATINE PHOSPHOKINASE 141.0 U/L (34-145); MB/CK RELATIVE INDEX 0.7 (< OR =4)
[2025-07-26] MEDS: PIPERACILLIN/TAZOBACTAM SOD 4.5 GM in DEXTROSE 5% (D5W) ADV/MINI-BAG 50 ML IV ONE (18:37)
[2025-07-26] MEDS: NS (Normal Saline) 0.9% 1,000 ML IV SCH ×2 (18:43→19:33)
[2025-07-26] MEDS: DOXYCYCLINE HYCLATE 100 MG in DEXTROSE 5% (D5W) MINI-BAG PLU 100 ML IV ONE (19:32)
[2025-07-26] MEDS: IPRATROPIUM 0.5 MG/ALBUTEROL 2.5 MG INH SOL UD 3 ML NEB SCH (20:10)
[2025-07-26] MEDS ORDERED: HOME MED LIST COMPLETE! XX SCH (20:25)
[2025-07-26] MEDS: cefTRIAXone SOD 2 GM in DEXTROSE 5% (D5W) ADV/MINI-BAG 50 ML IV SCH (20:32)
[2025-07-26] MEDS: PANTOPRAZOLE 40MG TAB PO SCH (20:47)
[2025-07-26] MEDS: APIXABAN 5 MG TAB PO SCH (21:00)
[2025-07-26] MEDS: DOXEPIN 25 MG CAP PO SCH (21:00)
[2025-07-26] MEDS: GABAPENTIN 300 MG CAP PO SCH (21:00)
[2025-07-26] MEDS ORDERED: OMEPRAZOLE 20MG CAP PO SCH (21:00)
[2025-07-26] MEDS ORDERED: ALBUTEROL 90 MCG/ACT 8 GM HFA INHALER INH PRN (22:55)
[2025-07-26] MEDS: ACETAMINOPHEN 325 MG TAB PO PRN (23:21)
[2025-07-26 23:45] VITALS: BP 98/50; TEMP 101; O2SAT 93
[2025-07-27 04:12] VITALS: BP_SYST 87; BP_SYST 93; BP_DIAS 54; BP_DIAS 55; TEMP 99.6; O2SAT 96
[2025-07-27 06:35] VITALS: BP 93/52; TEMP 98.7; O2SAT 91
[2025-07-27 06:59] LABS: ALT/SGPT 52 U/L (7.0-40); AST/SGOT 48 U/L (<34); CALCIUM LEVEL 8.3 MG/DL (8.3-10.6); CARBON DIOXIDE LEVEL 17 MMOL/L (20-31); CHLORIDE LEVEL 113 MMOL/L (98-107); CREATININE FOR GFR 0.75 MG/DL (0.55-1.30); GLOMERULAR FILTRATION RATE > 90.0 (>45); MAGNESIUM LEVEL 1.6 MG/DL (1.8-2.4); POTASSIUM SERUM 4.4 MMOL/L (3.5-5.1); SODIUM LEVEL 142 MMOL/L (136-145)
[2025-07-27 07:12] LABS: PLATELET COUNT, AUTOMATED 134 10^3/uL (150-450)
[2025-07-27] MEDS: DOXYCYCLINE HYCLATE 100 MG in DEXTROSE 5% (D5W) MINI-BAG PLU 100 ML IV SCH (07:56)
[2025-07-27] MEDS ORDERED: ALBUTEROL SULFATE 2.5 MG/0.5 ML INH CONCENTRATE NEB SOLN NEB PRN (08:50)
[2025-07-27] MEDS: TIOTROPIUM BROM 2.5MCG/ACTUATION 4GM INH INH SCH (08:50)
[2025-07-27] MEDS ORDERED: LIDOCAINE 5% PATCH TD SCH (09:00)
[2025-07-27] MEDS ORDERED: ENOXAPARIN 40 MG/0.4 ML SYRINGE (J1650 PER 10MG) SC ONE (09:00)
[2025-07-27] MEDS: CETIRIZINE 10 MG TAB PO SCH (09:10)
[2025-07-27] MEDS: ALPRAZolam 0.5 MG TAB PO PRN (10:36)
[2025-07-27] MEDS: PIPERACILLIN/TAZOBACTAM SOD 4.5 GM in DEXTROSE 5% (D5W) ADV/MINI-BAG 50 ML IV SCH (10:36)
[2025-07-27] MEDS: IPRATROPIUM 0.5 MG/ALBUTEROL 2.5 MG INH SOL UD 3 ML NEB SCH (11:24)
[2025-07-27 12:30] VITALS: BP 115/64; TEMP 99.5; O2SAT 92
[2025-07-27] MEDS: MAG SULF 1GM/100ML (MAG RUN) 1 GM in IV 1 EA IV SCH (13:05)
[2025-07-27] MEDS: SODIUM BICARBONATE 325 MG TAB PO SCH (15:28)
[2025-07-27 15:43] VITALS: BP 107/55; TEMP 98.5; O2SAT 93
[2025-07-27 16:47] LABS: VENOUS BASE EXCESS -5.7 (-2.0-2.0); VENOUS HCO3 19.0 MMOL/L (23.0-27.0); VENOUS O2 SATURATION 99.6 % (60.0-80.0); VENOUS PARTIAL PRESSURE CO2 34.3 mmHg (38.0-50.0); VENOUS PARTIAL PRESSURE O2 207.1 mmHg (30.0-50.0); VENOUS PH 7.361 UNITS (7.330-7.430); VENOUS STANDARD HCO3 19.8 MMOL/L; VENOUS TOTAL CO2 20.0 MMOL/L (24.0-28.0)
[2025-07-27 16:53] LABS: IRON (FE) 6.0 UG/DL (50-170); PERCENT SATURATION 2.0 % (13.2-45.0)
[2025-07-27 16:54] LABS: BASO # 0.0 10^3/uL (0.0-0.2); BASO % 0.0 % (0.0-1.0); EOS # 0.0 10^3/uL (0.0-0.5); EOS % 0.0 % (0.0-3.0); LYMPH # 0.5 10^3/uL (1.5-5.0); LYMPH % 8.5 % (24.0-44.0); MONO # 0.3 10^3/uL (0.0-0.8); MONO % 4.4 % (2.0-8.0); NEUTROPHILS # 5.3 10^3/uL (1.5-8.5); NEUTROPHILS % 86.3 % (36.0-66.0); PLATELET COUNT, AUTOMATED 153 10^3/uL (150-450)
[2025-07-27 16:57] LABS: VITAMIN B12 LEVEL 727.0 PG/ML (211-911)
[2025-07-27 17:26] LABS: CALCIUM LEVEL 8.2 MG/DL (8.3-10.6); CARBON DIOXIDE LEVEL 21 MMOL/L (20-31); CHLORIDE LEVEL 109 MMOL/L (98-107); CREATININE FOR GFR 0.67 MG/DL (0.55-1.30); GLOMERULAR FILTRATION RATE > 90.0 (>45); POTASSIUM SERUM 3.2 MMOL/L (3.5-5.1); SODIUM LEVEL 141 MMOL/L (136-145)
[2025-07-27] MEDS: LR 1,000 ML IV SCH (17:44)
[2025-07-27] MEDS: POTASSIUM CHLORIDE 10MEQ SR TABLET PO SCH (17:45)
[2025-07-27 18:00] VITALS: BP 112/68; TEMP 98; O2SAT 92
[2025-07-27] MEDS ORDERED: DICLOFENAC EPOLAMINE 1.3% PATCH TOP PRN (18:10)
[2025-07-27] MEDS: LIDOCAINE 5% PATCH TD SCH (20:43)
[2025-07-27] MEDS: ATORVASTATIN 20 MG TAB PO SCH (20:44)
[2025-07-27] MEDS ORDERED: DOXYCYCLINE HYCLATE 100 MG TABLET PO SCH (21:00)
[2025-07-27 23:42] VITALS: BP 126/65; TEMP 98.4; O2SAT 97
[2025-07-28 06:00] VITALS: BP 127/69; TEMP 97.3; O2SAT 97
[2025-07-28 06:02] LABS: PLATELET COUNT, AUTOMATED 140 10^3/uL (150-450)
[2025-07-28 06:33] LABS: CALCIUM LEVEL 8.4 MG/DL (8.3-10.6); CARBON DIOXIDE LEVEL 24 MMOL/L (20-31); CHLORIDE LEVEL 112 MMOL/L (98-107); CREATININE FOR GFR 0.67 MG/DL (0.55-1.30); GLOMERULAR FILTRATION RATE > 90.0 (>45); POTASSIUM SERUM 4.6 MMOL/L (3.5-5.1); SODIUM LEVEL 145 MMOL/L (136-145)
[2025-07-28] MEDS: CALCIUM CARBONATE 500 MG CHEW U/D PO PRN (07:24)
[2025-07-28] MEDS ORDERED: LIDOCAINE 5% PATCH TD SCH (09:00)
[2025-07-28 10:08] VITALS: BP 135/70; TEMP 99.1; O2SAT 95
[2025-07-28] MEDS: ONDANSETRON 4MG/2ML VIAL IV PRN (13:05)
[2025-07-28 19:00] VITALS: BP 149/64; TEMP 98.1; O2SAT 97
[2025-07-29 06:01] LABS: PLATELET COUNT, AUTOMATED 194 10^3/uL (150-450)
[2025-07-29 06:26] LABS: CALCIUM LEVEL 8.6 MG/DL (8.3-10.6); CARBON DIOXIDE LEVEL 27 MMOL/L (20-31); CHLORIDE LEVEL 108 MMOL/L (98-107); CREATININE FOR GFR 0.64 MG/DL (0.55-1.30); GLOMERULAR FILTRATION RATE > 90.0 (>45); POTASSIUM SERUM 4.6 MMOL/L (3.5-5.1); SODIUM LEVEL 143 MMOL/L (136-145)
[2025-07-29 06:37] VITALS: BP 166/77; TEMP 98.9; O2SAT 97
[2025-07-29] MEDS: IRON POLYSAC 150 MG CAP PO SCH (10:09)
[2025-07-29] MEDS: FOLIC ACID 1 MG TAB PO SCH (10:10)
[2025-07-29 10:38] VITALS: BP 142/65; TEMP 98.7; O2SAT 100
[2025-07-29 14:19] VITALS: BP 157/74; TEMP 98.5; O2SAT 95
[2025-07-29 18:57] VITALS: BP 147/69; TEMP 98.3; O2SAT 92
[2025-07-29 20:00] VITALS: BP 135/66; TEMP 98.7; O2SAT 93
[2025-07-29 23:58] VITALS: BP 144/70; TEMP 98.8; O2SAT 92
[2025-07-30 05:39] VITALS: BP 149/69; TEMP 98.3; O2SAT 95
[2025-07-30 06:26] LABS: PLATELET COUNT, AUTOMATED 225 10^3/uL (150-450)
[2025-07-30 06:54] LABS: CALCIUM LEVEL 8.4 MG/DL (8.3-10.6); CARBON DIOXIDE LEVEL 28 MMOL/L (20-31); CHLORIDE LEVEL 104 MMOL/L (98-107); CREATININE FOR GFR 0.62 MG/DL (0.55-1.30); GLOMERULAR FILTRATION RATE > 90.0 (>45); POTASSIUM SERUM 4.0 MMOL/L (3.5-5.1); SODIUM LEVEL 142 MMOL/L (136-145)
[2025-07-30 10:00] VITALS: BP 156/74; TEMP 98.3; O2SAT 95
[2025-07-30 14:00] VITALS: BP 144/77; TEMP 98.6; O2SAT 94
[2025-07-30 18:00] VITALS: BP 146/74; TEMP 98.1; O2SAT 95
[2025-07-30 19:38] VITALS: BP 152/62; TEMP 97.8; O2SAT 94
[2025-07-30 20:00] VITALS: O2SAT 93
[2025-07-30] MEDS ORDERED: IPRATROPIUM 0.5 MG/ALBUTEROL 2.5 MG INH SOL UD 3 ML NEB PRN (20:05)
[2025-07-31] VITALS (8 sets, daily range): BP systolic 120–164; BP diastolic 55–77; TEMP 97.3–99.3; O2SAT 91–94
[2025-07-31 06:16] LABS: PLATELET COUNT, AUTOMATED 237 10^3/uL (150-450)
[2025-07-31 06:41] LABS: CALCIUM LEVEL 8.4 MG/DL (8.3-10.6); CARBON DIOXIDE LEVEL 29 MMOL/L (20-31); CHLORIDE LEVEL 103 MMOL/L (98-107); CREATININE FOR GFR 0.60 MG/DL (0.55-1.30); GLOMERULAR FILTRATION RATE > 90.0 (>45); POTASSIUM SERUM 3.9 MMOL/L (3.5-5.1); SODIUM LEVEL 141 MMOL/L (136-145)
[2025-07-31] MEDS: predniSONE 20 MG TAB PO SCH (09:31)
[2025-08-01 05:38] VITALS: BP 174/81; TEMP 97.7; O2SAT 90
[2025-08-01 06:34] LABS: PLATELET COUNT, AUTOMATED 267 10^3/uL (150-450)
[2025-08-01 06:49] LABS: CALCIUM LEVEL 8.0 MG/DL (8.3-10.6); CARBON DIOXIDE LEVEL 29 MMOL/L (20-31); CHLORIDE LEVEL 105 MMOL/L (98-107); CREATININE FOR GFR 0.64 MG/DL (0.55-1.30); GLOMERULAR FILTRATION RATE > 90.0 (>45); POTASSIUM SERUM 4.0 MMOL/L (3.5-5.1); SODIUM LEVEL 141 MMOL/L (136-145)
[2025-08-01] MEDS: MOM 30 ML SUSPENSION UDC PO PRN (08:18)
[2025-08-01] MEDS ORDERED: METR-265 PO (13:08)
[2025-08-01] MEDS ORDERED: PRED10TA2 PO (13:08)
[2025-08-01] MEDS ORDERED: LEVO1TAB40 PO (13:08)
[2025-08-02] MEDS ORDERED: FERR240T PO (15:29)
[2025-08-02] MEDS ORDERED: NICO14DI6 TOP (15:34)
== END 2025-08-01 16:30 | disposition home health service (06) | DRG 871 ==
LOC: M ED 14:01 → EDBD 14:01 → M ED INP 19:03 → M MS5PR 22:30
PROVIDERS: ADMIT Internal Medicine; ATTEND Student in an Organized Health Care Education/Training Program
DX: A41.9 Sepsis, unspecified organism (principal); J18.9 Pneumonia, unspecified organism; J96.01 Acute respiratory failure with hypoxia; N39.0 Urinary tract infection, site not specified; F17.200 Nicotine dependence, unspecified, uncomplicated; J44.9 Chronic obstructive pulmonary disease, unspecified; F15.10 Other stimulant abuse, uncomplicated; D64.9 Anemia, unspecified; E78.5 Hyperlipidemia, unspecified; R19.7 Diarrhea, unspecified; R74.01 Elevation of levels of liver transaminase levels; B96.20 Unspecified Escherichia coli [E. coli] as the cause of diseases classified elsewhere; Z86.73 Personal history of transient ischemic attack (TIA), and cerebral infarction without residual deficits; Z79.01 Long term (current) use of anticoagulants; F31.9 Bipolar disorder, unspecified; F41.9 Anxiety disorder, unspecified; G62.9 Polyneuropathy, unspecified; Z79.899 Other long term (current) drug therapy; Z88.8 Allergy status to other drugs, medicaments and biological substances; Z91.148 Patient's other noncompliance with medication regimen for other reason

== ENCOUNTER 2025-08-24 11:15 | Emergency (ER) | payer MEDICARE, MEDICAID ==
[~2025-08-24] VITALS: Ht 157.5 cm; Wt 66.4 kg
[~2025-08-24 11:15] MED LIST changes: +FERR240T PO; +LEVO1TAB40 PO; +METR-265 PO; +NICO14DI6 TOP
[2025-08-24 13:16] VITALS: BP 131/75; TEMP 97.5; O2SAT 98
[2025-08-24] MEDS ORDERED: CEPH500C PO (13:20)
== END 2025-08-24 13:29 | disposition home or self-care (01) ==
LOC: M ED 11:15
DX: B34.8 Other viral infections of unspecified site (principal); L03.116 Cellulitis of left lower limb; K21.9 Gastro-esophageal reflux disease without esophagitis; G47.33 Obstructive sleep apnea (adult) (pediatric); B19.20 Unspecified viral hepatitis C without hepatic coma; E78.5 Hyperlipidemia, unspecified; F31.9 Bipolar disorder, unspecified; F43.10 Post-traumatic stress disorder, unspecified; Z86.711 Personal history of pulmonary embolism; Z86.718 Personal history of other venous thrombosis and embolism; Z79.01 Long term (current) use of anticoagulants; Z79.52 Long term (current) use of systemic steroids; Z79.899 Other long term (current) drug therapy; Z79.02 Long term (current) use of antithrombotics/antiplatelets; Z88.8 Allergy status to other drugs, medicaments and biological substances; Z91.09 Other allergy status, other than to drugs and biological substances

== ENCOUNTER → 2025-09-07 | Outpatient (CLI) | payer MEDICARE, MEDICAID ==
[~2025-09-07] MED LIST changes: +CEPH500C PO
== END ==
LOC: M RAD 09:57
PROVIDERS: ATTEND Physician Assistant
DX: I65.23 Occlusion and stenosis of bilateral carotid arteries (principal)